=== PATIENT | female | born 1945 | race Caucasian/White ===

== ENCOUNTER 2023-06-19 11:40 | Emergency (ER) | payer MEDICARE, SELFPAY ==
[2023-06-19 11:40] VITALS: BP 182/94; PULSE 92; RESP 18; TEMP 36.9; O2SAT 98; BMI 21.5
[2023-06-19 11:50] VITALS: BP 173/89; PULSE 81; RESP 19
--- NOTE | 2023-06-19 11:51 | ED_ITS ---
HPI - Dizziness General Chief Complaint: Dizziness Stated Complaint: DIZZINESS Time Seen by Provider: 06/19/23 11:44 Source: patient and family Mode of arrival: walk-in Limitations: physical limitation History of Present Illness HPI Narrative: 78-year-old female presents for dizziness. She's had this for more than year. She saw her doctor about it and he put her on some anti-dizzy pills. They seem to help sometimes. No trauma or localized weakness. She doesn't complain to me of a headache. This symptom is intermittent. Related Data Home Medications Medication Instructions Recorded Confirmed albuterol sulfate 90 mcg/actuation 2 puff inhalation Q4H PRN 06/19/23 06/19/23 aerosol inhaler shortness of breath or wheezing alprazolam 0.5 mg tablet 0.5 mg PO .Q6HRS PRN anxiety 06/19/23 06/19/23 levothyroxine 50 mcg tablet 50 mcg PO DAILY 06/19/23 06/19/23 Previous Rx's Medication Instructions Recorded meclizine 25 mg tablet 25 mg PO QID PRN dizziness #30 tabs 06/19/23 Allergies Allergy/AdvReac Type Severity Reaction Status Date / Time No Known Drug Allergies Allergy Verified 06/19/23 11:40 Review of Systems ROS Narrative A ten point review of systems is negative except as noted above. PFSH PFSH Social History Smoking status: Former smoker Exam Narrative Exam Narrative: Nurses note and vital signs reviewed and patient is not hypoxic. General: The patient appears well and in no apparent distress. Patient is resting comfortably on cart. Skin: Warm, dry, no pallor noted. There is no rash noted. Head: Normocephalic, atraumatic Eye: Normal conjunctiva, no drainage Ears, Nose, Mouth, and Throat: oral mucosa is moist. Nares patent. Cardiovascular: Regular Rate and Rhythm Respiratory: Patient is in no distress, no accessory muscle use, lungs are clear to auscultation, no wheezing, rales or rhonchi Back: non-tender GI: no tenderness to palpation, no masses appreciated. No rebound, guarding, or rigidity noted. Musculoskeletal: The patient has no evidence of calf tenderness, no pitting edema, symmetrical pulses noted bilaterally Neurological: A&O x4, normal speech; upper and lower extremity strength five o ut five and symmetric Psychiatric: Cooperative Constitutional Vital Signs, click to edit/add: Last Vital Signs Temp 98.4 F 06/19/23 11:40 Pulse 77 06/19/23 12:04 Resp 22 06/19/23 12:04 BP 173/89 H 06/19/23 11:50 Pulse Ox 97 06/19/23 12:04 O2 Del Method Room Air 06/19/23 11:40 Course Vital Signs Vital signs: Vital Signs Temperature 98.4 F 06/19/23 11:40 Pulse Rate 92 H 06/19/23 11:40 Respiratory Rate 18 06/19/23 11:40 Blood Pressure 182/94 H 06/19/23 11:40 Pulse Oximetry 98 06/19/23 11:40 Oxygen Delivery Method Room Air 06/19/23 11:40 Temperature 98.4 F 06/19/23 11:40 Pulse Rate 77 06/19/23 12:04 Respiratory Rate 22 06/19/23 12:04 Blood Pressure 173/89 H 06/19/23 11:50 Pulse Oximetry 97 06/19/23 12:04 Oxygen Delivery Method Room Air 06/19/23 11:40 MDM - Dizziness MDM Narrative Medical decision making narrative: her workup including CT brain is negative and she'll be discharged home on Antivert. She is to follow-up appointment with her doctor on June 25, in six days. Treatment diagnosis and follow-up were discussed with the patient. Differential Diagnosis Differential diagnosis: Likely benign paroxysmal positional vertigo, orthostatic hypotension and cerebrovascular accident Lab Data Attestation: I reviewed the patient's lab results. Labs: Lab Results 06/19/23 06/19/23 06/19/23 Range/Units 12:09 12:12 12:29 WBC 8.8 (4.0-11.0) 10^3/uL RBC 4.10 L (4.20-5.40) 10^6/uL Hgb 13.2 (12.0-16.0) g/dL Hct 38.8 (36.0-48.0) % MCV 94.6 (81.0-99.0) fL MCH 32.2 (26.7-34.0) pg MCHC 34.0 (29.9-35.2) g/dL RDW 12.4 (11.0-15.0) % Plt Count 207 (150-450) 10^3/uL MPV 9.4 L (9.5-13.5) fL Neut % (Auto) 78.4 H (43.0-75.0) % Lymph % (Auto) 14.6 L (20.5-60.0) % [place] % (Auto) 5.3 (1.7-12.0) % Eos % (Auto) 0.7 L (0.9-7.0) % Baso % (Auto) 0.8 (0.2-2.0) % Neut # (Auto) 6.9 H (1.4-6.5) 10^3/uL Lymph # (Auto) 1.3 (1.2-3.8) 10^3/uL [place] # (Auto) 0.5 (0.3-0.8) 10^3/uL Eos # (Auto) 0.1 (0.0-0.7) 10^3/uL Baso # (Auto) 0.1 (0.0-0.1) 10^3/uL Abs Immat Gran (auto) 0.02 (0.00-0.03) 10^3/uL Imm/Tot Granulo (auto) 0.2 (0.0-0.5) % Sodium 132 L (136-145) mmol/L Potassium 3.6 (3.5-5.1) mmol/L Chloride 98 (98-107) mmol/L Carbon Dioxide 25.9 (21.0-32.0) mmol/L Anion Gap 11.7 BUN 16.0 (7.0-18.0) mg/dL Creatinine 1.02 (0.55-1.02) mg/dL Est GFR ( Amer) >60 (>=60) Est GFR (Non-Af Amer) 52 L (>=60) BUN/Creatinine Ratio 15.7 Glucose 103 (74-106) mg/dL Calcium 9.2 (8.5-10.1) mg/dL Urine Color Lt. yellow (YELLOW) Urine Clarity Clear (CLEAR) Urine pH 6.0 (5.0-9.0) Ur Specific [place] <=1.005 A (1.005-1.025) Urine Protein Negative (NEG/TRACE) mg/dL Urine Glucose (UA) Negative (NEGATIVE) mg/dL Urine Ketones Negative (NEGATIVE) mg/dL Urine Occult Blood Trace-i (NEGATIVE) Urine Nitrite Negative (NEGATIVE) Urine Bilirubin Negative (NEGATIVE) Urine Urobilinogen 0.2 (0.2-1.0) EU/dL Ur Leukocyte Esterase Trace A (NEGATIVE) Urine RBC 0-2 (0-2) #/HPF Urine WBC 0-2 A (NONE SEEN) #/HPF Ur Squamous Epith Cells Few A (NONE/RARE) #/LPF Urine Bacteria None seen (NONE SEEN) #/HPF Urine Mucus None seen (NONE SEEN) SARS-CoV-2 (PCR) Negative (NEGATIVE) Imaging Data CT scan - head: Radiologist's impression: Procedure: CT head/brain wo con EXAMINATION: CT head/brain wo con, 06/19/2023 11:55 AM EST HISTORY: dizziness for more than a year COMPARISON: None. TECHNIQUE: CT scan of the head was performed without IV contrast. CT dose reduction technique was used, including Automated Exposure Control. FINDINGS: BRAIN: Mild to moderate supratentorial atrophy. Moderate white matter hypoattenuation, chronic small vessel ischemic changes are favored. No acute parenchymal hemorrhage or mass CSF SPACES: Mild lateral ventriculomegaly SKULL: No fracture, mass, or other significant visible lesion. SINUSES: No significant mucosal thickening or fluid on the limited views. ORBITS: No appreciable abnormality on the limited views. OTHER: Negative IMPRESSION: Atrophy and white matter disease. Chronic changes are favored Electronically authenticated by: TAMMY DANG Date: 06/19/2023 12:14 Discharge Plan Discharge Chief Complaint: Dizziness Clinical Impression: Vertigo Patient Disposition: Home, Self-Care Time of Disposition Decision: 13:11 Condition: Good Mode of Transportation: Private Vehicle Prescriptions / Home Meds: New meclizine 25 mg tablet 25 mg PO QID PRN (Reason: dizziness) Qty: 30 0RF No Action albuterol sulfate 90 mcg/actuation HFA aerosol inhaler 2 puff INHALATION Q4H PRN (Reason: shortness of breath or wheezing) alprazolam 0.5 mg tablet 0.5 mg PO .Q6HRS PRN (Reason: anxiety) levothyroxine 50 mcg tablet 50 mcg PO DAILY Instructions: Vertigo (ED) Stand Alone Forms: Portal Instructions Referrals: DENTON ASCENCIO [Primary Care Provider] - 1 week
--- NOTE | 2023-06-19 11:51 | ECG_ITS ---
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
--- NOTE | 2023-06-19 11:51 | CT_ITS ---
The [address] [address] Patient Name: TRACY GREEN MRN: [id number] date: 1945 Sex: F Assigned Patient Location: ER Current Patient Location: ER Accession/Order Number: [id number] Exam Date: 06/19/2023 11:55 Report Date: 06/19/2023 12:14 At the request of: NICOLE MCGEE Procedure: CT head/brain wo con EXAMINATION: CT head/brain wo con, 06/19/2023 11:55 AM EST HISTORY: dizziness for more than a year COMPARISON: None. TECHNIQUE: CT scan of the head was performed without IV contrast. CT dose reduction technique was used, including Automated Exposure Control. FINDINGS: BRAIN: Mild to moderate supratentorial atrophy. Moderate white matter hypoattenuation, chronic small vessel ischemic changes are favored. No acute parenchymal hemorrhage or mass CSF SPACES: Mild lateral ventriculomegaly SKULL: No fracture, mass, or other significant visible lesion. SINUSES: No significant mucosal thickening or fluid on the limited views. ORBITS: No appreciable abnormality on the limited views. OTHER: Negative CT/CT head/brain wo con IMPRESSION: Atrophy and white matter disease. Chronic changes are favored Electronically authenticated by: TAMMY DANG Date: 06/19/2023 12:14
[2023-06-19 12:04] VITALS: PULSE 77; RESP 22; O2SAT 97
[2023-06-19 12:24] LABS: Anion Gap 11.7; BUN Creatinine Ratio 15.7; Calcium 9.2 mg/dL (8.5-10.1); Carbon Dioxide 25.9 mmol/L (21.0-32.0); Chloride 98 mmol/L (98-107); Estimated GFR (African America >60 (>=60); Estimated GFR (Non-African Ame 52 (>=60); Glucose 103 mg/dL (74-106); Potassium 3.6 mmol/L (3.5-5.1); Sodium 132 mmol/L (136-145)
[2023-06-19 12:28] LABS: Basophils Absolute Auto 0.1 10^3/uL (0.0-0.1); Basophils Percent Auto 0.8 % (0.2-2.0); Eosinophils Absolute Auto 0.1 10^3/uL (0.0-0.7); Eosinophils Percent Auto 0.7 % (0.9-7.0); Hematocrit 38.8 % (36.0-48.0); Hemoglobin 13.2 g/dL (12.0-16.0); Immature Granulocytes Abs Auto 0.02 10^3/uL (0.00-0.03); Immature Granulocytes Pct Auto 0.2 % (0.0-0.5); Lymphocytes Absolute Auto 1.3 10^3/uL (1.2-3.8); Lymphocytes Percent Auto 14.6 % (20.5-60.0); Mean Corpuscular Hemoglobin 32.2 pg (26.7-34.0); Mean Corpuscular Volume 94.6 fL (81.0-99.0); Mean Platelet Volume 9.4 fL (9.5-13.5); Monocytes Absolute Auto 0.5 10^3/uL (0.3-0.8); Monocytes Percent Auto 5.3 % (1.7-12.0); Neutrophils Absolute Auto 6.9 10^3/uL (1.4-6.5); Neutrophils Percent Auto 78.4 % (43.0-75.0); Platelet Count 207 10^3/uL (150-450); Red Cell Distribution Width 12.4 % (11.0-15.0); White Blood Count 8.8 10^3/uL (4.0-11.0)
[2023-06-19 12:43] LABS: SARS-CoV-2 Ag NEGATIVE (NEGATIVE)
[2023-06-19 12:45] LABS: Bilirubin Urine NEGATIVE (NEGATIVE); Blood Urine TRACE-I (NEGATIVE); Clarity Urine CLEAR (CLEAR); Color Urine LT. YELLOW (YELLOW); Glucose Urine UA NEGATIVE (NEGATIVE); Ketones Urine NEGATIVE (NEGATIVE); Leukocyte Esterase Urine TRACE (NEGATIVE); Nitrite Urine NEGATIVE (NEGATIVE); Protein Urine NEGATIVE (NEG/TRACE); Specific Gravity Urine <=1.005 (1.005-1.025); Urobilinogen Urine 0.2 EU/dL (0.2-1.0)
[2023-06-19 13:03] LABS: Bacteria Urine NONE SEEN #/HPF (NONE SEEN); Mucus Urine NONE SEEN (NONE SEEN); RBC Urine 0-2 #/HPF (0-2); Squamous Epithelial Cell Urine FEW #/LPF (NONE/RARE); WBC Urine 0-2 #/HPF (NONE SEEN)
== END 2023-06-19 13:25 | disposition home or self-care (01) ==
PROVIDERS: Emergency Provider Emergency Medicine; PCP Internal Medicine
DX: R42 Dizziness and giddiness (principal); Z79.899 Other long term (current) drug therapy; Z79.890 Hormone replacement therapy; Z87.891 Personal history of nicotine dependence; Z20.822 Contact with and (suspected) exposure to COVID-19
CPT/HCPCS: 36415; 70450; 80048; 81001; 85025; 87635; 87811; 93005; 99285

== ENCOUNTER 2023-07-18 12:35 | Observation (INO) | payer MEDICARE, SELFPAY ==
[2023-07-18] VITALS (20 sets, daily range): BP systolic 132–181; BP diastolic 51–100; PULSE 73–93; RESP 16–23; TEMP 36.4–37; O2SAT 92–97; BMI 29.5; BMI 22.6
--- NOTE | 2023-07-18 | CT_ITS ---
The [address] [address] Patient Name: TRACY GREEN MRN: [id number] date: 1945 Sex: F Assigned Patient Location: ER Current Patient Location: .[facility] Accession/Order Number: [id number] Exam Date: 07/18/2023 12:35 Report Date: 07/18/2023 13:41 At the request of: CHATA COPE Procedure: CT cervical spine wo con EXAMINATION: CT cervical spine wo con HISTORY: fall 2 days ago, dizziness COMPARISON: No relevant comparison available. TECHNIQUE: Axial, Coronal, and Sagittal images were created without IV contrast. Dose reduction techniques were achieved by using automated exposure control and/or adjustment of mA and/or kV according to patient size and/or use of iterative reconstruction technique. FINDINGS: VERTEBRAL BODIES: Mild reversal normal lordotic curvature involving C2-C5. Minimal grade 1 anterolisthesis of C3 on 4. No fracture. FACET JOINTS: Marked degenerative facet arthropathy on the left at C3-4 and C7-T1. Multilevel moderate degenerative facet arthropathy. No disruption or abnormal widening. DISCS: Marked narrowing C3-4. Moderate narrowing C5-6, C6-7. Posterior disc osteophyte complexes at these 3 levels appear to cause moderate central canal and mild bilateral foramen narrowing. CENTRAL CANAL: No evidence of hemorrhage. PARASPINAL AREA: No visible mass. CT/CT cervical spine wo con IMPRESSION: 1. No appreciable acute abnormality. 2. Moderate-marked degenerative changes of cervical spine. Electronically authenticated by: LEANDRO LINDER Date: 07/18/2023 13:41
--- NOTE | 2023-07-18 | CT_ITS ---
The [address] [address] Patient Name: TRACY GREEN MRN: [id number] date: 1945 Sex: F Assigned Patient Location: ER Current Patient Location: ED.MAIN Accession/Order Number: [id number] Exam Date: 07/18/2023 12:35 Report Date: 07/18/2023 13:01 At the request of: CHATA COPE Procedure: CT stroke head/brain wo con EXAMINATION: CT stroke head/brain wo con HISTORY: dizziness ; fell 2 days ago COMPARISON: No relevant comparison available. TECHNIQUE: Axial CT images were obtained without IV contrast. Dose reduction techniques were achieved by using automated exposure control and/or adjustment of mA and/or kV according to patient size and/or use of iterative reconstruction technique. FINDINGS: BRAIN: No edema, hemorrhage, mass, acute infarction, or inappropriate atrophy. CSF SPACES: No hydrocephalus, subarachnoid hemorrhage, or mass. Appropriate for age. SKULL: No fracture, mass, or other significant visible lesion. SINUSES: No significant mucosal thickening or fluid on the limited views. ORBITS: No appreciable abnormality on the limited views. OTHER: Negative CT/CT stroke head/brain wo con IMPRESSION: 1. No intracranial hemorrhage or appreciable acute abnormality. 2. Age consistent chronic changes. Patient is within the hospital. Ordering provider is being contacted with stat results. Electronically authenticated by: LEANDRO LINDER Date: 07/18/2023 13:01
--- OUTSIDE RECORDS SUMMARY | 2023-07-18 12:55 | XMS_ITS | CCD ---
Author Name Unknown Address [address] [place] [address] Organization [facility] Care Team Providers Care Waste Elimination Name Role Phone REQUEST, NONE LISTED Admitting Unavailable ISAIAH GU Consulting Unavailable REQUEST, NONE LISTED Attending Unavailable DENTON ASCENCIO Attending Unavailable HEATHER CRAVEN Attending Unavailable DENTON ASCENCIO Referring Unavailable HEATHER CRAVEN Attending Unavailable DENTON ASCENCIO Referring Unavailable Allergies Allergy Classification Reported Allergen(s) Allergy Type Date of Onset Reaction(s) Facility (1 source) venlafaxine Drug Allergy 08-26-2013 The [facility] Repository Results Test Name Value Interpretation Reference Range Facil ity Consent for COVID Vaccineon 09-02-2020 SARS-CoV-2 (COVID-19) RNA VIKRAM+probe Ql (Unsp spec) [id number] 0#1.00CD:127 [facility] Consent for Treatmenton 08-15 Consent for Treatment [id number] 7#1.00CD:127 [facility] Coding Summary.on 08-31-2020 Coding Summary. CODING DATE: 08/31/2020 FINAL [facility] STATUS: PAYOR: Medicare APC DESCRIPTION [employer] - Level 1B ($11-$20) ADMIT DX: REASON FOR VISIT DX: Z23 Encounter for immunization FINAL DX: PRINCIPAL: Z23 Encounter for immunization SECONDARY: PYMT PROC APC STAT DESCRIPTION DOCTOR NAME DATE NOTE: The code number assigned matches the documented diagnosis and / or procedure in the patient's chart. However, the narrative phrase printed from the coding software may appear abbreviated, or result in slightly different terminology. Coded By: Breanne Contreras CphT Date Saved: 08/31/2020 08:06 am [facility] Encounters Encounter Date Encounter Type Care Provider Facility Start: 07-16-2023 End: 07-16-2023 ambulatory HEATHER CRAVEN Not Available Start: 07-11-2023 End: 07-11-2023 ambulatory HEATHER CRAVEN Not Available Start: 06-25-2023 End: 06-25-2023 ambulatory DENTON ASCENCIO Not Available Start: 07-24-2020 End: 07-25-2020 Patient encounter procedure NONE LISTED REQUEST Facility: Payers Date Payer Category Payer Medicare [id number] 1960 Self-pay 1945 Unknown [id number] 1945 Unknown [id number] 1945 Unknown [id number] [id number] [id number] Unknown [id number] 2.16.84 [id number] Summary Purpose Family History No Family History Records FoundNo Family History Records FoundNo Family History Records Found Advance Directives No Advanced Directives Records FoundNo Advanced Directives Records FoundNo Advanced Directives Records Found Additional Source Comments INFORMATION SOURCE (unrecogn ized section and content) DATE CREATED AUTHOR 07/22/2020 [facility] DATE CREATED AUTHOR AUTHOR'S ORGANIZ ATION 11/25/2020 [facility] DATE CREATED AUTHOR AUTHOR'S ORGANIZ ATION 07/17/2023 [facility] PSYCHIATRIC FOR RECORDS PERTAINING TO PATIENTS WHO ARE OR HAVE BEEN ENROLLED IN A CHEMICAL DEPENDENCY/SUBSTANCEABUSE PROGRAM, SOME INFORMATION MAY BE OMITTED. This clinical summary was aggregated from multiple sources. Caution should be exercised in using it in the provision of clinical care. This summary normalizes information from multiple sources, and as a consequence, information in this document may materially change the coding, format and clinical context of patient data. In addition, data may be omitted in some cases. CLINICAL DECISIONS SHOULD BE BASED ON THE PRIMARY CLINICAL RECORDS. [facility] [employer] provides no warranty or guarantee of the accuracy or completeness of information in this document.
--- NOTE | 2023-07-18 12:57 | ED_ITS ---
HPI - Dizziness General Chief Complaint: Dizziness Stated Complaint: FALL Time Seen by Provider: 07/18/23 12:57 Source: patient Mode of arrival: ambulance Limitations: no limitations History of Present Illness HPI Narrative: This patient arrived by squad after falling twice today at home. The helped her up the first time but the second time she could not get up. She describes a chronic condition is being treated by her primary care doctor of dizziness. She said it started today when she went to get out of bed lost her balance and fell forward. Then it recurred again. She fell backwards and hit her head and neck area. Therefore she was taken directly to CT imaging on arrival here by EMS. She was not confused according to the paramedics she was awake and alert and a very good historian to myself actually. She says she is already on meclizine and she has been going to physical therapy trying to get her dizziness straightened out. She also has wax in her left ear that they have not been able to remove. She does not have any double vision loss of vision she is not confused she was seen immediately on arrival here. Her vital signs are noted with mild elevation of her systolic blood pressure. Related Data Home Medications Medication Instructions Recorded Confirmed albuterol sulfate 90 mcg/actuation 2 puff inhalation Q4H PRN 06/19/23 06/19/23 aerosol inhaler shortness of breath or wheezing alprazolam 0.5 mg tablet 0.5 mg PO .Q6HRS PRN anxiety 06/19/23 06/19/23 levothyroxine 50 mcg tablet 50 mcg PO DAILY 06/19/23 06/19/23 Previous Rx's Medication Instructions Recorded meclizine 25 mg tablet 25 mg PO QID PRN dizziness #30 tabs 06/19/23 Allergies Allergy/AdvReac Type Severity Reaction Status Date / Time No Known Drug Allergies Allergy Verified 06/19/23 11:40 [facility] Social History Smoking status: Current every day smoker Exam Narrative Exam Narrative: She was seen when she returned from CT. She is awake alert oriented x 3 cognition and mental status are normal she is not repeating herself she is not confused there is no evidence of amnesia or loss of conscious. She has no paresis paresthesias tingling or numbness to the extremities. Her neurological examination showed good strength in the upper and lower limbs. She does not have any bony tenderness over the joints of the lower limb or the upper extremities. Slightly tender over the right lateral chest area. There is no abrasions contusions or hematomas. Examination HEENT shows no craniofacial trauma or injury. Her right TM is normal but the left TM is occluded through a large amount of wax on the left side. Oral cavity is essentially normal. Ribs in the anterior sternum area are normal. There is no bony tenderness over the cervical spine. Constitutional Vital Signs, click to edit/add: Last Vital Signs Temp 98.0 F 07/18/23 12:40 Pulse 88 07/18/23 14:01 Resp 23 07/18/23 14:01 BP 162/96 H 07/18/23 14:01 Pulse Ox 97 07/18/23 14:17 O2 Del Method Room Air 07/18/23 14:17 Course Vital Signs Vital signs: Vital Signs Temperature 98.0 F 07/18/23 12:40 Pulse Rate 93 H 07/18/23 12:40 Respiratory Rate 18 07/18/23 12:40 Blood Pressure 176/85 H 07/18/23 12:40 Pulse Oximetry 96 07/18/23 12:40 Oxygen Delivery Method Room Air 07/18/23 12:40 Temperature 98.0 F 07/18/23 12:40 Pulse Rate 88 07/18/23 14:01 Respiratory Rate 23 07/18/23 14:01 Blood Pressure 162/96 H 07/18/23 14:01 Pulse Oximetry 97 07/18/23 14:17 Oxygen Delivery Method Room Air 07/18/23 14:17 MDM - Dizziness MDM Narrative Medical decision making narrative: We tried to ambulate this patient with nursing assistance however she is extremely vertiginous when we stand her up. She certainly is not capable of ambulating at all. I did discuss this with the hospitalist. I then also irrigated the ear and removed a very large earwax plug. She had episcopal of her hearing on that left side. After that we try to ambulate her again but we still encounter the same problems. Her urine does not show any evidence of infection. Her vital signs are stable but again she has a severe vertigo problem. Her primary care doctor is not in the office to arrange any type of follow-up with specialist such as Mr. Jamie aragon. We will recontact the hospitalist as I believe she has an extreme fall risk for going home Lab Data Labs: Lab Results 07/18/23 Range/Units 12:50 WBC 10.7 (4.0-11.0) 10^3/uL RBC 4.18 L (4.20-5.40) 10^6/uL Hgb 13.2 (12.0-16.0) g/dL Hct 38.9 (36.0-48.0) % MCV 93.1 (81.0-99.0) fL MCH 31.6 (26.7-34.0) pg MCHC 33.9 (29.9-35.2) g/dL RDW 12.5 (11.0-15.0) % Plt Count 221 (150-450) 10^3/uL MPV 9.6 (9.5-13.5) fL Neut % (Auto) 78.8 H (43.0-75.0) % Lymph % (Auto) 14.4 L (20.5-60.0) % [place] % (Auto) 4.8 (1.7-12.0) % Eos % (Auto) 0.8 L (0.9-7.0) % Baso % (Auto) 0.7 (0.2-2.0) % Neut # (Auto) 8.4 H (1.4-6.5) 10^3/uL Lymph # (Auto) 1.6 (1.2-3.8) 10^3/uL [place] # (Auto) 0.5 (0.3-0.8) 10^3/uL Eos # (Auto) 0.1 (0.0-0.7) 10^3/uL Baso # (Auto) 0.1 (0.0-0.1) 10^3/uL Abs Immat Gran (auto) 0.05 H (0.00-0.03) 10^3/uL Imm/Tot Granulo (auto) 0.5 (0.0-0.5) % Sodium 135 L (136-145) mmol/L Potassium 4.7 (3.5-5.1) mmol/L Chloride 103 (98-107) mmol/L Carbon Dioxide 24.5 (21.0-32.0) mmol/L Anion Gap 12.2 BUN 16.0 (7.0-18.0) mg/dL Creatinine 0.78 (0.55-1.02) mg/dL Est GFR ( Amer) >60 (>=60) Est GFR (Non-Af Amer) >60 (>=60) BUN/Creatinine Ratio 20.5 Glucose 95 (74-106) mg/dL Lactate 1.2 (0.4-2.0) mmol/L Calcium 8.8 (8.5-10.1) mg/dL Total Bilirubin 0.5 (0.2-1.0) mg/dL AST 36 (15-37) U/L ALT 32 (14-59) U/L Alkaline Phosphatase 61 (46-116) U/L Troponin I High Sens 9.2 (4.0-51.3) pg/mL Total Protein 7.4 (6.4-8.2) g/dL Albumin 3.4 (3.4-5.0) g/dL Globulin 4.0 g/dL Albumin/Globulin Ratio 0.9 Urine Color Lt. yellow (YELLOW) Urine Clarity Clear (CLEAR) Urine pH 7.0 (5.0-9.0) Ur Specific [place] 1.010 (1.005-1.025) Urine Protein Negative (NEG/TRACE) mg/dL Urine Glucose (UA) Negative (NEGATIVE) mg/dL Urine Ketones Negative (NEGATIVE) mg/dL Urine Occult Blood Small A (NEGATIVE) Urine Nitrite Negative (NEGATIVE) Urine Bilirubin Negative (NEGATIVE) Urine Urobilinogen 0.2 (0.2-1.0) EU/dL Ur Leukocyte Esterase Trace A (NEGATIVE) Urine RBC 0-2 (0-2) #/HPF Urine WBC 0-2 A (NONE SEEN) #/HPF Ur Squamous Epith Cells Few A (NONE/RARE) #/LPF Urine Crystals Not Reportable Urine Bacteria None seen (NONE SEEN) #/HPF Urine Casts Not Reportable Urine Mucus None seen (NONE SEEN) Ur Culture Indicated? No Discharge Plan Discharge Chief Complaint: Dizziness Clinical Impression: Vertigo Patient Disposition: Admitted as Observation Time of Disposition Decision: 15:32 Prescriptions / Home Meds: No Action albuterol sulfate 90 mcg/actuation HFA aerosol inhaler 2 puff INHALATION Q4H PRN (Reason: shortness of breath or wheezing) alprazolam 0.5 mg tablet 0.5 mg PO .Q6HRS PRN (Reason: anxiety) levothyroxine 50 mcg tablet 50 mcg PO DAILY meclizine 25 mg tablet 25 mg PO QID PRN (Reason: dizziness) Qty: 30 0RF Referrals: DENTON ASCENCIO [Primary Care Provider] - 1 week
--- NOTE | 2023-07-18 13:04 | ECG_ITS ---
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
[2023-07-18 13:21] LABS: Basophils Absolute Auto 0.1 10^3/uL (0.0-0.1); Basophils Percent Auto 0.7 % (0.2-2.0); Eosinophils Absolute Auto 0.1 10^3/uL (0.0-0.7); Eosinophils Percent Auto 0.8 % (0.9-7.0); Hematocrit 38.9 % (36.0-48.0); Hemoglobin 13.2 g/dL (12.0-16.0); Immature Granulocytes Abs Auto 0.05 10^3/uL (0.00-0.03); Immature Granulocytes Pct Auto 0.5 % (0.0-0.5); Lymphocytes Absolute Auto 1.6 10^3/uL (1.2-3.8); Lymphocytes Percent Auto 14.4 % (20.5-60.0); Mean Corpuscular HGB Conc 33.9 g/dL (29.9-35.2); Mean Corpuscular Hemoglobin 31.6 pg (26.7-34.0); Mean Corpuscular Volume 93.1 fL (81.0-99.0); Mean Platelet Volume 9.6 fL (9.5-13.5); Monocytes Absolute Auto 0.5 10^3/uL (0.3-0.8); Monocytes Percent Auto 4.8 % (1.7-12.0); Neutrophils Absolute Auto 8.4 10^3/uL (1.4-6.5); Neutrophils Percent Auto 78.8 % (43.0-75.0); Platelet Count 221 10^3/uL (150-450); Red Blood Count 4.18 10^6/uL (4.20-5.40); Red Cell Distribution Width 12.5 % (11.0-15.0); White Blood Count 10.7 10^3/uL (4.0-11.0)
[2023-07-18 13:22] LABS: Bilirubin Urine NEGATIVE (NEGATIVE); Blood Urine SMALL (NEGATIVE); Clarity Urine CLEAR (CLEAR); Color Urine LT. YELLOW (YELLOW); Glucose Urine UA NEGATIVE (NEGATIVE); Ketones Urine NEGATIVE (NEGATIVE); Leukocyte Esterase Urine TRACE (NEGATIVE); Nitrite Urine NEGATIVE (NEGATIVE); Protein Urine NEGATIVE (NEG/TRACE); Urobilinogen Urine 0.2 EU/dL (0.2-1.0)
[2023-07-18] MEDS: 0.9 % SODIUM CHLORIDE 1,000 ML 100 ML IV ×2 (13:27→21:02)
[2023-07-18 13:30] LABS: Urine Microscopic Indicated YES
[2023-07-18 13:31] LABS: Alanine Aminotransferase 32 U/L (14-59); Albumin Globulin Ratio 0.9; Albumin Level 3.4 g/dL (3.4-5.0); Alkaline Phosphatase 61 U/L (46-116); Anion Gap 12.2; Aspartate Amino Transferase 36 U/L (15-37); BUN Creatinine Ratio 20.5; Bilirubin Total 0.5 mg/dL (0.2-1.0); Calcium 8.8 mg/dL (8.5-10.1); Carbon Dioxide 24.5 mmol/L (21.0-32.0); Chloride 103 mmol/L (98-107); Estimated GFR (African America >60 (>=60); Estimated GFR (Non-African Ame >60 (>=60); Glucose 95 mg/dL (74-106); Potassium 4.7 mmol/L (3.5-5.1); Sodium 135 mmol/L (136-145); Total Protein 7.4 g/dL (6.4-8.2)
[2023-07-18 13:32] LABS: Troponin I High Sensitivity 9.2 pg/mL (4.0-51.3)
[2023-07-18 13:33] LABS: Lactate/Lactic Acid 1.2 mmol/L (0.4-2.0)
[2023-07-18 13:57] LABS: Bacteria Urine NONE SEEN #/HPF (NONE SEEN); Mucus Urine NONE SEEN (NONE SEEN); RBC Urine 0-2 #/HPF (0-2); Squamous Epithelial Cell Urine FEW #/LPF (NONE/RARE); WBC Urine 0-2 #/HPF (NONE SEEN)
[2023-07-18 13:58] LABS: Urine Culture Indicated NO
[2023-07-18] MEDS: MECLIZINE HCL 12.5 MG TABLET 25 MG PO ×2 (15:52→21:02)
--- NOTE | 2023-07-18 16:25 | P.HP_ITS ---
<Statement entered by Nhung Hammond, DO - 08/01/23 19:16> This documentation has been reviewed and approved. I have also seen and evaluated patient at the time of H&P. I agree with the above findings. H&P: HPI History of Present Illness Chief complaint: FALL VERTIGO Narrative: This is a 78-year-old female patient with a past medical history as outlined below, significant for longstanding vertigo. The patient has suffered with vertigo since she was a young woman but it has been more intense over the last 15 years. She recently went back on meclizine as prescribed by her PCP and she was referred to physical therapy for vestibular therapy. She has gone to 2 vestibular therapy sessions without much improvement. Her vertigo was quite severe this morning and she fell twice while trying to ambulate, the second time while using a walker as she fell backwards. She struck her chest and her head on those 2 falls. She was brought to the ED for further evaluation. Workup in the ED was mostly unremarkable. She was noted to have hypertension (176/85). No significant abnormalities on labs. CT of the brain and neck were negative for acute abnormality. She was found to have a large left earwax impaction which was removed and she was given IVFs. Unfortunately the pt was still unable to stand and ambulate independently d/t severe dizziness when upright. She is being admitted for uncontrolled BPPV & frequent falls to the hospitalist service in observation. At the time of my exam the pt is resting in bed comfortably. She is a poor historian d/t significant anxiety and subsequent poor concentration. She is A&O x 3. She denies dizziness while laying down. She reports standing and head movement usually trigger her vertigo episodes. She has just started taking meclizine again, but usually only takes it once or twice daily. It does not make her sleepy. She has attended two vestibular therapy appointments but does not feel they are helping me much . On further conversation with the pt and family, the pt suffers from significant anxiety and, in fact, has hardly left her house except for medical appointments in the last four years. She admits that she doesn't really want to go to her VT appointments because she has to leave the house. She was encouraged to discuss her possible agoraphobia with her PCP. We will trial IVP steroids and flonase in an attempt to reduce inflammation that may be contributing to her vertigo symptoms. We will also schedule her meclizine doses for the next 24 hrs in an attempt to control her vertigo. Review of Systems ROS Status of ROS 10 or more systems reviewed and unremark able except as noted in history and below [facility] Medical History (Updated 07/18/23 @ 17:30 by Hodan Hatfield NP) Hypothyroidism ?E03.9 - Hypothyroidism, unspecified (ICD-10) Anxiety ?F41.9 - Anxiety disorder, unspecified (ICD-10) COPD (chronic obstructive pulmonary disease) ?J44.9 - Chronic obstructive pulmonary disease, unspecified (ICD-10) Family History (Updated 07/18/23 @ 17:15 by Edith Matamoros) Brother Family history of myocardial infarction Sister No problems noted. Mother Family history of cancer Aunt Family history of cancer Daughter Family history of hypertension Social History Smoking status: Current every day smoker Meds Home Medications and Allergies Home Medications Medication Instructions Recorded Confirmed Type albuterol sulfate 90 mcg/actuation 2 puff inhalation Q4H PRN 06/19/23 07/18/23 History aerosol inhaler shortness of breath or wheezing alprazolam 0.5 mg tablet 0.5 mg PO .Q6HRS PRN anxiety 06/19/23 07/18/23 History levothyroxine 50 mcg tablet 50 mcg PO DAILY 06/19/23 07/18/23 History meclizine 25 mg tablet 25 mg PO QID PRN dizziness #30 tabs 06/19/23 07/18/23 Rx Allergies Allergy/AdvReac Type Severity Reaction Status Date / Time No Known Drug Allergies Allergy Verified 06/19/23 11:40 Exam Constitutional Vital Signs, click to edit/add: Last Vital Signs Temp 98.0 F 07/18/23 12:40 Pulse 90 07/18/23 15:23 Resp 20 07/18/23 15:23 BP 173/84 H 07/18/23 15:30 Pulse Ox 97 07/18/23 14:17 O2 Del Method Room Air 07/18/23 14:17 Common normals: no apparent distress, oriented x3, alert and well nourished General appearance: cooperative Orientation/consciousness: Yes awake HENMT Common normals: normocephalic, head/scalp atraumatic, hearing grossly normal bilaterally, external nose normal and moist oral mucous membranes Eye Common normals: PERRL, EOMs intact bilaterally, conjunctivae normal and no scleral icterus Alignment: alignment normal Eyelid: eyelids normal Chest Common normals: inspection of chest normal; palpation of chest abnormal (Tender right rib cage ) Chest: symmetrical chest wall rise Respiratory Common normals: normal respiratory effort, no retractions, no use of accessory muscles and clear to auscultation bilaterally Cardio Common normals: no JVD, regular rate, regular rhythm, S1 normal heart sound, S2 normal heart sound, no gallops, no clicks, no murmurs, no rub and peripheral pulses 2+ throughout Peripheral pulses: pulses 2+ throughout GI Common normals: Normal to inspection, nondistended, normoactive bowel sounds present, soft to palpation, non-tender, no hepatosplenomegaly, no masses and no bruits Bladder/kidney exam: bladder normal to palpation Extremity Common normals: normal capillary refill and no pedal edema General: normal exam except as noted; no clubbing and no cyanosis Neuro [place] Coma Scale: GCS not evaluated Common normals: CN's II-XII intact bilaterally, moves all extremities, no focal motor deficits and no sensory deficits noted Cranial nerves: other (No nystagmus) Speech: speech normal Motor exam: strength 5/5 throughout Psych Common normals: mental status grossly normal, thought process normal, affect normal and activity/motor behavior normal Results Labs Labs: Short CBC 07/18/23 Range/Units 12:50 WBC 10.7 (4.0-11.0) 10^3/uL Hgb 13.2 (12.0-16.0) g/dL Hct 38.9 (36.0-48.0) % Plt Count 221 (150-450) 10^3/uL BMP 07/18/23 12:50 Sodium 135 L Potassium 4.7 Chloride 103 Carbon Dioxide 24.5 BUN 16.0 Creatinine 0.78 Glucose 95 Calcium 8.8 Liver Function 07/18/23 Range/Units 12:50 Total Bilirubin 0.5 (0.2-1.0) mg/dL AST 36 (15-37) U/L ALT 32 (14-59) U/L Alkaline Phosphatase 61 (46-116) U/L Albumin 3.4 (3.4-5.0) g/dL Urine 07/18/23 Range/Units 12:50 Urine Color Lt. yellow (YELLOW) Urine Clarity Clear (CLEAR) Urine pH 7.0 (5.0-9.0) Ur Specific [place] 1.010 (1.005-1.025) Urine Protein Negative (NEG/TRACE) mg/dL Urine Glucose (UA) Negative (NEGATIVE) mg/dL Pulse Oximetry Attestation: I have reviewed the pertinent pulse oximetry results. Imaging CT scan - head: Attestation: I have reviewed the pertinent imaging results. Radiologist's impression: IMPRESSION: 1. No intracranial hemorrhage or appreciable acute abnormality. 2. Age consistent chronic changes. Patient is within the hospital. Ordering provider is being contacted with stat results. CT cervical spine: Attestation: I have reviewed the pertinent imaging results. Radiologist's impression: IMPRESSION: 1. No appreciable acute abnormality. 2. Moderate-marked degenerative changes of cervical spine. Assessment and Plan Assessment and Plan (1) Vertigo: Assessment and Plan: ACUTE ON CHRONIC * Adm observation * Meclizine QID scheduled * Trial high dose steroids to see if reducing inflammation improves her symptoms * Flonase BID * Ambulate with a walker and SBA at all times (2) Frequent falls: Assessment and Plan: ACUTE * CT head/neck - neg * Obtain rib/chest XRs to r/o fracture as she has fallen on her side and has pain * IVP Toradol for pain * Ambulate with a walker at all times * PT consult (3) Hypertension: Assessment and Plan: ACUTE * No hx of HTN and elevated BP in the ED may reflect anxiety and pain * Hydralazine IVP PRN * Consider adding PO HTN meds pending clinical course (4) COPD (chronic obstructive pulmonary disease): Assessment and Plan: CHRONIC * Continue home albuterol HFA inhaler PRN (5) Anxiety: Assessment and Plan: CHRONIC * Continue home Xanax PRN * Follow up w/ PCP to discuss agoraphobia specifically. Consider Psychiatry consult (6) Hypothyroidism: Assessment and Plan: CHRONIC * Continue home levothyroxine * Check TSH w/ reflex T4 in AM
--- OUTSIDE RECORDS SUMMARY | 2023-07-18 16:29 | XMS_ITS | CCD ---
Author Name Unknown Address [address] [place] [id number] Organization [facility] Care Team Providers Care Credit Balance Specialist Name Role Phone REQUEST, NONE LISTED Admitting Unavailable ISAIAH GU Consulting Unavailable REQUEST, NONE LISTED Attending Unavailable DENTON ASCENCIO Attending Unavailable HEATHER CRAVEN Attending Unavailable DENTON ASCENCIO Referring Unavailable HEATHER CRAVEN Attending Unavailable DENTON ASCENCIO Referring Unavailable Allergies Allergy Classification Reported Allergen(s) Allergy Type Date of Onset Reaction(s) Facility (1 source) venlafaxine Drug Allergy 08-26-2013 [facility] Repository Results Test Name Value Interpretation Reference Range Facil ity Consent for COVID Vaccineon 09-02-2020 SARS-CoV-2 (COVID-19) RNA VIKRAM+probe Ql (Unsp spec) [id number] 0#1.00CD:127 [facility] Consent for Treatmenton 08-15 Consent for Treatment [id number] 7#1.00CD:127 [facility] Coding Summary.on 08-31-2020 Coding Summary. CODING DATE: 08/31/2020 FINAL [facility] STATUS: PAYOR: Medicare APC DESCRIPTION 1492 New [...] Contreras CphT Date Saved: 08/31/2020 08:06 am [facility] Encounters Encounter Date Encounter Type Care Provider Facility Start: 07-16-2023 End: 07-16-2023 ambulatory HEATHER CRAVEN Not Available Start: 07-11-2023 End: 07-11-2023 ambulatory HEATHER CRAVEN Not Available Start: 06-25-2023 End: 06-25-2023 ambulatory DENTON ASCENCIO Not Available Start: 07-24-2020 End: 07-25-2020 Patient encounter procedure NONE LISTED REQUEST Facility: Payers Date Payer Category Payer Medicare [id number] 1960 Self-pay 1945 Unknown [id number] 1945 Unknown [id number] 1945 Unknown [id number] [id number] [id number] Unknown [id number] 2.16.84 [id number] Summary Purpose Family History No Family History Records FoundNo Family History Records FoundNo Family History Records Found Advance Directives No Advanced Directives Records FoundNo Advanced Directives Records FoundNo Advanced Directives Records Found Additional Source Comments INFORMATION SOURCE (unrecogn ized section and content) DATE CREATED AUTHOR 07/22/2020 [facility] DATE CREATED AUTHOR AUTHOR'S ORGANIZ ATION 11/25/2020 [facility] DATE CREATED AUTHOR AUTHOR'S ORGANIZ ATION 07/17/2023 [facility] dical Specialists [facility] FOR RECORDS PERTAINING TO PATIENTS WHO ARE [...] BE BASED ON THE PRIMARY CLINICAL RECORDS. [facility] [employer] provides no warranty or guarantee of the accuracy or completeness of information in this document.
--- NOTE | 2023-07-18 17:14 | XR_ITS ---
The [address] [address] Patient Name: TRACY GREEN MRN: [id number] date: 1945 Sex: F Assigned Patient Location: [place] Current Patient Location: Accession/Order Number: [id number] Exam Date: 07/18/2023 18:30 Report Date: 07/18/2023 19:32 At the request of: LEN BLAKELY Procedure: XR ribs BI min 4V w CXR1V EXAM: XR ribs BI min 4V w CXR1V HISTORY: Falls, rib pain COMPARISON: None. TECHNIQUE: Frontal view the chest as well as 2 additional views of the bilateral ribs FINDINGS: The heart is normal. No dense focal consolidation, pleural effusion or obvious pneumothorax is seen. No obvious acute displaced rib fracture is seen laterally. XR/XR ribs BI min 4V w CXR1V IMPRESSION: No radiographic evidence for acute cardiopulmonary disease or obvious acute displaced bilateral rib fracture. Electronically authenticated by: YANE PEREZ Date: 07/18/2023 19:32
[2023-07-18] MEDS: METHYLPREDNISOLONE SOD SUCC PF 125 MG/2 ML VIAL IVP (17:46)
[2023-07-18] MEDS: ALPRAZOLAM 0.5 MG TABLET PO (22:11)
[2023-07-19] MEDS: METHYLPREDNISOLONE SOD SUCC PF 40 MG/ML VIAL IVP ×2 (01:34→08:10)
[2023-07-19 04:53] VITALS: BP 142/78; PULSE 75; RESP 20; TEMP 36.6; O2SAT 90
[2023-07-19] MEDS: MECLIZINE HCL 12.5 MG TABLET 25 MG PO (05:00)
[2023-07-19] MEDS: LEVOTHYROXINE SODIUM 25 MCG TABLET 50 MCG PO (05:47)
[2023-07-19 06:12] LABS: Basophils Percent Auto 0.1 % (0.2-2.0); Hematocrit 39.4 % (36.0-48.0); Immature Granulocytes Abs Auto 0.02 10^3/uL (0.00-0.03); Immature Granulocytes Pct Auto 0.3 % (0.0-0.5); Lymphocytes Absolute Auto 0.6 10^3/uL (1.2-3.8); Lymphocytes Percent Auto 8.5 % (20.5-60.0); Mean Corpuscular Hemoglobin 31.3 pg (26.7-34.0); Mean Corpuscular Volume 94.7 fL (81.0-99.0); Mean Platelet Volume 9.8 fL (9.5-13.5); Monocytes Absolute Auto 0.1 10^3/uL (0.3-0.8); Monocytes Percent Auto 1.1 % (1.7-12.0); Neutrophils Absolute Auto 6.5 10^3/uL (1.4-6.5); Platelet Count 207 10^3/uL (150-450); Red Blood Count 4.16 10^6/uL (4.20-5.40); Red Cell Distribution Width 12.3 % (11.0-15.0); White Blood Count 7.2 10^3/uL (4.0-11.0)
[2023-07-19 06:45] LABS: Sodium 141 mmol/L (136-145)
[2023-07-19 06:46] LABS: Alanine Aminotransferase 25 U/L (14-59); Alkaline Phosphatase 59 U/L (46-116); Anion Gap 15.1; Aspartate Amino Transferase 18 U/L (15-37); BUN Creatinine Ratio 20.5; Bilirubin Total 0.3 mg/dL (0.2-1.0); Calcium 8.9 mg/dL (8.5-10.1); Carbon Dioxide 21.9 mmol/L (21.0-32.0); Chloride 108 mmol/L (98-107); Estimated GFR (African America >60 (>=60); Estimated GFR (Non-African Ame >60 (>=60); Glucose 145 mg/dL (74-106)
[2023-07-19 06:47] LABS: Albumin Globulin Ratio 0.9; Albumin Level 3.2 g/dL (3.4-5.0); Globulin 3.7 g/dL; Total Protein 6.9 g/dL (6.4-8.2)
[2023-07-19 06:54] LABS: TSH W/ REFLEX FT4 0.822 uIU/mL (0.358-3.740)
[2023-07-19 07:38] VITALS: RESP 18
[2023-07-19] MEDS: ALPRAZOLAM 0.5 MG TABLET PO (08:10)
[2023-07-19] MEDS: ACETAMINOPHEN 325 MG TABLET 650 MG PO (08:10)
[2023-07-19] MEDS: FLUTICASONE PROPIONATE 50 MCG NASAL SPRAY 1 SPRAY NS (08:18)
[2023-07-19] MEDS: 0.9 % SODIUM CHLORIDE 1,000 ML 100 ML IV (08:45)
--- NOTE | 2023-07-19 09:47 | P.DS_ITS ---
DS: Providers Provider Date of admission: 07/18/23 16:21 Primary care physician: DENTON ASCENCIO Consults: 07/18/23 17:24 Physical Therapy Eval and Treat Routine Reason for consultation: frequent falls/vertigo Has provider been notified: No DS: Diagnosis Discharge Diagnosis (1) Vertigo: (2) Frequent falls: (3) Hypertension: (4) COPD (chronic obstructive pulmonary disease): (5) Anxiety: (6) Hypothyroidism: DS: Summary Hospital Course Hospital Course: Patient admitted with uncontrolled high blood pressure, mild protein calorie malnutrition had, hyponatremia but presented to the emergency room secondary to vertigo. Definite spinning sensation. He was tried on steroids, and meclizine. Added antibiotics. She feels much improved this morning. This point should be discharged home in improving condition. Medications see list. Follow-up with her PCP next week. May need physical therapy for vestibular rehab. Time Spent with Patient Time attestation: Total time spent providing and/or coordinating discharge services: Exam Constitutional Vital Signs, click to edit/add: Last Vital Signs Temp 97.8 F 07/19/23 04:53 Pulse 75 07/19/23 04:53 Resp 18 07/19/23 07:38 BP 142/78 H 07/19/23 04:53 Pulse Ox 90 L 07/19/23 04:53 O2 Del Method Room Air 07/19/23 04:53 Common normals: no apparent distress, oriented x3, alert and well nourished General appearance: cooperative Orientation/consciousness: Yes awake HENNJ Common normals: normocephalic, head/scalp atraumatic, hearing grossly normal bilaterally, external nose normal and moist oral mucous membranes Eye Common normals: PERRL, EOMs intact bilaterally, conjunctivae normal and no scleral icterus Alignment: alignment normal Eyelid: eyelids normal Chest Common normals: inspection of chest normal; palpation of chest abnormal (Tender right rib cage ) Chest: symmetrical chest wall rise Respiratory Common normals: normal respiratory effort, no retractions, no use of accessory muscles and clear to auscultation bilaterally Cardio Common normals: no JVD, regular rate, regular rhythm, S1 normal heart sound, S2 normal heart sound, no gallops, no clicks, no murmurs, no rub and peripheral pulses 2+ throughout Peripheral pulses: pulses 2+ throughout GI Common normals: Normal to inspection, nondistended, normoactive bowel sounds present, soft to palpation, non-tender, no hepatosplenomegaly, no masses and no bruits Bladder/kidney exam: bladder normal to palpation Extremity Common normals: normal capillary refill and no pedal edema General: normal exam except as noted; no clubbing and no cyanosis Neuro [place] Coma Scale: GCS not evaluated Common normals: CN's II-XII intact bilaterally, moves all extremities, no focal motor deficits and no sensory deficits noted Cranial nerves: other (No nystagmus) Speech: speech normal Motor exam: strength 5/5 throughout Psych Common normals: mental status grossly normal, thought process normal, affect normal and activity/motor behavior normal DS: Data Data Completed and Pending Labs on day of discharge: Labs from last 24 hours 07/19/23 07/18/23 04:50 12:50 WBC 7.2 10.7 RBC 4.16 L 4.18 L Hgb 13.0 13.2 Hct 39.4 38.9 MCV 94.7 93.1 MCH 31.3 31.6 MCHC 33.0 33.9 RDW 12.3 12.5 Plt Count 207 221 MPV 9.8 9.6 Neut % (Auto) 90.0 H 78.8 H Lymph % (Auto) 8.5 L 14.4 L [place] % (Auto) 1.1 L 4.8 Eos % (Auto) 0.0 L 0.8 L Baso % (Auto) 0.1 L 0.7 Neut # (Auto) 6.5 8.4 H Lymph # (Auto) 0.6 L 1.6 [place] # (Auto) 0.1 L 0.5 Eos # (Auto) 0.0 0.1 Baso # (Auto) 0.0 0.1 Abs Immat Gran (auto) 0.02 0.05 H Imm/Tot Granulo (auto) 0.3 0.5 Sodium 141 135 L Potassium 4.0 4.7 Chloride 108 H 103 Carbon Dioxide 21.9 24.5 Anion Gap 15.1 12.2 BUN 16.0 16.0 Creatinine 0.78 0.78 Est GFR ( Amer) >60 >60 Est GFR (Non-Af Amer) >60 >60 BUN/Creatinine Ratio 20.5 20.5 Glucose 145 H 95 Lactate 1.2 Calcium 8.9 8.8 Total Bilirubin 0.3 0.5 AST 18 36 ALT 25 32 Alkaline Phosphatase 59 61 Troponin I High Sens 9.2 Total Protein 6.9 7.4 Albumin 3.2 L 3.4 Globulin 3.7 4.0 Albumin/Globulin Ratio 0.9 0.9 TSH & Free T4 Interp 0.822 Urine Color Lt. yellow Urine Clarity Clear Urine pH 7.0 Ur Specific [place] 1.010 Urine Protein Negative Urine Glucose (UA) Negative Urine Ketones Negative Urine Occult Blood Small A Urine Nitrite Negative Urine Bilirubin Negative Urine Urobilinogen 0.2 Ur Leukocyte Esterase Trace A Urine RBC 0-2 Urine WBC 0-2 A Ur Squamous Epith Cells Few A Urine Crystals Not Reportable Urine Bacteria None seen Urine Casts Not Reportable Urine Mucus None seen Ur Culture Indicated? No Discharge Plan Discharge Disposition: Home, Self-Care Discharge Medications: New prednisone 10 mg tablet 50 mg PO DAILY Qty: 47 0RF Rx Instructions: 5/day for 3 days. 4/day for 3 days, 3/day for 3 days, 2/day for 3 days, 1/day for 3 days, 1/2 /day for 4 days ciprofloxacin HCl [Cipro] 500 mg tablet 500 mg PO Q12H Qty: 14 0RF Continued albuterol sulfate 90 mcg/actuation HFA aerosol inhaler 2 puff INHALATION Q4H PRN (Reason: shortness of breath or wheezing) alprazolam 0.5 mg tablet 0.5 mg PO .Q6HRS PRN (Reason: anxiety) levothyroxine 50 mcg tablet 50 mcg PO DAILY meclizine 25 mg tablet 25 mg PO QID PRN (Reason: dizziness) Qty: 30 0RF Activity: increase activity as tolerated Diet: advance to your usual diet Patient Instructions: Ciprofloxacin (By mouth), Prednisone (By mouth) Forms: Portal Instructions Follow Up Appointments: Follow up with your family doctor within 7-10 days Discharge Date/Time: 07/19/23 10:43
== END 2023-07-19 10:43 | disposition home or self-care (01) ==
LOC: ER 15:42 → MS 16:26
PROVIDERS: Nurse Practitioner; Admitting Provider Family Medicine; Emergency Provider Emergency Medicine Emergency Medical Services; PCP Internal Medicine; Visit Provider Family Medicine
DX: R42 Dizziness and giddiness (principal); I10 Essential (primary) hypertension; E44.1 Mild protein-calorie malnutrition; Z68.22 Body mass index [BMI] 22.0-22.9, adult; E87.1 Hypo-osmolality and hyponatremia; E03.9 Hypothyroidism, unspecified; F41.9 Anxiety disorder, unspecified; Z91.81 History of falling; J44.9 Chronic obstructive pulmonary disease, unspecified; F17.210 Nicotine dependence, cigarettes, uncomplicated; Z79.899 Other long term (current) drug therapy; Z79.890 Hormone replacement therapy
CPT/HCPCS: 36415; 70450; 71111; 72125; 80053; 81001; 83605; 84443; 84484; 85025; 93005; 96374; 96376; 97161; 99285; G0378; J2920; J2930

== ENCOUNTER 2024-02-18 11:23 | Outpatient (OUT) | payer MEDICARE, SELFPAY ==
--- OUTSIDE RECORDS SUMMARY | 2024-02-18 11:29 | XMS_ITS | CCD ---
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 Name Role Phone REQUEST, NONE LISTED Admitting Unavailable ISAIAH GU Consulting Unavailable REQUEST, NONE LISTED Attending Unavailable Deniz Ochoa MD Unavailable [phone] Deniz Ochoa MD Primary Care Provider [phone] DENIZ OCHOA Attending Unavailable CELINA CRAVEN Attending Unavailable DENIZ OCHOA Referring Unavailable CELINA CRAVEN Attending Unavailable DENIZ OCHOA Referring Unavailable ALICE STOKES Attending Unavailable DENIZ OCHOA Referring Unavailable DENIZ OCHOA Attending Unavailable ALICE STOKES Attending Unavailable DENIZ OCHOA Referring Unavailable ALICE STOKES Attending Unavailable DENIZ OCHOA Referring Unavailable ARIANNA RAINEY Attending Unavailable DENIZ OCHOA Referring Unavailable ARIANNA RAINEY Attending Unavailable DENIZ OCHOA Referring Unavailable FLACO HERNANDEZ Attending Unavailable DENIZ OCHOA Referring Unavailable GUZIFLACO Brown Attending Unavailable DENIZ OCHOA Referring Unavailable SATINDER SYLVESTER Attending Unavailable ARIANNA RAINEY Attending Unavailable DENIZ OCHOA Referring Unavailable FLACO HERNANDEZ Attending Unavailable DENIZ OCHOA Referring Unavailable FLACO HERNANDEZ Attending Unavailable DENIZ OCHOA Referring Unavailable ARIANNA RAINEY Attending Unavailable DENIZ OCHOA Referring Unavailable GUZIKFLACO Attending Unavailable DENIZ OCHOA Referring Unavailable ROBERT PYLE Attending Unavailable EDILMA GOLDEN Referring Unavailable ROBERT PYLE Attending Unavailable ROBERT PYLE Attending Unavailable Allergies Allergy Classification Reported Allergen(s) Allergy Type Date of Onset Reaction(s) Facility (1 source) venlafaxine Drug Allergy 4 [facility] Repository (2 sources) atorvastatin Drug Allergy 4 Unknown [facility] Healthcare (2 sources) cefdinir Drug Allergy 4 Rash [facility] Healthcare (2 sources) Clarithromycin Allergy to substance 4 Unknown [facility] Healthcare (2 sources) Sulfamethoxazole Allergy to substance 4 Unknown [facility] Healthcare (2 sources) Sulfanilamide Allergy to substance 4 Unknown [facility] Healthcare (2 sources) venlafaxine Drug Allergy 4 [facility] Medications Current Medications Medication Drug Class(es) Dates Sig (Normalized) Sig (Original) [id number] 200 actuat albuterol 0.09 mg/actuat metered dose inhaler (2 sources) beta2-Adrenergic Agonist Start: 06-27-2023 take 2 puff(s) by mouth every four to six hours albuterol HFA 90 mcg/act inhaler Indications: Disorder of lung INHALE 2 PUFFS BY MOUTH EVERY 4 TO 6 HOURS 18 g 5 06/27/2023 Active ALPRAZolam 0.5 mg oral tablet (2 sources) Benzodiazepine Start: 06-02-2023 take 1 tablet by mouth every six hours as needed for anxiety ALPRAZolam (Xanax) 0.5 MG tablet Indications: Depressive disorder (CMS/HCC) TAKE 1 TABLET BY MOUTH EVERY 6 HOURS NEEDED FOR ANXIETY 120 tablet 2 06/02/2023 Active ibuprofen 800 mg oral tablet (2 sources) Nonsteroidal Anti-inflammatory Drug take 1 tablet by mouth in the morning, then take 1 tablet by mouth in the evening, then take 1 tablet by mouth at bedtime ibuprofen 800 MG tablet Take 800 mg by mouth in the morning and 800 mg in the evening and 800 mg before bedtime. 0 Active levothyroxine sodium 0.05 mg oral tablet (2 sources) l-Thyroxine Start: 06-27-2023 take 1 tablet by mouth once daily levothyroxine (Synthroid, Levoxyl) 50 MCG tablet Indications: Hypothyroidism, unspecified type (CMS/HCC) TAKE 1 TABLET BY MOUTH EVERY DAY ON EMPTY STOMACH FOR 90 DAYS 100 tablet 3 06/27/2023 Active meclizine hydrochloride 12.5 mg oral tablet (2 sources) Antiemetic take 1 tablet by mouth four times daily as needed for dizziness meclizine (Antivert) 12.5 MG tablet Take 12.5 mg by mouth 4 (four) times a day as needed for dizziness 0 Active Problems Active Problems Problem Classification Problem Date Documented Date Episodic/Chronic Anxiety disorders (2 sources) Generalized anxiety disorder; Translations: [Generalized anxiety disorder] Onset: 11-19-2022 11-19-2022 Chronic Biliary tract disease (2 sources) Gallstone; Translations: [Calculus of gallbladder without cholecystitis without obstruction] Onset: 06-24-2023 06-24-2023 Episodic Conditions associated with dizziness or vertigo (6 sources) Vertigo; Translations: [Dizziness and giddiness] Onset: 06-24-2023 07-20-2023 Episodic Disorders of lipid metabolism (2 sources) Hyperlipidemia; Translations: [Hyperlipidemia, unspecified] Onset: 06-24-2023 06-24-2023 Chronic Gastritis and duodenitis (2 sources) Gastritis; Translations: [Other gastritis with bleeding] Onset: 06-24-2023 06-24-2023 Episodic Menopausal disorders (2 sources) Primary ovarian failure; Translations: [Other primary ovarian failure] Onset: 06-24-2023 06-24-2023 Chronic Mood disorders (2 sources) Depressive disorder; Translations: [Depressive disorder] Onset: 11-19-2022 11-19-2022 Chronic Nonmalignant breast conditions (2 sources) Solitary cyst of breast; Translations: [Solitary cyst of unspecified breast] Onset: 06-24-2023 06-24-2023 Episodic Nutritional deficiencies (2 sources) Vitamin D deficiency; Translations: [Vitamin D deficiency, unspecified] Onset: 01-07-2023 01-07-2023 Chronic Osteoarthritis (2 sources) Osteoarthritis; Translations: [Unspecified osteoarthritis, unspecified site] Onset: 06-24-2023 06-24-2023 Chronic Osteoporosis (4 sources) Senile osteoporosis; Translations: [Age-related osteoporosis without current pathological fracture] Onset: 01-07-2023 01-07-2023 Chronic Other upper respiratory disease (2 sources) Allergic rhinitis; Translations: [Other allergic rhinitis] Onset: 06-24-2023 06-24-2023 Chronic Other upper respiratory infections (2 sources) Sinusitis; Translations: [Chronic sinusitis, unspecified] Onset: 06-24-2023 06-24-2023 Chronic Substance-related disorders (2 sources) Tobacco dependence syndrome; Translations: [Nicotine dependence, unspecified, uncomplicated] Onset: 06-24-2023 06-24-2023 Chronic Thyroid disorders (4 sources) Hypothyroidism; Translations: [Hypothyroidism, unspecified] Onset: 06-24-2023 06-24-2023 Chronic Past or Other Problems Problem Classification Problem Date Documented Da te Episodic/Chronic Diabetes mellitus without complication (2 sources) Impaired fasting glycemia; Translations: [Impaired fasting glucose] Onset: 01-07-2023 01-07-2023 Episodic Other lower respiratory disease (2 sources) Disorder of lung; Translations: [Other disorders of lung] Onset: 01-07-2023 01-07-2023 Episodic Results Test Name Value Interpretation Reference Range Facil ity Consent for COVID Vaccineon 09-02-2020 SARS-CoV-2 (COVID-19) RNA VIKRAM+probe Ql (Unsp spec) [id number] 0#1.00CD:127 Normal [facility] Consent for Treatmenton 08-15 Consent for Treatment [id number] 7#1.00CD:127 Normal [facility] Coding Summary.on 08-31-2020 Coding Summary. CODING DATE: 08/31/2020 FINAL [facility] DSC STATUS: PAYOR: Medicare APC DESCRIPTION 1492 New [...] Contreras CphT Date Saved: 08/31/2020 08:06 am [facility] Encounters Encounter Date Encounter Type Care Provider Facility Start: 02-03-2024 End: 02-03-2024 ambulatory ROBERT PYLE Not Available Start: 01-30-2024 End: 01-30-2024 ambulatory ROBERT PYLE Not Available Start: 01-14-2024 End: 01-14-2024 ambulatory ROBERT PYLE Not Available Start: 01-08-2024 End: 01-08-2024 ambulatory FLACO HERNANDEZ Not Available Start: 12-25-2023 End: 12-25-2023 ambulatory ARIANNA RAINEY Not Available Start: 10-28-2023 End: 10-28-2023 ambulatory FLACO HERNANDEZ Not Available Start: 10-21-2023 End: 10-21-2023 ambulatory FLACO HERNANDEZ Not Available Start: 10-13-2023 End: 10-13-2023 ambulatory ARIANNA RAINEY Not Available Start: 10-02-2023 End: 10-02-2023 ambulatory SATINDER SYLVESTER Not Available Start: 09-30-2023 End: 09-30-2023 ambulatory FLACO HERNANDEZ Not Available Start: 09-09-2023 End: 09-09-2023 ambulatory FLACO HERNANDEZ Not Available Start: 09-04-2023 End: 09-04-2023 ambulatory ARIANNA RAINEY Not Available Start: 08-29-2023 End: 08-29-2023 ambulatory ARIANNA RAINEY Not Available Start: 08-21-2023 End: 08-21-2023 ambulatory ALICE STOKES Not Available Start: 08-19-2023 End: 08-19-2023 ambulatory ALICE STOKES Not Available Start: 08-14-2023 End: 08-14-2023 ambulatory DENIZ OCHOA Not Available Start: 08-12-2023 End: 08-12-2023 ambulatory ALICE STOKES Not Available Start: 07-28-2023 Telephone encounter Kimo conway PT Work Phone: [facility] Comment on above: Cx PT for 07/30 (She had called and lm re: PT on 07/30 and said she has been through an ordeal and needs to cx. Due to last scheduled she said she will contact when able to rs.) Start: 07-16-2023 End: 07-16-2023 ambulatory Celina Craven PT Work Phone: [facility] Comment on above: Vertigo (Primary Dx) ; Vestibular ataxia Start: 07-11-2023 End: 07-11-2023 ambulatory CELINA CRAVEN Not Available Start: 06-25-2023 End: 06-25-2023 ambulatory DENIZ OCHOA Not Available Start: 07-24-2020 End: 07-25-2020 Patient encounter procedure NONE LISTED REQUEST Facility: Plan of Treatment Date Care Activity Detail Author Start: 07-25-2023 End: 07-25-2023 ambulatory 07/25/2023 1:30 PM EST Treatment [facility] [address] [facility] [address] [place] [address] Celina Craven, PT [address] [place] [address] [facility] Start: 07-23-2023 End: 07-23-2023 Patient encounter procedure 07/23/2023 10:00 AM EST Office Visit [facility] [address] [facility] [address] [place] [address] Deniz Ochoa MD [address] [facility] [address] [place], [place] [id number] [facility] Start: 2020 Pneumococcal Vaccine : 65+ Years (2 - PCV) Pneumococcal Vaccine: 65+ Years (2 - PCV) [facility] Start: 1945 Medicare Annual Well ness (AWV) Medicare Annual Wellness (AWV) [facility] Immunizations Immunization Date Immunization Notes Care Provider Yari alcaraz 04-18-2023 Influenza, Seasonal, Quadrivalent, Adjuvanted Celina Craven PT Work Phone: [facility] 03-26-2022 Influenza, High-dose Seasonal, Quadrivalent, Preservative Free Celinaantonio Craven PT Work Phone: [facility] 04-28-2021 Seasonal, trivalent, recombinant, injectable influenza vaccine, preservative free Celinaantonio Craven PT Work Phone: [facility] 04-18-2020 influenza, injectabl e, quadrivalent, preservative free Celina Craven PT Work Phone: [facility] 04-11-2019 Influenza, High-dose Seasonal, Quadrivalent, Preservative Free Celinaantonio Craven PT Work Phone: [facility] 2019 pneumococcal polysaccharide vaccine, 23 valent Celnia Craven PT Work Phone: [facility] 04-15-2018 Influenza, High-dose Seasonal, Quadrivalent, Preservative Free Celina Craven PT Work Phone: [facility] 04-26-2017 influenza, injectabl e, quadrivalent, preservative free Celina Craven PT Work Phone: [facility] 05-18-2010 seasonal influenza, intradermal, preservative free Celina Craven PT Work Phone: [facility] Payers Date Payer Category Payer Medicare [employer] MEDICARE ADVANTAGE [employer] MEDICARE [id number] 2017-Present [address] [address] [place] [address] [id number] 2017 Medicare [id number] 1959 Self-pay 1944 Unknown [id number] [id number] 1944 Unknown [id number] 2.16.840.1.133446.3.579.2.12 59 1944 Unknown [id number] 2.16.840.1.280208.3.579.2.12 59 1944 Unknown [id number] 2.16.840.1.619497.3.579.2.12 59 1944 Unknown [id number] 2.16.840.1.382643.3.579.2.12 59 1944 Unknown [id number] 2.16.840.1.496111.3.579.2.12 59 1944 Unknown [id number] 2.16.840.1.524339.3.579.2.12 59 1944 Unknown [id number] 2.16.840.1.874057.3.579.2.12 59 1944 Unknown [id number] 2.16.840.1.624464.3.579.2.12 59 1944 Unknown [id number] 2.16.840.1.615152.3.579.2.12 59 1944 Unknown [id number] 2.16.840.1.623984.3.579.2.12 59 1944 Unknown [id number] 2.16.840.1.210044.3.579.2.12 59 1944 Unknown [id number] 2.16.840.1.580970.3.579.2.12 59 1944 Unknown [id number] 2.16.840.1.985192.3.579.2.12 59 1944 Unknown [id number] 2.16.840.1.042819.3.579.2.12 59 1944 Unknown [id number] 2.16.840.1.920545.3.579.2.12 59 1944 Unknown [id number] 2.16.840.1.898982.3.579.2.12 59 1944 Unknown [id number] 2.16.840.1.401471.3.579.2.12 59 1944 Unknown [id number] 2.16.840.1.419703.3.579.2.12 59 1944 Unknown [id number] 2.16.840.1.687812.3.579.2.12 59 Unknown [id number] 2.16.840.1.872688.3.579.2.59 3 Social History Date Type Detail Facility Start: 06-16-1961 [facility] Start: 06-16-1962 History of tobacco use Cigarette Smo ker [facility] Start: 06-24-2023 Tobacco use and exposure Smokeless t obacco non-user [facility] Start: 06-25-2023 End: 07-24-2023 Alcohol intake Lifetime non-drinker (finding) [facility] Start: 06-25-2023 History of Social function [facility] Start: 06-25-2023 Tobacco use panel [facility] Start: 1945 Sex Assigned At Not on file [facility] History of Present illness Narrative 07-16-2023 Celina Craven, PT - 07/16/2023 1:00 PM EST Note Date & Type Note Facility 07-16-2023 History of Presen t illness Narrative Time In: 1:05 pm Time Out: 2:05 pm Supervised Time: 60 min Total Time: 60 min Visit Number: approved through 08/04/23 Chief Complaint: C/o dizziness, lightheadedness, frequent falls Diagnoses: vertigo, vestibular ataxia Precautions: recent fall history Progress: pt states that after PT she felt better for several hours, then symptoms returned. Pt has not taken Meclizine today or yesterday. Pt to see her primary care physician for repeat ear cleaning next week. Subjective (from IE on 07/11/23) Mechanism of injury: Pt assisted with history by spouse. No known cause vertigo. Pt states she fell in 2019 years ago on steps fracturing hip; records show partial hip arthroplasty completed in 2019.. Pt relates dizziness symptoms to impacted ear. States in past if ears cleaned then symptoms resolve/decrease. Ears cleaned this month, but left ear is still slightly impacted. Symptoms of dizziness and balance issues are chronic for over 1 year, worsening over time. Pt is currently taking Meclizine, took this morning. Pain level: no c/o pain. 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 What increases symptoms: dizziness increases looking up, getting in/out of bed, quick head movements, bending over. No symptoms with rolling over in bed. Symptoms limit walking alone, in dark, outside. What decreases symptoms: less activity. Timing of vertigo: intermittent Numbness/tingling: no for UE and LE Headaches: no Imaging: CT head/brain on 06/19/23: mild to moderate supratentorial atrophy, white matter changes. Objective Posture / Appearance: Pt using FWW indep, forward head , rounded shoulder posture. Cervical AROM: flexion: 30* extension: 15* L side bend: 15* R side bend: 15* L rotation: 25* R rotation: 34* Muscle Strength: UE: generalized weakness especially proximally: 3.5/5 shoulder girdle, 4/5 biceps, triceps, wrist and hand bilaterally. LE strength: 4-/5 with sit to stand, full knee extension, hip extension bilaterally. Indep with transfers sit to stand and sit to supine and back. Palpation: Point tender left upper neck Joint Play: decreased C-spine left C2-4 more than right Muscle length: Decreased suboccipitals, pects Special Tests: Negative Spurling compression/distraction. UE coordination: finger - nose test: unable on left with eyes closed. Vertigo: Smooth pursuit: mild end range nystagmus bilaterally. Head shake nystagmus: negative VOR with stationary and moving targets: intact, no increase in symptoms. Horizontal canal testing: mild increase in dizziness/vertigo without changes in eyes. Glenvil Hallpike: worse on left than right with dizziness lasting up to 30 seconds, mild nausea. No noticeable changes in eyes but pt blinking constantly. Did address left posterior canal today . Addressed possible cervicogenic vertigo with MT C-spine. No immediate change from this. Prior Level of Function: ADLs: Assist/supervision. Pt fell brushing teeth today. R ribs sore from recent falls. Extracurricular Activities: Currently limited. Not going to grocery store, social activities due to dizziness and falls. Employment: retired INTERVENTIONS: X 30 minutes of manual therapy C-spine with focus C1-4 on left to decrease vertigo with quick head movements X 20 minutes of neuromuscular re-ed for balance testing, activities to decrease vertigo with position change. X10 min moist heat C-spine PT Assessment: Pt has received 2 treatments of physical therapy from 07/11/23 today. Pt reports decreased symptoms for short period after 1st treatment but no change overall. BPPV testing is negative for nystagmus but positive for dizziness. Pt is hoping next ear lavage will lead to full resolution of symptoms. Functional Limitations: Dizziness Handicap Inventory only partially completed. 42/64 points. Items useful for predicting BPPV were positive. [facility] Goals: Decrease feeling of vertigo/dizziness 50% in 2-3 weeks No dizziness with quick head turns, looking up, and getting in/out of bed x 2-3 weeks. Pt scores in low fall risk category with Tinnetti or Hernandez in 3-[address] in [address]. Rehab Potential: Good, needs further evaluation for central vs peripheral source, functional balance testing. Plan: PT 1-2x/week x 6 weeks Treatment: manual therapy prn, balance and gait training, vestibular rehab, therapeutic exercises, modalities as needed. I hereby deem this POC medically necessary. Please sign below and fax back to the number below. Physician Signature: ____ Date: documented in this encounter [facility] Evaluation note Note Date & Type Note Facility Evaluation note Diagnosis Vertigo- Primary Dizziness and giddiness Vestibular ataxia Other cerebellar ataxia documented in this encounter [facility] Summary Purpose Family History No Family History Records FoundNo Family History Records FoundNo Family History Records Found Advance Directives No Advanced Directives Records FoundNo Advanced Directives Records FoundNo Advanced Directives Records Found Additional Source Comments INFORMATION SOURCE (unrecogn ized section and content) DATE CREATED AUTHOR 07/22/2020 [facility] DATE CREATED AUTHOR AUTHOR'S ORGANIZ ATION 11/25/2020 [facility] DATE CREATED AUTHOR AUTHOR'S ORGANIZ ATION 02/04/2024 [facility] EPIC Reason for Visit (unrecogniz ed section and content) Specialty Diagnoses / Procedures Referred By Maxi fernandez Referred To Contact Physical Therapy Diagnoses Vertigo Vestibular ataxia Procedures NC OFFICE/OUTPATIENT NEW HIGH MDM 60 MINUTES Deniz Ochoa MD [address] [facility] [address] [place] [address] Celina Craven, PT [address] [place] [address] Referral ID Status Reason Start Date Expiration Date Visits Requested Visits Authorized [id number] Authorized Specialty Services Required 07/04/2023 08/04/2023 10 10 Reason Onset Date Comments Cx PT for 07/3007/28/2023 She had called a nd lm re: PT on 07/30 and said she has been through an ordeal and needs to cx. Due to last scheduled she said she will contact when able to rs. Care Teams (unrecognized sec tion and content) [employer] Relationship Specialty Start Date End Date Deniz Ochoa MD [address] [facility] [address] [place] [address] PCP - [facility] 06/16/20 Deniz Ochoa MD [address] [facility] [address] [place] [address] PCP - General Internal Medicine 10/22/22 [employer] Relationship Specialty Start Date End Date Deniz Ochoa MD [address] [facility] [address] [place] [address] PCP - [facility] 06/16/20 Deniz Ochoa MD [address] [facility] [address] [place] [address] PCP - General Internal Medicine 10/22/22 FOR RECORDS PERTAINING TO PATIENTS WHO ARE [...] BE BASED ON THE PRIMARY CLINICAL RECORDS. [facility]. provides no warranty or guarantee of the accuracy or completeness of information in this document.
== END 2024-02-18 11:24 | disposition home or self-care (01) ==
LOC: PST 11:23
PROVIDERS: PCP Internal Medicine; Visit Provider Ophthalmology
DX: Z01.818 Encounter for other preprocedural examination (principal); H25.811 Combined forms of age-related cataract, right eye

== ENCOUNTER 2024-02-19 06:12 | Day surgery (SDC) | payer MEDICARE, SELFPAY ==
--- NOTE | 2024-02-19 | OP_ITS ---
OPERATION DATE: 02/19/2024 SURGEON: Kwaku Simpson M.D. PREOPERATIVE DIAGNOSIS: Nuclear sclerotic cataract right eye. POSTOPERATIVE DIAGNOSIS: Nuclear sclerotic cataract right eye. PROCEDURE NAME: Cataract extraction with intraocular lens placement for the right eye. ANESTHESIA: Topical. ESTIMATED BLOOD LOSS: Zero. COMPLICATIONS: None. PROCEDURE: The patient was brought to the Operating Room in supine position. After proper identification, the right eye was prepped and draped in a sterile ophthalmic fashion. A paracentesis created at the 11 o'clock position. Approximately 1 cc of unpreserved Xylocaine was injected into the anterior chamber followed by Amvisc Plus. Using a 2.6 mm Keratome blade, a clear corneal incision was created at the 9 o'clock limbus. A cystotome was then used to begin a curvilinear capsulorrhexis that was continued for 360 degrees with the Utrata forceps. BSS on a 26 gauge cannula was injected beneath the anterior capsule to hydrodissect as well as hydrodelineate the lens. After ensuring mobility, phacoemulsification was performed in a ualmpsy-dgn-pydfed-type fashion. After all nuclear material had been removed from the eye, IA was introduced and all residual cortical material was cleaned up. Additional Amvisc Plus was injected into the posterior bag and a lens model [id number], 21.5 diopters was injected and dialed into position. After ensuring centration, IA was reintroduced into the anterior chamber and all residual Amvisc Plus removed from the eye. BSS on a 30 gauge cannula was injected into the stroma of both the clear corneal incision as well as paracentesis to hydrate the wounds. Additional BSS was injected into the anterior chamber to pressurize the eye at approximately 20 to 22 mmHg by finger tension. 0.1 cc of antibiotic was injected into the anterior chamber. Weck-Krissy sponges were used to check the wounds to be watertight. One drop of apraclonidine and one drop of prednisolone acetate were placed into the eye and a shield was placed over top. The patient was sent to the postoperative area in satisfactory condition to follow up the following day for postoperative care. JOSE
--- NOTE | 2024-02-19 | HP_ITS ---
? PREOPERATIVE HISTORY AND PHYSICAL ? Date:? 02/18/2024 ? HISTORY:? The patient is a 78-year-old white female with a gradual decline in visual acuity noted out of her right eye.? The onset of this, she states, has been ongoing for the last 1-2 years in a progressive fashion.? She states having difficulty reading and watching television.? Riding in the car during the daytime for distance objects is difficult.? She also states having difficulty at night while driving, because of headlights creating glare and halos. ? PAST OCULAR HISTORY:? Status post cataract extraction with intraocular lens placement for the left eye. ? PAST MEDICAL HISTORY:? Includes hyperlipidemia, thyroid disease, depression, arthritis, anxiety, allergic rhinitis, a history of cholecystectomy, partial hip arthroplasty and tonsillectomy.? ? SOCIAL HISTORY:? Denies tobacco, alcohol or recreational drug abuse. ? SYSTEMIC MEDICATIONS:? Include meclizine, ibuprofen, levothyroxine, Alprazolam, albuterol. ? ALLERGIES TO MEDICATIONS:? Atorvastatin, clarithromycin, sulfamethoxazole, sulfanilamide, venlafaxine and cefdinir. ? REVIEW OF SYSTEMS:? No pertinent positives. ? PHYSICAL EXAM: ? GENERAL:? In general, she is awake, alert and oriented x3, well developed, well nourished, in no acute distress.? ? HEART:? Regular rate and rhythm. ? LUNGS:? Clear bilaterally. ? ABDOMEN:? Soft, non-tender, non-distended. ? EXTREMITIES:? No pitting edema. ? OPHTHALMIC EXAM:? Revealed a visual acuity of 20/100 in the right and 20/400 in the left.? Pupils motility, muscle balance and confrontational visual sharif within normal limits bilaterally.? Pressures are measured at 16 bilaterally.? Slit lamp exam revealed blepharitis with a severe decrease in tear film bilaterally.? Conjunctiva, cornea, anterior chamber and iris were within normal limits bilaterally.? Lens status demonstrated 3-4+ nuclear sclerosis with vacuoles in the right eye, and a well centered posterior chamber intraocular lens in the left eye. ? FUNDUS EXAM:? Revealed good view with good dilation bilaterally.? Optic discs, macula, vessels, periphery and vitreous were within normal limits bilaterally.?? ? ASSESSMENT AND PLAN:? Visually significant cataract, right eye.? After the risks, benefits, alternatives as well as expectations were delivered to the patient, she elected to go forward with cataract removal.? She understands those risks to include but not limited to infection, bleeding, loss of vision or loss of the eye itself.? Secondly, she understands that postoperatively she is likely to require spectacle correction for her best visual acuity.? Finally, a complete ophthalmic exam was performed and there was not determined to be any other source of vision decline other than that of cataract.? ? After understanding all risks as well as expectations, she elected to go forward with the procedures as listed above and will be doing so in the near future. JOSE
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
[2024-02-19] MEDS: CYCLOPENTOLATE HCL 1% OP SOL 40 DROP/2 ML BOTTLE OP ×4 (06:27→07:04)
[2024-02-19] MEDS: BESIFLOXACIN HCL 100 DROP DROPS.SUSP OP ×4 (06:27→07:03)
[2024-02-19] MEDS: PHENYLEPHRINE HCL 2.5% OP SOL 40 DROP/2 ML BOTTLE OP ×4 (06:28→07:04)
[2024-02-19] MEDS: TROPICAMIDE 1% OP SOL 300 DROP/15 ML BOTTLE OP ×4 (06:28→07:04)
[2024-02-19] MEDS: DIAZEPAM 5 MG TABLET PO (06:34)
[2024-02-19 06:55] VITALS: BP 161/83; PULSE 77; O2SAT 98
[2024-02-19] MEDS: BETADINE POVIDONE-IODINE 5% OP SOL 30 ML BOTTLE OP (07:24)
[2024-02-19] MEDS: LIDOCAINE 2% JELLY 10 ML TOPICAL (07:25)
[2024-02-19] MEDS: PROPARACAINE HCL 0.5% 300 DROP/15 ML BOTTLE OP (07:25)
[2024-02-19 07:34] VITALS: BP 173/81; PULSE 73; O2SAT 95
[2024-02-19] MEDS: HYALURONATE SODIUM 16 MG/ML SYRINGE OP (07:38)
[2024-02-19] MEDS: LIDOCAINE HCL 1% PF 20 MG/2 ML VIAL INJ (07:39)
[2024-02-19] MEDS: TETRACAINE HCL 0.5% OP SOL 80 DROP/4 ML BOTTLE OP (07:39)
[2024-02-19] MEDS: PHENYLEPHRINE/KETOROLAC 1-0.3% ML VIAL 4 ML IRR (07:39)
[2024-02-19] MEDS: CEFUROXIME SODIUM 750 MG, 0.9 % SODIUM CHLORIDE 16.3 ML OP (07:40)
[2024-02-19] MEDS: APRACLONIDINE HCL 0.5% SOL 100 DROP/5 ML BOTTLE OP (07:41)
[2024-02-19] MEDS: PREDNISOLONE ACETATE OP 1% SUSP 100 DROPS/5 ML 1 DROP OP (07:41)
[2024-02-19 07:43] VITALS: BP 170/84; PULSE 68; O2SAT 98
== END 2024-02-19 08:15 | disposition home or self-care (01) ==
LOC: SURGOUT 06:12
PROVIDERS: PCP Internal Medicine; Visit Provider Ophthalmology
PROC: (CPT 66984; principal; 2024-02-19 07:30)
DX: H25.11 Age-related nuclear cataract, right eye (principal); E78.5 Hyperlipidemia, unspecified; Z90.49 Acquired absence of other specified parts of digestive tract; E07.9 Disorder of thyroid, unspecified
CPT/HCPCS: 66984; J0697; V2630

== ENCOUNTER 2024-05-19 19:19 | Inpatient (IN) | payer MEDICARE, SELFPAY ==
[2024-05-19] VITALS (28 sets, daily range): BP systolic 140–177; BP diastolic 78–101; PULSE 73–85; TEMP 36.4; O2SAT 87–96
--- OUTSIDE RECORDS SUMMARY | 2024-05-19 19:27 | XMS_ITS | CCD ---
Author Organization [facility] Care Team Providers Care Mold Washer Name Role Phone REQUEST, NONE LISTED Admitting Unavailable ISAIAH GU Consulting Unavailable REQUEST, NONE LISTED Attending Unavailable Deniz Ochoa MD Unavailable Deniz Ochoa MD Primary Care Provider TIMMY Ochoa Primary Care Provider DO Yokasta Flores Emergency Provider DO Bryan Coppola Admit Provider DO Bryan Coppola Attending Provider MD Cliff West Other Provider MD Janett Owen Other Provider [phone] GEETHA Thao-C Kelsey Grayson Other Provider DO Mani Garcia Other Provider MD Darci Marley II Other Provider DO Sohan Kelly Other Provider MD Alonso Agudelo Attending Provider MD Maria Del Rosario Thornton Other Provider MD Germain Witt Other Provider MARIA ESTHER Dee Other Provider DO Naresh Mcguire Jr Other Provider MD Deshawn Choudhary Other Provider MD Taqueria Duran Other Provider Deniz Ochoa MD Unavailable DENIZ OCHOA Attending Unavailable CELINA CRAVEN Attending Unavailable DENIZ OCHOA Referring Unavailable CELINA CRAVEN Attending Unavailable DENIZ OCHOA B Referring Unavailable ALICE STOKES Attending Unavailable DENIZ OCHOA B Referring Unavailable DENIZ OCHOA Attending Unavailable ALICE STOKES Attending Unavailable ISLVA DENIZ B Referring Unavailable ALICE STOKES Attending Unavailable DENIZ OCHOA Referring Unavailable ARIANNA RAINEY Attending Unavailable DENIZ OCHOA Referring Unavailable REDDARIANNA Attending Unavailable DENIZ OCHOA B Referring Unavailable GUZIKFLACO Attending Unavailable OCHOA, DENIZ B Referring Unavailable GUZIK, FLACO Attending Unavailable DENIZ OCHOA B Referring Unavailable SATINDER SYLVESTER Attending Unavailable REDD, ARIANNA Isidro Attending Unavailable SILVA, DENIZ B Referring Unavailable GUZIK, FLACO Attending Unavailable OCHOA, DENIZ B Referring Unavailable GUZIK, FLACO Attending Unavailable DENIZ OCHOA B Referring Unavailable REDD, ARIANNA Isidro Attending Unavailable SILVA, DENIZ Andrade Referring Unavailable GUZIK, FLACO Attending Unavailable DENIZ OCHOA B Referring Unavailable ROBERT SIMPSON Attending Unavailable EDILMA SHEPPARD Referring Unavailable ZAHLROBERT ANDERSON Attending Unavailable ZAHLROBERT ANDERSON Attending Unavailable ZAHLJUSTIN, ROBERT Hernandez Attending Unavailable ZAVIKY, ROBERT Hernandez Attending Unavailable DENIZ OCHOA Attending Unavailable SILVA, DENIZ Andrade Attending Unavailable EDENILSON, ROBERT Hernandez Attending Unavailable Alonso Agudelo Attending Unavailable Deniz Ochoa Primary Care Unavailable Bryan Coppola Admitting UnavailCliff Hernandez Consulting Unavailable Janett Owen Consulting Unavailable Kelsey Thao Consulting Unavailable Mani Garcia Consulting Unavailable Darci Marley II Consulting UnavailSohan Salguero Consulting Unavailable Maria Del Rosario Thornton Consulting Unavailable Germain Witt Consulting Unavailable Flor Dee Consulting Unavailable Naresh Mcguire Jr Consulting UnavailDeshawn Juarez Consulting UnavailTaqueria Menard Consulting Unavailab le Allergies Allergy Classification Reported Allergen(s) Allergy Type Date of Onset Reaction(s) Facility (1 source) venlafaxine Drug Allergy 4 [facility] (10 sources) atorvastatin Drug Allergy 4 Unknown [facility] (10 sources) cefdinir Drug Allergy 4 Rash [facility] (10 sources) Clarithromycin Allergy to substance 4 Unknown [facility] (10 sources) Sulfamethoxazole Allergy to substance 4 Unknown [facility] (10 sources) Sulfanilamide Allergy to substance 4 Unknown [facility] (10 sources) venlafaxine Drug Allergy 4 [facility] Medications Current Medications Medication Drug Class(es) Dates Sig (Normalized) Sig (Original) acetaminophen 500 mg oral capsule (1 source) Start: 03-25-2024 take 1000 mg by mouth every eight hours Acetaminophen Active 1000 MG PO Every 8 hours 84 14 March 25, 2024 12:00am [id number] 200 actuat albuterol 0.09 mg/actuat metered dose inhaler (14 sources) beta2-Adrenergic Agonist Start: 04-29-2024 End: 04-29-2025 take 2 puff(s) by inhalation every four hours for wheezing albuterol HFA 90 mcg/act inhaler Indications: Reactive airways dysfunction syndrome (CMS/HCC) Inhale 2 puffs every 4 (four) hours if needed for wheezing 8.5 g 11 04/29/2024 04/29/2025 Active Start: 03-21-2024 take 1 puff(s) by in halation every four to six hours Albuterol Sulfate Active 2 PUFF INHALATION EVERY 4-6 HOURS March 21, 2024 12:00am Start: 01-14-2024 End: 04-29-2024 take 2 puff(s) by mouth every four to six hours albuterol HFA 90 mcg/act inhaler Indications: Disorder of lung INHALE 2 PUFFS BY MOUTH EVERY 4 TO 6 HOURS 8.5 g 5 01/14/2024 04/29/2024 Discontinued (Reorder) Start: 06-27-2023 take 2 puff(s) by mo uth every four to six hours albuterol HFA 90 mcg/act inhaler Indications: Disorder of lung INHALE 2 PUFFS BY MOUTH EVERY 4 TO 6 HOURS 18 g 5 06/27/2023 Active ALPRAZolam 0.5 mg oral tablet (7 sources) Benzodiazepine Start: 03-25-2024 take 0.5 mg by mouth three times daily Alprazolam Active 0.5 MG PO As Directed 07 11March 25, 2024 11:20am 0.5mg TID at 0730 1200 1630 0.25mg daily at 0930 0.25mg HS prn Patient demonstrates withdrawal signs if not administered on this schedule with resultant tremors and CPK elevations. Please administer as directed. Started on SSRI during hospitalization with plans to see outpatient psychiatry with eventual SLOW wean of Benzo in a couple months after SSRI optimized Start: 11-24-2019 End: 03-25-2024 take 0.5 mg by mouth three times daily Alprazolam Discontinued 0.5 MG PO Three times daily 01 12November 29, 2019 12:00am March 21, 2024 7:13pm Start: 11-24-2019 take 1 tablet by ani th every six hours as needed for anxiety ALPRAZolam (Xanax) 0.5 MG tablet Indications: Depressive disorder (CMS/HCC) TAKE 1 TABLET BY MOUTH EVERY 6 HOURS NEEDED FOR ANXIETY 120 tablet 2 06/02/2023 Active Calcium Carbonate-Vitamin D3 (Oyster Shell Calcium-Vit D3) 500 mg-5 mcg (200 unit) Tablet (1 source) Start: 03-25-2024 take 1 tablet by mouth twice daily at mealtime Calcium Carbonate-Vitamin D3 (Oyster Shell Calcium-Vit D3) 500 mg-5 mcg (200 unit) Tablet Active 1 TAB PO Twice daily with meals March 25, 2024 12:00am cefuroxime 250 mg oral tablet (1 source) Cephalosporin Antibacterial Start: 03-25-2024 take 250 mg by mouth twice daily Cefuroxime Axetil Active 250 MG PO Twice daily 8 March 25, 2024 12:00am ciprofloxacin 500 mg oral tablet (2 sources) Quinolone Antimicrobial Start: 04-07-2024 End: 04-15-2024 take 1 tablet by mouth in the morning ciprofloxacin (Cipro) 500 MG tablet Take 500 mg by mouth in the morning and 500 mg before bedtime. 04/07/2024 04/15/2024 Discontinued clonazePAM 0.5 mg oral tablet (7 sources) Benzodiazepine Start: 04-15-2024 End: 10-12-2024 take 1 tablet by mouth in the morning clonazePAM (KlonoPIN) 0.5 MG tablet Indications: Generalized anxiety disorder (CMS/HCC) Take 1 tablet (0.5 mg) by mouth in the morning and 1 tablet (0.5 mg) before bedtime. 60 tablet 3 04/15/2024 10/12/2024 Active docusate sodium 100 mg oral capsule (11 sources) Start: 03-25-2024 take 100 mg by mouth twice daily Docusate Sodium Active 100 MG PO Twice daily 0 March 25, 2024 12:00am Start: 11-28-2019 End: 03-21-2024 take 1 capsule by mouth twice daily Docusate Sodium (Dok) 100 mg Capsule Discontinued 100 MG PO Twice daily 0 November 28, 2019 12:00am March 21, 2024 7:23pm escitalopram 5 mg oral tablet (7 sources) Serotonin Reuptake Inhibitor Start: 03-25-2024 End: 04-29-2024 take 5 mg by mouth once daily in the morning Escitalopram Oxalate Active 5 MG PO Every morning March 25, 2024 12:00am ibuprofen 800 mg oral tablet (2 sources) [...] Active levothyroxine sodium 0.05 mg oral tablet (12 sources) l-Thyroxine Start: 11-24-2019 take 1 tablet by mouth once daily levothyroxine (Synthroid, Levoxyl) 50 MCG tablet Indications: Hypothyroidism, unspecified type (CMS/HCC) TAKE 1 TABLET BY MOUTH EVERY DAY ON EMPTY STOMACH FOR 90 DAYS 100 tablet 3 06/27/2023 Active lidocaine 0.04 mg/mg medicated patch (9 sources) Antiarrhythmic, Amide Local Anesthetic Start: 03-25-2024 apply 1 dose topically once daily Lidocaine (Lidocaine Pain Relief) 4 % Adhesive Patch,Medicated Active 1 PATCH TOPICAL Daily March 25, 2024 12:00am apply 1 dose transde rmal route once daily, then apply 1 dose transdermal route every twelve hours lidocaine (Lidoderm) 5 % patch Apply 1 patch topically Daily Remove & discard patch within 12 hours or as directed by MD. Active meclizine hydrochloride 25 mg oral tablet (5 sources) Antiemetic Start: 03-25-2024 take 25 mg by mouth three times daily Meclizine Active 25 MG PO Three times daily 1 March 25, 2024 11:20am Start: 03-21-2024 End: 03-25-2024 take 50 mg by mouth once daily Meclizine Discontinued 50 MG PO Daily March 21, 2024 12:00am March 25, 2024 11:21am take 1 tablet by ani th four times daily as needed for dizziness meclizine (Antivert) 12.5 MG tablet Take 12.5 mg by mouth 4 (four) times a day as needed for dizziness 0 Active 24 hr nicotine 0.292 mg/hr transdermal system (11 sources) Cholinergic Nicotinic Agonist Start: 04-19-2024 nicotine (Nicoderm, Step 3) 7 MG/24HR patch Indications: Tobacco dependence syndrome Place 1 patch on the skin 1 (one) time each day at the same time 30 patch 5 04/19/2024 Active Start: 03-25-2024 Nicotine Activ e 7 MG TRANSDERML Daily 0 March 25, 2024 12:00am Start: 11-29-2019 End: 03-21-2024 Nicotine Discontinued 1 EACH TRANSDERML Daily 07 15November 29, 2019 12:00am March 21, 2024 7:23pm Sennosides (Senna Lax) 8.6 mg Tablet (1 source) Start: 03-25-2024 take 2 tablets by mouth once daily at bedtime Sennosides (Senna Lax) 8.6 mg Tablet Active 17.2 MG PO Daily at bedtime 1 March 25, 2024 12:00am Completed/Discontinued Medications Medication Drug Class(es) Dates Sig (Normalized) Sig (Original) acetaminophen 325 mg / HYDROcodone bitartrate 5 mg oral tablet (2 sources) Opioid Agonist Start: 11-28-2019 End: 03-21-2024 take 1 tablet by mouth every four to six hours Hydrocodone-Acetam inophen Discontinued 1 - 2 TAB PO EVERY 4-6 HOURS 50 7 November 28, 2019 March 21, 2024 7:23pm ascorbic acid 500 mg oral tablet (2 sources) Vitamin C Start: 11-28-2019 End: 03-21-2024 take 1 tablet by mouth once daily Ascorbic Acid (Vitamin C) (Vitamin C) 500 mg Tablet Discontinued 500 MG PO Daily November 28, 2019 12:00am March 21, 2024 7:23pm Calcium Carbonate-Vitamin D3 (Oyster Shell Calcium-Vit D3) 500 mg(1,250mg) -200 unit Tablet (2 sources) Start: 11-28-2019 End: 03-21-2024 take 1 tablet by mouth once at mealtime Calcium Carbonate-Vitamin D3 (Oyster Shell Calcium-Vit D3) 500 mg(1,250mg) -200 unit Tablet Discontinued 1 TAB PO 3x/Day with meals 0 November 28, 2019 12:00am March 21, 2024 7:23pm 0.4 ml enoxaparin sodium 100 mg/ml prefilled syringe (2 sources) Low Molecular Weight Heparin Start: 11-28-2019 End: 03-21-2024 Enoxaparin (Lovenox) 40 mg/0.4 mL Syringe Discontinued 40 MG SUBCUT DAILY@1000 15 November 28, 2019 12:00am March 21, 2024 7:23pm Magnesium Hydroxide (2 sources) Start: 11-28-2019 End: 03-21-2024 take 1 mL by mouth twice daily Magnesium Hydroxide (Milk Of Magnesia) 400 mg/5 mL Suspension Discontinued 30 ML PO Twice daily 0 November 28, 2019 12:00am March 21, 2024 7:23pm Sennosides (Senokot) 8.6 mg tablet (2 sources) Start: 11-29-2019 End: 03-21-2024 take 2 tablets by mouth once daily at bedtime Sennosides (Senokot) 8.6 mg tablet Discontinued 17.2 MG PO Daily at bedtime November 29, 2019 12:00am March 21, 2024 7:23pm Problems Active Problems Problem Classification Problem Date Documented Date Episodic/Chronic Anxiety disorders (18 sources) Generalized anxiety disorder; Translations: [Generalized anxiety disorder] Onset: 11-19-2022 11-19-2022 Chronic Cataract (20 sources) Artificial lens present; Translations: [Presence of intraocular lens] Onset: 01-14-2024 Resolved: 02-20-2024 01-30-2024 Chronic Chronic obstructive pulmonary disease and bronchiectasis (4 sources) Chronic obstructive lung disease; Translations: [Chronic obstructive pulmonary disease, unspecified] Onset: 03-21-2024 11-25-2019 Chronic Complications of surgical procedures or medical care (4 sources) Postoperative hypothyroidism; Translations: [Postprocedural hypothyroidism] Onset: 03-21-2024 11-25-2019 Chronic Diseases of white blood cells (5 sources) Leukocytosis; Translations: [Elevated white blood cell count, unspecified] Onset: 03-21-2024 03-21-2024 Chronic Disorders of lipid metabolism (10 sources) Hyperlipidemia; Translations: [Hyperlipidemia, unspecified] Onset: 06-24-2023 06-24-2023 Chronic E Codes: Fall (5 sources) Fall; Translations: [Unspecified fall, initial encounter] Onset: 03-21-2024 03-21-2024 Episodic Fracture of neck of femur (hip) (4 sources) Closed fracture of femur, subcapital; Translations: [Unspecified intracapsular fracture of left femur, initial encounter for closed fracture] Onset: 03-21-2024 11-24-2019 Episodic Lung disease due to external agents (7 sources) Reactive airways dysfunction syndrome; Translations: [Other acute and subacute respiratory conditions due to chemicals, gases, fumes and vapors] Onset: 04-29-2024 04-29-2024 Episodic Menopausal disorders (10 sources) Primary ovarian failure; Translations: [Other primary ovarian failure] Onset: 06-24-2023 06-24-2023 Chronic Mood disorders (10 sources) Depressive disorder; Translations: [Depressive disorder] Onset: 11-19-2022 11-19-2022 Chronic Nutritional deficiencies (10 sources) Vitamin D deficiency; Translations: [Vitamin D deficiency, unspecified] Onset: 01-07-2023 01-07-2023 Chronic Osteoarthritis (12 sources) Osteoarthritis; Translations: [Unspecified osteoarthritis, unspecified site] Onset: 06-24-2023 06-24-2023 Chronic Osteoporosis (20 sources) Senile osteoporosis; Translations: [Age-related osteoporosis without current pathological fracture] Onset: 01-07-2023 01-07-2023 Chronic Other connective tissue disease (2 sources) Rhabdomyolysis; Translations: [Rhabdomyolysis] 03-21-2024 Episodic Other connective tissue disease (3 sources) Rhabdomyolysis; Translations: [Rhabdomyolysis] Onset: 03-21-2024 03-21-2024 Episodic Other hereditary and degenerative nervous system conditions (2 sources) Hereditary ataxia; 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, 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-29-2024 Chronic Other injuries and conditions due to external causes (4 sources) Traumatic rhabdomyolysis; Translations: [Traumatic ischemia of muscle, subsequent encounter] 04-15-2024 Episodic Other nervous system disorders (1 source) Metabolic encephalopathy; Translations: [Metabolic encephalopathy] 03-22-2024 Chronic Other nervous system disorders (2 sources) Metabolic encephalopathy; Translations: [Metabolic encephalopathy] Onset: 03-21-2024 03-25-2024 Chronic Other non-traumatic joint disorders (2 sources) Hip pain; Translations: [Pain in left hip] 11-25-2019 Episodic Other non-traumatic joint disorders (2 sources) Pain in left hip; Translations: [Pain in joint, pelvic region and thigh] Onset: 03-21-2024 03-25-2024 Episodic Other screening for suspected conditions (not mental disorders or infectious disease) (5 sources) Raised cardiac enzyme or marker; Translations: [Other specified abnormal findings of blood chemistry] Onset: 03-21-2024 03-21-2024 Episodic Other upper respiratory disease (10 sources) Allergic rhinitis; Translations: [Other allergic rhinitis] Onset: 06-24-2023 06-24-2023 Chronic Other upper respiratory infections (10 sources) Sinusitis; Translations: [Chronic sinusitis, unspecified] Onset: 06-24-2023 06-24-2023 Chronic Pathological fracture (2 sources) Pathological fracture of femur due to osteoporosis; Translations: [Age-related osteoporosis with current pathological fracture, left femur, initial encounter for fracture] 11-25-2019 Episodic Substance-related disorders (17 sources) Tobacco dependence syndrome; Translations: [Nicotine dependence, unspecified, uncomplicated] Onset: 06-24-2023 06-24-2023 Chronic Superficial injury; contusion (9 sources) Contusion of left front wall of thorax, initial encounter; Translations: [Contusion of rib on left side] Onset: 03-21-2024 03-21-2024 Episodic Thyroid disorders (20 sources) Hypothyroidism; Translations: [Hypothyroidism, unspecified] Onset: 06-24-2023 06-24-2023 Chronic Urinary tract infections (7 sources) Acute urinary tract infection; Translations: [Urinary tract infection, site not specified] Onset: 03-21-2024 03-21-2024 Episodic Past or Other Problems Problem Classification Problem Date Documented Date Episodic/Chronic Biliary tract disease (10 sources) Gallstone; Translations: [Calculus of gallbladder without cholecystitis without obstruction] Onset: 06-24-2023 06-24-2023 Episodic Conditions associated with dizziness or vertigo (20 sources) Vertigo; Translations: [Dizziness and giddiness] Onset: 06-24-2023 07-20-2023 Episodic Diabetes mellitus without complication (10 sources) Impaired fasting glycemia; Translations: [Impaired fasting glucose] Onset: 01-07-2023 01-07-2023 Episodic Gastritis and duodenitis (10 sources) Gastritis; Translations: [Other gastritis with bleeding] Onset: 06-24-2023 06-24-2023 Episodic Mood disorders (8 sources) Mood disorders Onset: 10-02-2023 10-02-2023 Nonmalignant breast conditions (10 sources) Solitary cyst of breast; Translations: [Solitary cyst of unspecified breast] Onset: 06-24-2023 06-24-2023 Episodic Other connective tissue disease (8 sources) Falls; Translations: [Repeated falls] Onset: 08-22-2023 08-22-2023 Episodic Other lower respiratory disease (10 sources) Disorder of lung; Translations: [Other disorders of lung] Onset: 01-07-2023 01-07-2023 Episodic Spondylosis; intervertebral disc disorders; other back problems (8 sources) Neck pain; Translations: [Cervicalgia] Onset: 08-22-2023 08-22-2023 Episodic Results Test Name Value Interpretation Reference Range Facility Basic Metabolic Panel 03-16 Creatinine Clr Calc Pharmacy 44.36 Normal [facility] Comment on above: Result Comment: PERF ORMED BY: [place] [address] PATHOLOGIST AUDIT MGR SARAH IRAHETA M.D. Performed By: #### C K, BMP #### [place] [address] [place] GFR/1.73 sq M.predicted MDRD (S/P/Bld) [Vol rate/Area] mL/min/{1.73_m2} Normal [facility] Comment on above: Performed By: #### C K, BMP #### [place] [address] [place] Calcium [Mass/volume] in Ser um or PlasmaOrdered By: Teresa Antony on 03-25-2024 Calcium [Mass/Vol] 8.8 mg/dL Normal 8.6-10.3 [facility] Comment on above: Performed By: #### C K, BMP #### [facility] [address] [place] [address] [place] Carbon dioxide, total [Moles /volume] in Serum or PlasmaOrdered By: Teresa Antony on 03-25-2024 CO2 [Moles/Vol] 26.2 mmol/L Normal 21.0-31.0 [facility] Comment on above: Performed By: #### C K, BMP #### [place] [address] [place] Chloride [Moles/volume] in S selene or PlasmaOrdered By: Teresa Antony on 03-25-2024 Chloride [Moles/Vol] 104 mmol/L Normal 98-107 [facility] Comment on above: Performed By: #### C K, BMP #### [place] [address] [place] Creatine kinase [Enzymatic a ctivity/volume] in Serum or PlasmaOrdered By: Teresa Antony on 03-25-2024 CK [Catalytic activity/Vol] 1400 U/L High 30-223 [facility] Comment on above: Result Comment: PERF ORMED BY: [place] [address] PATHOLOGIST AUDIT MGR SARAH IRAHETA M.D. Performed By: #### C K, BMP #### [facility] [address] [place] [address] [place] Creatinine [Mass/volume] in Serum or PlasmaOrdered By: Teresa Antony on 03-25-2024 Creatinine [Mass/Vol] 0.71 mg/dL Normal 0.60-1.20 [facility] Comment on above: Performed By: #### C K, BMP #### [facility] [address] [place] [id number] [place] Glucose [Mass/volume] in Ser um or PlasmaOrdered By: Teresa Antony on 03-25-2024 Glucose [Mass/Vol] 104 mg/dL High 70-100 [facility] Comment on above: ADA recommended refe rence rangeRandom Glucose Reference Range is dependent on time and content of last meal. Glucose of more than 200 mg/dL in a nonstressed, ambulatory subject supports the diagnosis of Diabetes Mellitus. Result Comment: [place] om Glucose Reference Range is dependent on time and content of last meal. Glucose of more than 200 mg/dL in a nonstressed, ambulatory subject supports the diagnosis of Diabetes Mellitus. ADA recommended reference range Performed By: #### C K, BMP #### [address] No Panel InformationOrdered By: Teresa Antony on 03-25-2024 Estimated GFR (CKD-EPI) > 60.0 mL/Min [facility] Creatinine Clearance (Chem 44.36 [facility] Potassium [Moles/volume] in Serum or PlasmaOrdered By: Teresa Antony on 03-25-2024 Potassium [Moles/Vol] 3.4 mmol/L Low 3.5-5.1 [facility] Comment on above: Performed By: #### C K, BMP #### [address] Serum or plasma anion gap de terminationOrdered By: Teresa Antony on 03-25-2024 Anion gap [Moles/Vol] 11.2 mmol/L Normal 6.0-15.0 [facility] Comment on above: Performed By: #### C K, BMP #### [address] Sodium [Moles/volume] in Ser um or PlasmaOrdered By: Teresa Antony on 03-25-2024 Sodium [Moles/Vol] 138 mmol/L Normal 136-145 [facility] Comment on above: Performed By: #### C K, BMP #### [facility] [address] [place] [address] Urea nitrogen [Mass/volume] in Serum or PlasmaOrdered By: Teresa VelasquezBrenham on 03-25-2024 Urea nitrogen [Mass/Vol] 13 mg/dL Normal 7-25 [facility] Comment on above: Performed By: #### C K, BMP #### [address] Automated basophil %Ordered By: Bryan Coppola on 03-24-2024 Basophils/100 WBC (Bld) 0.8 % Normal . [facility] Comment on above: Performed By: #### H S TROP #### [address] Automated basophil countOrde red By: Bryan Coppola on 03-24-2024 Basophils (Bld) [#/Vol] 0.1 10*3/uL Normal 0.0-0.2 [facility] Comment on above: Result Comment: PERF ORMED BY: [place] [address] PATHOLOGIST AUDIT MGR SARAH IRAHETA M.D. Performed By: #### H S TROP #### [address] Automated blood monocyte cou ntOrdered By: Bryan Coppola on 03-24-2024 Monocytes (Bld) [#/Vol] 0.5 10*3/uL Normal 0.0-0.8 [facility] Comment on above: Performed By: #### H S TROP #### [address] Automated eosinophil %Ordere d By: Bryan Coppola on 03-24-2024 Eosinophils/100 WBC (Bld) 2.4 % Normal . [facility] Comment on above: Performed By: #### H S TROP #### [address] Automated eosinophil countOr dered By: Bryan Coppola on 03-24-2024 Eosinophils (Bld) [#/Vol] 0.2 10*3/uL Normal 0.0-0.45 [facility] Comment on above: Performed By: #### H S TROP #### [address] Automated monocyte %Ordered By: Bryan Coppola on 03-24-2024 Monocytes/100 WBC (Bld) 7.5 % Normal . [facility] Comment on above: Performed By: #### H S TROP #### [address] Automated neutrophil %Ordere d By: Bryan Coppola on 03-24-2024 Neutrophils/100 WBC (Bld) 64.6 % Normal . [facility] Comment on above: Performed By: #### H S TROP #### [address] Basic Metabolic Panelon 10-0 Anion gap [Moles/Vol] 9.1 mmol/L Normal 6.0-15.0 [facility] Comment on above: Performed By: #### H S TROP #### [address] Calcium [Mass/Vol] 8.4 mg/dL Low 8.6-10.3 [facility] Comment on above: Performed By: #### H S TROP #### [address] Chloride [Moles/Vol] 109 mmol/L High 98-107 [facility] Comment on above: Performed By: #### H S TROP #### [address] CO2 [Moles/Vol] 26.9 mmol/L Normal 21.0-31.0 [facility] Comment on above: Performed By: #### H S TROP #### [address] Creatinine [Mass/Vol] 0.68 mg/dL Normal 0.60-1.20 [facility] Comment on above: Performed By: #### H S TROP #### [address] Creatinine Clr Calc Pharmacy 44.36 Normal [facility] [facility] Comment on above: Result Comment: PERF ORMED BY: [place] [address] PATHOLOGIST AUDIT MGR SARAH IRAHETA M.D. Performed By: #### H S TROP #### [place] [address] [place] GFR/1.73 sq M.predicted MDRD (S/P/Bld) [Vol rate/Area] mL/min/{1.73_m2} Normal [facility] Comment on above: Performed By: #### H S TROP #### [address] Glucose [Mass/Vol] 88 mg/dL Normal 70-100 [facility] Comment on above: Result Comment: [facility] Glucose Reference Range is dependent on time and content of last meal. Glucose of more than 200 mg/dL in a nonstressed, ambulatory subject supports the diagnosis of Diabetes Mellitus. ADA recommended reference range Performed By: #### H S TROP #### [address] Potassium [Moles/Vol] 3.0 mmol/L Low 3.5-5.1 [facility] Comment on above: Performed By: #### H S TROP #### [place] [address] [place] Sodium [Moles/Vol] 142 mmol/L Normal 136-145 [facility] Comment on above: Performed By: #### H S TROP #### [place] [address] [place] Urea nitrogen [Mass/Vol] 13 mg/dL Normal 7-25 [facility] Comment on above: Performed By: #### H S TROP #### [place] [address] [place] Complete Blood Count Auto Di ffon 03-24-2024 Mean Corpuscular HGB Conc 35.0 g/dL Normal 32.0-35.0 [facility] Comment on above: Performed By: #### H S TROP #### [address] NRBC% 0.1 /100{WBC} Normal 0-0.5 [facility] Comment on above: Performed By: #### H S TROP #### [address] Creatine Kinaseon 03-24-2024 CK [Catalytic activity/Vol] 2390 U/L High 30-223 [facility] Comment on above: Result Comment: PERF ORMED BY: [place] [address] PATHOLOGIST AUDIT MGR SARAH IRAHETA M.D. Performed By: #### H S TROP #### [address] Erythrocyte distribution wid th [Ratio] by Automated countOrdered By: Bryan Coppola on 03-24-2024 Erythrocyte distribution width (RBC) [Ratio] 13.5 % Normal 11.9-15.3 [facility] Comment on above: Performed By: #### H S TROP #### [address] Erythrocytes [#/volume] in B lood by Automated countOrdered By: Bryan Coppola on 03-24-2024 RBC (Bld) [#/Vol] 3.89 10*6/uL Normal 3.60-5.00 [facility] Comment on above: Performed By: #### H S TROP #### [address] Hematocrit [Volume Fraction] of Blood by Automated countOrdered By: Bryan Coppola on 03-24-2024 Hematocrit (Bld) [Volume fraction] 35.7 % Normal 34.0-46.4 [facility] Comment on above: Performed By: #### H S TROP #### [address] Hemoglobin [Mass/volume] in BloodOrdered By: Bryan Coppola on 03-24-2024 Hemoglobin (Bld) [Mass/Vol] 12.5 g/dL Normal 11.8-15.4 [facility] Comment on above: Performed By: #### H S TROP #### [address] Leukocytes [#/volume] correc stephanie for nucleated erythrocytes in Blood by Automated counOrdered By: Bryan Coppola on 03-24-2024 WBC corrected for nucl RBC Auto (Bld) [#/Vol] 6.7 10*3/uL 3.8-11.6 [facility] Leukocytes [#/volume] in Blo od by Automated countOrdered By: Bryan Coppola on 03-24-2024 WBC (Bld) [#/Vol] 6.7 10*3/uL Normal 3.8-11.6 [facility] Comment on above: Performed By: #### H S TROP #### [address] Lymphocytes [#/volume] in Bl ood by Automated countOrdered By: Bryan Coppola on 03-24-2024 Lymphocytes (Bld) [#/Vol] 1.7 10*3/uL Normal 1.00-4.8 [facility] Comment on above: Performed By: #### H S TROP #### [address] Lymphocytes/100 leukocytes i n Blood by Automated countOrdered By: Bryan Coppola on 03-24-2024 Lymphocytes/100 WBC (Bld) 24.7 % Normal . [facility] Comment on above: Performed By: #### H S TROP #### [place] [address] [place] MCH [Entitic mass] by Automa stephanie countOrdered By: Bryan Coppola on 03-24-2024 MCH (RBC) [Entitic mass] 32.1 pg Normal 24.7-34.3 [facility] Comment on above: Performed By: #### H S TROP #### [place] [address] [place] MCHC Auto (RBC) [Mass/Vol]Or dered By: Bryan Coppola on 03-24-2024 MCHC (RBC) [Mass/Vol] 35.0 g/dL 32.0-35.0 [facility] MCV [Entitic volume] by Auto mated countOrdered By: Bryan Coppola on 03-24-2024 MCV (RBC) [Entitic vol] 91.7 fL Normal 80-100 [facility] Comment on above: Performed By: #### H S TROP #### [address] Neutrophils [#/volume] in Bl ood by Automated countOrdered By: Bryan Coppola on 03-24-2024 Neutrophils (Bld) [#/Vol] 4.3 10*3/uL Normal 1.8-7.7 [facility] Comment on above: Performed By: #### H S TROP #### [facility] [address] [place] [address] Nucleated erythrocytes [Pres ence] in Blood by Automated countOrdered By: Bryan Coppola on 03-24-2024 Nucleated RBC Auto Ql (Bld) 0.1 /100{WBC} 0-0.5 [facility] Platelet mean volume [Entiti c volume] in Blood by Automated countOrdered By: Bryan Coppola on 03-24-2024 Platelet mean volume (Bld) [Entitic vol] 7.8 fL Normal 6.3-10.7 [facility] Comment on above: Performed By: #### H S TROP #### [address] Platelets [#/volume] in Bloo d by Automated countOrdered By: Bryan Coppola on 03-24-2024 Platelets (Bld) [#/Vol] 183 10*3/uL Normal 150-450 [facility] Comment on above: Performed By: #### H S TROP #### [address] Basic Metabolic Panelon 10 Anion gap [Moles/Vol] Not performed Normal 6.0-15.0 [facility] Comment on above: Performed By: #### H S TROP #### [address] Calcium [Mass/Vol] 8.6 mg/dL Normal 8.6-10.3 [facility] Comment on above: Performed By: #### H S TROP #### [place] [address] [place] Chloride [Moles/Vol] 107 mmol/L Normal 98-107 [facility] Comment on above: Performed By: #### H S TROP #### [place] [address] [place] CO2 [Moles/Vol] 25.0 mmol/L Normal 21.0-31.0 [facility] Comment on above: Performed By: #### H S TROP #### [place] [address] [place] Creatinine [Mass/Vol] 0.81 mg/dL Normal 0.60-1.20 [facility] Comment on above: Performed By: #### H S TROP #### [place] [address] [place] Creatinine Clr Calc Pharmacy 43.81 Normal [facility] Comment on above: Result Comment: PERF ORMED BY: [place] [address] PATHOLOGIST AUDIT MGR SARAH IRAHETA M.D. Performed By: #### H S TROP #### [place] [address] [place] GFR/1.73 sq M.predicted MDRD (S/P/Bld) [Vol rate/Area] mL/min/{1.73_m2} Normal [facility] Comment on above: Performed By: #### H S TROP #### [address] Glucose [Mass/Vol] 78 mg/dL Normal 70-100 [facility] Comment on above: Result Comment: [place] Glucose Reference Range is dependent on time and content of last meal. Glucose of more than 200 mg/dL in a nonstressed, ambulatory subject supports the diagnosis of Diabetes Mellitus. ADA recommended reference range Performed By: #### H S TROP #### [address] Potassium Normal 3.5-5.1 [facility] Comment on above: Result Comment: Spec imen hemolyzed, redraw requested Performed By: #### H S TROP #### [address] Sodium [Moles/Vol] 138 mmol/L Normal 136-145 [facility] Comment on above: Performed By: #### H S TROP #### [address] Urea nitrogen [Mass/Vol] 12 mg/dL Normal 7-25 [facility] Comment on above: Performed By: #### H S TROP #### [address] Complete Blood Count Auto Di ffon 03-23-2024 Basophils (Bld) [#/Vol] 0.1 10*3/uL Normal 0.0-0.2 [facility] Comment on above: Result Comment: PERF ORMED BY: [place] [address] PATHOLOGIST AUDIT MGR SARAH IRAHETA M.D. Performed By: #### H S TROP #### [place] [address] [place] Basophils/100 WBC (Bld) 1.4 % Normal . [facility] Comment on above: Performed By: #### H S TROP #### [place] [address] [place] Eosinophils (Bld) [#/Vol] 0.1 10*3/uL Normal 0.0-0.45 [facility] Comment on above: Performed By: #### H S TROP #### [address] Eosinophils/100 WBC (Bld) 1.6 % Normal . [facility] Comment on above: Performed By: #### H S TROP #### [address] Erythrocyte distribution width (RBC) [Ratio] 13.5 % Normal 11.9-15.3 [facility] Comment on above: Performed By: #### H S TROP #### [address] Hematocrit (Bld) [Volume fraction] 38.9 % Normal 34.0-46.4 [facility] Comment on above: Performed By: #### H S TROP #### [address] Hemoglobin (Bld) [Mass/Vol] 13.5 g/dL Normal 11.8-15.4 [facility] Comment on above: Performed By: #### H S TROP #### [address] Lymphocytes (Bld) [#/Vol] 2.4 10*3/uL Normal 1.00-4.8 [facility] Comment on above: Performed By: #### H S TROP #### [address] Lymphocytes/100 WBC (Bld) 24.6 % Normal . [facility] Comment on above: Performed By: #### H S TROP #### [address] MCH (RBC) [Entitic mass] 32.0 pg Normal 24.7-34.3 [facility] Comment on above: Performed By: #### H S TROP #### [address] MCV (RBC) [Entitic vol] 92.4 fL Normal 80-100 [facility] Comment on above: Performed By: #### H S TROP #### [address] Mean Corpuscular HGB Conc 34.7 g/dL Normal 32.0-35.0 [facility] Comment on above: Performed By: #### H S TROP #### [place] [address] [place] Monocytes (Bld) [#/Vol] 0.6 10*3/uL Normal 0.0-0.8 [facility] Comment on above: Performed By: #### H S TROP #### [address] Monocytes/100 WBC (Bld) 5.9 % Normal . [facility] Comment on above: Performed By: #### H S TROP #### [address] Neutrophils (Bld) [#/Vol] 6.4 10*3/uL Normal 1.8-7.7 [facility] Comment on above: Performed By: #### H S TROP #### [address] Neutrophils/100 WBC (Bld) 66.5 % Normal . [facility] Comment on above: Performed By: #### H S TROP #### [address] NRBC% 0.1 /100{WBC} Normal 0-0.5 [facility] Comment on above: Performed By: #### H S TROP #### [address] Platelet mean volume (Bld) [Entitic vol] 8.3 fL Normal 6.3-10.7 [facility] Comment on above: Performed By: #### H S TROP #### [place] [address] [place] Platelets (Bld) [#/Vol] 193 10*3/uL Normal 150-450 [facility] Comment on above: Performed By: #### H S TROP #### [place] [address] [place] RBC (Bld) [#/Vol] 4.21 10*6/uL Normal 3.60-5.00 [facility] Comment on above: Performed By: #### H S TROP #### [place] [address] [place] WBC (Bld) [#/Vol] 9.6 10*3/uL Normal 3.8-11.6 [facility] Comment on above: Performed By: #### H S TROP #### [address] Creatine Kinaseon 03-23-2024 CK [Catalytic activity/Vol] 930 U/L High 30-223 [facility] Comment on above: Result Comment: PERF ORMED BY: [place] [address] PATHOLOGIST AUDIT MGR SARAH IRAHETA M.D. Performed By: #### H S TROP #### [address] Redraw Potassiumon Potassium [Moles/Vol] 3.8 mmol/L Normal 3.5-5.1 [facility] Comment on above: Order Comment: HEMOL YZED SPECIMEN NOTIFIED GAURAV Result Comment: Hemo lysis is present at a level that could interfere with the result. Contact lab if redraw is required PERFORMED BY: [place] [address] PATHOLOGIST AUDIT MGR SARAH IRAHETA M.D. Performed By: #### H S TROP #### [address] Basic Metabolic Panelon 100 Anion gap [Moles/Vol] 9.5 mmol/L Normal 6.0-15.0 [facility] Comment on above: Performed By: #### M G, [id number], BMP, CK, CBC, HS TROP #### [address] Calcium [Mass/Vol] 8.4 mg/dL Low 8.6-10.3 [facility] Comment on above: Performed By: #### M G, [id number], BMP, CK, CBC, HS TROP #### [address] Chloride [Moles/Vol] 109 mmol/L High 98-107 [facility] Comment on above: Performed By: #### M G, [id number], BMP, CK, CBC, HS TROP #### [address] CO2 [Moles/Vol] 25.2 mmol/L Normal 21.0-31.0 [facility] Comment on above: Performed By: #### M G, [id number], BMP, CK, CBC, HS TROP #### [address] Creatinine [Mass/Vol] 0.78 mg/dL Normal 0.60-1.20 [facility] Comment on above: Performed By: #### M G, [id number], BMP, CK, CBC, HS TROP #### [address] Creatinine Clr Calc Pharmacy 44.36 Normal [facility] Comment on above: Performed By: #### M G, [id number], BMP, CK, CBC, HS TROP #### [place] [address] [place] GFR/1.73 sq M.predicted MDRD (S/P/Bld) [Vol rate/Area] mL/min/{1.73_m2} Normal [facility] Comment on above: Performed By: #### M G, [id number], BMP, CK, CBC, HS TROP #### [address] Glucose [Mass/Vol] 95 mg/dL Normal 70-100 [facility] Comment on above: Result Comment: [place] Glucose Reference Range is dependent on time and content of last meal. Glucose of more than 200 mg/dL in a nonstressed, ambulatory subject supports the diagnosis of Diabetes Mellitus. ADA recommended reference range Performed By: #### M G, [id number], BMP, CK, CBC, HS TROP #### [address] Potassium [Moles/Vol] 3.7 mmol/L Normal 3.5-5.1 [facility] Comment on above: Performed By: #### M G, [id number], BMP, CK, CBC, HS TROP #### [address] Sodium [Moles/Vol] 140 mmol/L Significant change down 136-145 [facility] Comment on above: Performed By: #### M G, [id number], BMP, CK, CBC, HS TROP #### [address] Urea nitrogen [Mass/Vol] 13 mg/dL Normal 7-25 [facility] Comment on above: Performed By: #### M G, [id number], BMP, CK, CBC, HS TROP #### [address] Complete Blood Count Auto Di ffon 03-22-2024 Basophils (Bld) [#/Vol] 0.1 10*3/uL Normal 0.0-0.2 [facility] Comment on above: Result Comment: PERF ORMED BY: [place] [address] PATHOLOGIST AUDIT MGR SARAH IRAHETA M.D. Performed By: #### M G, [id number], BMP, CK, CBC, HS TROP #### [address] Basophils/100 WBC (Bld) 0.9 % Normal . [facility] Comment on above: Performed By: #### M G, [id number], BMP, CK, CBC, HS TROP #### [address] Eosinophils (Bld) [#/Vol] 0.1 10*3/uL Normal 0.0-0.45 [facility] Comment on above: Performed By: #### M G, [id number], BMP, CK, CBC, HS TROP #### [address] Eosinophils/100 WBC (Bld) 0.5 % Normal . [facility] Comment on above: Performed By: #### M G, [id number], BMP, CK, CBC, HS TROP #### [address] Erythrocyte distribution width (RBC) [Ratio] 13.3 % Normal 11.9-15.3 [facility] Comment on above: Performed By: #### M G, [id number], BMP, CK, CBC, HS TROP #### [address] Hematocrit (Bld) [Volume fraction] 38.1 % Normal 34.0-46.4 [facility] Comment on above: Performed By: #### M G, [id number], BMP, CK, CBC, HS TROP #### [address] Hemoglobin (Bld) [Mass/Vol] 13.2 g/dL Normal 11.8-15.4 [facility] Comment on above: Performed By: #### M G, [id number], BMP, CK, CBC, HS TROP #### [address] Lymphocytes (Bld) [#/Vol] 1.7 10*3/uL Normal 1.00-4.8 [facility] Comment on above: Performed By: #### M G, [id number], BMP, CK, CBC, HS TROP #### [address] Lymphocytes/100 WBC (Bld) 16.8 % Normal . [facility] Comment on above: Performed By: #### M G, [id number], BMP, CK, CBC, HS TROP #### [address] MCH (RBC) [Entitic mass] 31.8 pg Normal 24.7-34.3 [facility] Comment on above: Performed By: #### M G, [id number], BMP, CK, CBC, HS TROP #### [address] MCV (RBC) [Entitic vol] 91.8 fL Normal 80-100 [facility] Comment on above: Performed By: #### M G, [id number], BMP, CK, CBC, HS TROP #### [address] Mean Corpuscular HGB Conc 34.7 g/dL Normal 32.0-35.0 [facility] Comment on above: Performed By: #### M G, [id number], BMP, CK, CBC, HS TROP #### [address] Monocytes (Bld) [#/Vol] 0.8 10*3/uL Normal 0.0-0.8 [facility] Comment on above: Performed By: #### M G, [id number], BMP, CK, CBC, HS TROP #### [address] Monocytes/100 WBC (Bld) 7.8 % Normal . [facility] Comment on above: Performed By: #### M G, [id number], BMP, CK, CBC, HS TROP #### [address] Neutrophils (Bld) [#/Vol] 7.5 10*3/uL Normal 1.8-7.7 [facility] Comment on above: Performed By: #### M G, [id number], BMP, CK, CBC, HS TROP #### [address] Neutrophils/100 WBC (Bld) 74.0 % Normal . [facility] Comment on above: Performed By: #### M G, [id number], BMP, CK, CBC, HS TROP #### [place] [address] [place] NRBC% 0.0 /100{WBC} Normal 0-0.5 [facility] Comment on above: Performed By: #### M G, [id number], BMP, CK, CBC, HS TROP #### [address] Platelet mean volume (Bld) [Entitic vol] 7.9 fL Normal 6.3-10.7 [facility] Comment on above: Performed By: #### M G, [id number], BMP, CK, CBC, HS TROP #### [address] Platelets (Bld) [#/Vol] 201 10*3/uL Normal 150-450 [facility] Comment on above: Performed By: #### M G, [id number], BMP, CK, CBC, HS TROP #### [address] RBC (Bld) [#/Vol] 4.15 10*6/uL Normal 3.60-5.00 [facility] Comment on above: Performed By: #### M G, [id number], BMP, CK, CBC, HS TROP #### [address] WBC (Bld) [#/Vol] 10.2 10*3/uL Normal 3.8-11.6 [facility] Comment on above: Performed By: #### M G, [id number], BMP, CK, CBC, HS TROP #### [address] Creatine Kinaseon 03-22-2024 CK [Catalytic activity/Vol] 7110 U/L High 30-223 [facility] Comment on above: Performed By: #### C K, BMP #### [address] ECH echo transthoracicon ECH echo transthoracic [facility] [place] [address] Echocardiogram Signed Patient: Stella Kong MR#: [id number] 82 : 1945 Acct:[id number] Age/Sex: 79 / F ADM Date: 03/21/24 Loc: Room: [address] [place] [address] Type: ADM IN Attending Dr: Alonso Agudelo MD Ordering Provider: Bryan Coppola DO Date of Service: 03/22/2401/06/500 ECH/ECH echo transthoracic: dyspnea Copies to: DO Mala Verdin MD Weight: 126 lb Performed By: CAROLIN De La Cruz BSA: 1.6 m2 BP: 110/65 mmHg HR: 60 Reason For Study: dyspnea History: COPD, Smoker Interpretation Summary Ejection Fraction = 50-55%. The left ventricular wall motion is normal. A variety of Doppler measurements indicate normal left ventricular diastolic function. There is mild tricuspid regurgitation. The right ventricle is mildly dilated. Right ventricular systolic pressure is normal. Compared to prior study, there is no significant change. Procedure/Quality: A two-dimensional transthoracic echocardiogram with color flow and Doppler was performed. The study was technically good in quality. Left Ventricle: The left ventricular size is normal. The left ventricular thickness is normal. Ejection Fraction = 50-55%. A variety of Doppler measurements indicate normal left ventricular diastolic function. The left ventricular wall motion is normal. Left Atrium: The left atrium appears normal in size. Right Atrium: The right atrium appears normal in size. Right Ventricle: The right ventricle is mildly dilated. The right ventricular systolic function is normal. Aortic Valve: The aortic valve is trileaflet. The aortic valve is mildly sclerotic. No hemodynamically significant valvular aortic stenosis. No aortic regurgitation is present. Mitral Valve: The mitral valve is normal in structure. No significant mitral valve stenosis. There is no mitral regurgitation noted. Tricuspid Valve: The tricuspid valve is normal in structure. There is mild tricuspid regurgitation. Right ventricular systolic pressure is normal. The right ventricular systolic pressure is 28 mmHg. Pulmonic Valve: The pulmonic valve is not well visualized. No significant pulmonic regurgitation. Arteries: The aortic root is normal size. Pericardium/Pleura: No pericardial effusion seen. There is no pleural effusion. IVC/Hepatic Veins: The inferior vena cava is normal in size, with a normal collapsibility index. Measurements with Normals IVSd: 1.3 cm (0.7-1.1 cm)LVIDd: 4.2 cm (3.7-5.4 cm) LVPWd: 1.0 cm (0.7-1.1 cm)LVIDs: 2.8 cm (2.3-3.6 cm) LA dimension: 2.7 cm (2.3-4.0 cm)Ao root diam: 3.3 cm(2.0-3.6 cm) asc Aorta Diam: 3.7 cm(2.1-3.4cm) Doppler with Normals RVSP(TR): 28.2 mmHg (18-35mmHg) LV V1 max: 72.4 cm/sec (0.7-1.7m/s)MV E max glenna: 54.8 cm/sec(0.8-1.3m/s) MV A max glenna: 65.6 cm/sec(0.0-0.0m/s) MV E/A: 0.84 (<1.5) MMode/2D Measurements Calculations RVDd: 2.7 cm RV Base: 3.3 cm FS: 33.5 % Ao root area: TAPSE: 1.8 cm RV Mid: 2.8 cm EDV(Teich): 8.3 cm2 RV S Glenna: 13.5 cm/sec RV Length: 5.6 cm 78.8 ml ESV(Teich): 29.4 ml EF(Teich): 62.6 % __ LVOT diam: 2.0 cm LVLd ap4: 7.1 cm SV(MOD-sp4): LAV(MOD-sp4): LVOT area: 3.0 cm2 EDV(MOD-sp4): 29.7 ml 27.6 ml 65.2 ml LAV(MOD-sp2): LVLs ap4: 6.4 cm 34.4 ml ESV(MOD-sp4): 35.5 ml EF(MOD-sp4): 45.6 % __ LA A2 area: 16.6 cm2 LA A4 area: 15.1 cm2 LA length (vol): 6.3 cm LA vol: 33.9 ml LA vol index: 21.6 ml/m2 Doppler Measurements Calculations MV dec time: MV V2 max: E/E' lat: 6.4 MV dec slope: 0.41 sec 61.7 cm/sec E/E' med: 8.5 134.9 cm/sec2 MV max P.0 mmHg MV V2 mean: 38.8 cm/sec MV mean P.69 mmHg MV V2 VTI: 25.2 cm MVA(VTI): 1.9 cm2 __ Ao V2 max: LV V1 max PG: MR max glenna: TV max P.0 mmHg 140.7 cm/sec 2.1 mmHg 372.5 cm/sec Ao max P.9 mmHgLV V1 mean PG: MR max PG: Ao mean P.95 mmHg 55.5 mmHg 4.7 mmHg LV V1 mean: Ao V2 mean: 44.9 cm/sec 103.8 cm/sec LV V1 VTI: 16.0 cm Ao V2 VTI: 31.2 cm ARMANDO(I,D): 1.6 cm2 ARMANDO(V,D): 1.6 cm2 __ TR max glenna: 251.1 cm/sec TR max P.2 mmHg RAP systole: 3.0 mmHg Transcribed By: GAGAN Performed At: 03/22/24 0907 Signed By: Mala Nettles MD 03/22/24 1001 Normal [facility] Magnesium [Mass/volume] in S selene or PlasmaOrdered By: Bryan Coppola on 03-22-2024 Magnesium [Mass/Vol] 2.0 mg/dL Normal 1.9-2.7 [facility] Comment on above: Performed By: #### M G, [id number], BMP, CK, CBC, HS TROP #### [place] [address] [place] Troponin I High Sensitivityo n 03-22-2024 Troponin I High Sensitivity 255.3 pg/mL Off scale high 0.0-15.0 [facility] Comment on above: Result Comment: Crit ical Result : Called to and read back by: KASH GRAHAM at: 03/22/2024 07:53:28 by:PB PERFORMED BY: [place] [address] PATHOLOGIST AUDIT MGR SARAH IRAHETA M.D. Performed By: #### C K, BMP #### [facility] [address] [place] [address] Troponin I.cardiac [Mass/vol ume] in Serum or Plasma by Detection limit <= 0.01 ng/Ordered By: Bryan Coppola on 03-22-2024 Troponin I.cardiac DL <= 0.01 ng/mL [Mass/Vol] 255.3 pg/mL High 0.0-15.0 [facility] Comment on above: Critical Result : Ca lled to and read back by: KASH GRAHAM at: 03/22/2024 07:53:28 by:PB Vitamin D 25 Hydroxy Totalon 03-22-2024 Vitamin D 25 Hydroxy Total 33.0 ng/mL Normal 30-100 [facility] Comment on above: Result Comment: SEBAS MIN D STATUS 25(OH)VITAMIN D RANGE (ng/mL) Deficient <20 Insufficient 20 to <30 Sufficient 30 to 100 Reference: Elana Cesar, Hilario BUSCH, et al. Evaluation,treatment, and prevention of vitamin D deficiency; an Endocrine Society clinical practice guideline. JCEM. 2010; 96(7):1911-30. PERFORMED BY: [place] [address] PATHOLOGIST AUDIT MGR SARAH IRAHETA M.D. Performed By: #### Ramon Brown, BMP #### [address] Vitamin D+Metabolites [Mass/ volume] in Serum or PlasmaOrdered By: Bryan Coppola on 03-22-2024 Vitamin D+Metabolites [Mass/Vol] 33.0 ng/mL 30-100 [facility] Comment on above: VITAMIN D STATUS 25( OH)VITAMIN D RANGE (ng/mL) Deficient <20 Insufficient 20 to <30Sufficient 30 to 100Reference: Elana Cesar, Hilario BUSCH, et al. Evaluation,treatment, and prevention of vitamin D deficiency; an Endocrine Society clinical practice guideline. JCEM. 2010; 96(7):1911-30. Alanine aminotransferase [En zymatic activity/volume] in Serum or PlasmaOrdered By: Yokasta Flores on 03-21-2024 ALT [Catalytic activity/Vol] 15 U/L Normal 7-52 [facility] Comment on above: Performed By: #### C K, BMP #### [address] Albumin [Mass/volume] in Ser um or Plasma by Bromocresol green (BCG) dye binding methoOrdered By: Yokasta Flores on 03-21-2024 Albumin BCG dye [Mass/Vol] 3.8 g/dL 3.5-5.7 [facility] Alkaline phosphatase [Enzyma tic activity/volume] in Serum or PlasmaOrdered By: Yokasta Flores on 03-21-2024 ALP [Catalytic activity/Vol] 55 U/L Normal 34-104 [facility] Comment on above: Performed By: #### C K, BMP #### [address] Aspartate aminotransferase [ Enzymatic activity/volume] in Serum or PlasmaOrdered By: Yokasta Flores on 03-21-2024 AST [Catalytic activity/Vol] 30 U/L Normal 13-39 [facility] Comment on above: Performed By: #### C K, BMP #### [address] Automated basophil %Ordered By: Yokasta Flores on 03-21-2024 Basophils/100 WBC (Bld) 1.2 % Normal . [facility] Comment on above: Performed By: #### C K, BMP #### [address] Automated basophil countOrde red By: Yokasta Flores on 03-21-2024 Basophils (Bld) [#/Vol] 0.2 10*3/uL Normal 0.0-0.2 [facility] Comment on above: Result Comment: PERF ORMED BY: [place] [address] PATHOLOGIST AUDIT MGR SARAH IRAHETA M.D. Performed By: #### C K, BMP #### [address] Automated blood monocyte cou ntOrdered By: Yokasta Flores on 03-21-2024 Monocytes (Bld) [#/Vol] 0.4 10*3/uL Normal 0.0-0.8 [facility] Comment on above: Performed By: #### C K, BMP #### [address] Automated eosinophil %Ordere d By: Yokasta Flores on 03-21-2024 Eosinophils/100 WBC (Bld) 0.1 % Normal . [facility] Comment on above: Performed By: #### C K, BMP #### [address] Automated eosinophil countOr dered By: Yokasta Flores on 03-21-2024 Eosinophils (Bld) [#/Vol] 0.0 10*3/uL Normal 0.0-0.45 [facility] Comment on above: Performed By: #### C K, BMP #### [address] Automated monocyte %Ordered By: Yokasta Flores on 03-21-2024 Monocytes/100 WBC (Bld) 2.9 % Normal . [facility] Comment on above: Performed By: #### C K, BMP #### [address] Automated neutrophil %Ordere d By: Yokasta Flores on 03-21-2024 Neutrophils/100 WBC (Bld) 91.7 % Normal . [facility] Comment on above: Performed By: #### C K, BMP #### [address] Bacteria [Presence] in Urine by AutomatedOrdered By: Bryan Coppola on 03-21-2024 Bacteria Auto Ql (U) 1+ [HPF] High None [facility] Bacteria [Presence] in Urine by AutomatedOrdered By: Yokasta Flores on 03-21-2024 Bacteria Auto Ql (U) 2+ [HPF] High None [facility]en [facility] Bilirubin Test strip Ql (U)O rdered By: Yokasta Flores on 03-21-2024 Bilirubin Ql (U) Negative Negative [facility] Bilirubin.total [Mass/volume ] in Serum or PlasmaOrdered By: Yokasta Flores on 03-21-2024 Bilirubin [Mass/Vol] 0.4 mg/dL Normal 0.3-1.0 [facility] Comment on above: Performed By: #### C K, BMP #### [address] head/brain wo conon 03-21 CT head/brain wo con [facility] [address] [place] [address] [place] [address] CT Scan Report Signed Patient: Stella Kong MR#: [id number] 81 : 1945 Acct:[id number] Age/Sex: 79 / F ADM Date: 03/21/24 Loc: ER Room: Type: [facility] ER Attending Dr: Copies to: Yokasta Flores DO Ordering Provider: Yokasta Flores DO Date of Service: 03/21/24 CT/CT head/brain wo con: f CT BRAIN WITHOUT CONTRAST: CLINICAL HISTORY: Fall. Left hip pain. COMPARISON: None TECHNIQUE: Contiguous axial unenhanced images were obtained through the brain. This CT exam was performed using one or more following dose reduction techniques: Automated exposure control, adjustment of the mA and/or kV according to patient size, or use of iterative reconstruction technique. FINDINGS: There is no evidence of midline shift, intra or extra-axial fluid collection, hemorrhage or CT evidence of stroke. Cortical atrophy with chronic microvascular ischemic changes. Posterior fossa appears unremarkable. Visualized intraorbital contents demonstrate no acute findings. Visualized paranasal sinuses are clear. The surrounding soft tissues are normal. CT/CT head/brain wo con IMPRESSION: NO ACUTE INTRACRANIAL ABNORMALITY. Impression dictated by: Germain Lipscomb Jr., D.O.03/21/2024 6:18 PM Dictation Location: [place] [address] Transcribed By: SYED 03/21/241817 Dictated By: Germain Lipscomb Jr, DO 03/21/241814 Signed By: 03/21/241817 Normal [facility] Calcium [Mass/volume] in Ser um or PlasmaOrdered By: Yokasta Flores on 10-06-2024 Calcium [Mass/Vol] 8.5 mg/dL Low 8.6-10.3 [facility] Comment on above: Performed By: #### C K, BMP #### [address] Carbon dioxide, total [Moles /volume] in Serum or PlasmaOrdered By: Yokasta Flores on 03-21-2024 CO2 [Moles/Vol] 22.6 mmol/L Normal 21.0-31.0 [facility] Comment on above: Performed By: #### C K, BMP #### [place] [address] [place] Chloride [Moles/volume] in S selene or PlasmaOrdered By: Yokasta Flores on 03-21-2024 Chloride [Moles/Vol] 102 mmol/L Normal 98-107 [facility] Comment on above: Performed By: #### C K, BMP #### [place] [address] [place] Color of Urine by AutoOrdere d By: Bryan Coppola on 03-21-2024 Color (U) Colorless Normal Yellow [facility] Comment on above: Order Comment: Name Collection Type:: Straight Catheter Performed By: #### A RADHA, CUU #### [address] Color of Urine by AutoOrdere d By: Yokasta Flores on 03-21-2024 Color (U) Light-yellow Normal Yellow [facility] Comment on above: Order Comment: Name Collection Type:: Clean-Voided Midstream Performed By: #### A RADHA, CUU #### [place] [address] [place] Complete Blood Count Auto Di ffon 03-21-2024 Mean Corpuscular HGB Conc 34.7 g/dL Normal 32.0-35.0 [facility] Comment on above: Performed By: #### C K, BMP #### [place] [address] [place] Monocytes/100 WBC (Bld) 14.37 % Normal 0.00-20.00 [facility] Comment on above: Performed By: #### C K, BMP #### [facility] [address] NRBC% 0.1 /100{WBC} Normal 0-0.5 [facility] Comment on above: Performed By: #### C K, BMP #### [address] Comprehensive Metabolic Pane tila 03-21-2024 Albumin [Mass/Vol] 3.8 g/dL Normal 3.5-5.7 [facility] Comment on above: Performed By: #### C K, BMP #### [place] [address] [place] Creatinine Clr Calc Pharmacy 42.12 Normal [facility] Comment on above: Result Comment: PERF ORMED BY: [place] [address] PATHOLOGIST AUDIT MGR SARAH IRAHETA M.D. Performed By: #### C K, BMP #### [place] [address] [place] GFR/1.73 sq M.predicted MDRD (S/P/Bld) [Vol rate/Area] mL/min/{1.73_m2} Normal [facility] Comment on above: Performed By: #### C K, BMP #### [place] [address] [place] Creatine Kinaseon 03-21-2024 CK [Catalytic activity/Vol] 6966 U/L High 30-223 [facility] Comment on above: Performed By: #### C K, BMP #### [place] [address] [place] Creatine kinase [Enzymatic a ctivity/volume] in Serum or PlasmaOrdered By: Yokasta Flores on 03-21-2024 CK [Catalytic activity/Vol] 1460 U/L High 30-223 [facility] Comment on above: Result Comment: PERF ORMED BY: [place] [address] PATHOLOGIST AUDIT MGR SARAH IRAHETA M.D. Performed By: #### C K, BMP #### [place] [address] [place] Creatine kinase.MB [Mass/vol ume] in Serum or PlasmaOrdered By: Bryan Coppola on 03-21-2024 CK.MB [Mass/Vol] 80.7 ng/mL High 0.6-6.3 [facility] Comment on above: Performed By: #### H S TROP #### [place] [address] [place] Creatinine Kinase MBon 03-21 CKMB Relative Index 1.1 % Normal 0.00-2.50 [facility] Comment on above: Performed By: #### H S TROP #### [place] [address] [place] Creatinine [Mass/volume] in Serum or PlasmaOrdered By: Yokasta Flores on 03-21-2024 Creatinine [Mass/Vol] 0.94 mg/dL Normal 0.60-1.20 [facility] Comment on above: Performed By: #### C K, BMP #### [place] [address] [place] Dipstick and Microscopicon 1 Bacteria,Urine 1+ High None Seen [facility] Comment on above: Order Comment: Name Collection Type:: Straight Catheter Performed By: #### A DDONUAPLUS, CUU #### [place] [address] [place] Glucose Ql (U) 70 mg/dL High Normal [facility] Comment on above: Order Comment: Name Collection Type:: Straight Catheter Performed By: #### A DDONUAPLUS, CUU #### [place] [address] [place] Specificy [place],Urine 1.006 Normal 1.00 1-1.03 0 [facility] Comment on above: Order Comment: Name Collection Type:: Straight Catheter Performed By: #### A DDONUAPLUS, CUU #### [place] [address] [place] WBC CLUMP, Urine Moderate High None Seen [facility] Comment on above: Order Comment: Name Collection Type:: Straight Catheter Performed By: #### A DDONUAPLUS, CUU #### [address] WBC,Urine 20-49 High 0-4 [facility] Comment on above: Order Comment: Name Collection Type:: Straight Catheter Performed By: #### A DDONUAPLUS, CUU #### [address] Bacteria,Urine 2+ High None Seen [facility] Comment on above: Order Comment: Name Collection Type:: Clean-Voided Midstream Performed By: #### A DDONUAPLUS, CUU #### [address] Bilirubin,Urine Negative Normal Negative [facility] Comment on above: Order Comment: Name Collection Type:: Straight Catheter Performed By: #### A DDONUAPLUS, CUU #### [address] Order Comment: Name Collection Type:: Clean-Voided Midstream Glucose Ql (U) 300 mg/dL High Normal [facility] Comment on above: Order Comment: Name Collection Type:: Clean-Voided Midstream Performed By: #### A DDONUAPLUS, CUU #### [address] Hyaline Casts,Urine None Normal 0-8 [facility] Comment on above: Order Comment: Name Collection Type:: Straight Catheter Result Comment: PERF ORMED BY: [place] [address] PATHOLOGIST AUDIT MGR SARAH IRAHETA M.D. Performed By: #### A DDONUAPLUS, CUU #### [address] Order Comment: Name Collection Type:: Clean-Voided Midstream Mucus,Urine Rare Normal [facility] Comment on above: Order Comment: Name Collection Type:: Clean-Voided Midstream Result Comment: PERF ORMED BY: [place] [address] PATHOLOGIST AUDIT MGR SARAH IRAHETA M.D. Performed By: #### A DDONUAPLUS, CUU #### [address] Nitrite,Urine Positive High Negative [facility] Comment on above: Order Comment: Name Collection Type:: Straight Catheter Performed By: #### A DDONUAPLUS, CUU #### [address] Order Comment: Name Collection Type:: Clean-Voided Midstream Occult Blood,Urine 3+ High Negative [facility] Comment on above: Order Comment: Name Collection Type:: Straight Catheter Result Comment: PERF ORMED BY: [place] [address] PATHOLOGIST AUDIT MGR SARAH IRAHETA M.D. Performed By: #### A DDONUAPLUS, CUU #### [address] Order Comment: Name Collection Type:: Clean-Voided Midstream Protein,Urine Negative Normal Negative [facility] Comment on above: Order Comment: Name Collection Type:: Straight Catheter Performed By: #### A DDONUAPLUS, CUU #### [address] Order Comment: Name Collection Type:: Clean-Voided Midstream RBC,Urine 3-4 Normal 0-4 [facility] Comment on above: Order Comment: Name Collection Type:: Straight Catheter Performed By: #### A DDONUAPLUS, CUU #### [address] Order Comment: Name Collection Type:: Clean-Voided Midstream Specificy [place],Urine 1.012 Normal 1.00 1-1.03 0 [facility] Comment on above: Order Comment: Name Collection Type:: Clean-Voided Midstream Performed By: #### A DDONUAPLUS, CUU #### [address] Squamous Epithelial Cell,Urine 1-2 Normal 0-2 [facility] Comment on above: Order Comment: Name Collection Type:: Straight Catheter Performed By: #### A DDONUAPLUS, CUU #### [address] Order Comment: Name Collection Type:: Clean-Voided Midstream Urobilinogen,Urine Normal Normal Normal [facility] Comment on above: Order Comment: Name Collection Type:: Straight Catheter Performed By: #### A DDONUAPLUS, CUU #### [address] Order Comment: Name Collection Type:: Clean-Voided Midstream WBC,Urine 10-19 High 0-4 [facility] Comment on above: Order Comment: Name Collection Type:: Clean-Voided Midstream Performed By: #### A DDONUAPLUS, CUU #### [address] ECG 12 lead ECGon 03-21-2024 ECG 12 lead ECG [facility] [address] Electrocardiograph Report Signed Patient: Stella Kong MR#: [id number] 81 : 1945 Acct:[id number] Age/Sex: 79 / F ADM Date: 03/21/24 Loc: ER Room: Type: [facility] ER Attending Dr: Ordering Provider: Yokasta Flores DO Date of Service: 03/21/2412/07/1725 ECG/ECG 12 lead ECG: Fall Copies to: Test Reason : Blood Pressure : 134/88 mmHG Vent. Rate : 79 BPM Atrial Rate : 79 BPM P-R Int : 146 ms QRS Dur : 76 ms QT Int : 436 ms P-R-T Axes : 84 77 70 degrees QTcB Int : 499 ms Normal sinus rhythm Prolonged QT Abnormal ECG When compared with ECG of 24-Nov-2019 22:43, premature ventricular complexes are no longer present Confirmed by YOKASTA FLORES DO ([id number]) on 03/21/2024 8:02:58 PM Referred By: Electronically Signed By: YOKASTA FLORES DO Transcribed By: MUS Signed By Yokasta Flores DO 03/21 Normal [facility] Epithelial cells.squamous [# /area] in Urine sediment by Automated countOrdered By: Yokasta Flores on 03-21-2024 Epithelial cells.squamous Auto (Urine sed) [#/Area] 1-2 [HPF] 0-2 [facility] Erythrocyte distribution wid th [Ratio] by Automated countOrdered By: Yokasta Flores on 03-21-2024 Erythrocyte distribution width (RBC) [Ratio] 13.6 % Normal 11.9-15.3 [facility] Comment on above: Performed By: #### C K, BMP #### [facility] [address] [place] [address] [place] Erythrocytes [#/area] in Uri ne sediment by Automated countOrdered By: Yokasta Flores on 03-21-2024 RBC Auto (Urine sed) [#/Area] 3-4 [HPF] 0-4 [facility] Erythrocytes [#/volume] in B lood by Automated countOrdered By: Yokasta Flores on 03-21-2024 RBC (Bld) [#/Vol] 4.10 10*6/uL Normal 3.60-5.00 [facility] Comment on above: Performed By: #### C Stephanie, BMP #### [facility] [address] [place] [address] [place] Glucose [Mass/volume] in Ser um or PlasmaOrdered By: Yokasta Flores on 03-21-2024 Glucose [Mass/Vol] 105 mg/dL High 70-100 [facility] Comment on above: ADA recommended refe rence rangeRandom Glucose Reference Range is dependent on time and content of last meal. Glucose of more than 200 mg/dL in a nonstressed, ambulatory subject supports the diagnosis of Diabetes Mellitus. Result Comment: [place] om Glucose Reference Range is dependent on time and content of last meal. Glucose of more than 200 mg/dL in a nonstressed, ambulatory subject supports the diagnosis of Diabetes Mellitus. ADA recommended reference range Performed By: #### C K, BMP #### [facility] [address] [place] [id number] [place] Glucose [Mass/volume] in Uri ne by Test stripOrdered By: Bryan Coppola on 03-21-2024 Glucose Test strip (U) [Mass/Vol] 70 mg/dL High Normal [facility] Glucose [Mass/volume] in Uri ne by Test stripOrdered By: Yokasta Flores on 03-21-2024 Glucose Test strip (U) [Mass/Vol] 300 mg/dL High Normal [facility] Hematocrit [Volume Fraction] of Blood by Automated countOrdered By: Yokasta Flores on 03-21-2024 Hematocrit (Bld) [Volume fraction] 37.4 % Normal 34.0-46.4 [facility] Comment on above: Performed By: #### C K, BMP #### [facility] [address] Hemoglobin Test strip Ql (U) Ordered By: oYkasta Flores on 03-21-2024 Hemoglobin Ql (U) 3+ High Negative [facility] Hemoglobin [Mass/volume] in BloodOrdered By: Yokasta Flores on 03-21-2024 Hemoglobin (Bld) [Mass/Vol] 13.0 g/dL Normal 11.8-15.4 [facility] Comment on above: Performed By: #### C K, BMP #### [facility] [address] Hyaline casts [#/area] in Ur ine sediment by Automated countOrdered By: Yokasta Flores on 03-21-2024 Hyaline casts Auto (Urine sed) [#/Area] None [LPF] 0-8 [facility] INR in Platelet poor plasma by Coagulation assayOrdered By: Yokasta Flores on 03-21-2024 INR Coag (PPP) [Relative time] 1.0 {INR} Normal [facility] Comment on above: INR Therapeutic Rang e A) Pre- and Peroperative OAT started two weeks before surgery. NOT HIP SURGERY: 1.5 - 2.5 HIP SURGERY: 2 - 3B) Primary and secondary prevention of venous THROMBOSIS: 2 - 3C) Active venous thrombosis, pulmonary embolismand prevention of recurrent venous thrombosis: 2 - 3D) Prevention of arterial thromboembolismincluding patients with mechanical heart valves: 3 - 4.5 Result Comment: INR Therapeutic Range A) Pre- and Peroperative OAT started two weeks before surgery. NOT HIP SURGERY: 1.5 - 2.5 HIP SURGERY: 2 - 3 B) Primary and secondary prevention of venous THROMBOSIS: 2 - 3 C) Active venous thrombosis, pulmonary embolism and prevention of recurrent venous thrombosis: 2 - 3 D) Prevention of arterial thromboembolism including patients with mechanical heart valves: 3 - 4.5 PERFORMED BY: [place] [address] PATHOLOGIST AUDIT MGR SARAH IRAHETA M.D. Performed By: #### C K, BMP #### [facility] [address] [place] [address] [place] Ketones [Presence] in Urine by Test stripOrdered By: Bryan Coppola on 03-21-2024 Ketones Ql (U) Trace High Negative [facility] Comment on above: Order Comment: Name Collection Type:: Straight Catheter Performed By: #### A DDONUAPLUS, CUU #### [facility] [address] [place] [address] [place] Ketones [Presence] in Urine by Test stripOrdered By: Yokasta Flores on 03-21-2024 Ketones Ql (U) Negative Normal Negative [facility] Comment on above: Order Comment: Name Collection Type:: Clean-Voided Midstream Performed By: #### A DDONUAPLUS, CUU #### [facility] [address] [place] [address] Laboratory - Microbiology an d Antimicrobial susceptibilityOrdered By: Bryan Coppola on 03-21-2024 Bacteria identified Cx Nom (U) No Growth 2 Days [facility] Laboratory - Microbiology an d Antimicrobial susceptibilityOrdered By: Yokasta Flores on 03-21-2024 Bacteria identified Cx Nom (U) Escherichia coli Abnormal [facility] Leukocyte clumps [Presence] in Urine by AutomatedOrdered By: Bryan Coppola on 03-21-2024 Leukocyte clumps Auto Ql (U) Moderate [LPF] High None Seen [facility] Leukocyte esterase [Presence ] in Urine by Test stripOrdered By: Bryan Coppola on 03-21-2024 Leukocyte esterase Test strip Ql (U) 4+ High Negative [facility] Comment on above: Order Comment: Name Collection Type:: Straight Catheter Performed By: #### A DDONUAPLUS, CUU #### [facility] [address] [place] [address] [place] Leukocyte esterase [Presence ] in Urine by Test stripOrdered By: Yokasta Flores on 03-21-2024 Leukocyte esterase Test strip Ql (U) 2+ High Negative [facility] Comment on above: Order Comment: Name Collection Type:: Clean-Voided Midstream Performed By: #### A DDONUAPLUS, CUU #### [facility] [address] [place] [address] [place] Leukocytes [#/area] in Urine sediment by Automated countOrdered By: Bryan Coppola on 03-21-2024 WBC Auto (Urine sed) [#/Area] 20-49 [HPF] High 0-4 [facility] Leukocytes [#/area] in Urine sediment by Automated countOrdered By: Yokasta Flores on 03-21-2024 WBC Auto (Urine sed) [#/Area] 10-19 [HPF] High 0-4 [facility] Leukocytes [#/volume] correc stephanie for nucleated erythrocytes in Blood by Automated counOrdered By: Yokasta Flores on 03-21-2024 WBC corrected for nucl RBC Auto (Bld) [#/Vol] 14.6 10*3/uL High 3.8-11.6 [facility] Leukocytes [#/volume] in Blo od by Automated countOrdered By: Yokasta Flores on 03-21-2024 WBC (Bld) [#/Vol] 14.6 10*3/uL High 3.8-11.6 [facility] Comment on above: Performed By: #### C K, BMP #### [facility] [address] [place] [address] [place] Lymphocytes [#/volume] in Bl ood by Automated countOrdered By: Yokasta Flores on 03-21-2024 Lymphocytes (Bld) [#/Vol] 0.6 10*3/uL Low 1.00-4.8 [facility] Comment on above: Performed By: #### C K, BMP #### [facility] [address] Lymphocytes/100 leukocytes i n Blood by Automated countOrdered By: Yokasta Flores on 03-21-2024 Lymphocytes/100 WBC (Bld) 4.1 % Normal . [facility] Comment on above: Performed By: #### C K, BMP #### [facility] [address] MCH [Entitic mass] by Automa stephanie countOrdered By: Yokasta Flores on 03-21-2024 MCH (RBC) [Entitic mass] 31.7 pg Normal 24.7-34.3 [facility] Comment on above: Performed By: #### C K, BMP #### [address] MCHC Auto (RBC) [Mass/Vol]Or dered By: Yokasta Flores on 03-21-2024 MCHC (RBC) [Mass/Vol] 34.7 g/dL 32.0-35.0 [facility] MCV [Entitic volume] by Auto mated countOrdered By: Yokasta Flores on 03-21-2024 MCV (RBC) [Entitic vol] 91.3 fL Normal 80-100 [facility] Comment on above: Performed By: #### C K, BMP #### [address] Magnesium [Mass/volume] in S selene or PlasmaOrdered By: Yokasta Flores on 03-21-2024 Magnesium [Mass/Vol] 1.9 mg/dL Normal 1.9-2.7 [facility] Comment on above: Result Comment: PERF ORMED BY: [place] [address] PATHOLOGIST AUDIT MGR SARAH IRAHETA M.D. Performed By: #### C K, BMP #### [address] Monocyte distribution width [Entitic volume] in Blood by AutomatedOrdered By: Yokasta Flores on 03-21-2024 Monocyte distribution width Auto (Bld) [Entitic vol] 14.37 % 0.00-20.00 [facility] Mucus [Presence] in Urine by AutomatedOrdered By: Yokasta Flores on 03-21-2024 Mucus Auto Ql (U) Rare [LPF] [facility] Neutrophils [#/volume] in Bl ood by Automated countOrdered By: Yokasta Flores on 03-21-2024 Neutrophils (Bld) [#/Vol] 13.4 10*3/uL High 1.8-7.7 [facility] Comment on above: Performed By: #### C K, BMP #### [address] Nitrite Test strip Ql (U)Ord ered By: Yokasta Flores on 03-21-2024 Nitrite Ql (U) Positive High Negative [facility] No Panel InformationOrdered By: Yokasta Flores on 03-21-2024 Estimated GFR (CKD-EPI) > 60.0 mL/Min [facility] Creatinine Clearance (Chem 42.12 [facility] Nucleated erythrocytes [Pres ence] in Blood by Automated countOrdered By: Yokasta Flores on 03-21-2024 Nucleated RBC Auto Ql (Bld) 0.1 /100{WBC} 0-0.5 [facility] Platelet mean volume [Entiti c volume] in Blood by Automated countOrdered By: Yokasta Flores on 03-21-2024 Platelet mean volume (Bld) [Entitic vol] 7.4 fL Normal 6.3-10.7 [facility] Comment on above: Performed By: #### Ramon K, BMP #### [facility] [address] [place] [address] [place] Platelets [#/volume] in Bloo d by Automated countOrdered By: Yokasta Flores on 03-21-2024 Platelets (Bld) [#/Vol] 211 10*3/uL Normal 150-450 [facility] Comment on above: Performed By: #### Ramon K, BMP #### [address] Potassium [Moles/volume] in Serum or PlasmaOrdered By: Yokasta Flores on 03-21-2024 Potassium [Moles/Vol] 3.6 mmol/L Normal 3.5-5.1 [facility] Comment on above: Performed By: #### C K, BMP #### [address] Protein Test strip (U) [Mass /Vol]Ordered By: Yokasta Flores on 03-21-2024 Protein (U) [Mass/Vol] Negative Negative [facility] Protein [Mass/volume] in Ser um or PlasmaOrdered By: Yokasta Flores on 03-21-2024 Protein [Mass/Vol] 6.9 g/dL Normal 6.4-8.9 [facility] Comment on above: Performed By: #### C K, BMP #### [address] Prothrombin time (PT)Ordered By: Yokasta Flores on 03-21-2024 PT Coag (PPP) [Time] 11.7 s Normal 9.0-12.9 [facility] Comment on above: A hematocrit value g reater than 55% may lead to inaccurate results in coagulation testing. Patients having hematocrit values >55% require a special collection tube for coagulation studies. Please contact the laboratory at [phone] for redraw instructions. Result Comment: A he matocrit value greater than 55% may lead to inaccurate results in coagulation testing. Patients having hematocrit values >55% require a special collection tube for coagulation studies. Please contact the laboratory at [phone] for redraw instructions. Performed By: #### C K, BMP #### [address] Serum globulin measurement b y calculation (mass/volume)Ordered By: Yokasta Flores on 03-21-2024 Globulin (S) [Mass/Vol] 3.1 g/dL Normal [facility] Comment on above: Performed By: #### C K, BMP #### [address] Serum or plasma albumin/glob ulin mass ratioOrdered By: Yokasta Flores on 03-21-2024 Albumin/Globulin [Mass ratio] 1.2 {ratio} Normal [facility] Comment on above: Performed By: #### C K, BMP #### [address] [place] [address] [place] Serum or plasma anion gap de terminationOrdered By: Yokasta Flores on 03-21-2024 Anion gap [Moles/Vol] 13.0 mmol/L Normal 6.0-15.0 [facility] Comment on above: Performed By: #### C K, BMP #### [address] Serum or plasma creatine kin ase MB (CKMB)/total creatine kinase (CK) ratio by calculaOrdered By: Bryan Coppola on 03-21-2024 CK.MB Calc [Catalytic fraction] 1.1 % 0.00-2.50 [facility] Sodium [Moles/volume] in Ser um or PlasmaOrdered By: Yokasta Flores on 03-21-2024 Sodium [Moles/Vol] 134 mmol/L Low 136-145 [facility] Comment on above: Performed By: #### C K, BMP #### [address] Specific gravity Test strip (U) [Rel density]Ordered By: Bryan Coppola on 03-21-2024 Specific gravity (U) [Rel density] 1.006 1.001-1.03 0 [facility] Specific gravity Test strip (U) [Rel density]Ordered By: Yokasta Flores on 03-21-2024 Specific gravity (U) [Rel density] 1.012 1.001-1.03 0 [facility] Troponin I High Sensitivityo n 03-21-2024 Troponin I High Sensitivity 353.9 pg/mL Off scale high 0.0-15.0 [facility] Comment on above: Result Comment: Crit ical Result : Called to and read back by: THAO COX at: 03/22/2024 00:25:25 by:[id number] PERFORMED BY: [place] [address] PATHOLOGIST AUDIT MGR SARAH IRAHETA M.D. Performed By: #### H S TROP #### [address] Troponin I High Sensitivity 311.1 pg/mL Off scale high 0.0-15.0 [facility] Comment on above: Result Comment: Crit ical Result : Called to and read back by: SHARRON MONTES at: 03/21/2024 20:38:49 by:[id number] PERFORMED BY: [place] [address] PATHOLOGIST AUDIT MGR SARAH IRAHETA M.D. Performed By: #### H S TROP #### [address] Troponin I High Sensitivity 212.7 pg/mL Off scale high 0.0-15.0 [facility] Comment on above: Result Comment: Crit ical Result : Called to and read back by: SORIN MCNEILL at: 03/21/2024 19:11:54 by:[id number] PERFORMED BY: [place] [address] PATHOLOGIST AUDIT MGR SARAH IRAHETA M.D. Performed By: #### C K, BMP #### [address] Troponin I.cardiac [Mass/vol ume] in Serum or Plasma by Detection limit <= 0.01 ng/Ordered By: Bryan Coppola on 03-21-2024 Troponin I.cardiac DL <= 0.01 ng/mL [Mass/Vol] 311.1 pg/mL High 0.0-15.0 [facility] Comment on above: Critical Result : Ca lled to and read back by: SHARRON MONTES at: 03/21/2024 20:38:49 by:[id number] Urea nitrogen [Mass/volume] in Serum or PlasmaOrdered By: Yokasta Flores on 03-21-2024 Urea nitrogen [Mass/Vol] 21 mg/dL Normal 7-25 [facility] Comment on above: Performed By: #### C K, BMP #### [place] [id number] [place] Urine Cultureon 03-21-2024 Bacteria identified Cx Nom (U) No Growth 2 Days PERFORMED BY: [address] [address] PATHOLOGIST AUDIT MGR SARAH IRAHETA M.D. Normal [facility] Comment on above: Performed By: #### A KARTIK GARCIA #### [address] [address] [facility] Bacteria identified Cx Nom (U) ORGANISM: Escherichia coli (O:ESCCOL) Tererro Count >100,000 Aerobic KEVIN Charge (NMIC56) SUSCEPTIBILITY ORGANISM: O:ESCCOL ANTIBIOTIC INTERPRETATION KEVIN Amikacin S <16 Amoxacillin/K Clavulanate S <8 Ampicillin S <8 Ampicillin/Sulbactam S <4 Aztreonam S <4 Cefazolin S <2 Cefepime S <2 Ceftazidime S <1 Ceftazidime/Avibactam S <4 Ceftolozane/Tazobactam S <2 Ceftriaxone S <1 Cefuroxime S <4 Ciprofloxacin S <0.25 Ertapenem S <0.5 Gentamicin S <2 Levofloxacin S <0.5 Meropenem S <1 Meropenem/Vaborbactam S <2 Nitrofurantoin S <32 Piperacillin/Tazobactam S <8 Tetracycline S <4 Tigecycline S <2 Tobramycin S <2 Trimethoprim/Sulfamethoxaz ole S <0.5 S = SUSCEPTIBLE I = INTERMEDIATE R = RESISTANT BLANK = DATA NOT AVAILABLE, OR DRUG NOT ADVISABLE OR TESTED R* = RESISTANCE DUE TO EXTENDED SPECTRUM BETA-LACTAMASES ESBL = EXTENDED SPECTRUM BETA-LACTAMASE TFG = THYMIDINE-DEPENDENT STRAIN MARTIN = BETA-LACTAMASE POSITIVE IB = INDUCIBLE BETA-LACTAMASE. APPEARS IN PLACE OF 'S' WITH SPECIES KNOWN TO POSSESS INDUCIBLE BETA-LACTAMASES. POTENTIALLY THEY MAY BECOME RESISTANT TO ALL B-LACTAM DRUGS. PERFORMED BY: [address] [address] PATHOLOGIST AUDIT MGR SARAH IRAHETA M.D. Normal [facility] Comment on above: Performed By: #### A RADHA CUU #### [facility] [address] Urine appearanceOrdered By: Yokasta Flores on 03-21-2024 Appearance (U) Clear Normal Clear [facility] Comment on above: Order Comment: Name Collection Type:: Straight Catheter Performed By: #### A DDONUAJOSE, CUU #### [facility] [address] [place] [address] Order Comment: Name Collection Type:: Clean-Voided Midstream Urobilinogen Test strip (U) [Mass/Vol]Ordered By: Yokasta Flores on 03-21-2024 Urobilinogen (U) [Mass/Vol] Normal mg/dL Normal [facility] XR pelvis 1-2Von 03-21-2024 XR pelvis 1-2V [facility] [place] [address] [place] [address] XRay Report Signed Patient: Stella Kong MR#: [id number] 81 : 1945 Acct:[id number] Age/Sex: 79 / F ADM Date: 03/21/24 Loc: ER Room: Type: [facility] ER Attending Dr: Copies to: Yokasta Flores DO Ordering Provider: Yokasta Flores DO Date of Service: 03/21/24 XR/XR pelvis 1-2V: Fall ([id number]) XR/XR femur LT 2V*: Fall ([id number]) XR/XR ribs LT min 3V w CXR1V*: Fall PA CHEST WITH 4 VIEWS LEFT RIBS: Pelvis 1 view, left femur 2 views CLINICAL HISTORY: Lower anterior/lateral left-sided rib pain left hip pain and fall today. COMPARISON: None FINDINGS: Chest/rib series: Heart normal size. Lungs are clear. No free air. Additional views of the left ribs demonstrate no displaced rib fracture. Pelvis/left femur: Left hemiarthroplasty without radiographic complication. Degenerative changes seen involving the visualized lower lumbar spine, SI joints and pubic symphysis. Minimal degenerative changes of the right hip. Mid and distal left femur demonstrate no acute findings. Knee joint demonstrate no joint effusion or acute process. XR/XR ribs LT min 3V w CXR1V* IMPRESSION: No acute findings. Impression dictated by: Germain Lipscomb Jr., D.ONoé03/21/2024 7:12 PM Dictation Location: [facility] Transcribed By: SYED 03/21/241911 Dictated By: Germain Lipscomb Jr, DO 03/21/241908 Signed By: 03/21/241911 Normal [facility] pH of Urine by Test stripOrd ered By: Yokasta Flores on 03-21-2024 pH (U) 5.5 [pH] Normal 5.0-9.0 [facility] Comment on above: Order Comment: Name Collection Type:: Straight Catheter Performed By: #### A KARTIK GARCIA #### [address] Order Comment: Name Collection Type:: Clean-Voided Midstream Consent for COVID Vaccineon 09-02-2020 SARS-CoV-2 (COVID-19) RNA VIKRAM+probe Ql (Unsp spec) [id number]#1.00CD:127 [facility] Consent for Treatmenton 08-15 Consent for Treatment [id number]#1.00CD:127 [facility] Coding Summary.on 08-31-2020 Coding Summary. CODING DATE: [facility] STATUS: PAYOR: Medicare APC DESCRIPTION 1492 New [...] Contreras CphT Date Saved: 08/31/2020 08:06 am [facility] Vital Signs Date Time Vital Sign Value Performing Clinician Facility 04-29-2024 10:59-0500 Body height 154.9 cm Deniz Ochoa MD Work Phone: [facility] 04-29-2024 10:59-0500 Body mass index (BMI) [Ratio] 24.37 kg/m2 Deniz Ochoa MD Work Phone: [facility] 04-29-2024 10:59-0500 Body weight 58.51 kg Deniz Ochoa MD Work Phone: [facility] 04-29-2024 10:59-0500 Diastolic blood pressure 74 mm[Hg] Deniz Ochoa MD Work Phone: [facility] 04-29-2024 10:59-0500 Heart rate 88 /min Deniz Ochoa MD Work Phone: [facility] 04-29-2024 10:59-0500 SaO2% (BldA) [Mass fraction] 97 % Deniz Ochoa MD Work Phone: [facility] 04-29-2024 10:59-0500 Systolic blood pressure 128 mm[Hg] Deniz Ochoa MD Work Phone: [facility] 04-15-2024 10:44-0400 Body height 154.9 cm Deniz Ochoa MD Work Phone: [facility] 04-15-2024 10:44-0400 Body mass index (BMI) [Ratio] 24.56 kg/m2 Deniz Ochoa MD Work Phone: [facility] 04-15-2024 10:44-0400 Body temperature 98.8 [degF] Deniz Ochoa MD Work Phone: [facility] 04-15-2024 10:44-0400 Body weight 58.97 kg Deniz Ochoa MD Work Phone: [facility] 04-15-2024 10:44-0400 Diastolic blood pressure 66 mm[Hg] Deniz Ochoa MD Work Phone: [facility] 04-15-2024 10:44-0400 Heart rate 88 /min Deniz Ochoa MD Work Phone: [facility] 04-15-2024 10:44-0400 SaO2% (BldA) [Mass fraction] 97 % Deniz Ochoa MD Work Phone: [facility] 04-15-2024 10:44-0400 Systolic blood pressure 124 mm[Hg] Deniz Ochoa MD Work Phone: [facility] 03-25-2024 12:00-0400 Diastolic blood pressure 62 mm[Hg] II Deniz Ochoa Work Phone: [facility] 03-25-2024 12:00-0400 Heart rate 82 /min II Deniz Ochoa Work Phone: [facility] 03-25-2024 12:00-0400 Respiratory rate 20 /min II Deniz Ochoa Work Phone: [facility] 03-25-2024 12:00-0400 SaO2% (BldA) [Mass fraction] 94 % II Deniz Ochoa Work Phone: [facility] 03-25-2024 12:00-0400 Systolic blood pressure 150 mm[Hg] II Deniz Ochoa Work Phone: [facility] 03-25-2024 08:00-0400 Body temperature 97.8 [degF] II Deniz Ochoa Work Phone: [facility] 03-25-2024 06:00-0400 Body weight 58.6 kg II Deniz Ochoa Work Phone: [facility] 03-22-2024 16:12-0400 Body height 157.48 cm II Deniz Ochoa Work Phone: [facility] 03-21-2024 20:07-0400 Heart rate 86 /min II Deniz Ochoa Work Phone: [facility] 03-21-2024 20:06-0400 Diastolic blood pressure 75 mm[Hg] II Deniz Ochoa Work Phone: [facility] 03-21-2024 20:06-0400 Respiratory rate 18 /min II Deniz Ochoa Work Phone: [facility] 03-21-2024 20:06-0400 SaO2% (BldA) [Mass fraction] 98 % II Deniz Ochoa Work Phone: [facility] 03-21-2024 20:06-0400 Systolic blood pressure 154 mm[Hg] II Deniz Ochoa Work Phone: [facility] 03-21-2024 17:20-0400 Body height 157.48 cm II Deniz Ochoa Work Phone: [facility] 03-21-2024 17:20-0400 Body temperature 98.4 [degF] II Deniz Ochoa Work Phone: [facility] 03-21-2024 17:20-040 Body weight 64.6 kg II Deniz Ochoa Work Phone: [facility] Encounters Encounter Date Encounter Type Care Provider Facility Start: 05-03-2024 End: 05-03-2024 Bamboo flowsheet Robert Simpson DO Work Phone: [facility] Start: 05-03-2024 End: 05-03-2024 Bamboo flowsheet Robert Simpson DO Work Phone: [facility] Start: 05-03-2024 End: 05-03-2024 Postop follow up visit related to original px Robert Simpson DO Work Phone: [facility] Comment on above: Pseudophakia (Primar y Dx) Start: 05-03-2024 End: 05-03-2024 ambulatory ROBERT SIMPSON Not Available Start: 04-29-2024 End: 04-29-2024 Bamboo flowsheet Deniz Ochoa MD Work Phone: [facility] Start: 04-29-2024 End: 04-29-2024 Bamboo flowsheet Deniz Ochoa MD Work Phone: [facility] Start: 04-29-2024 End: 04-29-2024 Office outpatient visit 25 minutes Deniz Ochoa MD Work Phone: [facility] Comment on above: Generalized anxiety disorder (CMS/HCC) (Primary Dx); Reactive airways dysfunction syndrome (CMS/HCC); Traumatic rhabdomyolysis, subsequent encounter; Hereditary ataxia, unspecified (CMS/HCC) Start: 04-29-2024 End: 04-29-2024 ambulatory DENIZ OCHOA Not Available Start: 04-15-2024 End: 04-15-2024 Bamboo flowsheet Deniz Ochoa MD Work Phone: [facility] Start: 04-15-2024 End: 04-15-2024 Bamboo flowsheet Deniz Ochoa MD Work Phone: [facility] Start: 04-15-2024 End: 04-15-2024 Transitional care manage srvc 14 day discharge Deniz Ochoa MD Work Phone: [facility] Comment on above: Urinary tract infect ion without hematuria, site unspecified (Primary Dx); Traumatic rhabdomyolysis, subsequent encounter; Generalized anxiety disorder (CMS/HCC) Start: 04-15-2024 End: 04-15-2024 ambulatory DENIZ OCHOA Not Available Start: 03-24-2024 Non-patient / Non-visit II Fransisco Ochoa Work Phone: [facility] Work Phone: Start: 03-23-2024 Non-patient / Non-visit II Fransisco Ochoa Work Phone: [facility] Rehab and Spine Work Phone: Start: 03-22-2024 Non-patient / Non-visit II Fransisco Ochoa Work Phone: [facility] Cardiology Work Phone: Start: 03-22-2024 Non-patient / Non-visit II Fransisco Ochoa Work Phone: [facility] Work Phone: Start: 03-21-2024 End: 03-25-2024 Evaluation and management of inpatient II Deniz Ochoa Work Phone: [facility] Work Phone: Start: 02-27-2024 End: 02-27-2024 ambulatory ROBERT D ZAHLER Not Available Start: 02-20-2024 End: 02-20-2024 ambulatory ROBERT D ZAHLER Not Available Start: 02-03-2024 End: 02-03-2024 ambulatory ROBERT D ZAHLER Not Available Start: 01-30-2024 End: 01-30-2024 ambulatory ROBERT D ZAHLER Not Available Start: 01-14-2024 End: 01-14-2024 ambulatory ROBERT D ZAHLER Not Available Start: 01-08-2024 End: 01-08-2024 ambulatory FLACO STANISLAVK Not Available Start: 12-25-2023 End: 12-25-2023 ambulatory ARIANNA RAINEY Not Available Start: 10-28-2023 End: 10-28-2023 ambulatory FLACOANGELIQUE COLORADOK Not Available Start: 10-21-2023 End: 10-21-2023 ambulatory FLACOANGELIQUE COLORADOK Not Available Start: 10-13-2023 End: 10-13-2023 ambulatory ARIANNA RAINEY Not Available Start: 10-02-2023 Patient encounter procedure Deniz Ochoa MD Work Phone: [facility] Start: 10-02-2023 End: 10-02-2023 ambulatory SATINDER SYLVESTER Not Available Start: 09-30-2023 End: 09-30-2023 ambulatory FLACOANGELIQUE COLORADOK Not Available Start: 09-09-2023 End: 09-09-2023 ambulatory FLACO GUCHEYANNEK Not Available Start: 09-04-2023 End: 09-04-2023 ambulatory ARIANNA RAINEY Not Available Start: 08-29-2023 End: 08-29-2023 ambulatory ARIANNA RAINEY Not Available Start: 08-21-2023 End: 08-21-2023 ambulatory ALICE STOKES Not Available Start: 08-19-2023 End: 08-19-2023 ambulatory ALICE KIKE Not Available Start: 08-14-2023 End: 08-14-2023 ambulatory [...] ataxia Start: 07-11-2023 End: 07-11-2023 ambulatory CELINA Isidro CRAVEN Not Available Start: 06-25-2023 End: 06-25-2023 ambulatory DENIZ Raymond OCHOA Not Available Start: 07-24-2020 End: 07-25-2020 Patient encounter procedure NONE LISTED REQUEST Facility: Procedures Date Procedure Procedure Detail Performing Clinician Start: 03-21-2024 Plain chest X-ray II Cristian Ochoa Work Phone: Start: 03-21-2024 CT of head without contrast II Deniz Ochoa Work Phone: Start: 03-21-2024 Plain radiography of pelvis II Deniz Ochoa Work Phone: Start: 03-21-2024 Plain X-ray of left femur II Deniz Ochoa Work Phone: Start: 03-21-2024 Bacteria identified in Urine by Culture II Deniz Ochoa Work Phone: Plan of Treatment Date Care Activity Detail Author Start: 10-01-2024 Medicare Annual Well ness (AWV) Medicare Annual Wellness (AWV) [facility] Start: 08-03-2024 End: 08-03-2024 Patient encounter procedure 08/03/2024 1:45 PM EST Office Visit [facility] [address] [place] [address] Robert Simpson, [address] [place] [address] [facility] Start: 06-30-2024 End: 06-30-2024 Patient encounter procedure 06/30/2024 11:30 AM EST Office Visit [facility] [address] [place] [address] Deniz Ochoa MD [address] [place] [address] [facility] Start: 04-29-2024 End: 04-29-2024 Patient encounter procedure 04/29/2024 11:00 AM EST Office Visit [facility] [address] [place] [address] Deniz Ochoa MD [address] [place] [address] [facility] Start: 04-15-2024 End: 04-15-2024 Patient encounter procedure 04/15/2024 11:00 AM EDT Office Visit [facility] [address] [place] [address] Deniz Ochoa MD [address] [place] [address] Arrived [facility] Comment on above: Arrived Start: 03-25-2024 [facility] Start: 03-24-2024 Referral to psychiatrist [facility] Start: 03-24-2024 [facility] Start: 03-23-2024 [facility] Start: 03-22-2024 Administration of prophylactic treatment [facility] Start: 03-22-2024 Referral to rehabilitation physician [facility] Start: 03-22-2024 [facility] Start: 03-21-2024 Consultation [facility] Start: 03-21-2024 Physical therapy procedure [facility] Start: 03-21-2024 Referral to occupati onal therapist [facility] Start: 03-21-2024 Hospital admission [facility] Start: 03-21-2024 [facility] Start: 03-21-2024 Urine culture [facility] Start: 03-21-2024 Bacteria identified in Urine by Culture Urine Culture [facility] Start: 02-15-2024 Influenza vaccination Influenza Vacc ine (#1) [facility] Start: 07-25-2023 End: 07-25-2023 ambulatory 07/25/2023 1:30 PM EST Treatment [facility] [address] [facility] [address] [place] [phone] Celina Craven, PT [address] [place] [address] [facility] Start: 07-23-2023 End: 07-23-2023 Patient encounter procedure 07/23/2023 10:00 AM EST Office Visit [facility] [address] [facility] [address] [place] [id number] Deniz Ochoa MD [address] [facility] [address] [place], [place] [id number] [facility] Start: 2020 Pneumococcal Vaccine : 65+ Years (2 - PCV) Pneumococcal Vaccine: 65+ Years (2 - PCV) [facility] Start: 2020 Pneumococcal Vaccine : 65+ Years (2 of 2 - PCV) Pneumococcal Vaccine: 65+ Years (2 of 2 - PCV) [facility] Start: 1945 Medicare Annual Well ness (AWV) Medicare Annual Wellness (AWV) [facility] Immunizations Immunization Date Immunization Notes Care Provider Fa cili 04-18-2023 Influenza, Seasonal, Quadrivalent, Adjuvanted Celina Craven PT Work Phone: [facility] 04-18-2023 influenza virus vacc ine, unspecified formulation Deniz Ochoa MD Work Phone: [facility] 03-26-2022 Influenza, High-dose Seasonal, Quadrivalent, Preservative Free Celina Craven PT Work Phone: [facility] 04-28-2021 Seasonal, trivalent, recombinant, injectable influenza vaccine, preservative free Celina Craven PT Work Phone: [facility] 04-18-2020 influenza, injectabl e, quadrivalent, preservative free Celina Craven PT Work Phone: [facility] 04-11-2019 Influenza, High-dose Seasonal, Quadrivalent, Preservative Free Celina Craven PT Work Phone: [facility] 2019 pneumococcal polysaccharide vaccine, 23 valent Celina Craven PT Work Phone: [facility] 04-15-2018 Influenza, High-dose Seasonal, Quadrivalent, Preservative Free Celina Craven PT Work Phone: [facility] 04-26-2017 influenza, injectabl e, quadrivalent, preservative free Celina Craven PT Work Phone: [facility] 05-18-2010 seasonal influenza, intradermal, preservative free Celina Craven PT Work Phone: [facility] Payers Date Payer Category Payer Medicare [id number] 2017 Medicare [employer] MEDICARE ADVANTAGE [employer] MEDICARE [id number] 2017-Present [address] [place] [id number] 2017 Medicare (Managed Care) [employer] EDICARE ADVANTAGE [id number] 2017 Private Health Insurance [id number] 1960 Self-pay 1945 Unknown [id number] .2.1258 1944 Unknown [id number] [id number] .2.1258 1944 Unknown [id number] [id number] .2.1258 1944 Unknown [id number] [id number] .2.1258 1944 Unknown [id number] [id number] .2.1258 1944 Unknown [id number] [id number] .2.1258 1944 Unknown [id number] [id number] .2.1258 1944 Unknown [id number] [id number] .2.1258 1945 Unknown [id number] 2.16.840.1.758695.3.579 .2.1258 1945 Unknown [id number] 2.16.840.1.147730.3.579 .2.1258 1945 Unknown [id number] 2.16.840.1.050626.3.579 .2.1258 1945 Unknown [id number] 2.16.840.1.853675.3.579 .2.1258 1945 Unknown [id number] 2.16.840.1.323414.3.579 .2.1258 1945 Unknown [id number] 2.16.840.1.560081.3.579 .2.1258 1945 Unknown [id number] 2.16.840.1.736957.3.579 .2.1258 1945 Unknown [id number] 2.16.840.1.894562.3.579 .2.1258 1945 Unknown [id number] 2.16.840.1.389403.3.579 .2.1258 1945 Unknown [id number] 2.16.840.1.039708.3.579 .2.9 1945 Unknown [id number] 2.16.840.1.669283.3.579 .2.1258 1945 Unknown [id number] 2.16.840.1.380970.3.579 .2.1258 1945 Unknown [id number] 2.16.840.1.159157.3.579 .2.1258 1945 Unknown [id number] 2.16.840.1.822137.3.579 .2.1258 1945 Unknown [id number] 2.16.840.1.637987.3.579 .2.1258 1945 Unknown [id number] 2.16.840.1.732295.3.579 .2.1258 1945 Unknown [id number] 2.16.840.1.836284.3.579 .2.1259 Unknown [id number] 2.16.840.1.939731.3.579 .2.593 Unknown [id number] 2.16.840.1.081606.3.579 .2.531 Social History Date Type Detail Facility Start: 06-16-1962 End: 01-14-2024 Tobacco smoking status PAIS Smokes tobacco daily [facility] Start: [birth year]-16-1962 History of tobacco use Cigarette Smo ker [facility] Start: 06-24-2023 End: 01-14-2024 Tobacco use and exposure Smokeless tobacco non-user [facility] Start: 06-25-2023 End: 05-03-2024 Alcohol intake Lifetime non-drinker (finding) [facility] Start: 06-25-2023 End: 10-02-2023 History of Social function [facility] Start: 06-25-2023 End: 10-02-2023 Tobacco use panel [facility] Start: 1945 Sex Assigned At Not on file [facility] Start: 03-21-2024 End: 03-24-2024 Tobacco smoking status NHIS Smoker (finding) [facility] Start: 1945 Sex Assigned At Female F [facility] Medical Equipment Procedure Code Equipment Code Equipment Origin al Text Equipment Identifier Dates Arthroplasty, hip, bipolar Orthopaedic cement, non-medicated [id number] FDA Start: 11-25-2019 Arthroplasty, hip, bipolar Femoral head bipolar component ()[id number] FDA Start: 11-25-2019 Arthroplasty, hip, bipolar Femoral head bipolar component ()[id number] FDA Start: 11-25-2019 Arthroplasty, hip, bipolar Uncoated hip femur prosthesis, one-piece ()[id number] FDA Start: 11-25-2019 Arthroplasty, hip, bipolar Femoral stem centralizer ()[id number] FDA Start: 11-25-2019 Arthroplasty, hip, bipolar Metallic femoral head prosthesis ()[id number] FDA Start: 11-25-2019 Arthroplasty, hip, bipolar Orthopaedic cement, non-medicated ()[id number] FDA Start: 11-25-2019 Arthroplasty, hip, bipolar Polymer orthopaedic cement restrictor, non-bioabsorbable, sterile ()[id number] FDA Start: 11-25-2019 Goals Date Patient Goal Desired Activity /State Functional Status Date Assessment Result Facility 03-25-2024 Functional status Patient is Pro gressing Toward Baseline [facility] Work Phone: Mental Status Date Assessment Result Facility 03-25-2024 Cognitive function Cognitive Sta tus Patient is Progressing Toward Baseline [facility] Work Phone: Clinical Notes 07-16-2023 to 05-03-2024 Robert Simpson DO - 05/03/2024 1:00 PM Ramya Ochoa MD - 04/29/2024 11:00 AM Ramya Ochoa MD - 04/15/2024 11:00 AM EDT Note Date & Type Note Facility 05-03-2024 History of Presen t illness Narrative Images from the original note were not included. Assessment/Plan Diagnoses and all orders for this visit: Pseudophakia - s/p CE OD (1mth): Patient should be close to off all post-op meds. Pt. received final refraction for this eye today. documented in this encounter [facility] 04-29-2024 History of Presen t illness Narrative Images from the original note were not included. HPI Follow-up Additional comments: Anxiety/depression-med adjustments Med Refill Additional comments: Albuterol inhaler--[facility] Last edited by Clair Berger LPN on 04/29/2024 11:06 AM. Subjective Patient ID: Stella Kong is a 79 y.o. female who presents for Follow-up (Anxiety/depression-med adjustments) and Med Refill (Albuterol inhaler--[facility]). Pt made med changes as directed since last visit States she feels her anxiety has improved some Pt states no change in the ongoing dizziness Med Refill Current Outpatient Medications on File Prior to Visit Medication Sig Dispense Refill clonazePAM (KlonoPIN) 0.5 MG tablet Take 1 tablet (0.5 mg) by mouth in the morning and 1 tablet (0.5 mg) before bedtime. 60 tablet 3 docusate sodium (Colace) 100 MG capsule Take 100 mg by mouth in the morning and 100 mg before bedtime. levothyroxine (Synthroid, Levoxyl) 50 MCG tablet TAKE 1 TABLET BY MOUTH EVERY DAY ON EMPTY STOMACH FOR 90 DAYS 100 tablet 3 lidocaine (Lidoderm) 5 % patch Apply 1 patch topically Daily Remove & discard patch within 12 hours or as directed by . nicotine (Nicoderm, Step 3) 7 MG/24HR patch Place 1 patch on the skin 1 (one) time each day at the same time 30 patch 5 [DISCONTINUED] albuterol HFA 90 mcg/act inhaler INHALE 2 PUFFS BY MOUTH EVERY 4 TO 6 HOURS 8.5 g 5 [DISCONTINUED] escitalopram (Lexapro) 5 MG tablet Take 5 mg by mouth Daily No current facility-administered medications on file prior to visit. I have reviewed and reconciled the history and medication list with the patient today. Allergies Allergen Reactions Atorvastatin Unknown Clarithromycin Unknown Sulfamethoxazole Unknown Sulfanilamide Unknown Venlafaxine Hcl Other Reaction(s): chest burning Cefdinir Rash Social History Tobacco Use Smoking status: Every Day Types: Cigarettes Start date: 1962 Smokeless tobacco: Never Substance Use Topics Alcohol use: Never Family History Problem Relation Name Age of Onset Hypertension Mother Cancer Mother Past Medical History: Diagnosis Date Allergic rhinitis Anxiety Arthritis Cataract Depression (CMS/HCC) Disease of thyroid gland (CMS/HCC) Dry eyes History of being hospitalized 07/18/2023 Vertigo, Frequent Falls, Malnutrition History of being hospitalized 03/21/2024 Rhabdomyolysis, Leukocytosis, Fall, UTI Hyperlipemia (CMS/HCC) Past Surgical History: Procedure Laterality Date CHOLECYSTECTOMY PARTIAL HIP ARTHROPLASTY Left 2019 TONSILLECTOMY Visit Vitals BP 128/74 Pulse 88 Ht 5' 1 Wt 129 lb SpO2 97% BMI 24.37 kg/m Smoking Status Every Day BSA 1.59 m Review of Systems Respiratory: Positive for shortness of breath. Psychiatric/Behavioral: The patient is nervous/anxious. Objective Physical Exam Constitutional: General: She is not in acute distress. Appearance: Normal appearance. She is well-developed. HENT: Head: Normocephalic and atraumatic. Eyes: General: No scleral icterus. Conjunctiva/sclera: Conjunctivae normal. Cardiovascular: Rate and Rhythm: Normal rate and regular rhythm. Heart sounds: Normal heart sounds. No murmur heard. Pulmonary: Effort: Pulmonary effort is normal. No respiratory distress. Breath sounds: Normal breath sounds. No wheezing, rhonchi or rales. Skin: General: Skin is warm and dry. Neurological: General: No focal deficit present. Mental Status: She is alert and oriented to person, place, and time. Psychiatric: Mood and Affect: Mood normal. Behavior: Behavior normal. Assessment/Plan Diagnoses and all orders for this visit: Generalized anxiety disorder (CMS/HCC) - Responding well to change to Klonopin, see last OV. Reactive airways dysfunction syndrome (CMS/HCC) - albuterol HFA 90 mcg/act inhaler; Inhale 2 puffs every 4 (four) hours if needed for wheezing Traumatic rhabdomyolysis, subsequent encounter - Recent hospital state, see last note. Continues with PT Hereditary ataxia, unspecified (CMS/HCC) - She is seeing an ENT in [place] for this. Follow up in about 2 months (around 06/29/2024) for Routine F/U. documented in this encounter [facility] 04-15-2024 History of Presen t illness Narrative Images from the original note were not included. HPI Follow-up Additional comments: [facility] stay admitted 03/21/24 dx: UTI,fall,rhabdomyolysis discharged to [facility] 03/25/24 discharged home 04/08/24 Medication Question Additional comments: Pt would like to stop the lexapro she was started on at [facility] Last edited by Clair Berger LPN on 04/15/2024 10:51 AM. Subjective Patient ID: Stella Kong is a 79 y.o. female who presents for Follow-up ([facility] stay admitted 03/21/24 dx: UTI,fall,rhabdomyolysis discharged to [facility] 03/25/24 discharged home 04/08/24) and Medication Question (Pt would like to stop the lexapro she was started on at [facility]). Flowsheet Row Patient Outreach from 04/09/[address] [facility] with Lilibeth Lux LPN Hospital Information ED, Hospital or Detention Facility Discharge? Detention Facility Patient has been contacted within two business days of discharge Yes Have two attempts been made to contact the patient within two business days of being discharged? Yes Discharge Date 04/08/24 Discharged To: Home Setting Detention Facilities [place] [facility] Admission Date 03/25/24 Medications Is the patient having any side effects they believe may be caused by any medication additions or changes? No Does the patient have all medications ordered at discharge? Yes Appointments Does the patient have a primary care provider? Yes Nursing Interventions Verified appointment date/time/provider [04/15/2024 DR OCHOA] Has the patient kept scheduled appointments due by today? Yes Self Management What is the home health agency? [facility] HOME HEALTH NURSE/PT/OT Patient Teaching Does the patient have access to their discharge instructions? Yes Nursing Interventions Reviewed instructions with patient What is the patient's perception of their health status since discharge? Improving Wrap Up Pt has home health Current Outpatient Medications on File Prior to Visit Medication Sig Dispense Refill albuterol HFA 90 mcg/act inhaler INHALE 2 PUFFS BY MOUTH EVERY 4 TO 6 HOURS 8.5 g 5 docusate sodium (Colace) 100 MG capsule Take 100 mg by mouth in the morning and 100 mg before bedtime. escitalopram (Lexapro) 5 MG tablet Take 5 mg by mouth Daily levothyroxine (Synthroid, Levoxyl) 50 MCG tablet TAKE 1 TABLET BY MOUTH EVERY DAY ON EMPTY STOMACH FOR 90 DAYS 100 tablet 3 lidocaine (Lidoderm) 5 % patch Apply 1 patch topically Daily Remove & discard patch within 12 hours or as directed by MD. nicotine (Nicoderm, Step 3) 7 MG/24HR patch Place 1 patch on the skin 1 (one) time each day at the same time [DISCONTINUED] ALPRAZolam (Xanax) 0.5 MG tablet Take 1 tablet (0.5 mg) by mouth every 6 (six) hours if needed for anxiety for up to 15 days 60 tablet 0 [DISCONTINUED] ciprofloxacin (Cipro) 500 MG tablet Take 500 mg by mouth in the morning and 500 mg before bedtime. [DISCONTINUED] ibuprofen 800 MG tablet Take 800 mg by mouth in the morning and 800 mg in the evening and 800 mg before bedtime. [DISCONTINUED] meclizine (Antivert) 12.5 MG tablet Take 12.5 mg by mouth 4 (four) times a day as needed for dizziness No current facility-administered medications on file prior to visit. I have reviewed and reconciled the history and medication list with the patient today. Allergies Allergen Reactions Atorvastatin Unknown Clarithromycin Unknown Sulfamethoxazole Unknown Sulfanilamide Unknown Venlafaxine Hcl Other Reaction(s): chest burning Cefdinir Rash Social History Tobacco Use Smoking status: Every Day Types: Cigarettes Start date: 1962 Smokeless tobacco: Never Substance Use Topics Alcohol use: Never Family History Problem Relation Name Age of Onset Hypertension Mother Cancer Mother Past Medical History: Diagnosis Date Allergic rhinitis Anxiety Arthritis Cataract Depression (CMS/HCC) Disease of thyroid gland (CMS/HCC) Dry eyes History of being hospitalized 07/18/2023 Vertigo, Frequent Falls, Malnutrition History of being hospitalized 03/21/2024 Rhabdomyolysis, Leukocytosis, Fall, UTI Hyperlipemia (CMS/HCC) Past Surgical History: Procedure Laterality Date CHOLECYSTECTOMY PARTIAL HIP ARTHROPLASTY Left 2020 TONSILLECTOMY Visit Vitals BP 124/66 Pulse 88 Temp 98.8 F Ht 5' 1 Wt 130 lb SpO2 97% BMI 24.56 kg/m Smoking Status Every Day BSA 1.59 m Review of Systems Objective Physical Exam Constitutional: General: She is not in acute distress. Appearance: Normal appearance. She is well-developed. HENT: Head: Normocephalic and atraumatic. Eyes: General: No scleral icterus. Conjunctiva/sclera: Conjunctivae normal. Cardiovascular: Rate and Rhythm: Normal rate and regular rhythm. Heart sounds: Normal heart sounds. No murmur heard. Pulmonary: Effort: Pulmonary effort is normal. No respiratory distress. Breath sounds: Normal breath sounds. No wheezing, rhonchi or rales. Skin: General: Skin is warm and dry. Neurological: General: No focal deficit present. Mental Status: She is alert and oriented to person, place, and time. Psychiatric: Mood and Affect: Mood normal. Behavior: Behavior normal. Assessment/Plan Diagnoses and all orders for this visit: Urinary tract infection without hematuria, site unspecified - Resolved Traumatic rhabdomyolysis, subsequent encounter - The patient was seen today in follow up of recent hospital stay. All available hospital records were reviewed and discussed with the patient. Hospital discharge meds were reviewed. Any changes are noted above. Generalized anxiety disorder ([facility]/HCC) - clonazePAM (KlonoPIN) 0.5 MG tablet; Take 1 tablet (0.5 mg) by mouth in the morning and 1 tablet (0.5 mg) before bedtime. - Stop Lexapro due to side effects, try different SSRI next appt. - Stop Alprazolam. Follow up in about 2 weeks (around 04/29/2024) for F/U med changes. documented in this encounter [facility] 03-25-2024 Consult note Note Date/Time March 24, 2024 4:21pm [facility] [address] [place] [address] Psychiatry Consult Note Signed Patient: Stella Kong MR#: [id number] : 1945 Acct:[id number] Age/Sex: 79 / F Adm Date: 4 Loc: 3T Room: [address] [place] [address] Type : ADM IN Attending Dr: Alonso Agudelo MD Copies to: MD Alonso Lafleur MD Daniel Berry II, MD~ HPI Consult Date: 03/24/24 Requesting Physician: Alonso Agudelo MD Primary Care Provider: Deniz Ochoa II, MD Consult Narrative HPI: Mrs. Kong is an 79-year-old female. She present to the hospital due to fall. She was turning right at check near her bed and was unable to count and stay upright due to increased vertigo and dizziness. She says her balance has been going for a while since she fell a few years ago and broke her hip. We were consulted by hospitalist to determine possibility of weaning patient off Xanax and onto something alternative like BuSpar. Patient was personally seen by me on the day of the encounter. I reviewed the history and performed the dietrich elements of the assessment. I formulated the planof care and confirmed this with the resident as noted below Spoke with the patient, she was put on this for nerve issues when her first dropdead in her backyard in 1989. She has been on a constant dose for around 35 years at this point. Patient did not signify notable interest in removing this medication even after explaining the benefits. She is alert and oriented x 3 and seems to understand the consequences of this medication and itseffect on her balance and possibility of following. Nonetheless, patient's family was in the room and asked us to speak with her again after they have a chance to chat with her some more about this issue. She has been utilizing Xanax for a long time and we discussed the benefits of a gradual taper off whichcan be done as an outpatient. Discussed penitentiary risks of benzodiazepine whichinclude potential for misuse, pharmacologic tolerance, accidental OD, , cognitive dulling, and possible hastening of subsequent affective episodes. Sheunderstand the long-term side effects of benzodiazepines. Her QTc is within normal limits and we discussed starting Lexapro 5 mg p.o. daily. The patient denies current suicidal or homicidal ideation, and verbalized the intent to notify staff if there are such thoughts. The patient denies recent suicidal or self injurious behaviors. Patient denies any other mood issues other than anxiety. She was never hospitalized and denies other mood based medications. She says she is otherwisepretty healthy and went on to talk about her 7 children and numerous grandchildren. Past psych history: Anxiety Past hospitalizations: Denied Past suicide attempts: Denied Previous medications: Xanax Alcohol and drug use: Smokes some cigarettes. Amount is unclear. Living: Lives in a house with her new . 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 Review of Systems Constitutional: Pt denies fatigue, malaise. Neuro: Denies dizziness/lightheadedness. Denies TBI, seizure, memory loss. Denies numbness/tingling in extremities HEENT: Denies vision/hearing changes. Pulmonary: Denies SOB, dyspnea, cough, wheezing. Cardiac: Denies chest pain/pressure. Denies edema, palpitations. GI: Denies abdominal pain, heartburn, N/V. Denies constipation and diarrhea : Denies dysuria, hematuria, polyuria. ? Physical exam General: not in any acute distress Skin: intact HEENT: head atraumatic, face symmetrical. Noticed a little bit of nystagmus, horizontal, when testing intrinsic eye muscles. Pulm: ?Breathing normally without excessive effort Cardio: Regular rate and rhythm Abdomen: Normal inspection Musculoskeletal: Moves all extremities, normal strength all extremities. Neuro: Pt alert, oriented x3. Gait normal. ? CNI: Intact, normal olfaction ? CNII: Visual sharif intact ? ? ?CNIII,IV,: EOM intact, no nystagmus. ? ? ?CNV: Sensation intact to light touch. ? ? ?CNVII: Raises eyebrows, smile/frown, puff out cheeks symmetrically. ? ? ?CNVIII: Hearing intact bilaterally. ? ? ?CNIX,X: Voice normal, soft palate elevation normal, symmetrical. ? ? ?CNXI: Shoulder shrug strong, equal bilaterally. ? ? ?CNXII: Tongue protrusion midline MSE Appearance: grossly normal. Fair grooming and hygiene, calm, cooperative, engaged in the interview. Good eye contact. Normal psychomotor activity. Mental Status: mental status grossly normal Mood: euthymic Affect: mood-congruent affect Speech and Movement: speech and movement normal. Regular rate, rhythm, volume, and tone. Non pressured. Attitude: cooperative Thought Process: normal, though she does kind of go off on tangents for a few minutes she redirects easily. This appears somewhat normal based on her age. Thought Content: Denies paranoid or delusional thoughts. Denied hallucinations, no homicidality and no suicidality. Does not appear to be responding to internalstimuli. Insight: Fair Judgment: Fair [facility] Medical History (Updated 03/24/24 @ 15:37 by Teresa Antony APRN) Osteoporosis COPD (chronic obstructive pulmonary disease) Osteoarthritis (arthritis due to wear and tear of joints) Cholecystectomy planned Anxiety Surgical History (Updated 03/21/24 @ 21:05 by Bryan Coppola DO) History of left hip hemiarthroplasty History of cholecystectomy S/P thyroid surgery Family History (Updated 03/21/24 @ 21:06 by Bryan Coppola DO) Other Heart disease Social History Smoking Status: Current every day smoker Tobacco Type: cigarettes Substance Use Type: None Meds Medications and Allergies Allergies No Known Allergies Allergy (Verified 11/24/19 23:00) Home Medications alprazolam 0.5 mg tablet 0.5 mg PO DIRECTED ANXIETY 11/24/19 [History Confirmed 03/21/24] levothyroxine 50 mcg tablet 50 mcg PO DAILY 11/24/19 [History Confirmed 03/21/24] albuterol sulfate 90 mcg/actuation aerosol inhaler 2 puff inhalation Q4-6H PRN copd 03/21/24 [History Confirmed 03/21/24] meclizine 25 mg tablet 50 mg PO DAILY 03/21/24 [History Confirmed 03/21/24] Exam Physical Exam Vital Signs: Temp Pulse Resp BP Pulse Ox O2 Del Method 97.5 F L 79 18 143/79 H 94 L Room Air 03/24/24 07:52 03/24/24 12:30 03/24/24 12:30 03/24/24 12:30 03/24/24 12:30 03/24/24 12:30 Results - Psychiatry Labs 03/24/24 06:04 10/10/24 06:08 Psychiatry Labs: 03/21/24 03/21/24 03/21/24 17:48 17:58 23:00 RBC 4.10 Hgb 13.0 Hct 37.4 MCV 91.3 MCH 31.7 MCHC 34.7 RDW 13.6 Plt Count 211 MPV 7.4 Sodium 134 L Potassium 3.6 Chloride 102 Carbon Dioxide 22.6 Anion Gap 13.0 BUN 21 Creatinine 0.94 Calcium 8.5 L Total Bilirubin 0.4 AST 30 ALT 15 Alkaline Phosphatase 55 Total Protein 6.9 Albumin 3.8 Urine Color Light-yellow Colorless Urine Appearance Clear Clear Urine pH 5.5 5.5 Ur Specific [place] 1.012 1.006 Urine Protein Negative Negative Urine Glucose (UA) 300 H 70 H Urine Ketones Negative Trace H Urine Occult Blood 3+ H 3+ H Urine Nitrite Positive H Positive H Ur Leukocyte Esterase 2+ H 4+ H Urine RBC 3-4 3-4 Urine WBC 10-19 H 20-49 H 03/22/24 03/23/24 03/23/24 05:39 05:00 06:40 RBC 4.15 4.21 Hgb 13.2 13.5 Hct 38.1 38.9 MCV 91.8 92.4 MCH 31.8 32.0 MCHC 34.7 34.7 RDW 13.3 13.5 Plt Count 201 193 MPV 7.9 8.3 Sodium 140 D 138 Potassium 3.7 3.8 Chloride 109 H 107 Carbon Dioxide 25.2 25.0 Anion Gap 9.5 TNP BUN 13 12 Creatinine 0.78 0.81 Calcium 8.4 L 8.6 Total Bilirubin AST ALT Alkaline Phosphatase Total Protein Albumin Urine Color Urine Appearance Urine pH Ur Specific [place] Urine Protein Urine Glucose (UA) Urine Ketones Urine Occult Blood Urine Nitrite Ur Leukocyte Esterase Urine RBC Urine WBC 03/24/24 06:04 RBC 3.89 Hgb 12.5 Hct 35.7 MCV 91.7 MCH 32.1 MCHC 35.0 RDW 13.5 Plt Count 183 MPV 7.8 Sodium 142 Potassium 3.0 L Chloride 109 H Carbon Dioxide 26.9 Anion Gap 9.1 BUN 13 Creatinine 0.68 Calcium 8.4 L Total Bilirubin AST ALT Alkaline Phosphatase Total Protein Albumin Urine Color Urine Appearance Urine pH Ur Specific [place] Urine Protein Urine Glucose (UA) Urine Ketones Urine Occult Blood Urine Nitrite Ur Leukocyte Esterase Urine RBC Urine WBC Microbiology Microbiology: Microbiology - Results from entire visit 03/21/24 23:00 Straight Catheter Urine Culture - Final No Growth 2 Days 03/21/24 17:48 Urine - Clean-Voided Midstream Urine Culture - Final Escherichia coli Assessment/Plan (1) Acute UTI: (2) Rhabdomyolysis: (3) Elevated troponin: (4) Hypothyroidism associated with surgical procedure: (5) Cigarette smoker: (6) COPD (chronic obstructive pulmonary disease): (7) Left hip pain: (8) Contusion of rib on left side: (9) Contusion of left forearm: (10) Metabolic encephalopathy: (11) Anxiety: (12) Benzodiazepine dependence: Plan Discussed the benefits of a gradual tapering of benzodiazepines which can be done as an outpatient 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 Start Lexapro 5 mg p.o. daily. She denied any contraindications to this treatment Risks, benefits and indications of medications were discussed with the patient. The patient verbalized understanding. Monitor mental status No abnormal movements noted on exam. AIMS is Zero. Should be scheduled with outpatient psychiatrist and psychotherapist within 5 days of discharge. flare worker should schedule this prior to discharge. Typical short- and long-term side effects of the proposed medication regimen, including contraindications and clinically significant interactions, were discussed with the patient. I gave examples of side effects such as but not limited to sedation, movement disorders (TD, EPS), weight gain, and appetite changes and advised the patient not to drive or drink while taking these meds. We also discussed risk of overdose and suicide blackbox warning with this current med regimen. Targeted symptoms and signs, possible therapeutic benefit, side effect and risks No abnormal movements noted on exam. AIMS is Zero. flare worker to ensure safe discharge plan. I have reviewed evaluations by other providers (ER notes, nurses and staff) Prognosis: Factors to be considered are the chronicity and severity of the symptoms and signs, associated comorbidity, and differential diagnosis. Motivation to get in treatment, response to treatment, adherence to treatment recommendations, and verbal consent was provided. Documented By: Taqueria Duran MD [id number] Signed By: <Electronically signed by Taqueria Duran MD> 03/25/24 0981 [facility] Work Phone: [phone]) 486-905910-09-2024 Progress note Author Alonso Agudelo [facility] March 24, 2024 6:14pm Note Date/Time March 24, 2024 3: 26pm [facility] [address] [place], [place] [id number] Hospitalist Progress Note Signed Patient: Stella Kong MR#: [id number] : 1945 Acct:[id number] Age/Sex: 79 / F Adm Date: 4 Loc: Room: [address] [place] [address] Type: ADM IN Attending Dr: Alonso Agudelo MD Copies to: ~ Date of Service: 03/24/2024 Subjective Subjective Narrative: Patient seen and examined. She is resting in bed today. Her is presentin room at the time of my visit. She offers no significant pain complaints today. Still endorses tremulousness with delays in obtaining her Xanax. Discussed at length with her and her further management of anxiety consideration for SSRI or BuSpar possibly?they are agreeable to psychiatric evaluation and understand that at this time Xanax will not be changed just addition of antidepressant medication potentially at psychiatry discretion that will take several weeks to become effective at which point outpatient psychiatrycan attempt benzo gradual withdrawal. Patient yesterday with significant tremulousness and today now has elevation in CK that had improved yesterday?CK previously was contributed to fall and again had improved but despite fluids hadupward trend with only potential trigger being tremulousness. You can tell me what you need to tell me I was to schedule little bit more time has already had a group okay yeah but she is so sedated every time she comes here for some secondary I do not know she supposed to be doing really when you told me that the answer is no she is just her size I do not know how she could do she is justwound care they just redressed it follow-up with Dr. Baumann today or yesterday missed her appointment she is here to call back and said that we need to consultpodiatry Dr. Mann and Dr. Mann. Pain meds. Will just put it in place and I maximize cefepime issues. They only get 4 Motrin or 500 of 500 Tylenol I actually do begets because I have a fatty liver failure so I will take over 500 but patient is down here so I bumped those up that set you know I was looking see just again to make sure is there complication you know so that is why is like okay if so valid consult because what if she is experience complication butcannot info analyst so should the consult had gone to podiatry but if it is just simply that she wants to do that she is at lethargic and you know what my and she does not think she leaves here and when she cannot continue her home meds based on what she supposed to be on she is known for days she is on Exam Physical Exam Vital Signs: Temp Pulse Resp BP Pulse Ox O2 Del Method 97.5 F L 79 18 143/79 H 94 L Room Air 03/24/24 07:52 03/24/24 12:30 03/24/24 12:30 03/24/24 12:30 03/24/24 12:30 03/24/24 12:30 Narrative: CONST- alert, in bed, frail elderly female, mild anxiety minimal tremor CARD- RRR no abnormal heart tones PULM- dimin without wheeze or rhonchi, RA, no cough noted ABD- S/NT, NABS, round EXTREM- no edema BLE, calves nontender Objective Lab Results 03/24/24 06:04 03/24/24 06:04 Microbiology Results Microbiology 03/21/24 23:00 Straight Catheter Urine Culture - Final No Growth 2 Days 03/21/24 17:48 Urine - Clean-Voided Midstream Urine Culture - Final Escherichia coli Meds Allergies and Active Meds Allergies No Known Allergies Allergy (Verified 11/24/19 23:00) Active Meds: Active Medications Generic Name Dose Route Start Last Admin Trade Name Freq PRN Reason Stop Dose Admin Acetaminophen 650 mg 03/21/24 19:12 03/22/24 05:55 Acetaminophen 325 Mg Tablet PO 03/21/25 19:11 650 mg Q4H PRN Administration Pain Albuterol 2.5 mg 03/21/24 19:16 Albuterol Neb 2.5 Mg/3 Ml Vial.Neb INHALATION 03/21/25 19:15 Q4H PRN Shortness Of Breath Alprazolam 0.5 mg 03/24/24 12:00 03/24/24 12:32 Alprazolam 0.5 Mg Tablet PO 09/18/24 14:14 0.5 mg TID@0730,1200,1630 LULÚ Administration Alprazolam 0.5 mg 03/24/24 08:13 Alprazolam 0.5 Mg Tablet PO 09/20/24 08:12 QHS PRN Anxiety Alprazolam 0.25 mg 03/24/24 09:30 03/24/24 10:31 Alprazolam 0.25 Mg Tablet PO 09/20/24 09:29 0.25 mg DAILY@0930 LULÚ Administration Ascorbic Acid 500 mg 03/22/24 08:00 03/24/24 12:32 Ascorbic Acid 500 Mg Tablet PO 03/22/25 07:59 500 mg BID.WITH.BFAST.LUNCH LULÚ Administration Bisacodyl 10 mg 03/21/24 19:12 Bisacodyl 10 Mg Supp.Rect AL 03/21/25 19:11 DAILY PRN Constipation Bisacodyl 10 mg 03/21/24 19:12 Bisacodyl 5 Mg Tablet.Dr PO 03/21/25 19:11 DAILY PRN Constipation Calcium Carbonate 1 tab 03/22/24 08:00 03/24/24 08:16 Calcium Carbonate/Vitamin D3 500 Mg/200 Unit Tablet PO 03/22/25 07:59 1 tab BID.WITH.MEALS LULÚ Administration Cefuroxime Axetil 250 mg 03/23/24 19:00 03/24/24 08:16 Cefuroxime Axetil 250 Mg Tablet PO 250 mg BID LULÚ Administration Docusate Sodium 100 mg 03/21/24 21:00 03/24/24 08:17 Docusate 100 Mg Capsule PO 03/21/25 20:59 100 mg BID LULÚ Administration Enoxaparin Sodium 40 mg 03/22/24 10:00 03/24/24 10:31 Enoxaparin 40 Mg/0.4 Ml Syringe SUBCUT 03/22/25 09:59 40 mg DAILY@10 LULÚ Administration Levothyroxine Sodium 50 mcg 03/22/24 06:30 03/24/24 06:04 Levothyroxine 50 Mcg Tablet PO 03/22/25 06:29 50 mcg DAILY.0630 LULÚ Administration Lidocaine 1 patch 03/22/24 17:35 03/24/24 08:24 Lidocaine 4% Adh..Patch TOPICAL 03/22/25 17:34 1 patch DAILY LULÚ Administration Nicotine 1 each 03/22/24 17:30 03/24/24 08:17 Nicotine Patch 7 Mg/24hr 1 Each Patch.Td24 TRANSDERML 04/04/24 09:01 1 each DAILY LULÚ Administration Ondansetron HCl 4 mg 03/22/24 09:56 Ondansetron 4 Mg/2 Ml Vial IV-PUSH 03/22/25 09:55 Q4H PRN Nausea And Vomiting Oxycodone HCl 5 mg 03/21/24 19:12 03/22/24 08:25 Oxycodone Ir 5 Mg Tablet PO 5 mg Q4HR PRN Administration moderate pain Saccharomyces Boulardii 250 mg 03/22/24 08:00 03/24/24 08:16 Saccharomyces Boulardii 250 Mg Capsule PO 03/22/25 07:59 250 mg BID.WITH.MEALS LULÚ Administration Sennosides 17.2 mg 03/21/24 22:00 03/23/24 21:01 Sennosides 8.6 Mg Tablet PO 03/21/25 21:59 17.2 mg QHS LULÚ Administration Sodium Chloride 0 ml 03/21/24 17:23 03/22/24 22:18 Sodium Chloride 0.9 % 10 Ml Syringe IV-PUSH 03/21/25 17:22 10 ml PRN PRN Administration Flush Vitamin D 10 mcg 03/22/24 08:00 03/24/24 08:16 Cholecalciferol 10 Mcg (400 Units) Tablet PO 03/22/25 07:59 10 mcg BID.WITH.MEALS LULÚ Administration A&P - Hospitalist Assessment/Plan (1) Acute UTI: (2) Rhabdomyolysis: (3) Elevated troponin: (4) Hypothyroidism associated with surgical procedure: (5) Cigarette smoker: (6) COPD (chronic obstructive pulmonary disease): (7) Left hip pain: (8) Contusion of rib on left side: (9) Contusion of left forearm: (10) Metabolic encephalopathy: (11) Anxiety: (12) Benzodiazepine dependence: Plan EColi UTI/ acute cystitis Metabolic Encephalopathy 2/2 UTI -Ceftin. Leukocytosis resolved, afebrile. Asymptomatic Rhabdomyolysis 2/2 prolonged down time -trend CK- peak 7110. Trending down. Note that patient CK had decreased to 930yesterday and received fluids, yet today 2390 and concern for tremors from benzowithdrawal/ anxiety (that were noted significant) would be contributory. Stabilization of anxiety needed Fall Left hip pain/ contusion left rib pain Ambulatory dysfunction -therapy evals - accepted [place] [facility]ian[place]ri[place] and [place] received, plan DC 03/25 after seen by psychiatry -ortho consult appreciated, documents left hip contusion -CT head nonacute; left rib xray nonacute; pelvis xray nonacute; left femur xraynonacute -symptom management, Lidoderm patch Elevated troponin -peak 353. EKG nonacute, asymptomatic -cardiology consult appreciated -echo- EF 50-55%, normal LV, mild TR Anxiety - Benzo dependent with frequent tremors if not on her scheduled. Will consult inpatient psychiatry for consideration SSRI or Buspar and eventual GRADUAL wean of benzo (weeks out after stabilized on current med). Psychiatry consulted willsee tomorrow before discharge- personally updated Dr Reeves Chronic Conditions 1. Hypothyroid- levothyroxine 2. COPD- Albuterol prn, stable respiratory status. Smoking cessation education I have seen the patient independently and evaluated the patient and agree with the history, physical exam, assessment and plan by nurse practitioner. - Alonso Agudelo MD - Internal Medicine Documented By: Teresa Antony APRN 03/09 1256 Signed By: <Electronically signed by MARIA ESTHER Antony> 03/24/24 1538 <Electronically signed by Alonso Agudelo MD> 03/24/24 1814 [facility] Work Phone: [phone]) 440-378010-08-2024 Consult note Author Deshawn Choudhary [facility] March 23, 2024 2:07pm Note Date/Time March 23, 2024 10 :38am [facility] [address] [place] [address] Physiatry (Rehab) Consult Note Signed Patient: Stella Kong MR#: [id number] : 1945 Acct:[id number] Age/Sex: 79 / F Adm Date: 4 Loc: 3T Room: [address] [place] [address] Type: ADM IN Attending Dr: Alonso Agudelo MD Copies to: MD Deshawn Navas MD Daniel Berry II, MD Kaitlyn Rizzo, , RES~ HPI Consult Date: 03/23/24 Requesting Physician: Alonso Agudelo MD Primary Care Provider: Deniz Ochoa II, MD Consult Narrative Reason for consult: rehab consideration HPI: Ms. Kong is a 79 year old female with PMHx of osteoporosis, COPD, osteoarthritis, benzo dependent anxiety, smoker who presented after a fall at home. She was leaning over her bed to try and do something next to the bed and fell down. She landed on her left side. She came to emergency room with pain in her left elbow, left hip region, and left ribs, and down her left leg. In the emergency room she could not walk and could not bear any weight. Of note, her past surgical history includes a cholecystectomy, some uncertain thyroid surgery when she was in her 20s, and a left hip total arthroplasty. The emergency room got x-rays of the hip and pelvis that showed no acute fracture. She did get a CT scan of her head that showed no acute fracture. Herwhite blood count is elevated at 14.6 and neutrophil count is shifted to the left at 13.4. Urinalysis is positive for nitrite and 2+ leukocyte esterase. The twelve-lead EKG shows a normal sinus rhythm, but there is QT prolongation with a QT of 436 and a QTc of 499. Urgency room treated her with 1 g of Rocephin intravenously. Her creatinine kinase is high at 1460. Her troponin isslightly elevated at 212.7 and then up a little bit to 311.1. Cardiology was consulted and has signed off as they do not feel this was due to ACS. She states she is interested in inpatient rehab. She is the main caregiver for her . She does have shower bars, shower seat. She has three steps to go into garage but most of the time she stays on the main level of [place] home. She does note she had dysuria prior to coming in but this has since has resolved. She is shaking considerably in the room and states she will be due forher alprazolam shortly and that she gets very shaky when she is due because of withdrawals. She states she has been on alprazolam up to four times a day as needed since 1989 when her first . Denies any additional needs or concerns at this time. Review of Systems Review of Systems All other systems reviewed & are negative unless noted below or in HPI [facility] Medical History (Updated 03/22/24 @ 15:02 by Teresa Antony APRN) Osteoporosis COPD (chronic obstructive pulmonary disease) Osteoarthritis (arthritis due to wear and tear of joints) Cholecystectomy planned Anxiety Surgical History (Updated 03/21/24 @ 21:05 by Bryan Coppola DO) History of left hip hemiarthroplasty History of cholecystectomy S/P thyroid surgery Family History (Updated 03/21/24 @ 21:06 by Bryan Coppola DO) Other Heart disease Social History Smoking Status: Current every day smoker Tobacco Type: cigarettes Substance Use Type: None Meds Medications and Allergies Allergies No Known Allergies Allergy (Verified 11/24/19 23:00) Home Medications alprazolam 0.5 mg tablet 0.5 mg PO DIRECTED ANXIETY 11/24/19 [History Confirmed 03/21/24] levothyroxine 50 mcg tablet 50 mcg PO DAILY 11/24/19 [History Confirmed 03/21/24] albuterol sulfate 90 mcg/actuation aerosol inhaler 2 puff inhalation Q4-6H PRN copd 03/21/24 [History Confirmed 03/21/24] meclizine 25 mg tablet 50 mg PO DAILY 03/21/24 [History Confirmed 03/21/24] Exam Physical Exam Vital Signs: Temp Pulse Resp BP Pulse Ox O2 Del Method 97.9 F 64 18 156/75 H 96 Room Air 03/23/24 08:00 03/23/24 08:00 03/23/24 08:00 03/23/24 08:00 03/23/24 08:00 03/23/24 08:00 Narrative: CONSTITUTIONAL: Alert, oriented x3 HEAD: Normocephalic, atraumatic EYES: EOMI, pupils equal and reactive, conjunctiva normal ENT: External auditory canals wnl, no rhinorrhea, no pharyngeal exudates or erythema RESPIRATORY: No distress, lungs clear bilaterally, symmetric chest rise, no wheezes/rales/rhonchi CHEST: tenderness to L lateral ribs CARDIOVASCULAR: Regular rate and regular rhythm, no murmurs, symmetric palpable radial and dorsalis pedis pulses ABDOMEN: Soft, non-tender, non-distended, normal bowel sounds SKIN: Intact, bruising to LUE NEURO: Cranial nerves grossly intact, whole body shaking which improves when distracted MSK: strength 5/5 upper extremities, tenderness to L hip with some difficulty moving it due to pain PSYCHIATRIC: Normal affect Results - Phys. Rehab Labs Labs: Laboratory Results - last 24 hr 03/23/24 03/23/24 05:00 06:40 Corrected WBC 9.6 Uncorrected WBC Count 9.6 RBC 4.21 Hgb 13.5 Hct 38.9 MCV 92.4 MCH 32.0 MCHC 34.7 RDW 13.5 Plt Count 193 MPV 8.3 Neut % (Auto) 66.5 Lymph % (Auto) 24.6 [place] % (Auto) 5.9 Eos % (Auto) 1.6 Baso % (Auto) 1.4 Nucleat RBC Rel Count 0.1 Neut # (Auto) 6.4 Lymph # (Auto) 2.4 [place] # (Auto) 0.6 Eos # (Auto) 0.1 Baso # (Auto) 0.1 PHA Creatinine Clear 43.81 Sodium 138 Potassium 3.8 Chloride 107 Carbon Dioxide 25.0 Anion Gap TNP BUN 12 Creatinine 0.81 Est GFR (CKD-EPI) > 60.0 Glucose 78 Calcium 8.6 Total Creatine Kinase 930 H Assessment/Plan (1) Acute UTI: (2) Elevated troponin: (3) Rhabdomyolysis: (4) Fall: (5) Contusion of rib on left side: (6) Contusion of left forearm: (7) Contusion of left hip: Plan This is an 79 y/o female who presented to the hospital after fall. Now with multifactorial functional decline in the setting up rhabdomyolysis, UTI, left hip contusion. -The patient is a good candidate for IP rehab. Previously independent with ADLs,has assistive devices at home. -Will begin precert for IRF -Has complex medical and rehab needs. Noted PMH significant anxiety with benzodiazepine dependence, tobacco abuse, COPD, OA, osteoporosis. High risk for complications and hospital readmittance -Thank you for the consult Patient was personally seen by me, Dr. Choudhary, on the day of encounter, reviewed the history and the relevant portions of the chart, including current orders, allied health and corporate consultant notes, labs/imaging and performed dietrich elements of exam and I formulated the plan of care and facilitated the medical decision making. I completed a substantive portion of this encounter, the medical decision makingportion of this note in its entirety, including Allied health note review, nursing note review, corporate consultant note review, discussion with nursing and case management, and more than 50% of my time was spent on counseling and coordination of care, time spent 60 minutes Documented By: Deshawn Choudhary MD [id number] Signed By: <Electronically signed by eDshawn Choudhary MD> 03/23/24 1407 <Electronically signed by DO LEILA Mayfield> 03/23/24 1038 [facility] Work Phone: 1(494) 491-987110-08-2024 Progress note Author Alonso Agudelo [facility] March 23, 2024 1:50pm Note Date/Time March 23, 2024 9: 53am [facility] [address] [place] [address] Hospitalist Progress Note Signed Patient: Stella Kong MR#: [id number] : 1945 Acct:[id number] Age/Sex: 79 / F Adm Date: 4 Loc: Room: [address] [place] [address] Type: ADM IN Attending Dr: Alonso Agudelo MD Copies to: ~ Date of Service: 03/23/2024 Subjective Subjective Narrative: Patient seen and examined. Up in chair, tremulous- states she is awaiting her next Xanax dosing- this is her baseline at home by her report. States ribs still painful. Denies urinary symptoms. Interactive and seems to be mentating appropriately Exam Physical Exam Vital Signs: Temp Pulse Resp BP Pulse Ox O2 Del Method 97.3 F L 56 L 18 123/73 94 L Room Air 03/23/24 03:51 03/23/24 03:51 03/23/24 03:51 03/23/24 03:51 03/23/24 03:51 03/23/24 04:00 Narrative: CONST- alert, in chair, frail elderly female, tremulous CARD- RRR no abnormal heart tones PULM- dimin without wheeze or rhonchi, RA, no cough noted ABD- S/NT, NABS, round EXTREM- no edema BLE, calves nontender Objective Lab Results 03/23/24 06:40 03/23/24 06:40 Microbiology Results Microbiology 03/21/24 17:48 Urine - Clean-Voided Midstream Urine Culture - Final Escherichia coli Meds Allergies and Active Meds Allergies No Known Allergies Allergy (Verified 11/24/19 23:00) Active Meds: Active Medications Generic Name Dose Route Start Last Admin Trade Name Evelyn PRN Reason Stop Dose Admin Acetaminophen 650 mg 03/21/24 19:12 03/22/24 05:55 Acetaminophen 325 Mg Tablet PO 03/21/25 19:11 650 mg Q4H PRN Administration Pain Albuterol 2.5 mg 03/21/24 19:16 Albuterol Neb 2.5 Mg/3 Ml Vial.Neb INHALATION 03/21/25 19:15 Q4H PRN Shortness Of Breath Alprazolam 0.5 mg 03/22/24 14:15 03/23/24 09:51 Alprazolam 0.5 Mg Tablet PO 09/18/24 14:14 0.25 mg DIRECTED LULÚ Administration Ascorbic Acid 500 mg 03/22/24 08:00 03/23/24 09:13 Ascorbic Acid 500 Mg Tablet PO 03/22/25 07:59 500 mg BID.WITH.BFAST.LUNCH LULÚ Administration Bisacodyl 10 mg 03/21/24 19:12 Bisacodyl 10 Mg Supp.Rect AL 03/21/25 19:11 DAILY PRN Constipation Bisacodyl 10 mg 03/21/24 19:12 Bisacodyl 5 Mg Tablet.Dr PO 03/21/25 19:11 DAILY PRN Constipation Calcium Carbonate 1 tab 03/22/24 08:00 03/23/24 09:13 Calcium Carbonate/Vitamin D3 500 Mg/200 Unit Tablet PO 03/22/25 07:59 1 tab BID.WITH.MEALS LULÚ Administration Docusate Sodium 100 mg 03/21/24 21:00 03/23/24 09:13 Docusate 100 Mg Capsule PO 03/21/25 20:59 100 mg BID LULÚ Administration Enoxaparin Sodium 40 mg 03/22/24 10:00 03/23/24 09:13 Enoxaparin 40 Mg/0.4 Ml Syringe SUBCUT 03/22/25 09:59 40 mg DAILY@10 LULÚ Administration Ceftriaxone Sodium 1 gm in 50 mls @ 100 mls/hr 03/22/24 19:00 03/22/24 19:05 Rocephin IV Infused Q24H LULÚ Infusion Levothyroxine Sodium 50 mcg 03/22/24 06:30 03/23/24 05:51 Levothyroxine 50 Mcg Tablet PO 03/22/25 06:29 50 mcg DAILY.0630 LULÚ Administration Lidocaine 1 patch 03/22/24 17:35 03/23/24 09:18 Lidocaine 4% Adh..Patch TOPICAL 03/22/25 17:34 1 patch DAILY LULÚ Administration Nicotine 1 each 03/22/24 17:30 03/23/24 09:18 Nicotine Patch 7 Mg/24hr 1 Each Patch.Td24 TRANSDERML 04/04/24 09:01 1 each DAILY LULÚ Administration Ondansetron HCl 4 mg 03/22/24 09:56 Ondansetron 4 Mg/2 Ml Vial IV-PUSH 03/22/25 09:55 Q4H PRN Nausea And Vomiting Oxycodone HCl 5 mg 03/21/24 19:12 03/22/24 08:25 Oxycodone Ir 5 Mg Tablet PO 5 mg Q4HR PRN Administration moderate pain Saccharomyces Boulardii 250 mg 03/22/24 08:00 03/23/24 09:13 Saccharomyces Boulardii 250 Mg Capsule PO 03/22/25 07:59 250 mg BID.WITH.MEALS LULÚ Administration Sennosides 17.2 mg 03/21/24 22:00 03/22/24 22:04 Sennosides 8.6 Mg Tablet PO 03/21/25 21:59 17.2 mg QHS LULÚ Administration Sodium Chloride 0 ml 03/21/24 17:23 03/22/24 22:18 Sodium Chloride 0.9 % 10 Ml Syringe IV-PUSH 03/21/25 17:22 10 ml PRN PRN Administration Flush Vitamin D 10 mcg 03/22/24 08:00 03/23/24 09:13 Cholecalciferol 10 Mcg (400 Units) Tablet PO 03/22/25 07:59 10 mcg BID.WITH.MEALS LULÚ Administration A&P - Hospitalist Assessment/Plan (1) Acute UTI: (2) Rhabdomyolysis: (3) Elevated troponin: (4) Hypothyroidism associated with surgical procedure: (5) Cigarette smoker: (6) COPD (chronic obstructive pulmonary disease): (7) Left hip pain: (8) Contusion of rib on left side: (9) Contusion of left forearm: (10) Metabolic encephalopathy: Plan EColi UTI/ acute cystitis Metabolic Encephalopathy 2/2 UTI -Ceftin. Leukocytosis resolved, afebrile. Asymptomatic Rhabdomyolysis 2/2 prolonged down time -IVF, trend CK- peak 7110. Trending down Fall Left hip pain/ contusion left rib pain Ambulatory dysfunction -therapy evals - accepted to inpatient rehab pending insurance precert -ortho consult appreciated, documents left hip contusion -CT head nonacute; left rib xray nonacute; pelvis xray nonacute; left femur xraynonacute -symptom management, Lidoderm patch Elevated troponin -peak 353. EKG nonacute, asymptomatic -cardiology consult appreciated -echo- EF 50-55%, normal LV, mild TR Chronic Conditions 1. Anxiety, benzo dependent- Alprazolam as takes at home - recommend follow up outpatient with psychiatry as d/w pt/family 2. COPD- Albuterol prn, stable respiratory status. Smoking cessation education 3. Hypothyroid- levothyroxine I have seen the patient independently and evaluated the patient and agree with the history, physical exam, assessment and plan by nurse practitioner. - Alonso Agudelo MD - Internal Medicine Documented By: Teresa Antony APRN 02/06 0952 Signed By: <Electronically signed by MARIA ESTHER Antony> 03/23/24 1324 <Electronically signed by Alonso Agudelo MD> 03/23/24 1350 [facility] Work Phone: 1(954) 215-215510-07-2024 Consult note Author Mala Nettles [facility] March 22, 2024 4:26pm Note Date/Time March 22, 2024 4: 21pm [facility] [address] [place] [address] Cardiology Consult Note Signed Patient: Stella Kong MR#: [id number] : 1945 Acct:[id number] Age/Sex: 79 / F Adm Date: 4 Loc: Room: [address] [place] [address] Type: ADM IN Attending Dr: Alonso Agudelo MD Copies to: MD Deniz Navas II, MD Linda Njoroge, MD~ Cardiology HPI History of Present Illness Consult Date: 03/22/24 Reason for Consult: Elevated troponin HPI: Ms. Kong is a 79 year old female with PMH significant for COPD, osteoarthritiswho presented after sustaining a mechanical fall and was wedged in between her bed and her nightstand for 2 hours. She denied any syncope and reported that prior to the fall she experienced vertigo which she has been dealing with for the past several months. In the ER, labs were significant for leukocytosis of 14,000, elevated troponin 212--311--352--255 and elevated CK levels that are trending up. She denied any chest pain, shortness of breath, orthopnea, PND or BLE edema. Denied any cardiac history or previous cardiac workup. Echo completed today showed LVEF of 50-55% with normal wall motion which is similar to previous echo in 2012. Review of Systems Review of Systems All other systems reviewed & are negative unless noted below or in HPI [facility] Medical History (Updated 03/22/24 @ 15:02 by Teresa Antony APRN) Osteoporosis COPD (chronic obstructive pulmonary disease) Osteoarthritis (arthritis due to wear and tear of joints) Cholecystectomy planned Anxiety Surgical History (Updated 03/21/24 @ 21:05 by Bryan Coppola DO) History of left hip hemiarthroplasty History of cholecystectomy S/P thyroid surgery Family History (Updated 03/21/24 @ 21:06 by Bryan Coppola DO) Other Heart disease Social History Smoking Status: Current every day smoker Tobacco Type: cigarettes Substance Use Type: None Meds Medications and Allergies Allergies No Known Allergies Allergy (Verified 11/24/19 23:00) Home Medications alprazolam 0.5 mg tablet 0.5 mg PO DIRECTED ANXIETY 11/24/19 [History Confirmed 03/21/24] levothyroxine 50 mcg tablet 50 mcg PO DAILY 11/24/19 [History Confirmed 03/21/24] albuterol sulfate 90 mcg/actuation aerosol inhaler 2 puff inhalation Q4-6H PRN copd 03/21/24 [History Confirmed 03/21/24] meclizine 25 mg tablet 50 mg PO DAILY 03/21/24 [History Confirmed 03/21/24] Exam Physical Exam Vital Signs: Temp Pulse Resp BP Pulse Ox O2 Del Method 97.8 F 63 16 121/71 96 Room Air 03/22/24 15:33 03/22/24 15:33 03/22/24 15:33 03/22/24 15:33 03/22/24 15:33 03/22/24 15:33 Narrative: GEN: AAOx3. No acute distress. Neck: No JVD. Lungs: Clear to auscultation bilaterally Heart: Regular rate and rhythm. Normal S1 and S2. No murmurs or rubs appreciated. Abdomen: Soft, nontender, nondistended, bowel sounds present. Extremities: No BLE edema. Neuro: AAOx3. No focal deficits. Results - Cardiology Labs 03/22/24 05:39 03/22/24 05:39 Lab results: Cardiac Enzymes 03/21/24 03/21/24 03/22/24 Range/Units 17:58 23:04 05:39 AST 30 (13-39) U/L Total Creatine Kinase 1460 H 6966 H 7110 H (30-223) U/L CK-MB (CK-2) 80.7 H (0.6-6.3) ng/mL CK-MB (CK-2) Rel Index 1.1 (0.00-2.50) % CBC 03/21/24 03/22/24 Range/Units 17:58 05:39 RBC 4.10 4.15 (3.60-5.00) X10E6/uL Hgb 13.0 13.2 (11.8-15.4) g/dL Hct 37.4 38.1 (34.0-46.4) % Plt Count 211 201 (150-450) x10E3/uL Neut # (Auto) 13.4 H 7.5 (1.8-7.7) x10E3/uL Lymph # (Auto) 0.6 L 1.7 (1.00-4.8) x10E3/uL [place] # (Auto) 0.4 0.8 (0.0-0.8) x10E3/uL Eos # (Auto) 0.0 0.1 (0.0-0.45) x10E3/uL Baso # (Auto) 0.2 0.1 (0.0-0.2) x10E3/uL Comprehensive Metabolic Panel 03/21/24 03/22/24 Range/Units 17:58 05:39 Sodium 134 L 140 D (136-145) mmol/L Potassium 3.6 3.7 (3.5-5.1) mmol/L Chloride 102 109 H (98-107) mmol/L Carbon Dioxide 22.6 25.2 (21.0-31.0) mmol/L BUN 21 13 (7-25) mg/dL Creatinine 0.94 0.78 (0.60-1.20) mg/dL Glucose 105 H 95 (70-100) mg/dL Calcium 8.5 L 8.4 L (8.6-10.3) mg/dL AST 30 (13-39) U/L ALT 15 (7-52) U/L Alkaline Phosphatase 55 (34-104) U/L Total Protein 6.9 (6.4-8.9) gm/dL Albumin 3.8 (3.5-5.7) gm/dL Intake and Output 03/22/24 03/22/24 03/22/24 07:59 15:59 23:59 Intake Total 450 / 450 Output Total 1200 / 1200 Balance -750 / -750 Intake: Oral 450 / 450 Output: Urine 1200 / 1200 Other: Weight 57.3 kg Date of Last Bowel Movement 03/21/24 03/21/24 Patient Weight 03/22/24 23:59 Weight 57.3 kg Lab 03/21/24 17:58 PT 11.7 INR 1.0 A&P - Cardiology (1) Rhabdomyolysis: Code(s): M62.82 - Rhabdomyolysis (2) Elevated troponin: Code(s): R79.89 - Other specified abnormal findings of blood chemistry (3) Leukocytosis: Code(s): D72.829 - Elevated white blood cell count, unspecified (4) Contusion of rib on left side: Code(s): S20.212A - Contusion of left front wall of thorax, initial encounter (5) Contusion of left forearm: Code(s): S50.12XA - Contusion of left forearm, initial encounter (6) Cigarette smoker: Code(s): F17.210 - Nicotine dependence, cigarettes, uncomplicated (7) COPD (chronic obstructive pulmonary disease): Code(s): J44.9 - Chronic obstructive pulmonary disease, unspecified (8) Anxiety: Code(s): F41.9 - Anxiety disorder, unspecified (9) Closed subcapital fracture of left femur: Code(s): S72.012A - Unspecified intracapsular fracture of left femur, initial encounter for closed fracture Plan Assessment: Rhabdomyolysis Elevated troponin secondary to rhabdomyolysis Ecoli UTI COPD Active tobacco use Recommendations: -No concern for ACS. Troponin is elevated and a flat trend in the setting of elevated CK levels. EKG shows normal sinus rhythm and prolonged QTc with no ischemic changes. No arrhythmias noted on telemetry -Echo shows normal LV function with normal wall motion. -Cardiology will see again as needed. Documented By: Mala Nettles MD 03/22/24 161 Signed By: <Electronically signed by Mala Nettles MD> 03/22/24 1626 [facility] Work Phone: 1(767) 904-899810-07-2024 Progress note Author Alonso Agudelo [facility] March 22, 2024 3:44pm Note Date/Time March 22, 2024 1: 47pm [facility] [address] [place] [address] Hospitalist Progress Note Signed Patient: Stella Kong MR#: [id number] : 1945 Acct:[id number] Age/Sex: 79 / F Adm Date: 4 Loc: Room: [address] [place] [address] Type: ADM IN Attending Dr: Alonso Agudelo MD Copies to: ~ Date of Service: 03/22/2024 Subjective Subjective Narrative: Patient seen and examined. Daughter/ son-in-law present during my visit. Patient still with report of left hip pain, left forearm, left ribs. No respiratory complaint, no cough. nausea reported today she feels is secondary to withdrawal and anxiety - takes benzos chronically. Therapy evals pending. Family feels patient still not mentating completely at her baseline still a little fuzzy . Exam Physical Exam Vital Signs: Temp Pulse Resp BP Pulse Ox O2 Del Method 98.0 F 67 20 139/74 95 Room Air 03/22/24 12:35 03/22/24 12:35 03/22/24 12:35 03/22/24 12:35 03/22/24 12:35 03/22/24 12:35 Narrative: CONST- alert, in bed, frail elderly female CARD- RRR no abnormal heart tones PULM- dimin without wheeze or rhonchi, RA, no cough noted ABD- S/NT, NABS, round EXTREM- no edema BLE, calves nontender Objective Lab Results 03/22/24 05:39 03/22/24 05:39 Microbiology Results Microbiology 03/21/24 17:48 Urine - Clean-Voided Midstream Urine Culture - Preliminary Escherichia coli Meds Allergies and Active Meds Allergies No Known Allergies Allergy (Verified 11/24/19 23:00) Active Meds: Active Medications Generic Name Dose Route Start Last Admin Trade Name Freq PRN Reason Stop Dose Admin Acetaminophen 650 mg 03/21/24 19:12 03/22/24 05:55 Acetaminophen 325 Mg Tablet PO 03/21/25 19:11 650 mg Q4H PRN Administration Pain Albuterol 2.5 mg 03/21/24 19:16 Albuterol Neb 2.5 Mg/3 Ml Vial.Neb INHALATION 03/21/25 19:15 Q4H PRN Shortness Of Breath Alprazolam 0.5 mg 03/21/24 19:16 03/22/24 09:39 Alprazolam 0.5 Mg Tablet PO 09/17/24 19:15 0.5 mg Q6H PRN Administration anxiety Ascorbic Acid 500 mg 03/22/24 08:00 03/22/24 12:34 Ascorbic Acid 500 Mg Tablet PO 03/22/25 07:59 500 mg BID.WITH.BFAST.LUNCH LULÚ Administration Bisacodyl 10 mg 03/21/24 19:12 Bisacodyl 10 Mg Supp.Rect AL 03/21/25 19:11 DAILY PRN Constipation Bisacodyl 10 mg 03/21/24 19:12 Bisacodyl 5 Mg Tablet.Dr PO 03/21/25 19:11 DAILY PRN Constipation Calcium Carbonate 1 tab 03/22/24 08:00 03/22/24 08:24 Calcium Carbonate/Vitamin D3 500 Mg/200 Unit Tablet PO 03/22/25 07:59 1 tab BID.WITH.MEALS LULÚ Administration Docusate Sodium 100 mg 03/21/24 21:00 03/22/24 08:25 Docusate 100 Mg Capsule PO 03/21/25 20:59 100 mg BID ULLÚ Administration Enoxaparin Sodium 40 mg 03/22/24 10:00 03/22/24 09:38 Enoxaparin 40 Mg/0.4 Ml Syringe SUBCUT 03/22/25 09:59 40 mg DAILY@10 LULÚ Administration Ceftriaxone Sodium 1 gm in 50 mls @ 100 mls/hr 03/22/24 19:00 Rocephin IV Q24H LULÚ Sodium Chloride 1,000 mls @ 100 mls/hr 03/22/24 09:30 03/22/24 09:41 0.9% Sodium Chloride 1,000 Ml IV 03/23/24 05:29 100 mls/hr .Q10H LULÚ Administration Levothyroxine Sodium 50 mcg 03/22/24 06:30 03/22/24 05:34 Levothyroxine 50 Mcg Tablet PO 03/22/25 06:29 50 mcg DAILY.0630 LULÚ Administration Ondansetron HCl 4 mg 03/22/24 09:56 Ondansetron 4 Mg/2 Ml Vial IV-PUSH 03/22/25 09:55 Q4H PRN Nausea And Vomiting Oxycodone HCl 5 mg 03/21/24 19:12 03/22/24 08:25 Oxycodone Ir 5 Mg Tablet PO 5 mg Q4HR PRN Administration moderate pain Saccharomyces Boulardii 250 mg 03/22/24 08:00 03/22/24 08:24 Saccharomyces Boulardii 250 Mg Capsule PO 03/22/25 07:59 250 mg BID.WITH.MEALS LULÚ Administration Sennosides 17.2 mg 03/21/24 22:00 03/21/24 21:25 Sennosides 8.6 Mg Tablet PO 03/21/25 21:59 17.2 mg QHS LULÚ Administration Sodium Chloride 0 ml 03/21/24 17:23 03/22/24 10:02 Sodium Chloride 0.9 % 10 Ml Syringe IV-PUSH 03/21/25 17:22 10 ml PRN PRN Administration Flush Vitamin D 10 mcg 03/22/24 08:00 03/22/24 08:24 Cholecalciferol 10 Mcg (400 Units) Tablet PO 03/22/25 07:59 10 mcg BID.WITH.MEALS LULÚ Administration A&P - Hospitalist Assessment/Plan (1) Acute UTI: (2) Rhabdomyolysis: (3) Elevated troponin: (4) Hypothyroidism associated with surgical procedure: (5) Cigarette smoker: (6) COPD (chronic obstructive pulmonary disease): (7) Left hip pain: (8) Contusion of rib on left side: (9) Contusion of left forearm: (10) Metabolic encephalopathy: Plan EColi UTI/ acute cystitis Metabolic Encephalopathy 2/2 UTI -Ceftriaxone- follow C&S. Leukocytosis resolved, afebrile Rhabdomyolysis 2/2 prolonged down time -IVF, trend CK- peak 7110 Fall Left hip pain/ contusion left rib pain Ambulatory dysfunction -therapy evals pending for further disposition -ortho consult appreciated, documents left hip contusion -CT head nonacute; left rib xray nonacute; pelvis xray nonacute; left femur xraynonacute -symptom management Elevated troponin -peak 353. EKG nonacute, asymptomatic -cardiology consult pending -echo- EF 50-55%, normal LV, mild TR Chronic Conditions 1. Anxiety, benzo dependent- Alprazolam as takes at home - recommend follow up outpatient with psychiatry as d/w pt/family 2. COPD- Albuterol prn, stable respiratory status. Smoking cessation education 3. Hypothyroid- levothyroxine I have seen the patient independently and evaluated the patient and agree with the history, physical exam, assessment and plan by nurse practitioner. - Alonso Agudelo MD - Internal Medicine Documented By: Teresa Antony APRN 01/06 1347 Signed By: <Electronically signed by MARIA ESTHER Antony> 03/22/24 1504 <Electronically signed by Alonso Agudelo MD> 03/22/24 1544 [facility] Work Phone: 1(996) 597-374310-07-2024 Consult note Author Mani Garcia [facility] March 22, 2024 9:47am Note Date/Time March 22, 2024 9: 47am [facility] [address] [place] [address] Orthopedic Consult Note Signed Patient: Stella Kong MR#: [id number] : 1945 Acct:[id number] Age/Sex: 79 / F Adm Date: 4 Loc: 3T Room: [address] [place] [address] Type: ADM IN Attending Dr: Alonso Agudelo MD Copies to: MD Deniz Navas II, MD Justin A Kelley, DO~ History of Present Illness HPI Consult date: 03/22/2024 Requesting provider: Bryan Coppola DO Consult reason: joint pain History of present illness: Close 79-year-old female s/p left hip hemiarthroplasty for femoral neck fracturewho presents to [facility] after a ground-level fall. Patient tells me that she was standing by her bed whenever her vertigo picked and caused her to fall beside her bed. She landed on her left side. She was unable to get up and was brought to [facility] by EMS where she was having significant discomfort of left side and unable to bear weight. X-rays performed in the emergency department were found to be negative. [facility] Medical History (Updated 03/22/24 @ 09:46 by Mani Garcia DO) Osteoporosis COPD (chronic obstructive pulmonary disease) Osteoarthritis (arthritis due to wear and tear of joints) Cholecystectomy planned Anxiety Surgical History (Updated 03/21/24 @ 21:05 by Bryan Coppola DO) History of left hip hemiarthroplasty History of cholecystectomy S/P thyroid surgery Family History (Updated 03/21/24 @ 21:06 by Bryan Coppola DO) Other Heart disease Social History Smoking Status: Current every day smoker Tobacco Type: cigarettes Substance Use Type: None Allergies & Medications Medications and Allergies Allergies No Known Allergies Allergy (Verified 11/24/19 23:00) Home Medications alprazolam 0.5 mg tablet 0.5 mg PO DIRECTED ANXIETY 11/24/19 [History Confirmed 03/21/24] levothyroxine 50 mcg tablet 50 mcg PO DAILY 11/24/19 [History Confirmed 03/21/24] albuterol sulfate 90 mcg/actuation aerosol inhaler 2 puff inhalation Q4-6H PRN copd 03/21/24 [History Confirmed 03/21/24] meclizine 25 mg tablet 50 mg PO DAILY 03/21/24 [History Confirmed 03/21/24] Exam Physical Exam Vital Signs: Temp Pulse Resp BP Pulse Ox O2 Del Method 97.7 F 62 20 110/65 95 Room Air 03/22/24 08:23 03/22/24 08:23 03/22/24 08:23 03/22/24 08:23 03/22/24 08:23 03/22/24 08:30 Narrative: Patient seen evaluated on regular nursing floor. She is resting in supine position. She has the head of the bed sitting up in both hips flexed and drawn in. She is having some GI distress right now and quite nauseous so that limits our exam today. Left hip evaluated. Plan inspection there are no obvious abnormalities. She actively moves her left hip while laying down. She shows me the lateral aspect of the hip when I ask about pain. Passive hip testing is limited secondary to her GI distress currently. She is able to move the foot and ankle up now without difficulty. The foot is warm well-perfused with normal sensation. Results - Orthopedics Lab Results 03/22/24 05:39 03/22/24 05:39 Labs: Laboratory Results - Last 48 hrs. 03/22/24 05:39: Corrected WBC 10.2, Uncorrected WBC Count 10.2, RBC 4.15, Hgb 13.2, Hct 38.1, MCV 91.8, MCH 31.8, MCHC 34.7, RDW 13.3, Plt Count 201, MPV 7.9,Neut % (Auto) 74.0, Lymph % (Auto) 16.8, [place] % (Auto) 7.8, Eos % (Auto) 0.5, Baso % (Auto) 0.9, Nucleat RBC Rel Count 0.0, Neut # (Auto) 7.5, Lymph # (Auto) 1.7, [place] # (Auto) 0.8, Eos # (Auto) 0.1, Baso # (Auto) 0.1, PHA Creatinine Clear 44.36, Sodium 140 D, Potassium 3.7, Chloride 109 H, Carbon Dioxide 25.2, Anion Gap 9.5, BUN 13, Creatinine 0.78, Est GFR (CKD-EPI) > 60.0, Glucose 95, Calcium 8.4 L, Magnesium 2.0, Total Creatine Kinase 7110 H, Troponin I High Qacc558.3 H*, 25-OH Vitamin D Total 33.0 03/21/24 23:04: Total Creatine Kinase 6966 H, CK-MB (CK-2) 80.7 H, CK-MB (CK-2) Rel Index 1.1, Troponin I High Sens 353.9 H* 03/21/24 23:00: Urine Color Colorless, Urine Appearance Clear, Urine pH 5.5, Ur Specific [place] 1.006, Urine Protein Negative, Urine Glucose (UA) 70 H, Urine Ketones Trace H, Urine Occult Blood 3+ H, Urine Nitrite Positive H, Urine Bilirubin Negative, Urine Urobilinogen Normal, Ur Leukocyte Esterase 4+ H, UrineRBC 3-4, Urine WBC 20-49 H, Urine WBC Clumps Moderate H, Ur Squamous Epith Cells1-2, Urine Bacteria 1+ H, Hyaline Casts None 03/21/24 19:58: Troponin I High Sens 311.1 H* 03/21/24 17:58: Magnesium Cancelled, Total Bilirubin 0.4, AST 30, ALT 15, Alkaline Phosphatase 55, Total Creatine Kinase 1460 H, Troponin I High Sens 212.7 H*, Total Protein 6.9, Albumin 3.8, Globulin 3.1, Albumin/Globulin Ratio 1.2 03/21/24 17:58: Corrected WBC 14.6 H, Uncorrected WBC Count 14.6 H, RBC 4.10, Hgb 13.0, Hct 37.4, MCV 91.3, MCH 31.7, MCHC 34.7, RDW 13.6, Plt Count 211, MPV 7.4, Neut % (Auto) 91.7, Lymph % (Auto) 4.1, [place] % (Auto) 2.9, Eos % (Auto) 0.1, Baso % (Auto) 1.2, Nucleat RBC Rel Count 0.1, Neut # (Auto) 13.4 H, Lymph #(Auto) 0.6 L, [place] # (Auto) 0.4, Eos # (Auto) 0.0, Baso # (Auto) 0.2, Monocyte Dist Width 14.37, PT 11.7, INR 1.0, PHA Creatinine Clear 42.12, Sodium 134 L, Potassium 3.6, Chloride 102, Carbon Dioxide 22.6, Anion Gap 13.0, BUN 21, Creatinine 0.94, Est GFR (CKD-EPI) > 60.0, Glucose 105 H, Calcium 8.5 L, Magnesium 1.9 03/21/24 17:48: Urine Color Light-yellow, Urine Appearance Clear, Urine pH 5.5, Ur Specific [place] 1.012, Urine Protein Negative, Urine Glucose (UA) 300 H, Urine Ketones Negative, Urine Occult Blood 3+ H, Urine Nitrite Positive H, UrineBilirubin Negative, Urine Urobilinogen Normal, Ur Leukocyte Esterase 2+ H, UrineRBC 3-4, Urine WBC 10-19 H, Ur Squamous Epith Cells 1-2, Urine Bacteria 2+ H, Hyaline Casts None, Urine Mucus Rare H & H 03/21/24 03/22/24 Range/Units 17:58 05:39 Hgb 13.0 13.2 (11.8-15.4) g/dL Hct 37.4 38.1 (34.0-46.4) % Coagulation 03/21/24 Range/Units 17:58 INR 1.0 All other labs are normal. Imaging & Diagnostic Results Imaging/Diagnostics: X-rays of the pelvis and left hip are reviewed by me today. They show cemented left hip hemiarthroplasty without acute osseous abnormalities. Visualized lumbar spine shows significant degenerative changes. Assessment/Plan (1) Contusion of left hip: Code(s): S70.02XA - Contusion of left hip, initial encounter Plan Stella presents with left hip contusion. At this juncture we have discussed the findings and diagnosis as well as personally reviewed appropriate imaging and performed interpretation of related testing and examination with the patient in office today. Prior medical notes from Dr. Coppola and history have been reviewed. At this time I would recommend weightbearing as tolerated with PT/OT evaluations and recommendations. If she has issues with ambulation I can reevaluate as her exam was quite limited secondary to her GI distress today. The patient has been involved in our cooperative treatment plan and agrees to move forward with treatment at this time. Documented By: Mani Garcia DO 03/22/24 0944 Signed By: <Electronically signed by Mani Garcia DO> 03/22/24 0947 [facility] Work Phone: 1(665) 502-709110-06-2024 History and physical note Author Bryan Coppola [facility] March 21, 2024 9:10pm Note Date/Time March 21, 2024 9: 10pm [facility] [address] [place] [address] Hospitalist H&P Signed Patient: Stella Kong MR#: [id number] : 1945 Acct:[id number] Age/Sex: 79 / F Adm Date: 4 Loc: 3T Room: 8R9539-3 Type: ADM IN Attending Dr: Bryan Coppola DO Copies to: MD Bryan Brooke II, DO~ HPI DATE OF EXAMINATION: 03/21/24 CHIEF COMPLAINT: left hip, rib, forearm pain after a fall, UTI. HISTORY OF PRESENT ILLNESS: This is an 79-year-old woman who came to the emergency room today after a fall at home. She was leaning over her bed to try and do something next to the bed and fell down. She landed on her left side. She came to emergency room with pain in her left elbow, left hip region, and left ribs, and down her left leg. In the emergency room she could not walk and could not bear any weight. The emergency room got x-rays of the hip and pelvis that showed no acute fracture. She did get a CT scan of her head that showed no acute fracture. Herwhite blood count is elevated at 14.6 and neutrophil count is shifted to the left at 13.4. Urinalysis is positive for nitrite and 2+ leukocyte esterase. The twelve-lead EKG shows a normal sinus rhythm, but there is QT prolongation with a QT of 436 and a QTc of 499. Urgency room treated her with 1 g of Rocephin intravenously. Her creatinine kinase is high at 1460. Her troponin isslightly elevated at 212.7 and then up a little bit to 311.1. The report is that she was at home and fell very hard striking her left side. She could not get herself off of the ground. She could not stand up. She says that she was hollering for her for 2 hours. When her did find her he was too weak to get her to stand up as well. He had to go outside and flag down a passing hard to get help. In the emergency room the patient is shaking all over. She is accompanied at the bedside by daughter who says that she thinks that the patient is anxious about the situation. I reviewed the patient's OARRS report she picks up Xanax 0.5 mg enough for 4 times a day and she has been doing this regularly for years. The emergency room did treat her with IV Ativan while he was in the room. In regards to her past medical history she has really been quite the. She did have a bad bout of vertigo about 6 months ago. She has osteoporosis. She has COPD. She has generalized osteoarthritis, and of course anxiety. Her past surgical history includes a cholecystectomy, some uncertain thyroid surgery when she was in her 20s, and a left hip total arthroplasty. Social history: She smokes between 7 and 8 cigarettes/day. Her daughter thinks that she smokes more. The patient says that in her lifetime when she wassmoking more heavily it was two thirds of a pack per day. So I would put her nae 90-mxoh-kiyd history. She does not drink any alcohol. Family history includes coronary artery disease and 3 brothers. Review of Systems Review of Systems Review of systems: 10 systems are reviewed and are negative except as mentioned elsewhere in the documentation. [facility] Medical History (Updated 03/21/24 @ 21:08 by Bryan Coppola DO) Osteoporosis COPD (chronic obstructive pulmonary disease) Osteoarthritis (arthritis due to wear and tear of joints) Cholecystectomy planned Anxiety Surgical History (Updated 03/21/24 @ 21:05 by Bryan Coppola DO) History of left hip hemiarthroplasty History of cholecystectomy S/P thyroid surgery Family History (Updated 03/21/24 @ 21:06 by Bryan Coppola DO) Other Heart disease Social History Smoking Status: Current every day smoker Tobacco Type: cigarettes Substance Use Type: None Meds Medications and Allergies Allergies No Known Allergies Allergy (Verified 11/24/19 23:00) Home Medications alprazolam 0.5 mg tablet 0.5 mg PO DIRECTED ANXIETY 11/24/19 [History Confirmed 03/21/24] levothyroxine 50 mcg tablet 50 mcg PO DAILY 11/24/19 [History Confirmed 03/21/24] albuterol sulfate 90 mcg/actuation aerosol inhaler 2 puff inhalation Q4-6H PRN copd 03/21/24 [History Confirmed 03/21/24] meclizine 25 mg tablet 50 mg PO DAILY 03/21/24 [History Confirmed 03/21/24] Exam Physical Exam Vital Signs: Temp Pulse Resp BP Pulse Ox O2 Del Method 98.4 F 86 18 154/75 H 98 Room Air 03/21/24 17:20 03/21/24 20:07 03/21/24 20:06 03/21/24 20:06 03/21/24 20:06 03/21/24 20:06 Narrative: GEN: Lying on the ER cot she is moderately confused. She has difficulty answering my questions. When asked her about acute urinary tract infection questions she goes back to when her doctor gave her some antibiotics 5 months ago. She is shaking all over so she may be having a lot of anxiety or she may be having symptoms from the acute infection. Head: Normal Cephalic, Atraumatic. Eyes: Conjunctiva and sclera clear bilaterally. EOMI. Nose: External nose and nares normal bilaterally. Mouth: Lips and tongue normal. Mucosal membranes are dry. Tongue is in the midline. Neck: No JVD. No thyromegaly. No lymphadenopathy. Lungs: Clear to auscultation bilaterally, no wheezing, no crackles. Heart: Regular rate and rhythm, no murmurs, rubs, or gallops. Abdomen: Soft, normal bowel sounds, no rigidity, guarding, or acute peritoneal signs. Extremities: No swelling or cords in the calves bilaterally, no edema in the ankles bilaterally. She has a very difficult time lifting up her left leg and moving it. She is very tender over on the lateral aspect of the hip. Skin: She has bruising over the left forearm consistent with a fall. Psychiatric: Shaking. Anxious. Results - Hospitalist H&P Lab Results Labs: Laboratory Last Values Corrected WBC 14.6 X10E3/uL (3.8-11.6) H 03/21/24 17:58 Uncorrected WBC Count 14.6 x10E3/uL (3.8-11.6) H 03/21/24 17:58 RBC 4.10 X10E6/uL (3.60-5.00) 03/21/24 17:58 Hgb 13.0 g/dL (11.8-15.4) 03/21/24 17:58 Hct 37.4 % (34.0-46.4) 03/21/24 17:58 MCV 91.3 fl (80-100) 03/21/24 17:58 MCH 31.7 pg (24.7-34.3) 03/21/24 17:58 MCHC 34.7 g/dL (32.0-35.0) 03/21/24 17:58 RDW 13.6 % (11.9-15.3) 03/21/24 17:58 Plt Count 211 x10E3/uL (150-450) 03/21/24 17:58 MPV 7.4 fl (6.3-10.7) 03/21/24 17:58 Neut % (Auto) 91.7 % (.) 03/21/24 17:58 Lymph % (Auto) 4.1 % (.) 03/21/24 17:58 [place] % (Auto) 2.9 % (.) 03/21/24 17:58 Eos % (Auto) 0.1 % (.) 03/21/24 17:58 Baso % (Auto) 1.2 % (.) 03/21/24 17:58 Nucleat RBC Rel Count 0.1 /100 WBC (0-0.5) 03/21/24 17:58 Neut # (Auto) 13.4 x10E3/uL (1.8-7.7) H 03/21/24 17:58 Lymph # (Auto) 0.6 x10E3/uL (1.00-4.8) L 03/21/24 17:58 [place] # (Auto) 0.4 x10E3/uL (0.0-0.8) 03/21/24 17:58 Eos # (Auto) 0.0 x10E3/uL (0.0-0.45) 03/21/24 17:58 Baso # (Auto) 0.2 x10E3/uL (0.0-0.2) 03/21/24 17:58 Monocyte Dist Width 14.37 % (0.00-20.00) 03/21/24 17:58 PT 11.7 Seconds (9.0-12.9) 03/21/24 17:58 INR 1.0 03/21/24 17:58 PHA Creatinine Clear 42.12 03/21/24 17:58 Sodium 134 mmol/L (136-145) L 03/21/24 17:58 Potassium 3.6 mmol/L (3.5-5.1) 03/21/24 17:58 Chloride 102 mmol/L (98-107) 03/21/24 17:58 Carbon Dioxide 22.6 mmol/L (21.0-31.0) 03/21/24 17:58 Anion Gap 13.0 mEq/L (6.0-15.0) 03/21/24 17:58 BUN 21 mg/dL (7-25) 03/21/24 17:58 Creatinine 0.94 mg/dL (0.60-1.20) 03/21/24 17:58 Est GFR (CKD-EPI) > 60.0 mL/Min 03/21/24 17:58 Glucose 105 mg/dL (70-100) H 03/21/24 17:58 Calcium 8.5 mg/dL (8.6-10.3) L 03/21/24 17:58 Magnesium 1.9 mg/dL (1.9-2.7) 03/21/24 17:58 Magnesium Cancelled 03/21/24 17:58 Total Bilirubin 0.4 mg/dl (0.3-1.0) 03/21/24 17:58 AST 30 U/L (13-39) 03/21/24 17:58 ALT 15 U/L (7-52) 03/21/24 17:58 Alkaline Phosphatase 55 U/L (34-104) 03/21/24 17:58 Total Creatine Kinase 1460 U/L (30-223) H 03/21/24 17:58 Troponin I High Sens 311.1 pg/mL (0.0-15.0) H* 03/21/24 19:58 Total Protein 6.9 gm/dL (6.4-8.9) 03/21/24 17:58 Albumin 3.8 gm/dL (3.5-5.7) 03/21/24 17:58 Globulin 3.1 gm/dL 03/21/24 17:58 Albumin/Globulin Ratio 1.2 03/21/24 17:58 Urine Color Light-yellow (Yellow) 03/21/24 17:48 Urine Appearance Clear (Clear) 03/21/24 17:48 Urine pH 5.5 (5.0-9.0) 03/21/24 17:48 Ur Specific [place] 1.012 (1.001-1.030) 03/21/24 17:48 Urine Protein Negative mg/dL (Negative) 03/21/24 17:48 Urine Glucose (UA) 300 mg/dL (Normal) H 03/21/24 17:48 Urine Ketones Negative (Negative) 03/21/24 17:48 Urine Occult Blood 3+ (Negative) H 03/21/24 17:48 Urine Nitrite Positive (Negative) H 03/21/24 17:48 Urine Bilirubin Negative (Negative) 03/21/24 17:48 Urine Urobilinogen Normal mg/dL (Normal) 03/21/24 17:48 Ur Leukocyte Esterase 2+ (Negative) H 03/21/24 17:48 Urine RBC 3-4 /HPF (0-4) 03/21/24 17:48 Urine WBC 10-19 /HPF (0-4) H 03/21/24 17:48 Ur Squamous Epith Cells 1-2 /HPF (0-2) 03/21/24 17:48 Urine Bacteria 2+ /HPF (None Seen) H 03/21/24 17:48 Hyaline Casts None /LPF (0-8) 03/21/24 17:48 Urine Mucus Rare /LPF 03/21/24 17:48 Assessment & Plan Assessment/Plan (1) Acute UTI: (2) Rhabdomyolysis: (3) Elevated troponin: (4) Hypothyroidism associated with surgical procedure: (5) Cigarette smoker: (6) COPD (chronic obstructive pulmonary disease): (7) Left hip pain: (8) Contusion of rib on left side: (9) Contusion of left forearm: Plan Assessment: Status post fall onto the left ribs, left forearm, and left hip at home. Severe ongoing left hip pain unable to walk. Probable urinary tract infection/acute bacterial cystitis. Acute metabolic encephalopathy, due to the infection above. Elevated troponin. Right now this is mildly elevated which may indicate cardiaccontusion. Total creatinine kinase elevation of 1460, possibly indicating rhabdomyolysis from laying on the ground. COPD. Hypothyroidism. Osteoarthritis. Plan: Hospital admission, inpatient status. Continue IV fluid rehydration overnight and recheck CPK tomorrow. Continuous telemetry monitoring. Recheck troponin at night and tomorrow morning. Check echocardiogram in the morning. Consult to cardiology. Continue Rocephin 1 g every 24 hours for the urinary tract infection/bacterial cystitis. This patient's urine sample came from the bedpan, which is a nonsterile way to collect a urine sample. I request that the floor nurses get a straight catheterization for an accurate urinalysis and culture. Consult orthopedic surgery to evaluate the pain in her left hip and consider additional imaging if indicated. Further care for this patient will be taken over in the morning by my hospitalist colleagues. IP vs OBS Justification Based on differential dx, clinical care plan, and risk of adverse events, if untreated, in my clinical judgement this patient requires an acute care setting as: INPATIENT because of an expectation of an over 2 midnight stay. Estimated length of stay (# of days): 4 Documented By: Bryan Coppola DO 2100 Signed By: <Electronically signed by Bryan Coppola DO> 03/21/242109 [facility] Work Phone: 1(491) 868-698501-31-2024 History of Present illness Narrative* Celina Craven, PT - 07/16/2023 1:00 PM EST Time In: 1:05 pm Time Out: 2:05 pm Supervised Time: 60 min Total Time: 60 min Visit Number: approved through 08/04/23 Chief Complaint: C/o dizziness, lightheadedness, frequent falls Diagnoses: vertigo, vestibular ataxia Precautions: recent fall history Progress: pt states that after PT she felt better for several hours, then symptoms returned. Pt hasnot taken Meclizine today or yesterday. Pt to see her primary care physician for repeat ear cleaning next week. Subjective (from IE on 07/11/23) Mechanism of injury: Pt assisted with history by spouse. No known cause vertigo. Pt states she fellin 2020 years ago on steps fracturing hip; records [...] She does have history of degenerative arthritis C- spine, with over-door traction helping. What increases symptoms: [...] increase in dizziness/vertigo without changes in eyes. [place]: worse on left than right with [...] going to grocery store, social activities due todizziness and falls. Employment: retired INTERVENTIONS: X 30 [...] Items useful for predicting BPPV were positive. Fdc Goals: Decrease feeling of vertigo/dizziness 50% in [...] back to the number below. Physician Signature: Date: [facility]* Diagnosis Vertigo- Primary Dizziness and giddiness Vestibular ataxia Other cerebellar ataxia documented [facility] this encounter [facility]* Diagnosis Onset Date Resolution Status Acute UTI acute Elevated troponin acute Fall acute Leukocytosis acute Rhabdomyolysis acute [facility] Work Phone: Evaluation note* Diagnosis Onset Date Resolution Status Acute UTI acute Anxiety acute Benzodiazepine dependence ac valerie Cigarette smoker acute Closed subcapital fracture of left femur acute Contusion of left forearm ac valerie Contusion of left hip acute Contusion of rib on left side acute COPD (chronic obstructive pulmonary disease) acute Elevated troponin acute Fall acute Hypothyroidism associated with surgical procedure acute Left hip pain acute Leukocytosis acute Metabolic encephalopathy acu te Rhabdomyolysis acute [facility] Work Phone: Evaluation note* Diagnosis Urinary tract infection without hematuria, site unspecified- Primary Traumatic rhabdomyolysis, subsequent encounter Generalized anxiety disorder (CMS/HCC) Generalized anxiety disorder documented [facility] this encounter [facility]* Diagnosis Generalized anxiety disorder (CMS/HCC)- Primary Generalized anxiety disorder Reactive airways dysfunction syndrome (CMS/HCC) Unspecified asthma Traumatic rhabdomyolysis, subsequent encounter Hereditary ataxia, unspecified (CMS/HCC) documented [facility] this encounter [facility]* Diagnosis Pseudophakia- Primary Lens replaced by other means documented in this encounter [facility] Summary Purpose Family History No Family History Records Found Relationship Condition Age at Onset Recorded Date/T jaylin Not Specified Heart disease Unknown Advance Directives No Advanced Directives Records Found Advance Directive Response Recorded Date/ Time Advance Directives No February 1:19pm Chief Complaint and Reason for Visit Chief Complaint Fall, hip pain Reason for Visit Acute UTI Elevated troponin Fall Leukocytosis Rhabdomyolysis Chief Complaint Fall, hip pain Fall, hip pain Fall, hip pain Fall, hip pain Fall, hip pain Reason for Visit Acute UTI Anxiety Benzodiazepine dependence Cigarette smoker Closed subcapital fracture of left femur Contusion of left forearm Contusion of left hip Contusion of rib on left side COPD (chronic obstructive pulmonary disease) Elevated troponin Fall Hypothyroidism associated with surgical procedure Left hip pain Leukocytosis Metabolic encephalopathy Rhabdomyolysis Additional Source Comments INFORMATION SOURCE (unrecogn ized section and content) DATE CREATED AUTHOR 07/22/2020 [facility] DATE CREATED AUTHOR AUTHOR'S ORGANIZ ATION 11/25/2020 [facility] DATE CREATED AUTHOR AUTHOR'S ORGANIZ ATION 05/05/2024 [facility] EPIC DATE CREATED AUTHOR AUTHOR'S ORGANIZ ATION 05/10/2024 [facility] Reason for Visit (unrecogniz ed section and content) Specialty Diagnoses / Procedures Referred By Maxi fernandez Referred To Contact Physical Therapy Diagnoses Vertigo Vestibular ataxia Procedures AL OFFICE/OUTPATIENT [facility] MDM 60 MINUTES Deniz Ochoa MD [address] [facility] [address] [place] [address] Celina Craven, PT [address] [place] [address] Referral ID Status Reason Start Date Expiration Date Visits Requested Visits Authorized [id number] Authorized Specialty Services Required 07/04/2023 08/04/2023 10 10 Reason Onset Date Comments Cx PT for 07/3007/28/2023 She had called a nd lm re: PT on 07/30 and said she has been through an ordeal and needs to cx. Due to last scheduled she said she will contact when able to rs. Reason Comments Follow-up [facility] stay admitted 1 dx: UTI,fall,rhabdomyolysis discharged to [place] 03/25/24 discharged home 04/08/24 Medication Question Pt would like to sto p the lexapro she was started on at [facility] Reason Comments Follow-up Anxiety/depression-m ed adjustments Med Refill Albuterol inhaler--c vs khalil Reason Comments Post-op Follow-up Care Teams (unrecognized sec tion and content) Team Status: Active Member Role Status Dates Deniz Ochoa II MD Primary Care Provider Active Team Status: Inactive Member Role Status Dates Deniz Ochoa II MD Primary Care Provider Active Start: March 21, 2024 End: March 25, 2024 Yokasta Flores , Emergency Provider Active Sta rt: March 21, 2024 End: March 25, 2024 Bryan Coppola DO Admit Provider Active Start: March 21, 2024 End: March 25, 2024 Cliff West MD Other Provider Active Start: O ctober 2023 End: March 25, 2024 Janett Owen MD Other Provider Active Star t: March 21, 2024 End: March 25, 2024 Kelsey Thao , GEOTECHNICAL ENGINEER-C Other Provider Active Start: March 21, 2024 End: March 25, 2024 Mani Garcia DO Other Provider Active Start : March 21, 2024 End: March 25, 2024 Darci Marley II, MD Other Provider Active S tart: March 21, 2024 End: March 25, 2024 Sohan Kelly DO Other Provider Active Start: March 21, 2024 End: March 25, 2024 Alonso Agudelo MD Attending Provider Active Start : March 21, 2024 End: March 25, 2024 Maria Del Rosario Thornton MD Other Provider Active Start: Oc tober 2023 End: March 25, 2024 Germain Witt MD Other Provider Active Start: O ctober 2023 End: March 25, 2024 Flor Dee APRN Other Provider Active St art: March 21, 2024 End: March 25, 2024 Naresh Mcguire Jr, DO Other Provider Active S tart: March 21, 2024 End: March 25, 2024 Deshawn Choudhary MD Other Provider Active Start: March 21, 2024 End: March 25, 2024 Taqueria Duran MD Other Provider Active Start: March 21, 2024 End: March 25, 2024 Team Status: Active Member Role Status Dates Deniz Ochoa II MD Primary Care Provider Active Start: March 22, 2024 Yokasta Flores DO Emergency Provider Active Sta rt: March 22, 2024 Bryan Coppola DO Admit Provider Active Start: March 22, 2024 Abdias Ocasio MD Other Provider Active Start: O ctober 2023 Cliff West MD Other Provider Active Start: O ctober 2023 Janett Owen MD Other Provider Active Star t: March 22, 2024 Kelsey Thao NP-C Other Provider Active Start: March 22, 2024 Mani Garcia DO Attending Provider, Other Provider Active Start: March 22, 2024 Darci Marley II, MD Other Provider Active S tart: March 22, 2024 Sohan Kelly DO Other Provider Active Start: March 22, 2024 Alonso Agudelo MD Other Provider Active Start: Oc tober 2023 Team Status: Active Member Role Status Dates Deniz Ochoa II MD Primary Care Provider Active Start: March 22, 2024 Yokasta Flores DO Emergency Provider Active Sta rt: March 22, 2024 Bryan Coppola , DO Admit Provider Active Start: March 22, 2024 Cliff West MD Other Provider Active Start: O ctober 2023 Janett Owen MD Other Provider Active Star t: March 22, 2024 Kelsey Thao NP-C Other Provider Active Start: March 22, 2024 Mani Garcia DO Other Provider Active Start : March 22, 2024 Darci Marley II, MD Other Provider Active S tart: March 22, 2024 Sohan Kelly DO Other Provider Active Start: March 22, 2024 Alonso Agudelo MD Other Provider Active Start: Oc tober 2023 Maria Del Rosario Thornton MD Other Provider Active Start: Oc tober 2023 Germain Witt MD Other Provider Active Start: O ctober 2023 Flor Dee APRN Other Provider Active St art: March 22, 2024 Naresh Mcguire Jr, DO Other Provider Active S tart: March 22, 2024 Deshawn Choudhary MD Other Provider Active Start: March 22, 2024 Mala Nettles MD Attending Provider Active Sta rt: March 22, 2024 Team Status: Active Member Role Status Dates Deniz Ochoa II MD Primary Care Provider Active Start: March 23, 2024 Yokasta Flores DO Emergency Provider Active Sta rt: March 23, 2024 Bryan Coppola , DO Admit Provider Active Start: March 23, 2024 Cliff West MD Other Provider Active Start: O ctober 2023 Janett Owen MD Other Provider Active Star t: March 23, 2024 MAYUR RodneyC Other Provider Active Start: March 23, 2024 Mani Garcia DO Other Provider Active Start : March 23, 2024 Darci Marley II, MD Other Provider Active S tart: March 23, 2024 Sohan Kelly DO Other Provider Active Start: March 23, 2024 Alonso Agudelo MD Other Provider Active Start: Oc tober 2023 Maria Del Rosario Thornton MD Other Provider Active Start: Oc tober 2023 Germain Witt MD Other Provider Active Start: O ctober 2023 Flor Dee APRN Other Provider Active St art: March 23, 2024 Naresh Mcguire Jr DO Other Provider Active S tart: March 23, 2024 Deshawn Choudhary MD Attending Pr ovid, Other Provider Active Start: March 23, 2024 Team Status: Active Member Role Status Dates Deniz Ochoa II MD Primary Care Provider Active Start: March 24, 2024 Yokasta Flores DO Emergency Provider Active Sta rt: March 24, 2024 Bryan Coppola , DO Admit Provider Active Start: March 24, 2024 Cliff West MD Other Provider Active Start: O ctober 2023 Janett Owen MD Other Provider Active Star t: March 24, 2024 PARMINDER Rodney Other Provider Active Start: March 24, 2024 Mani Garcia DO Other Provider Active Start : March 24, 2024 Darci Marley II, MD Other Provider Active S tart: March 24, 2024 Sohan Kelly DO Other Provider Active Start: March 24, 2024 Alonso Agudelo MD Other Provider Active Start: Oc tober 2023 Maria Del Rosario Thornton MD Other Provider Active Start: Oc tober 2023 Germain Witt MD Other Provider Active Start: O ctober 2023 Flor Dee APRN Other Provider Active St art: March 24, 2024 Starkweatherjuan Mcguire Jr, DO Other Provider Active S tart: March 24, 2024 Deshawn Choudhary MD Other Provider Active Start: March 24, 2024 Taqueria Duran MD Attending Pro vider, Other Provider Active Start: March 24, 2024 Mold Washer Relationship Specialty Start Date End Date Deniz Ochoa MD [address] [place] [address] PCP - [facility] 06/16/20 Deniz Ochoa MD [address] [place] [address] PCP - General Internal Medicine 10/22/22 Mold Washer Relationship Specialty Start Date End Date Deniz Ochoa MD [address] [place] [address] PCP - [facility] 06/16/20 Deniz Ochoa MD [address] [place] [address] PCP - General Internal Medicine 10/22/22 Team Status: Active Member Role Status Dates Deniz Ochoa II MD Primary Care Provider Active Start: March 21, 2024 Yokasta Flores DO Emergency Provider Active Sta rt: March 21, 2024 Bryan Coppola DO Admit Provider , Attending Provider Active Start: March 21, 2024 Mold Washer Relationship Specialty Start Date End Date Deniz Ochoa MD [address] [place] [address] PCP - [facility] 06/16/17 Deniz Ochoa MD [address] [place] [address] PCP - General Internal Medicine 10/22/22 Mold Washer Relationship Specialty Start Date End Date Deniz Ochoa MD [address] [place] [address] PCP - [facility] 06/16/17 Deniz Ochoa MD [address] [place] [address] PCP - General Internal Medicine 10/22/22 Mold Washer Relationship Specialty Start Date End Date Deniz Ochoa MD [address] [place] [address] PCP - [facility] 06/16/17 Deniz Ochoa MD [address] [place] [address] PCP - General Internal Medicine 10/22/22 Mold Washer Relationship Specialty Start Date End Date Deniz Ochoa MD [address] [place] [address] PCP - [facility] 06/16/17 Deniz Ochoa MD [address] [place] [address] PCP - General Internal Medicine 10/22/22 Mold Washer Relationship Specialty Start Date End Date Deniz Ochoa MD [address] [place] [address] PCP - [facility] 06/16/17 Deniz Ochoa MD [address] [facility] [address] [place] [address] PCP - General Internal Medicine 10/22/22 Goals (unrecognized section and content) Goals may be documented in a n alternate section FOR RECORDS PERTAINING TO PATIENTS WHO ARE [...] BE BASED ON THE PRIMARY CLINICAL RECORDS. [employer] provides no warranty or guarantee of the accuracy or completeness of information in this document.
--- NOTE | 2024-05-19 19:30 | XR_ITS ---
The [address] [address] Patient Name: TRACY GREEN MRN: [id number] date: 1945 Sex: F Assigned Patient Location: ER Current Patient Location: ER Accession/Order Number: [id number] Exam Date: 05/19/2024 20:20 Report Date: 05/19/2024 21:40 At the request of: OSORIO MARKER Procedure: XR chest 1V SINGLE VIEW CHEST: 05/19/2024 8:20 PM EST CLINICAL HISTORY:weakness COMPARISONS: Right shoulder x-ray 05/19/2024 TECHNIQUE: Single frontal view of the chest, utilizing portable technique. Portable radiography should be considered a technically compromised study. Strongly consider dedicated PA and lateral chest radiographs, as clinically indicated. FINDINGS: LINES AND TUBES: None appreciated. CARDIAC SILHOUETTE: Mildly enlarged. Mild pulmonary venous congestion. MEDIASTINAL AND HILAR CONTOUR: Within normal limits. PULMONARY PARENCHYMA AND PLEURA: No consolidation, edema, effusion, or pneumothorax. OSSEOUS STRUCTURES:There is an acute impacted right humeral head fracture at the surgical neck. No dislocation. No other acute or displaced fractures are seen. OTHER COMMENTS:Atherosclerotic calcifications of the aorta. XR/XR chest 1V IMPRESSION: 1. Mild cardiac enlargement and mild pulmonary venous congestion. Correlate for earlier mild CHF. 2. Clear lungs without pneumothorax. 3. Acute impacted right proximal humeral neck fracture. See dedicated right shoulder radiographs. This report was generated with voice recognition software. Effort has been made to ensure accuracy of this report, however, occasional wording errors may persist. Please contact our office with any questions. Electronically authenticated by: NOEMÍ SANTORO Date: 05/19/2024 21:40
--- NOTE | 2024-05-19 19:30 | XR_ITS ---
The [address] [address] Patient Name: TRACY GREEN MRN: [id number] date: 1945 Sex: F Assigned Patient Location: ER Current Patient Location: ER Accession/Order Number: [id number] Exam Date: 05/19/2024 20:20 Report Date: 05/19/2024 21:44 At the request of: OSORIO MARKER Procedure: XR shoulder RT min 2V EXAM: XR shoulder RT min 2V HISTORY: fall, rt shoulder pain COMPARISON: None. TECHNIQUE: 3 view right shoulder. FINDINGS: Acute impacted proximal right femoral neck fracture and surgical neck region with estimated 5 mm impaction. Glenohumeral joint is intact without subluxation or dislocation. Normal acromioclavicular joint. Background osseous demineralization suspected osteoporosis. No other abnormality is seen. XR/XR shoulder RT min 2V IMPRESSION: Acute impacted proximal right humeral neck fracture. Electronically authenticated by: NOEMÍ SANTORO Date: 05/19/2024 21:44
--- NOTE | 2024-05-19 19:30 | XR_ITS ---
The [address] [address] Patient Name: TRACY GREEN MRN: [id number] date: 1945 Sex: F Assigned Patient Location: ER Current Patient Location: ER Accession/Order Number: [id number] Exam Date: 05/19/2024 20:20 Report Date: 05/19/2024 21:43 At the request of: OSORIO MARKER Procedure: XR hip RT 2V w/ pelvis XR hip RT 2V w/ pelvis, 05/19/2024 8:20 PM EST, OH001 INDICATION: fall, right hip pain ADDITIONAL CLINICAL INFORMATION: Ordering Provider Reason For Exam: fall, right hip pain Technologist Note: Additional: None COMPARISON: None available at the time of dictation. TECHNIQUE: Frontal view of the pelvis. FINDINGS: There is an acute subcapital right femoral neck fracture with significant impaction with medial displacement of right femoral head component relative to proximal femur with proximal displacement of distal shaft relative to the head fragment estimated at at least 1.5 cm. Significant varus angulation of fragments. No subluxation or dislocation of right hip. No other acute process is seen by radiograph. Left hip arthroplasty. Imaged portions are unremarkable without complication. Mild degenerative narrowing and pubic symphysis. Remaining osseous structures and joints the pelvis are unremarkable other than osseous demineralization. XR/XR hip RT 2V w/ pelvis IMPRESSION: Acute impacted and angulated subcapital right femoral neck fracture. There is proximal migration and displacement of distal shaft relative to the right femoral head component which is maintained at the acetabulum. Electronically authenticated by: NOEMÍ SANTORO Date: 05/19/2024 21:43
--- NOTE | 2024-05-19 19:30 | ECG_ITS ---
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
--- NOTE | 2024-05-19 19:30 | CT_ITS ---
The [address] [address] Patient Name: TRACY GREEN MRN: [id number] date: 1945 Sex: F Assigned Patient Location: ER Current Patient Location: ER Accession/Order Number: [id number] Exam Date: 05/19/2024 20:20 Report Date: 05/19/2024 21:05 At the request of: OSORIO AMEZQUITA Procedure: CT head/brain wo con EXAM: CT head/brain wo con HISTORY: fall, dizzy COMPARISON: CT brain 07/18/2023. TECHNIQUE: Axial CT scans through the head were obtained without IV contrast administration. Dose reduction techniques were achieved by using: automated exposure control and/or adjustment of mA and /or kV according to patient size and/or use of iterative reconstruction technique. FINDINGS: There is no evidence of acute intracranial hemorrhage or abnormal extra-axial fluid collection. No mass effect or midline shift is seen. There is no evidence of large acute territorial infarction. There is no hydrocephalus. There is age appropriate mild cerebral and cerebellar atrophy. Mild decreased attenuation of the supratentorial white matter, likely represents chronic microvascular ischemia. To the limit of CT, the posterior fossa appears unremarkable. There are mild atherosclerotic calcifications of cavernous segments of bilateral intracranial carotid arteries. No definite acute fracture is identified. Soft tissues are unremarkable. The visualized orbits show no abnormality. The visualized paranasal sinuses show no air-fluid level. Mastoid air cells are clear. CT/CT head/brain wo con IMPRESSION: No CT evidence of acute intracranial abnormality. Senescent changes, as detailed above. Electronically authenticated by: BERKLEY CLINE Date: 05/19/2024 21:05
--- NOTE | 2024-05-19 19:33 | ED_ITS ---
HPI HPI - Fall General Chief Complaint: Fall Stated Complaint: fall Time Seen by Provider: 05/19/24 19:24 Source: patient and other Source comment: EMS Mode of arrival: ambulance History of Present Illness HPI Narrative: This 79-year-old female with history of vertigo is brought to the emergency department from home for evaluation after she had several falls today. The patient states she is very dizzy. She states she has had vertigo for approximately 4 years. She denies any nausea or vomiting. She complains of right shoulder pain and right hip pain. She denies any neck or back pain. She denies any chest pain or shortness of breath. She has a history of COPD and states she quit smoking several years ago but occasionally lights one up. She does not think that she passed out causing her fall she thinks it is related to her vertigo. According to EMS she was sitting up when they arrived and her daughter was with her. Related Data Home Medications ?Medication ?Instructions ?Recorded ?Confirmed albuterol sulfate 90 mcg/actuation 2 puff inhalation Q4H PRN 06/19/23 02/18/24 aerosol inhaler shortness of breath or wheezing alprazolam 0.5 mg tablet 0.5 mg PO .Q6HRS PRN anxiety 06/19/23 02/18/24 levothyroxine 50 mcg tablet 50 mcg PO DAILY 06/19/23 02/18/24 Previous Rx's ?Medication ?Instructions ?Recorded meclizine 25 mg tablet 25 mg PO QID PRN dizziness #30 tabs 06/19/23 Allergies Allergy/AdvReac Type Severity Reaction Status Date / Time No Known Drug Allergies Allergy Verified 05/19/24 19:29 Opioid HPI Opioid Management Most Recent Pain and Opioid Data: Last Pain Scale 5 05/19/24 19:45 05/19/24 Review of Systems ROS Status of ROS 10 or more systems reviewed and unremark able except as noted in history and below [facility] Medical History (Updated 05/19/24 @ 22:59 by Alina Sanz MD) Hypertension ?I10 - Essential (primary) hypertension (ICD-10) Frequent falls ?R29.6 - Repeated falls (ICD-10) Vertigo ?R42 - Dizziness and giddiness (ICD-10) Hypothyroidism ?E03.9 - Hypothyroidism, unspecified (ICD-10) Anxiety ?F41.9 - Anxiety disorder, unspecified (ICD-10) COPD (chronic obstructive pulmonary disease) ?J44.9 - Chronic obstructive pulmonary disease, unspecified (ICD-10) Surgical History History of cataract surgery ?Z98.49 - Cataract extraction status, unspecified eye (ICD-10) H/O removal of cyst ?Z98.890 - Other specified postprocedural states (ICD-10) Hx of tubal ligation ?Z98.51 - Tubal ligation status (ICD-10) H/O partial thyroidectomy ?E89.0 - Postprocedural hypothyroidism (ICD-10) History of hip replacement, total ?Z96.649 - Presence of unspecified artificial hip joint (ICD-10) History of cholecystectomy ?Z90.49 - Acquired absence of other specified parts of digestive tract (ICD- 10) Family History Brother Family history of myocardial infarction Sister No problems noted. Mother Family history of cancer Aunt Family history of cancer Daughter Family history of hypertension Social History (Updated 02/18/24 @ 10:20 by Halle Owen, RN) Within the past year, how often did you have a drink containing alcohol: never Score interpretation: A score less than 3 is consistent with normal alcohol consumption. Smoking status: Current every day smoker Second hand tobacco smoke exposure: No Non-prescribed substance use: denies use Previous occupational history: retired Highest level of school completed/degree received: 12th grade, no diploma Are you now , , , , never or living with a partner: Little interest or pleasure in doing things: not at all Feeling down, depressed, or hopeless: not at all Life stressor details: Scared to leave the house Do you think of yourself as: straight/heterosexual Gender Identity: female Exam Narrative Exam Narrative: Vital signs and Nursing Notes reviewed: Patient is afebrile with a normal pulse, blood pressure is elevated, she was hypoxic upon arrival with room air oxygenation of 87%, she was placed on 2 L nasal cannula with improvement to 95% General: Awake, alert, oriented, thin elderly female, GCS 15, no respiratory distress HEENT: Normocephalic atraumatic, mucous membranes are dry, no facial droop, no notable injury to the patient's face or scalp. Tympanic membranes were occluded by cerumen Neck: Supple, non tender Chest: Lungs are clear to auscultation with good air entry, there is no wheezing rhonchi or rales appreciated no accessory muscle use, patient is speaking in complete sentences-no chest wall tenderness to palpation CVS: Regular rate and rhythm S1-S2, no murmurs rubs or gallops, pulses are brisk and equal bilaterally ABD: Soft, nondistended, nontender, no rebound guarding or rigidity, bowel sounds are normal, no pulsatile masses appreciated Extremities: There is tenderness without notable bony deformity to the right proximal humerus. Range of motion testing was not performed due to the possibility of injury. Client Architect strength is intact there is mild tenderness to the lateral trochanter with mild shortening of the right lower extremity, no bony deformity noted, distal sensation and pulses are normal Skin: Normal in appearance without rash,pallor, petechiae or purpura Neuro: No focal deficits, speech is clear, there is no facial droop, uniform room attendant strength is intact, push pulls of the lower extremity was normal Constitutional Vital Signs, click to edit/add: Last Vital Signs Temp 97.6 F 05/19/24 19:21 Pulse 74 05/19/24 20:10 Resp 17 05/19/24 20:10 BP 146/81 H 05/19/24 22:00 Pulse Ox 95 05/19/24 22:10 O2 Del Method Room Air 05/19/24 19:21 Course Vital Signs Vital signs: Vital Signs Temperature 97.6 F 05/19/24 19:21 Pulse Rate 79 05/19/24 19:21 Respiratory Rate 16 05/19/24 19:21 Blood Pressure 166/83 H 05/19/24 19:21 Pulse Oximetry 87 L 05/19/24 19:21 Oxygen Delivery Method Room Air 05/19/24 19:21 Temperature 97.6 F 05/19/24 19:21 Pulse Rate 74 05/19/24 20:10 Respiratory Rate 17 05/19/24 20:10 Blood Pressure 146/81 H 05/19/24 22:00 Pulse Oximetry 95 05/19/24 22:10 Oxygen Delivery Method Room Air 05/19/24 19:21 MDM - Fall MDM Narrative Medical decision making narrative: This 79-year-old female is brought to emergency department by EMS after she fell at home. The patient states she suffers from vertigo. She denies that she pa ssed out. She presents complaining of pain in her right shoulder and right hip. She denied any chest pain or shortness of breath. She did feel dizzy upon arrival but had been given Dilaudid and Zofran. She had ongoing nausea and was repeatedly treated with Zofran and then Reglan with Benadryl. Her neuroexam is normal. EKG done upon arrival was a sinus rhythm with no acute findings with some mild ST depressions in leads V4, V5, V6. Due to her age and fall that she was taken for CT scan of the head and cervical spine. These were reviewed by radiology and are negative for acute findings. Chest x-ray was also ordered and is negative for acute findings. X-ray of the right shoulder shows an impacted proximal humeral fracture and x-ray of the right hip shows an impacted subcapital hip fracture. Routine labs are ordered. She has normal white count and hemoglobin. Electrolytes are normal. Troponin is normal. Urinalysis is negative for infection. Lactic acid is normal. The hip x-rays were discussed with orthopedics who reviewed the films and the patient will be seen in consult by orthopedics. The case was also discussed with the hospitalist and she is excepted for admission. The orthopedic surgeon requested that I request no blood thinners to be administered to the patient from the hospitalist and I did discuss this with her. She was remedicated with a dose of morphine in the emergency department and is resting comfortably. The results of the x-rays, CAT scans and labs were discussed with the patient's and daughter who verbalized understanding. Medical Records Medical records narrative: [place] [address] CT Scan Report Signed Patient: TRACY GREEN MR#: [id number] : 1945 Acct:[id number] Age/Sex: 79 / F ADM Date: 05/19/24 Loc: ER Attending Dr: Ordering Physician: Alina Sanz Date of Service: 05/19/24 Procedure(s): CT head/brain wo con Accession Number(s): [id number] cc: DENTON ASCENCIO ~ [facility] [place] [address] Patient Name: TRACY GREEN MRN: [id number] date: 1945 Sex: F Assigned Patient Location: ER Current Patient Location: ER Accession/Order Number: [id number] Exam Date: 05/19/2024 20:20 Report Date: 05/19/2024 21:05 At the request of: ALINA SANZ Procedure: CT head/brain wo con EXAM: CT head/brain wo con HISTORY: fall, dizzy COMPARISON: CT brain 07/18/2023. TECHNIQUE: Axial CT scans through the head were obtained without IV contrast administration. Dose reduction techniques were achieved by using: automated exposure control and/or adjustment of mA and /or kV according to patient size and/or use of iterative reconstruction technique. FINDINGS: There is no evidence of acute intracranial hemorrhage or abnormal extra-axial fluid collection. No mass effect or midline shift is seen. There is no evidence of large acute territorial infarction. There is no hydrocephalus. There is age appropriate mild cerebral and cerebellar atrophy. Mild decreased attenuation of the supratentorial white matter, likely represents chronic microvascular ischemia. To the limit of CT, the posterior fossa appears unremarkable. There are mild atherosclerotic calcifications of cavernous segments of bilateral intracranial carotid arteries. No definite acute fracture is identified. Soft tissues are unremarkable. The visualized orbits show no abnormality. The visualized paranasal sinuses show no air-fluid level. Mastoid air cells are clear. CT/CT head/brain wo con IMPRESSION: No CT evidence of acute intracranial abnormality. Senescent changes, [place] [address] CT Scan Report Signed Patient: TRACY GREEN MR#: [id number] : 1945 Acct:[id number] Age/Sex: 79 / F ADM Date: 05/19/24 Loc: ER Attending Dr: Ordering Physician: Alina Sanz Date of Service: 05/19/24 Procedure(s): CT cervical spine wo con Accession Number(s): [id number] cc: DENTON ASCENCIO ~ The [address] [address] Patient Name: TRACY GREEN MRN: [id number] date: 1945 Sex: F Assigned Patient Location: Current Patient Location: Accession/Order Number: [id number] Exam Date: 05/19/2024 20:20 Report Date: 05/19/2024 21:38 At the request of: ALINA SANZ Procedure: CT cervical spine wo con CT CERVICAL SPINE WITHOUT : 05/19/2024 8:20 PM EST HISTORY: Neck pain. TECHNIQUE: Thin section axial CT images were obtained from the foramen magnum to the T1 vertebral body. Thin section sagittal and coronal reconstructed images were performed from the axial data set. Dose reduction techniques were achieved by using automated exposure control and/or adjustment of mA and/or kV according to patient size and/or use of iterative reconstruction technique. CONTRAST: None. COMPARISON: CT cervical spine 07/18/2023. FINDINGS: No significant change from 07/18/2023 study. Normal skull base and odontoid. Temporomandibular joints are intact bilaterally. Posterior fossa is unremarkable. Mastoid air cells are clear. Normal occiput and C1 articulations. Normal C1-2 articulations. There is a convex right curvature of mid to lower cervical spine. Stable slight degenerative anterolisthesis of C3 on C4, grade 1. No acute spondylolisthesis or dislocation. There is some straightening of lordosis. 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 In addition there is solid bony fusion across the left C3-4 facet joint. There is multilevel left-sided facet arthropathy at C2-3, C4-5, C5-6, C6-7 and more severe at C7-T1 on the left. Right-sided facet joints are well-maintained. There is some degenerative disc height loss at C3-4, C5-6 and C6-7. Uncinate process hypertrophy at C5-6 and C6-7 contributing to at least mild right neural foraminal narrowing at both levels and mild to moderate on the left at C5-6. Remaining neural foramina are patent. No central canal stenosis. Osseous demineralization. No lytic or blastic bone lesion or destructive changes. There is no fracture or acute vertebral body height loss. There is no destructive osseous lesion. The paraspinal soft tissues are unremarkable. There is no prevertebral soft tissue swelling. Heterogeneous left thyroid gland. The right thyroid gland and isthmus appear to been surgically removed. Correlate with history. Lung apices are clear. CT/CT cervical spine wo con IMPRESSION: 1. No acute fracture or acute traumatic malalignment abnormality. 2. 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 3. Multilevel mostly left-[place] [address] XRay Report Signed Patient: TRACY GREEN MR#: [id number] : 1945 Acct:[id number] Age/Sex: 79 / F ADM Date: 05/19/24 Loc: ER Attending Dr: Ordering Physician: Alina Sanz Date of Service: 05/19/24 Procedure(s): XR shoulder RT min 2V Accession Number(s): [id number] cc: DENTON ASCENCIO ; Alina Marker~ [facility] [place] [address] Patient Name: TRACY GREEN MRN: [id number] date: 1945 Sex: F Assigned Patient Location: ER Current Patient Location: ER Accession/Order Number: [id number] Exam Date: 05/19/2024 20:20 Report Date: 05/19/2024 21:44 At the request of: ALINA MARKER Procedure: XR shoulder RT min 2V EXAM: XR shoulder RT min 2V HISTORY: fall, rt shoulder pain COMPARISON: None. TECHNIQUE: 3 view right shoulder. FINDINGS: Acute impacted proximal right femoral neck fracture and surgical neck region with estimated 5 mm impaction. Glenohumeral joint is intact without subluxation or dislocation. Normal acromioclavicular joint. Background osseous demineralization suspected osteoporosis. No other abnormality is seen. XR/XR shoulder RT min 2V IMPRESSION: Acute impacted proximal right humeral neck fracture. Electronically authenticated by: NOEMÍ SANTORO Date: 05/19/2024 21:44 [place] [address] XRay Report Signed Patient: TRACY GREEN MR#: [id number] : 1945 Acct:[id number] Age/Sex: 79 / F ADM Date: 05/19/24 Loc: ER Attending Dr: Ordering Physician: Alina Sanz Date of Service: 05/19/24 Procedure(s): XR hip RT 2V w/ pelvis Accession Number(s): [id number] cc: DENTON ASCENCIO ; Alina Marker~ [facility] [place] [id number] Patient Name: TRACY GREEN MRN: [id number] date: 1945 Sex: F Assigned Patient Location: ER Current Patient Location: ER Accession/Order Number: [id number] Exam Date: 05/19/2024 20:20 Report Date: 05/19/2024 21:43 At the request of: ALINA SANZ Procedure: XR hip RT 2V w/ pelvis XR hip RT 2V w/ pelvis, 05/19/2024 8:20 PM EST, OH001 INDICATION: fall, right hip pain ADDITIONAL CLINICAL INFORMATION: Ordering Provider Reason For Exam: fall, right hip pain Technologist Note: Additional: None COMPARISON: None available at the time of dictation. TECHNIQUE: Frontal view of the pelvis. FINDINGS: There is an acute subcapital right femoral neck fracture with significant impaction with medial displacement of right femoral head component relative to proximal femur with proximal displacement of distal shaft relative to the head fragment estimated at at least 1.5 cm. Significant varus angulation of fragments. No subluxation or dislocation of right hip. No other acute process is seen by radiograph. Left hip arthroplasty. Imaged portions are unremarkable without complication. Mild degenerative narrowing and pubic symphysis. Remaining osseous structures and joints the pelvis are unremarkable other than osseous demineralization. XR/XR hip RT 2V w/ pelvis IMPRESSION: Acute impacted and angulated subcapital right femoral neck fracture. There is proximal migration and displacement of distal shaft relative to the right femoral head component which is maintained at the acetabulum. Electronically authenticated by: NOEMÍ SANTORO Date: 05/19/2024 21:43 Lab Data Attestation: I reviewed the patient's lab results. Labs: Lab Results 05/19/24 05/19/24 Range/Units 19:25 21:30 WBC 10.3 (4.0-11.0) 10^3/uL RBC 3.96 L (4.20-5.40) 10^6/uL Hgb 12.7 (12.0-16.0) g/dL Hct 37.4 (36.0-48.0) % MCV 94.4 (81.0-99.0) fL MCH 32.1 (26.7-34.0) pg MCHC 34.0 (29.9-35.2) g/dL RDW 12.2 (11.0-15.0) % Plt Count 217 (150-450) 10^3/uL MPV 9.4 L (9.5-13.5) fL Neut % (Auto) 59.7 (43.0-75.0) % Lymph % (Auto) 30.3 (20.5-60.0) % [place] % (Auto) 4.9 (1.7-12.0) % Eos % (Auto) 3.6 (0.9-7.0) % Baso % (Auto) 0.8 (0.2-2.0) % Neut # (Auto) 6.1 (1.4-6.5) 10^3/uL Lymph # (Auto) 3.1 (1.2-3.8) 10^3/uL [place] # (Auto) 0.5 (0.3-0.8) 10^3/uL Eos # (Auto) 0.4 (0.0-0.7) 10^3/uL Baso # (Auto) 0.1 (0.0-0.1) 10^3/uL Abs Immat Gran (auto) 0.07 H (0.00-0.03) 10^3/uL Imm/Tot Granulo (auto) 0.7 H (0.0-0.5) % Sodium 139 (136-145) mmol/L Potassium 3.9 (3.5-5.1) mmol/L Chloride 105 (98-107) mmol/L Carbon Dioxide 26.0 (21.0-32.0) mmol/L Anion Gap 11.9 BUN 25.0 H (7.0-18.0) mg/dL Creatinine 1.00 (0.55-1.02) mg/dL Est GFR ( Amer) >60 (>=60 mL/min/1.73m^2) Est GFR (Non-Af Amer) 53 L (>=60 mL/min/1.73m^2) BUN/Creatinine Ratio 25.0 Glucose 135 H (74-106) mg/dL Lactate 1.6 (0.4-2.0) mmol/L Calcium 8.4 L (8.5-10.1) mg/dL Total Bilirubin 0.3 (0.2-1.0) mg/dL AST 16 (15-37) U/L ALT 17 (14-59) U/L Alkaline Phosphatase 66 (46-116) U/L Troponin I High Sens 5.8 (4.0-51.3) pg/mL Total Protein 6.9 (6.4-8.2) g/dL Albumin 3.3 L (3.4-5.0) g/dL Globulin 3.6 g/dL Albumin/Globulin Ratio 0.9 Urine Color Lt. yellow (YELLOW) Urine Clarity Clear (CLEAR) Urine pH 7.0 (5.0-9.0) Ur Specific [place] 1.015 (1.005-1.025) Urine Protein Negative (NEG/TRACE) mg/dL Urine Glucose (UA) 100 A (NEGATIVE) mg/dL Urine Ketones Negative (NEGATIVE) mg/dL Urine Occult Blood Trace-i (NEGATIVE) Urine Nitrite Negative (NEGATIVE) Urine Bilirubin Negative (NEGATIVE) Urine Urobilinogen 0.2 (0.2-1.0) EU/dL Ur Leukocyte Esterase Trace A (NEGATIVE) Urine RBC 0-2 (0-2) #/HPF Urine WBC 2-5 A (NONE SEEN) #/HPF Ur Squamous Epith Cells Rare (NONE/RARE) #/LPF Ur Transition Epith Cell Few A (NONE SEEN) #/LPF Urine Crystals None seen (None Seen) #/HPF Urine Bacteria None seen (NONE SEEN) #/HPF Urine Casts None seen (NONE SEEN) #/LPF Urine Mucus None seen (NONE SEEN) Ur Culture Indicated? No ECG Data Attestation: I personally reviewed and interpreted this ECG as follows: (Sinus rhythm at 77 bpm, normal axis, moderate ST depression in leads V4, V5, V6, no acute ST segment elevation or T wave inversion) Discharge Plan Discharge Chief Complaint: Fall Clinical Impression: Fall from standing, Fracture of proximal humerus, Fracture of hip, right, closed Patient Disposition: Admitted As Inpatient Time of Disposition Decision: 22:59 Condition: Fair Prescriptions / Home Meds: No Action albuterol sulfate 90 mcg/actuation HFA aerosol inhaler 2 puff INHALATION Q4H PRN (Reason: shortness of breath or wheezing) alprazolam 0.5 mg tablet 0.5 mg PO .Q6HRS PRN (Reason: anxiety) levothyroxine 50 mcg tablet 50 mcg PO DAILY meclizine 25 mg tablet 25 mg PO QID PRN (Reason: dizziness) Qty: 30 0RF Print Language: Croatian Referrals: DENTON ASCENCIO [Primary Care Provider] - 1 week
[2024-05-19 19:38] LABS: Basophils Absolute Auto 0.1 10^3/uL (0.0-0.1); Basophils Percent Auto 0.8 % (0.2-2.0); Eosinophils Absolute Auto 0.4 10^3/uL (0.0-0.7); Eosinophils Percent Auto 3.6 % (0.9-7.0); Hematocrit 37.4 % (36.0-48.0); Hemoglobin 12.7 g/dL (12.0-16.0); Immature Granulocytes Abs Auto 0.07 10^3/uL (0.00-0.03); Immature Granulocytes Pct Auto 0.7 % (0.0-0.5); Lymphocytes Absolute Auto 3.1 10^3/uL (1.2-3.8); Lymphocytes Percent Auto 30.3 % (20.5-60.0); Mean Corpuscular Hemoglobin 32.1 pg (26.7-34.0); Mean Corpuscular Volume 94.4 fL (81.0-99.0); Mean Platelet Volume 9.4 fL (9.5-13.5); Monocytes Absolute Auto 0.5 10^3/uL (0.3-0.8); Monocytes Percent Auto 4.9 % (1.7-12.0); Neutrophils Absolute Auto 6.1 10^3/uL (1.4-6.5); Neutrophils Percent Auto 59.7 % (43.0-75.0); Platelet Count 217 10^3/uL (150-450); Red Blood Count 3.96 10^6/uL (4.20-5.40); Red Cell Distribution Width 12.2 % (11.0-15.0); White Blood Count 10.3 10^3/uL (4.0-11.0)
[2024-05-19 19:57] LABS: Lactate/Lactic Acid 1.6 mmol/L (0.4-2.0)
[2024-05-19] MEDS: ONDANSETRON PF 4 MG/2 ML VIAL IV ×2 (19:58→22:59)
[2024-05-19] MEDS: 0.9 % SODIUM CHLORIDE 1,000 ML 1000 ML IV (20:00)
[2024-05-19 20:03] LABS: Troponin I High Sensitivity 5.8 pg/mL (4.0-51.3)
[2024-05-19 20:04] LABS: Alanine Aminotransferase 17 U/L (14-59); Albumin Globulin Ratio 0.9; Albumin Level 3.3 g/dL (3.4-5.0); Alkaline Phosphatase 66 U/L (46-116); Anion Gap 11.9; Aspartate Amino Transferase 16 U/L (15-37); Bilirubin Total 0.3 mg/dL (0.2-1.0); Calcium 8.4 mg/dL (8.5-10.1); Chloride 105 mmol/L (98-107); Estimated GFR (African America >60 (>=60 mL/min/1.73m^2); Estimated GFR (Non-African Ame 53 (>=60 mL/min/1.73m^2); Globulin 3.6 g/dL; Glucose 135 mg/dL (74-106); Potassium 3.9 mmol/L (3.5-5.1); Sodium 139 mmol/L (136-145); Total Protein 6.9 g/dL (6.4-8.2)
[2024-05-19] MEDS: MORPHINE SULFATE 4 MG/ML VIAL IV (21:17)
[2024-05-19] MEDS: METOCLOPRAMIDE HCL 10 MG/2 ML VIAL IVP (21:17)
[2024-05-19] MEDS: DIPHENHYDRAMINE HCL 50 MG/ML VIAL 12.5 MG IV (21:17)
[2024-05-19 21:35] LABS: Bilirubin Urine NEGATIVE (NEGATIVE); Blood Urine TRACE-I (NEGATIVE); Clarity Urine CLEAR (CLEAR); Color Urine LT. YELLOW (YELLOW); Glucose Urine UA 100 mg/dL (NEGATIVE); Ketones Urine NEGATIVE (NEGATIVE); Leukocyte Esterase Urine TRACE (NEGATIVE); Nitrite Urine NEGATIVE (NEGATIVE); Protein Urine NEGATIVE (NEG/TRACE); Specific Gravity Urine 1.015 (1.005-1.025); Urobilinogen Urine 0.2 EU/dL (0.2-1.0)
[2024-05-19 21:44] LABS: Bacteria Urine NONE SEEN #/HPF (NONE SEEN); Cast Seen? NONE SEEN #/LPF (NONE SEEN); Crystals Seen? None Seen #/HPF (None Seen); Mucus Urine NONE SEEN (NONE SEEN); RBC Urine 0-2 #/HPF (0-2); Squamous Epithelial Cell Urine RARE #/LPF (NONE/RARE); Transitional Epi Cells Urine FEW #/LPF (NONE SEEN); Urine Culture Indicated NO
[2024-05-19] MEDS: DEXTROSE 5%-0.9% NACL 1,000 ML 1,000 ML 100 ML IV (22:59)
[2024-05-20] VITALS (37 sets, daily range): BP systolic 125–195; BP diastolic 77–116; PULSE 53–111; TEMP 36.3–36.7; O2SAT 88–97; BMI 23.6
[2024-05-20] MEDS: MORPHINE SULFATE 2 MG/ML SYRINGE IV ×4 (00:38→20:20)
--- OUTSIDE RECORDS SUMMARY | 2024-05-20 01:40 | XMS_ITS | CCD ---
Author Organization [facility] Care Team Providers Care Director It Name Role Phone REQUEST, NONE LISTED Admitting Unavailable ISAIAH GU Consulting Unavailable REQUEST, NONE LISTED Attending Unavailable Deniz Ochoa MD Unavailable [phone] Deniz Ochoa MD Primary Care Provider TIMMY Ochoa Primary Care Provider [phone] DO Yokasta Flores Emergency Provider DO Bryan Coppola Admit Provider DO Bryan Coppola Attending Provider MD Cliff West Other Provider MD Janett Owen Other Provider GEETHA Thao-C Kelsey Grayson Other Provider DO Mani Garcia Other Provider [phone] MD Darci Marley II Other Provider DO Sohan Kelly Other Provider MD Alonso Agudelo Attending Provider [phone] MD Maria Del Rosario Thornton Other Provider [...] OCHOA Attending Unavailable [employer] Attending Unavailable SILVA DENIZ B Referring Unavailable [employer] Attending [...] (1 source) venlafaxine Drug Allergy 4 [facility] (10 sources) atorvastatin Drug Allergy 4 Unknown [facility] (10 sources) cefdinir Drug Allergy 4 Rash [facility] (10 sources) Clarithromycin Allergy to substance 4 Unknown [facility] (10 sources) Sulfamethoxazole Allergy to substance 4 Unknown [facility] (10 sources) Sulfanilamide Allergy to substance 4 Unknown [facility] (10 sources) venlafaxine Drug Allergy 4 [facility] Medications Current Medications Medication Drug Class(es) Dates Sig (Normalized) Sig (Original) acetaminophen 500 mg oral capsule (1 source) Start: 03-25-2024 take 1000 mg by mouth every eight hours Acetaminophen Active 1000 MG PO Every 8 hours 84 14 March 25, 2024 12:00am [id number] 200 actuat albuterol 0.09 mg/actuat metered dose [...] Creatinine Clr Calc Pharmacy 44.36 Normal [facility] Comment on above: Result Comment: PERF ORMED BY: [place] [address] PATHOLOGIST B[employer] WORKER SARAH IRAHETA M.D. Performed By: #### C K, BMP #### [place] [address] [place] GFR/1.73 sq M.predicted MDRD (S/P/Bld) [Vol rate/Area] mL/min/{1.73_m2} Normal [facility] Comment on above: Performed By: #### C K, BMP #### [place] [address] [place] Calcium [Mass/volume] in Ser um or PlasmaOrdered By: Teresa Antony on 03-25-2024 Calcium [Mass/Vol] 8.8 mg/dL Normal 8.6-10.3 [facility] Comment on above: Performed By: #### C K, BMP #### [facility] [address] [place] [address] [place] Carbon dioxide, total [Moles /volume] in Serum or PlasmaOrdered By: Teresa Antony on 03-25-2024 CO2 [Moles/Vol] 26.2 mmol/L Normal 21.0-31.0 [facility] Comment on above: Performed By: #### C K, BMP #### [place] [address] [place] Chloride [Moles/volume] in S selene or PlasmaOrdered By: Teresa Antony on 03-25-2024 Chloride [Moles/Vol] 104 mmol/L Normal 98-107 [facility] Comment on above: Performed By: #### C K, BMP #### [place] [address] [place] Creatine kinase [Enzymatic a ctivity/volume] in Serum or PlasmaOrdered By: Teresa Antony on 03-25-2024 CK [Catalytic activity/Vol] 1400 U/L High 30-223 [facility] Comment on above: Result Comment: PERF ORMED BY: [place] [address] PATHOLOGIST B[employer] WORKER SARAH IRAHETA M.D. Performed By: #### C K, BMP #### [facility] [address] [place] [address] [place] Creatinine [Mass/volume] in Serum or PlasmaOrdered By: Teresa Antony on 03-25-2024 Creatinine [Mass/Vol] 0.71 mg/dL Normal 0.60-1.20 [facility] Comment on above: Performed By: #### C K, BMP #### [facility] [address] [place] [id number] [place] Glucose [Mass/volume] in Ser um or PlasmaOrdered By: Teresa Antony on 03-25-2024 Glucose [Mass/Vol] 104 mg/dL High 70-100 [facility] Comment on above: ADA recommended refe rence rangeRandom Glucose Reference Range is dependent on time and content of last meal. Glucose of more than 200 mg/dL in a nonstressed, ambulatory subject supports the diagnosis of Diabetes Mellitus. Result Comment: [place] [facility] Glucose Reference Range is dependent on time and content of last meal. Glucose of more than 200 mg/dL in a nonstressed, ambulatory subject supports the diagnosis of Diabetes Mellitus. ADA recommended reference range Performed By: #### C K, BMP #### [address] No Panel InformationOrdered By: Teresa Antony on 03-25-2024 Estimated GFR (CKD-EPI) > 60.0 mL/Min [facility] Creatinine Clearance (Chem 44.36 [facility] Potassium [Moles/volume] in Serum or PlasmaOrdered By: Teresa Antony on 03-25-2024 Potassium [Moles/Vol] 3.4 mmol/L Low 3.5-5.1 [facility] Comment on above: Performed By: #### C K, BMP #### [address] Serum or plasma anion gap de terminationOrdered By: Teresa Antony on 03-25-2024 Anion gap [Moles/Vol] 11.2 mmol/L Normal 6.0-15.0 [facility] Comment on above: Performed By: #### C K, BMP #### [address] Sodium [Moles/volume] in Ser um or PlasmaOrdered By: Teresa Antony on 03-25-2024 Sodium [Moles/Vol] 138 mmol/L Normal 136-145 [facility] Comment on above: Performed By: #### C K, BMP #### [facility] [address] [place] [address] Urea nitrogen [Mass/volume] in Serum or PlasmaOrdered By: Teresa VelasquezBerkshire on 03-25-2024 Urea nitrogen [Mass/Vol] 13 mg/dL Normal 7-25 [facility] Comment on above: Performed By: #### C K, BMP #### [address] Automated basophil %Ordered By: Bryan Coppola on 03-24-2024 Basophils/100 WBC (Bld) 0.8 % Normal . [facility] Comment on above: Performed By: #### H S TROP #### [address] Automated basophil countOrde red By: Bryan Coppola on 03-24-2024 Basophils (Bld) [#/Vol] 0.1 10*3/uL Normal 0.0-0.2 [facility] Comment on above: Result Comment: PERF ORMED BY: [place] [address] PATHOLOGIST B[employer] WORKER SARAH IRAHETA M.D. Performed By: #### H S TROP #### [address] Automated blood monocyte cou ntOrdered By: Bryan Coppola on 03-24-2024 Monocytes (Bld) [#/Vol] 0.5 10*3/uL Normal 0.0-0.8 [facility] Comment on above: Performed By: #### H S TROP #### [address] Automated eosinophil %Ordere d By: Bryan Coppola on 03-24-2024 Eosinophils/100 WBC (Bld) 2.4 % Normal . [facility] Comment on above: Performed By: #### H S TROP #### [address] Automated eosinophil countOr dered By: Bryan Coppola on 03-24-2024 Eosinophils (Bld) [#/Vol] 0.2 10*3/uL Normal 0.0-0.45 [facility] Comment on above: Performed By: #### H S TROP #### [address] Automated monocyte %Ordered By: Bryan Coppola on 03-24-2024 Monocytes/100 WBC (Bld) 7.5 % Normal . [facility] Comment on above: Performed By: #### H S TROP #### [address] Automated neutrophil %Ordere d By: Bryan Coppola on 03-24-2024 Neutrophils/100 WBC (Bld) 64.6 % Normal . [facility] Comment on above: Performed By: #### H S TROP #### [address] Basic Metabolic Panelon 10-0 Anion gap [Moles/Vol] 9.1 mmol/L Normal 6.0-15.0 [facility] Comment on above: Performed By: #### H S TROP #### [address] Calcium [Mass/Vol] 8.4 mg/dL Low 8.6-10.3 [facility] Comment on above: Performed By: #### H S TROP #### [address] Chloride [Moles/Vol] 109 mmol/L High 98-107 [facility] Comment on above: Performed By: #### H S TROP #### [address] CO2 [Moles/Vol] 26.9 mmol/L Normal 21.0-31.0 [facility] Comment on above: Performed By: #### H S TROP #### [address] Creatinine [Mass/Vol] 0.68 mg/dL Normal 0.60-1.20 [facility] Comment on above: Performed By: #### H S TROP #### [address] Creatinine Clr Calc Pharmacy 44.36 Normal [facility] Comment on above: Result Comment: PERF ORMED BY: [place] [address] PATHOLOGIST B[employer] SOC[employer] WORKER SARAH IRAHETA M.D. Performed By: #### H S TROP #### [place] [address] [place] GFR/1.73 sq M.predicted MDRD (S/P/Bld) [Vol rate/Area] mL/min/{1.73_m2} Normal [facility] Comment on above: Performed By: #### H S TROP #### [address] Glucose [Mass/Vol] 88 mg/dL Normal 70-100 [facility] Comment on above: Result Comment: [facility] Glucose Reference Range is dependent on time and content of last meal. Glucose of more than 200 mg/dL in a nonstressed, ambulatory subject supports the diagnosis of Diabetes Mellitus. ADA recommended reference range Performed By: #### H S TROP #### [address] Potassium [Moles/Vol] 3.0 mmol/L Low 3.5-5.1 [facility] Comment on above: Performed By: #### H S TROP #### [place] [address] [place] Sodium [Moles/Vol] 142 mmol/L Normal 136-145 [facility] Comment on above: Performed By: #### H S TROP #### [place] [address] [place] Urea nitrogen [Mass/Vol] 13 mg/dL Normal 7-25 [facility] Comment on above: Performed By: #### H S TROP #### [place] [address] [place] Complete Blood Count Auto Di ffon 03-24-2024 Mean Corpuscular HGB Conc 35.0 g/dL Normal 32.0-35.0 [facility] Comment on above: Performed By: #### H S TROP #### [address] NRBC% 0.1 /100{WBC} Normal 0-0.5 [facility] Comment on above: Performed By: #### H S TROP #### [address] Creatine Kinaseon 03-24-2024 CK [Catalytic activity/Vol] 2390 U/L High 30-223 [facility] Comment on above: Result Comment: PERF ORMED BY: [place] [address] PATHOLOGIST B[employer] SOC[employer] WORKER SARAH IRAHETA M.D. Performed By: #### H S TROP #### [address] Erythrocyte distribution wid th [Ratio] by Automated countOrdered By: Bryan Coppola on 03-24-2024 Erythrocyte distribution width (RBC) [Ratio] 13.5 % Normal 11.9-15.3 [facility] Comment on above: Performed By: #### H S TROP #### [address] Erythrocytes [#/volume] in B lood by Automated countOrdered By: Bryan Coppola on 03-24-2024 RBC (Bld) [#/Vol] 3.89 10*6/uL Normal 3.60-5.00 [facility] Comment on above: Performed By: #### H S TROP #### [address] Hematocrit [Volume Fraction] of Blood by Automated countOrdered By: Bryan Coppola on 03-24-2024 Hematocrit (Bld) [Volume fraction] 35.7 % Normal 34.0-46.4 [facility] Comment on above: Performed By: #### H S TROP #### [address] Hemoglobin [Mass/volume] in BloodOrdered By: Bryan Coppola on 03-24-2024 Hemoglobin (Bld) [Mass/Vol] 12.5 g/dL Normal 11.8-15.4 [facility] Comment on above: Performed By: #### H S TROP #### [address] Leukocytes [#/volume] correc stephanie for nucleated erythrocytes in Blood by Automated counOrdered By: Bryan Coppola on 03-24-2024 WBC corrected for nucl RBC Auto (Bld) [#/Vol] 6.7 10*3/uL 3.8-11.6 [facility] Leukocytes [#/volume] in Blo od by Automated countOrdered By: Bryan Coppola on 03-24-2024 WBC (Bld) [#/Vol] 6.7 10*3/uL Normal 3.8-11.6 [facility] Comment on above: Performed By: #### H S TROP #### [address] Lymphocytes [#/volume] in Bl ood by Automated countOrdered By: Bryan Coppola on 03-24-2024 Lymphocytes (Bld) [#/Vol] 1.7 10*3/uL Normal 1.00-4.8 [facility] Comment on above: Performed By: #### H S TROP #### [address] Lymphocytes/100 leukocytes i n Blood by Automated countOrdered By: Bryan Coppola on 03-24-2024 Lymphocytes/100 WBC (Bld) 24.7 % Normal . [facility] Comment on above: Performed By: #### H S TROP #### [place] [address] [place] MCH [Entitic mass] by Automa stephanie countOrdered By: Bryan Coppola on 03-24-2024 MCH (RBC) [Entitic mass] 32.1 pg Normal 24.7-34.3 [facility] Comment on above: Performed By: #### H S TROP #### [place] [address] [place] MCHC Auto (RBC) [Mass/Vol]Or dered By: Bryan Coppola on 03-24-2024 MCHC (RBC) [Mass/Vol] 35.0 g/dL 32.0-35.0 [facility] MCV [Entitic volume] by Auto mated countOrdered By: Bryan Coppola on 03-24-2024 MCV (RBC) [Entitic vol] 91.7 fL Normal 80-100 [facility] Comment on above: Performed By: #### H S TROP #### [address] Neutrophils [#/volume] in Bl ood by Automated countOrdered By: Bryan Coppola on 03-24-2024 Neutrophils (Bld) [#/Vol] 4.3 10*3/uL Normal 1.8-7.7 [facility] Comment on above: Performed By: #### H S TROP #### [facility] [address] [place] [address] Nucleated erythrocytes [Pres ence] in Blood by Automated countOrdered By: Bryan Coppola on 03-24-2024 Nucleated RBC Auto Ql (Bld) 0.1 /100{WBC} 0-0.5 [facility] Platelet mean volume [Entiti c volume] in Blood by Automated countOrdered By: Bryan Coppola on 03-24-2024 Platelet mean volume (Bld) [Entitic vol] 7.8 fL Normal 6.3-10.7 [facility] Comment on above: Performed By: #### H S TROP #### [address] Platelets [#/volume] in Bloo d by Automated countOrdered By: Bryan Coppola on 03-24-2024 Platelets (Bld) [#/Vol] 183 10*3/uL Normal 150-450 [facility] Comment on above: Performed By: #### H S TROP #### [address] Basic Metabolic Panelon 10 Anion gap [Moles/Vol] Not performed Normal 6.0-15.0 [facility] Comment on above: Performed By: #### H S TROP #### [address] Calcium [Mass/Vol] 8.6 mg/dL Normal 8.6-10.3 [facility] Comment on above: Performed By: #### H S TROP #### [place] [address] [place] Chloride [Moles/Vol] 107 mmol/L Normal 98-107 [facility] Comment on above: Performed By: #### H S TROP #### [place] [address] [place] CO2 [Moles/Vol] 25.0 mmol/L Normal 21.0-31.0 [facility] Comment on above: Performed By: #### H S TROP #### [place] [address] [place] Creatinine [Mass/Vol] 0.81 mg/dL Normal 0.60-1.20 [facility] Comment on above: Performed By: #### H S TROP #### [place] [address] [place] Creatinine Clr Calc Pharmacy 43.81 Normal [facility] Comment on above: Result Comment: PERF ORMED BY: [place] [address] PATHOLOGIST B[employer] SOC[employer] WORKER SARAH IRAHETA M.D. Performed By: #### H S TROP #### [place] [address] [place] GFR/1.73 sq M.predicted MDRD (S/P/Bld) [Vol rate/Area] mL/min/{1.73_m2} Normal [facility] Comment on above: Performed By: #### H S TROP #### [address] Glucose [Mass/Vol] 78 mg/dL Normal 70-100 [facility] Comment on above: Result Comment: [place] Glucose Reference Range is dependent on time and content of last meal. Glucose of more than 200 mg/dL in a nonstressed, ambulatory subject supports the diagnosis of Diabetes Mellitus. ADA recommended reference range Performed By: #### H S TROP #### [address] Potassium Normal 3.5-5.1 [facility] Comment on above: Result Comment: Spec imen hemolyzed, redraw requested Performed By: #### H S TROP #### [address] Sodium [Moles/Vol] 138 mmol/L Normal 136-145 [facility] Comment on above: Performed By: #### H S TROP #### [address] Urea nitrogen [Mass/Vol] 12 mg/dL Normal 7-25 [facility] Comment on above: Performed By: #### H S TROP #### [address] Complete Blood Count Auto Di ffon 03-23-2024 Basophils (Bld) [#/Vol] 0.1 10*3/uL Normal 0.0-0.2 [facility] Comment on above: Result Comment: PERF ORMED BY: [place] [address] PATHOLOGIST BIL[employer] SOC[employer] WORKER SARAH IRAHETA M.D. Performed By: #### H S TROP #### [place] [address] [place] Basophils/100 WBC (Bld) 1.4 % Normal . [facility] Comment on above: Performed By: #### H S TROP #### [place] [address] [place] Eosinophils (Bld) [#/Vol] 0.1 10*3/uL Normal 0.0-0.45 [facility] Comment on above: Performed By: #### H S TROP #### [address] Eosinophils/100 WBC (Bld) 1.6 % Normal . [facility] Comment on above: Performed By: #### H S TROP #### [address] Erythrocyte distribution width (RBC) [Ratio] 13.5 % Normal 11.9-15.3 [facility] Comment on above: Performed By: #### H S TROP #### [address] Hematocrit (Bld) [Volume fraction] 38.9 % Normal 34.0-46.4 [facility] Comment on above: Performed By: #### H S TROP #### [address] Hemoglobin (Bld) [Mass/Vol] 13.5 g/dL Normal 11.8-15.4 [facility] Comment on above: Performed By: #### H S TROP #### [address] Lymphocytes (Bld) [#/Vol] 2.4 10*3/uL Normal 1.00-4.8 [facility] Comment on above: Performed By: #### H S TROP #### [address] Lymphocytes/100 WBC (Bld) 24.6 % Normal . [facility] Comment on above: Performed By: #### H S TROP #### [address] MCH (RBC) [Entitic mass] 32.0 pg Normal 24.7-34.3 [facility] Comment on above: Performed By: #### H S TROP #### [address] MCV (RBC) [Entitic vol] 92.4 fL Normal 80-100 [facility] Comment on above: Performed By: #### H S TROP #### [address] Mean Corpuscular HGB Conc 34.7 g/dL Normal 32.0-35.0 [facility] Comment on above: Performed By: #### H S TROP #### [place] [address] [place] Monocytes (Bld) [#/Vol] 0.6 10*3/uL Normal 0.0-0.8 [facility] Comment on above: Performed By: #### H S TROP #### [address] Monocytes/100 WBC (Bld) 5.9 % Normal . [facility] Comment on above: Performed By: #### H S TROP #### [address] Neutrophils (Bld) [#/Vol] 6.4 10*3/uL Normal 1.8-7.7 [facility] Comment on above: Performed By: #### H S TROP #### [address] Neutrophils/100 WBC (Bld) 66.5 % Normal . [facility] Comment on above: Performed By: #### H S TROP #### [address] NRBC% 0.1 /100{WBC} Normal 0-0.5 [facility] Comment on above: Performed By: #### H S TROP #### [address] Platelet mean volume (Bld) [Entitic vol] 8.3 fL Normal 6.3-10.7 [facility] Comment on above: Performed By: #### H S TROP #### [place] [address] [place] Platelets (Bld) [#/Vol] 193 10*3/uL Normal 150-450 [facility] Comment on above: Performed By: #### H S TROP #### [place] [address] [place] RBC (Bld) [#/Vol] 4.21 10*6/uL Normal 3.60-5.00 [facility] Comment on above: Performed By: #### H S TROP #### [place] [address] [place] WBC (Bld) [#/Vol] 9.6 10*3/uL Normal 3.8-11.6 [facility] Comment on above: Performed By: #### H S TROP #### [address] Creatine Kinaseon 03-23-2024 CK [Catalytic activity/Vol] 930 U/L High 30-223 [facility] Comment on above: Result Comment: PERF ORMED BY: [place] [address] PATHOLOGIST B[employer] SOC[employer] WORKER SARAH IRAHETA M.D. Performed By: #### H S TROP #### [address] Redraw Potassiumon Potassium [Moles/Vol] 3.8 mmol/L Normal 3.5-5.1 [facility] Comment on above: Order Comment: HEMOL YZED SPECIMEN NOTIFIED GAURAV Result Comment: Hemo lysis is present at a level that could interfere with the result. Contact lab if redraw is required PERFORMED BY: [place] [address] PATHOLOGIST BILING[employer] SOCIAL WORKER SARAH IRAHETA M.D. Performed By: #### H S TROP #### [address] Basic Metabolic Panelon 100 Anion gap [Moles/Vol] 9.5 mmol/L Normal 6.0-15.0 [facility] Comment on above: Performed By: #### M G, [id number], BMP, CK, CBC, HS TROP #### [address] Calcium [Mass/Vol] 8.4 mg/dL Low 8.6-10.3 [facility] Comment on above: Performed By: #### M G, [id number], BMP, CK, CBC, HS TROP #### [address] Chloride [Moles/Vol] 109 mmol/L High 98-107 [facility] Comment on above: Performed By: #### M G, [id number], BMP, CK, CBC, HS TROP #### [address] CO2 [Moles/Vol] 25.2 mmol/L Normal 21.0-31.0 [facility] Comment on above: Performed By: #### M G, [id number], BMP, CK, CBC, HS TROP #### [address] Creatinine [Mass/Vol] 0.78 mg/dL Normal 0.60-1.20 [facility] Comment on above: Performed By: #### M G, [id number], BMP, CK, CBC, HS TROP #### [address] Creatinine Clr Calc Pharmacy 44.36 Normal [facility] Comment on above: Performed By: #### M G, [id number], BMP, CK, CBC, HS TROP #### [place] [address] [place] GFR/1.73 sq M.predicted MDRD (S/P/Bld) [Vol rate/Area] mL/min/{1.73_m2} Normal [facility] Comment on above: Performed By: #### M G, [id number], BMP, CK, CBC, HS TROP #### [address] Glucose [Mass/Vol] 95 mg/dL Normal 70-100 [facility] Comment on above: Result Comment: [place] Glucose Reference Range is dependent on time and content of last meal. Glucose of more than 200 mg/dL in a nonstressed, ambulatory subject supports the diagnosis of Diabetes Mellitus. ADA recommended reference range Performed By: #### M G, [id number], BMP, CK, CBC, HS TROP #### [address] Potassium [Moles/Vol] 3.7 mmol/L Normal 3.5-5.1 [facility] Comment on above: Performed By: #### M G, [id number], BMP, CK, CBC, HS TROP #### [address] Sodium [Moles/Vol] 140 mmol/L Significant change down 136-145 [facility] Comment on above: Performed By: #### M G, [id number], BMP, CK, CBC, HS TROP #### [address] Urea nitrogen [Mass/Vol] 13 mg/dL Normal 7-25 [facility] Comment on above: Performed By: #### M G, [id number], BMP, CK, CBC, HS TROP #### [address] Complete Blood Count Auto Di ffon 03-22-2024 Basophils (Bld) [#/Vol] 0.1 10*3/uL Normal 0.0-0.2 [facility] Comment on above: Result Comment: PERF ORMED BY: [place] [address] PATHOLOGIST B[employer] WORKER SARAH IRAHETA M.D. Performed By: #### M G, [id number], BMP, CK, CBC, HS TROP #### [address] Basophils/100 WBC (Bld) 0.9 % Normal . [facility] Comment on above: Performed By: #### M G, [id number], BMP, CK, CBC, HS TROP #### [address] Eosinophils (Bld) [#/Vol] 0.1 10*3/uL Normal 0.0-0.45 [facility] Comment on above: Performed By: #### M G, [id number], BMP, CK, CBC, HS TROP #### [address] Eosinophils/100 WBC (Bld) 0.5 % Normal . [facility] Comment on above: Performed By: #### M G, [id number], BMP, CK, CBC, HS TROP #### [address] Erythrocyte distribution width (RBC) [Ratio] 13.3 % Normal 11.9-15.3 [facility] Comment on above: Performed By: #### M G, [id number], BMP, CK, CBC, HS TROP #### [address] Hematocrit (Bld) [Volume fraction] 38.1 % Normal 34.0-46.4 [facility] Comment on above: Performed By: #### M G, [id number], BMP, CK, CBC, HS TROP #### [address] Hemoglobin (Bld) [Mass/Vol] 13.2 g/dL Normal 11.8-15.4 [facility] Comment on above: Performed By: #### M G, [id number], BMP, CK, CBC, HS TROP #### [address] Lymphocytes (Bld) [#/Vol] 1.7 10*3/uL Normal 1.00-4.8 [facility] Comment on above: Performed By: #### M G, [id number], BMP, CK, CBC, HS TROP #### [address] Lymphocytes/100 WBC (Bld) 16.8 % Normal . [facility] Comment on above: Performed By: #### M G, [id number], BMP, CK, CBC, HS TROP #### [address] MCH (RBC) [Entitic mass] 31.8 pg Normal 24.7-34.3 [facility] Comment on above: Performed By: #### M G, [id number], BMP, CK, CBC, HS TROP #### [address] MCV (RBC) [Entitic vol] 91.8 fL Normal 80-100 [facility] Comment on above: Performed By: #### M G, [id number], BMP, CK, CBC, HS TROP #### [address] Mean Corpuscular HGB Conc 34.7 g/dL Normal 32.0-35.0 [facility] Comment on above: Performed By: #### M G, [id number], BMP, CK, CBC, HS TROP #### [address] Monocytes (Bld) [#/Vol] 0.8 10*3/uL Normal 0.0-0.8 [facility] Comment on above: Performed By: #### M G, [id number], BMP, CK, CBC, HS TROP #### [address] Monocytes/100 WBC (Bld) 7.8 % Normal . [facility] Comment on above: Performed By: #### M G, [id number], BMP, CK, CBC, HS TROP #### [address] Neutrophils (Bld) [#/Vol] 7.5 10*3/uL Normal 1.8-7.7 [facility] Comment on above: Performed By: #### M G, [id number], BMP, CK, CBC, HS TROP #### [address] Neutrophils/100 WBC (Bld) 74.0 % Normal . [facility] Comment on above: Performed By: #### M G, [id number], BMP, CK, CBC, HS TROP #### [place] [address] [place] NRBC% 0.0 /100{WBC} Normal 0-0.5 [facility] Comment on above: Performed By: #### M G, [id number], BMP, CK, CBC, HS TROP #### [address] Platelet mean volume (Bld) [Entitic vol] 7.9 fL Normal 6.3-10.7 [facility] Comment on above: Performed By: #### M G, [id number], BMP, CK, CBC, HS TROP #### [address] Platelets (Bld) [#/Vol] 201 10*3/uL Normal 150-450 [facility] Comment on above: Performed By: #### M G, [id number], BMP, CK, CBC, HS TROP #### [address] RBC (Bld) [#/Vol] 4.15 10*6/uL Normal 3.60-5.00 [facility] Comment on above: Performed By: #### M G, [id number], BMP, CK, CBC, HS TROP #### [address] WBC (Bld) [#/Vol] 10.2 10*3/uL Normal 3.8-11.6 [facility] Comment on above: Performed By: #### M G, [id number], BMP, CK, CBC, HS TROP #### [address] Creatine Kinaseon 03-22-2024 CK [Catalytic activity/Vol] 7110 U/L High 30-223 [facility] Comment on above: Performed By: #### C K, BMP #### [address] ECH echo transthoracicon ECH echo transthoracic [facility] [address] Echocardiogram Signed Patient: Stella Kong MR#: [id number] 81 : 1945 Acct:[id number] Age/Sex: 79 / F ADM Date: 03/21/24 Loc: Room: [address] [place] [address] Type: ADM IN Attending Dr: Alonso Agudelo [...] Mala Nettles MD 03/22/24 1001 Normal [facility] Magnesium [Mass/volume] in S selene or PlasmaOrdered By: Bryan Coppola on 03-22-2024 Magnesium [Mass/Vol] 2.0 mg/dL Normal 1.9-2.7 [facility] Comment on above: Performed By: #### M G, [id number], BMP, CK, CBC, HS TROP #### [place] [address] [place] Troponin I High Sensitivityo n 03-22-2024 Troponin I High Sensitivity 255.3 pg/mL Off scale high 0.0-15.0 [facility] Comment on above: Result Comment: Crit ical Result : Called to and read back by: KASH GRAHAM at: 03/22/2024 07:53:28 by:PB PERFORMED BY: [place] [address] PATHOLOGIST [employer] WORKER SARAH IRAHETA M.D. Performed By: #### C K, BMP #### [facility] [address] [place] [address] Troponin I.cardiac [Mass/vol ume] in Serum or Plasma by Detection limit <= 0.01 ng/Ordered By: Bryan Coppola on 03-22-2024 Troponin I.cardiac DL <= 0.01 ng/mL [Mass/Vol] 255.3 pg/mL High 0.0-15.0 [facility] Comment on above: Critical Result : Ca lled to and read back by: KASH GRAHAM at: 03/22/2024 07:53:28 by:PB Vitamin D 25 Hydroxy Totalon 03-22-2024 Vitamin D 25 Hydroxy Total 33.0 ng/mL Normal 30-100 [facility] Comment on above: Result Comment: SEBAS MIN D STATUS 25(OH)VITAMIN D RANGE (ng/mL) Deficient <20 Insufficient 20 to <30 Sufficient 30 to 100 Reference: Elana Cesar, Hilario BUSCH, et al. Evaluation,treatment, and prevention of vitamin D deficiency; an Endocrine Society clinical practice guideline. JCEM. 2010; 96(7):1911-30. PERFORMED BY: [place] [address] PATHOLOGIST B[employer] WORKER SARAH IRAHETA M.D. Performed By: #### Ramon Brown, BMP #### [address] Vitamin D+Metabolites [Mass/ volume] in Serum or PlasmaOrdered By: Bryan Coppola on 03-22-2024 Vitamin D+Metabolites [Mass/Vol] 33.0 ng/mL 30-100 [facility] Comment on above: VITAMIN D STATUS [...] ALT [Catalytic activity/Vol] 15 U/L Normal 7-52 [facility] Comment on above: Performed By: #### C K, BMP #### [address] Albumin [Mass/volume] in Ser um or Plasma by Bromocresol green (BCG) dye binding methoOrdered By: Yokasta Flores on 03-21-2024 Albumin BCG dye [Mass/Vol] 3.8 g/dL 3.5-5.7 [facility] Alkaline phosphatase [Enzyma tic activity/volume] in Serum or PlasmaOrdered By: Yokasta Flores on 03-21-2024 ALP [Catalytic activity/Vol] 55 U/L Normal 34-104 [facility] Comment on above: Performed By: #### C K, BMP #### [address] Aspartate aminotransferase [ Enzymatic activity/volume] in Serum or PlasmaOrdered By: Yokasta Flores on 03-21-2024 AST [Catalytic activity/Vol] 30 U/L Normal 13-39 [facility] Comment on above: Performed By: #### C K, BMP #### [address] Automated basophil %Ordered By: Yokasta Flores on 03-21-2024 Basophils/100 WBC (Bld) 1.2 % Normal . [facility] Comment on above: Performed By: #### C K, BMP #### [address] Automated basophil countOrde red By: Yokasta Flores on 03-21-2024 Basophils (Bld) [#/Vol] 0.2 10*3/uL Normal 0.0-0.2 [facility] Comment on above: Result Comment: PERF ORMED BY: [place] [address] PATHOLOGIST [employer] WORKER SARAH IRAHETA M.D. Performed By: #### C K, BMP #### [address] Automated blood monocyte cou ntOrdered By: Yokasta Flores on 03-21-2024 Monocytes (Bld) [#/Vol] 0.4 10*3/uL Normal 0.0-0.8 [facility] Comment on above: Performed By: #### C K, BMP #### [address] Automated eosinophil %Ordere d By: Yokasta Flores on 03-21-2024 Eosinophils/100 WBC (Bld) 0.1 % Normal . [facility] Comment on above: Performed By: #### C K, BMP #### [address] Automated eosinophil countOr dered By: Yokasta Flores on 03-21-2024 Eosinophils (Bld) [#/Vol] 0.0 10*3/uL Normal 0.0-0.45 [facility] Comment on above: Performed By: #### C K, BMP #### [address] Automated monocyte %Ordered By: Yokasta Flores on 03-21-2024 Monocytes/100 WBC (Bld) 2.9 % Normal . [facility] Comment on above: Performed By: #### C K, BMP #### [address] Automated neutrophil %Ordere d By: Yokasta Flores on 03-21-2024 Neutrophils/100 WBC (Bld) 91.7 % Normal . [facility] Comment on above: Performed By: #### C K, BMP #### [address] Bacteria [Presence] in Urine by AutomatedOrdered By: Bryan Coppola on 03-21-2024 Bacteria Auto Ql (U) 1+ [HPF] High None Seen [facility] Bacteria [Presence] in Urine by AutomatedOrdered By: Yokasta Flores on 03-21-2024 Bacteria Auto Ql (U) 2+ [HPF] High None Seen [facility] Bilirubin Test strip Ql (U)O rdered By: Yokasta Flores on 03-21-2024 Bilirubin Ql (U) Negative Negative [facility] Bilirubin.total [Mass/volume ] in Serum or PlasmaOrdered By: Yokasta Flores on 03-21-2024 Bilirubin [Mass/Vol] 0.4 mg/dL Normal 0.3-1.0 [facility] Comment on above: Performed By: #### C K, BMP #### [address] head/brain wo conon 03-21 CT head/brain wo con [facility] Main [place] [address] [place] [address] CT Scan Report Signed Patient: Stella Kong MR#: [id number] 81 : 1945 Acct:[id number] Age/Sex: 79 / F ADM Date: 03/21/24 Loc: ER Room: Type: [facility] ER Attending Dr: Copies to: [...] Lipscomb Jr., D.O.03/21/2024 6:18 PM Dictation Location: [place] [address] Transcribed By: SYED 03/21/241817 Dictated By: Germain Lipscomb Jr, DO 03/21/241814 Signed By: 03/21/241817 Normal [facility] Calcium [Mass/volume] in Ser um or PlasmaOrdered By: Yokasta Flores on 10-06-2024 Calcium [Mass/Vol] 8.5 mg/dL Low 8.6-10.3 [facility] Comment on above: Performed By: #### C K, BMP #### [address] Carbon dioxide, total [Moles /volume] in Serum or PlasmaOrdered By: Yokasta Flores on 03-21-2024 CO2 [Moles/Vol] 22.6 mmol/L Normal 21.0-31.0 [facility] Comment on above: Performed By: #### C K, BMP #### [place] [address] [place] Chloride [Moles/volume] in S selene or PlasmaOrdered By: Yokasta Flores on 03-21-2024 Chloride [Moles/Vol] 102 mmol/L Normal 98-107 [facility] Comment on above: Performed By: #### C K, BMP #### [place] [address] [place] Color of Urine by AutoOrdere d By: Bryan Coppola on 03-21-2024 Color (U) Colorless Normal Yellow [facility] Comment on above: Order Comment: Name Collection Type:: Straight Catheter Performed By: #### A RADHA, CUU #### [address] Color of Urine by AutoOrdere d By: Yokasta Flores on 03-21-2024 Color (U) Light-yellow Normal Yellow [facility] Comment on above: Order Comment: Name Collection Type:: Clean-Voided Midstream Performed By: #### A RADHA, CUU #### [place] [address] [place] Complete Blood Count Auto Di ffon 03-21-2024 Mean Corpuscular HGB Conc 34.7 g/dL Normal 32.0-35.0 [facility] Comment on above: Performed By: #### C K, BMP #### [place] [address] [place] Monocytes/100 WBC (Bld) 14.37 % Normal 0.00-20.00 [facility] Comment on above: Performed By: #### C K, BMP #### [facility] [address] NRBC% 0.1 /100{WBC} Normal 0-0.5 [facility] Comment on above: Performed By: #### C K, BMP #### [address] Comprehensive Metabolic Pane tila 03-21-2024 Albumin [Mass/Vol] 3.8 g/dL Normal 3.5-5.7 [facility] Comment on above: Performed By: #### C K, BMP #### [place] [address] [place] Creatinine Clr Calc Pharmacy 42.12 Normal [facility] Comment on above: Result Comment: PERF ORMED BY: [place] [address] PATHOLOGIST B[employer] WORKER SARAH IRAHETA M.D. Performed By: #### C K, BMP #### [place] [address] [place] GFR/1.73 sq M.predicted MDRD (S/P/Bld) [Vol rate/Area] mL/min/{1.73_m2} Normal [facility] Comment on above: Performed By: #### C K, BMP #### [place] [address] [place] Creatine Kinaseon 03-21-2024 CK [Catalytic activity/Vol] 6966 U/L High 30-223 [facility] Comment on above: Performed By: #### C K, BMP #### [place] [address] [place] Creatine kinase [Enzymatic a ctivity/volume] in Serum or PlasmaOrdered By: Yokasta Flores on 03-21-2024 CK [Catalytic activity/Vol] 1460 U/L High 30-223 [facility] Comment on above: Result Comment: PERF ORMED BY: [place] [address] PATHOLOGIST B[employer] WORKER SARAH IRAHETA M.D. Performed By: #### C K, BMP #### [place] [address] [place] Creatine kinase.MB [Mass/vol ume] in Serum or PlasmaOrdered By: Bryan Coppola on 03-21-2024 CK.MB [Mass/Vol] 80.7 ng/mL High 0.6-6.3 [facility] Comment on above: Performed By: #### H S TROP #### [place] [address] [place] Creatinine Kinase MBon 03-21 CKMB Relative Index 1.1 % Normal 0.00-2.50 [facility] Comment on above: Performed By: #### H S TROP #### [place] [address] [place] Creatinine [Mass/volume] in Serum or PlasmaOrdered By: Yokasta Flores on 03-21-2024 Creatinine [Mass/Vol] 0.94 mg/dL Normal 0.60-1.20 [facility] Comment on above: Performed By: #### C K, BMP #### [place] [address] [place] Dipstick and Microscopicon 1 Bacteria,Urine 1+ High None Seen [facility] Comment on above: Order Comment: Name Collection Type:: Straight Catheter Performed By: #### A DDONUAPLUS, CUU #### [place] [address] [place] Glucose Ql (U) 70 mg/dL High Normal [facility] Comment on above: Order Comment: Name Collection Type:: Straight Catheter Performed By: #### A DDONUAPLUS, CUU #### [place] [address] [place] Specificy [place],Urine 1.006 Normal 1.00 1-1.03 0 [facility] Comment on above: Order Comment: Name Collection Type:: Straight Catheter Performed By: #### A DDONUAPLUS, CUU #### [place] [address] [place] WBC CLUMP, Urine Moderate High None Seen [facility] Comment on above: Order Comment: Name Collection Type:: Straight Catheter Performed By: #### A DDONUAPLUS, CUU #### [address] WBC,Urine 20-49 High 0-4 [facility] Comment on above: Order Comment: Name Collection Type:: Straight Catheter Performed By: #### A DDONUAPLUS, CUU #### [address] Bacteria,Urine 2+ High None Seen [facility] Comment on above: Order Comment: Name Collection Type:: Clean-Voided Midstream Performed By: #### A DDONUAPLUS, CUU #### [address] Bilirubin,Urine Negative Normal Negative [facility] Comment on above: Order Comment: Name Collection Type:: Straight Catheter Performed By: #### A DDONUAPLUS, CUU #### [address] Order Comment: Name Collection Type:: Clean-Voided Midstream Glucose Ql (U) 300 mg/dL High Normal [facility] Comment on above: Order Comment: Name Collection Type:: Clean-Voided Midstream Performed By: #### A DDONUAPLUS, CUU #### [address] Hyaline Casts,Urine None Normal 0-8 [facility] Comment on above: Order Comment: Name Collection Type:: Straight Catheter Result Comment: PERF ORMED BY: [place] [address] PATHOLOGIST B[employer] WORKER SARAH IRAHETA M.D. Performed By: #### A DDONUAPLUS, CUU #### [address] Order Comment: Name Collection Type:: Clean-Voided Midstream Mucus,Urine Rare Normal [facility] Comment on above: Order Comment: Name Collection Type:: Clean-Voided Midstream Result Comment: PERF ORMED BY: [place] [address] PATHOLOGIST B[employer] WORKER SARAH IRAHETA M.D. Performed By: #### A DDONUAPLUS, CUU #### [address] Nitrite,Urine Positive High Negative [facility] Comment on above: Order Comment: Name Collection Type:: Straight Catheter Performed By: #### A DDONUAPLUS, CUU #### [address] Order Comment: Name Collection Type:: Clean-Voided Midstream Occult Blood,Urine 3+ High Negative [facility] Comment on above: Order Comment: Name Collection Type:: Straight Catheter Result Comment: PERF ORMED BY: [place] [address] PATHOLOGIST B[employer] WORKER SARAH IRAHETA M.D. Performed By: #### A DDONUAPLUS, CUU #### [address] Order Comment: Name Collection Type:: Clean-Voided Midstream Protein,Urine Negative Normal Negative [facility] Comment on above: Order Comment: Name Collection Type:: Straight Catheter Performed By: #### A DDONUAPLUS, CUU #### [address] Order Comment: Name Collection Type:: Clean-Voided Midstream RBC,Urine 3-4 Normal 0-4 [facility] Comment on above: Order Comment: Name Collection Type:: Straight Catheter Performed By: #### A DDONUAPLUS, CUU #### [address] Order Comment: Name Collection Type:: Clean-Voided Midstream Specificy [place],Urine 1.012 Normal 1.00 1-1.03 0 [facility] Comment on above: Order Comment: Name Collection Type:: Clean-Voided Midstream Performed By: #### A DDONUAPLUS, CUU #### [address] Squamous Epithelial Cell,Urine 1-2 Normal 0-2 [facility] Comment on above: Order Comment: Name Collection Type:: Straight Catheter Performed By: #### A DDONUAPLUS, CUU #### [address] Order Comment: Name Collection Type:: Clean-Voided Midstream Urobilinogen,Urine Normal Normal Normal [facility] Comment on above: Order Comment: Name Collection Type:: Straight Catheter Performed By: #### A DDONUAPLUS, CUU #### [address] Order Comment: Name Collection Type:: Clean-Voided Midstream WBC,Urine 10-19 High 0-4 [facility] Comment on above: Order Comment: Name Collection Type:: Clean-Voided Midstream Performed By: #### A DDONUAPLUS, CUU #### [address] ECG 12 lead ECGon 03-21-2024 ECG 12 lead ECG [facility] [place] [address] Electrocardiograph Report Signed Patient: Stella Kong MR#: [id number] 81 : 1945 Acct:[id number] Age/Sex: 79 / F ADM Date: 03/21/24 Loc: ER Room: Type: [facility] ER Attending Dr: Ordering Provider: [...] longer present Confirmed by YOKASTA FLORES DO ([id number]) on 03/21/2024 8:02:58 PM Referred By: Electronically Signed By: YOKASTA FLORES DO Transcribed By: MUS Signed By Yokasta Flores DO 03/21 Normal [facility] Epithelial cells.squamous [# /area] in Urine sediment by Automated countOrdered By: Yokasta Flores on 03-21-2024 Epithelial cells.squamous Auto (Urine sed) [#/Area] 1-2 [HPF] 0-2 [facility] Erythrocyte distribution wid th [Ratio] by Automated countOrdered By: Yokasta Flores on 03-21-2024 Erythrocyte distribution width (RBC) [Ratio] 13.6 % Normal 11.9-15.3 [facility] Comment on above: Performed By: #### C K, BMP #### [facility] [address] [place] [address] [place] Erythrocytes [#/area] in Uri ne sediment by Automated countOrdered By: Yokasta Flores on 03-21-2024 RBC Auto (Urine sed) [#/Area] 3-4 [HPF] 0-4 [facility] Erythrocytes [#/volume] in B lood by Automated countOrdered By: Yokasta Flores on 03-21-2024 RBC (Bld) [#/Vol] 4.10 10*6/uL Normal 3.60-5.00 [facility] Comment on above: Performed By: #### C Stephanie, BMP #### [facility] [address] [place] [address] [place] Glucose [Mass/volume] in Ser um or PlasmaOrdered By: Yokasta Flores on 03-21-2024 Glucose [Mass/Vol] 105 mg/dL High 70-100 [facility] Comment on above: ADA recommended refe rence rangeRandom Glucose Reference Range is dependent on time and content of last meal. Glucose of more than 200 mg/dL in a nonstressed, ambulatory subject supports the diagnosis of Diabetes Mellitus. Result Comment: [place] om Glucose Reference Range is dependent on time and content of last meal. Glucose of more than 200 mg/dL in a nonstressed, ambulatory subject supports the diagnosis of Diabetes Mellitus. ADA recommended reference range Performed By: #### C K, BMP #### [facility] [address] [place] [id number] [place] Glucose [Mass/volume] in Uri ne by Test stripOrdered By: Bryan Coppola on 03-21-2024 Glucose Test strip (U) [Mass/Vol] 70 mg/dL High Normal [facility] Glucose [Mass/volume] in Uri ne by Test stripOrdered By: Yokasta Flores on 03-21-2024 Glucose Test strip (U) [Mass/Vol] 300 mg/dL High Normal [facility] Hematocrit [Volume Fraction] of Blood by Automated countOrdered By: Yokasta Flores on 03-21-2024 Hematocrit (Bld) [Volume fraction] 37.4 % Normal 34.0-46.4 [facility] Comment on above: Performed By: #### C K, BMP #### [facility] [address] Hemoglobin Test strip Ql (U) Ordered By: Yokasta Flores on 03-21-2024 Hemoglobin Ql (U) 3+ High Negative [facility] Hemoglobin [Mass/volume] in BloodOrdered By: Yokasta Flores on 03-21-2024 Hemoglobin (Bld) [Mass/Vol] 13.0 g/dL Normal 11.8-15.4 [facility] Comment on above: Performed By: #### C K, BMP #### [facility] [address] Hyaline casts [#/area] in Ur ine sediment by Automated countOrdered By: Yokasta Flores on 03-21-2024 Hyaline casts Auto (Urine sed) [#/Area] None [LPF] 0-8 [facility] INR in Platelet poor plasma by Coagulation assayOrdered By: Yokasta Flores on 03-21-2024 INR Coag (PPP) [Relative time] 1.0 {INR} Normal [facility] Comment on above: INR Therapeutic Rang [...] heart valves: 3 - 4.5 PERFORMED BY: [place] [address] PATHOLOGIST B[employer] SARAH IRAHETA M.D. Performed By: #### C K, BMP #### [facility] [address] [place] [address] [place] Ketones [Presence] in Urine by Test stripOrdered By: Bryan Coppola on 03-21-2024 Ketones Ql (U) Trace High Negative [facility] Comment on above: Order Comment: Name Collection Type:: Straight Catheter Performed By: #### A DDONUAPLUS, CUU #### [facility] [address] [place] [address] [place] Ketones [Presence] in Urine by Test stripOrdered By: Yokasta Flores on 03-21-2024 Ketones Ql (U) Negative Normal Negative [facility] Comment on above: Order Comment: Name Collection Type:: Clean-Voided Midstream Performed By: #### A DDONUAPLUS, CUU #### [facility] [address] [place] [address] Laboratory - Microbiology an d Antimicrobial susceptibilityOrdered By: Bryan Coppola on 03-21-2024 Bacteria identified Cx Nom (U) No Growth 2 Days [facility] Laboratory - Microbiology an d Antimicrobial susceptibilityOrdered By: Yokasta Flores on 03-21-2024 Bacteria identified Cx Nom (U) Escherichia coli Abnormal [facility] Leukocyte clumps [Presence] in Urine by AutomatedOrdered By: Bryan Coppola on 03-21-2024 Leukocyte clumps Auto Ql (U) Moderate [LPF] High None Seen [facility] Leukocyte esterase [Presence ] in Urine by Test stripOrdered By: Bryan Coppola on 03-21-2024 Leukocyte esterase Test strip Ql (U) 4+ High Negative [facility] Comment on above: Order Comment: Name Collection Type:: Straight Catheter Performed By: #### A DDONUAPLUS, CUU #### [facility] [address] [place] [address] [place] Leukocyte esterase [Presence ] in Urine by Test stripOrdered By: Yokasta Flores on 03-21-2024 Leukocyte esterase Test strip Ql (U) 2+ High Negative [facility] Comment on above: Order Comment: Name Collection Type:: Clean-Voided Midstream Performed By: #### A DDONUAPLUS, CUU #### [facility] [address] [place] [address] [place] Leukocytes [#/area] in Urine sediment by Automated countOrdered By: Bryan Coppola on 03-21-2024 WBC Auto (Urine sed) [#/Area] 20-49 [HPF] High 0-4 [facility] Leukocytes [#/area] in Urine sediment by Automated countOrdered By: Yokasta Flores on 03-21-2024 WBC Auto (Urine sed) [#/Area] 10-19 [HPF] High 0-4 [facility] Leukocytes [#/volume] correc stephanie for nucleated erythrocytes in Blood by Automated counOrdered By: Yokasta Flores on 03-21-2024 WBC corrected for nucl RBC Auto (Bld) [#/Vol] 14.6 10*3/uL High 3.8-11.6 [facility] Leukocytes [#/volume] in Blo od by Automated countOrdered By: Yokasta Flores on 03-21-2024 WBC (Bld) [#/Vol] 14.6 10*3/uL High 3.8-11.6 [facility] Comment on above: Performed By: #### C K, BMP #### [facility] [address] [place] [address] [place] Lymphocytes [#/volume] in Bl ood by Automated countOrdered By: Yokasta Flores on 03-21-2024 Lymphocytes (Bld) [#/Vol] 0.6 10*3/uL Low 1.00-4.8 [facility] Comment on above: Performed By: #### C K, BMP #### [facility] [address] Lymphocytes/100 leukocytes i n Blood by Automated countOrdered By: Yokasta Flores on 03-21-2024 Lymphocytes/100 WBC (Bld) 4.1 % Normal . [facility] Comment on above: Performed By: #### C K, BMP #### [facility] [address] MCH [Entitic mass] by Automa stephanie countOrdered By: Yokasta Flores on 03-21-2024 MCH (RBC) [Entitic mass] 31.7 pg Normal 24.7-34.3 [facility] Comment on above: Performed By: #### C K, BMP #### [address] MCHC Auto (RBC) [Mass/Vol]Or dered By: Yokasta Flores on 03-21-2024 MCHC (RBC) [Mass/Vol] 34.7 g/dL 32.0-35.0 [facility] MCV [Entitic volume] by Auto mated countOrdered By: Yokasta Flores on 03-21-2024 MCV (RBC) [Entitic vol] 91.3 fL Normal 80-100 [facility] Comment on above: Performed By: #### C K, BMP #### [address] Magnesium [Mass/volume] in S selene or PlasmaOrdered By: Yokasta Flores on 03-21-2024 Magnesium [Mass/Vol] 1.9 mg/dL Normal 1.9-2.7 [facility] Comment on above: Result Comment: PERF ORMED BY: [place] [address] PATHOLOGIST B[employer]ER SARAH IRAHETA M.D. Performed By: #### C K, BMP #### [address] Monocyte distribution width [Entitic volume] in Blood by AutomatedOrdered By: Yokasta Flores on 03-21-2024 Monocyte distribution width Auto (Bld) [Entitic vol] 14.37 % 0.00-20.00 [facility] Mucus [Presence] in Urine by AutomatedOrdered By: Yokasta Flores on 03-21-2024 Mucus Auto Ql (U) Rare [LPF] [facility] Neutrophils [#/volume] in Bl ood by Automated countOrdered By: Yokasta Flores on 03-21-2024 Neutrophils (Bld) [#/Vol] 13.4 10*3/uL High 1.8-7.7 [facility] Comment on above: Performed By: #### C K, BMP #### [address] Nitrite Test strip Ql (U)Ord ered By: Yokasta Flores on 03-21-2024 Nitrite Ql (U) Positive High Negative [facility] No Panel InformationOrdered By: Yokasta Flores on 03-21-2024 Estimated GFR (CKD-EPI) > 60.0 mL/Min [facility] Creatinine Clearance (Chem 42.12 [facility] Nucleated erythrocytes [Pres ence] in Blood by Automated countOrdered By: Yokasta Flores on 03-21-2024 Nucleated RBC Auto Ql (Bld) 0.1 /100{WBC} 0-0.5 [facility] Platelet mean volume [Entiti c volume] in Blood by Automated countOrdered By: Yokasta Flores on 03-21-2024 Platelet mean volume (Bld) [Entitic vol] 7.4 fL Normal 6.3-10.7 [facility] Comment on above: Performed By: #### Ramon K, BMP #### [facility] [address] [place] [address] [place] Platelets [#/volume] in Bloo d by Automated countOrdered By: Yokasta Flores on 03-21-2024 Platelets (Bld) [#/Vol] 211 10*3/uL Normal 150-450 [facility] Comment on above: Performed By: #### Ramon K, BMP #### [address] Potassium [Moles/volume] in Serum or PlasmaOrdered By: Yokasta Flores on 03-21-2024 Potassium [Moles/Vol] 3.6 mmol/L Normal 3.5-5.1 [facility] Comment on above: Performed By: #### C K, BMP #### [address] Protein Test strip (U) [Mass /Vol]Ordered By: Yokasta Flores on 03-21-2024 Protein (U) [Mass/Vol] Negative Negative [facility] Protein [Mass/volume] in Ser um or PlasmaOrdered By: Yokasta Flores on 03-21-2024 Protein [Mass/Vol] 6.9 g/dL Normal 6.4-8.9 [facility] Comment on above: Performed By: #### C K, BMP #### [address] Prothrombin time (PT)Ordered By: Yokasta Flores on 03-21-2024 PT Coag (PPP) [Time] 11.7 s Normal 9.0-12.9 [facility] Comment on above: A hematocrit value g reater than 55% may lead to inaccurate results in coagulation testing. Patients having hematocrit values >55% require a special collection tube for coagulation studies. Please contact the laboratory at [phone] for redraw instructions. Result Comment: A he matocrit value greater than 55% may lead to inaccurate results in coagulation testing. Patients having hematocrit values >55% require a special collection tube for coagulation studies. Please contact the laboratory at [phone] for redraw instructions. Performed By: #### C K, BMP #### [address] Serum globulin measurement b y calculation (mass/volume)Ordered By: Yokasta Flores on 03-21-2024 Globulin (S) [Mass/Vol] 3.1 g/dL Normal [facility] Comment on above: Performed By: #### C K, BMP #### [address] Serum or plasma albumin/glob ulin mass ratioOrdered By: Yokasta Flores on 03-21-2024 Albumin/Globulin [Mass ratio] 1.2 {ratio} Normal [facility] Comment on above: Performed By: #### C K, BMP #### [address] [place] [address] [place] Serum or plasma anion gap de terminationOrdered By: Yokasta Flores on 03-21-2024 Anion gap [Moles/Vol] 13.0 mmol/L Normal 6.0-15.0 [facility] Comment on above: Performed By: #### C K, BMP #### [address] Serum or plasma creatine kin ase MB (CKMB)/total creatine kinase (CK) ratio by calculaOrdered By: Bryan Coppola on 03-21-2024 CK.MB Calc [Catalytic fraction] 1.1 % 0.00-2.50 [facility] Sodium [Moles/volume] in Ser um or PlasmaOrdered By: Yokasta Flores on 03-21-2024 Sodium [Moles/Vol] 134 mmol/L Low 136-145 [facility] Comment on above: Performed By: #### C K, BMP #### [address] Specific gravity Test strip (U) [Rel density]Ordered By: Bryan Coppola on 03-21-2024 Specific gravity (U) [Rel density] 1.006 1.001-1.03 0 [facility] Specific gravity Test strip (U) [Rel density]Ordered By: Yokasta Flores on 03-21-2024 Specific gravity (U) [Rel density] 1.012 1.001-1.03 0 [facility] Troponin I High Sensitivityo n 03-21-2024 Troponin I High Sensitivity 353.9 pg/mL Off scale high 0.0-15.0 [facility] Comment on above: Result Comment: Crit ical Result : Called to and read back by: THAO COX at: 03/22/2024 00:25:25 by:[id number] PERFORMED BY: [place] [address] PATHOLOGIST BILINGUAL SOCIAL WORKER SARAH IRAHETA M.D. Performed By: #### H S TROP #### [address] Troponin I High Sensitivity 311.1 pg/mL Off scale high 0.0-15.0 [facility] Comment on above: Result Comment: Crit ical Result : Called to and read back by: SHARRON MONTES at: 03/21/2024 20:38:49 by:[id number] PERFORMED BY: [place] [address] PATHOLOGIST BILINGUAL SOCIAL WORKER SARAH IRAHETA M.D. Performed By: #### H S TROP #### [address] Troponin I High Sensitivity 212.7 pg/mL Off scale high 0.0-15.0 [facility] Comment on above: Result Comment: Crit ical Result : Called to and read back by: SORIN MCNEILL at: 03/21/2024 19:11:54 by:[id number] PERFORMED BY: [place] [address] PATHOLOGIST BILINGUAL SOCIAL WORKER SARAH IRAHETA M.D. Performed By: #### C K, BMP #### [address] Troponin I.cardiac [Mass/vol ume] in Serum or Plasma by Detection limit <= 0.01 ng/Ordered By: Bryan Coppola on 03-21-2024 Troponin I.cardiac DL <= 0.01 ng/mL [Mass/Vol] 311.1 pg/mL High 0.0-15.0 [facility] Comment on above: Critical Result : Ca lled to and read back by: SHARRON MONTES at: 03/21/2024 20:38:49 by:[id number] Urea nitrogen [Mass/volume] in Serum or PlasmaOrdered By: Yokasta Flores on 03-21-2024 Urea nitrogen [Mass/Vol] 21 mg/dL Normal 7-25 [facility] Comment on above: Performed By: #### C K, BMP #### [place] [id number] [place] Urine Cultureon 03-21-2024 Bacteria identified Cx Nom (U) No Growth 2 Days PERFORMED BY: [address] [address] PATHOLOGIST BILINGUAL SOCIAL WORKER SARAH IRAHETA M.D. Normal [facility] Comment on above: Performed By: #### A KARTIK GARCIA #### [address] [address] [facility] Bacteria identified Cx Nom (U) ORGANISM: Escherichia coli (O:ESCCOL) [place] Count >100,000 Aerobic KEVIN Charge (NMIC56) SUSCEPTIBILITY [...] RESISTANT TO ALL B-LACTAM DRUGS. PERFORMED BY: [address] [address] PATHOLOGIST BILINGUAL SOCIAL WORKER SARAH IRAHETA M.D. Normal [facility] Comment on above: Performed By: #### A RADHA CUU #### [facility] [address] Urine appearanceOrdered By: Yokasta Flores on 03-21-2024 Appearance (U) Clear Normal Clear [facility] Comment on above: Order Comment: Name Collection Type:: Straight Catheter Performed By: #### A DDONUAJOSE, CUU #### [facility] [address] [place] [address] Order Comment: Name Collection Type:: Clean-Voided Midstream Urobilinogen Test strip (U) [Mass/Vol]Ordered By: Yokasta Flores on 03-21-2024 Urobilinogen (U) [Mass/Vol] Normal mg/dL Normal [facility] XR pelvis 1-2Von 03-21-2024 XR pelvis 1-2V [facility] [place] [address] [place] [address] XRay Report Signed Patient: Stella Kong MR#: [id number] : 1945 Acct:[id number] Age/Sex: 79 / F ADM Date: 03/21/24 Loc: ER Room: Type: [facility] ER Attending Dr: Copies to: Yokasta Flores DO Ordering Provider: Yokasta Flores DO Date of Service: 03/21/24 XR/XR pelvis 1-2V: Fall ([id number]) XR/XR femur LT 2V*: Fall ([id number]) XR/XR ribs LT min 3V w CXR1V*: [...] PM Dictation Location: [facility] Transcribed By: SYED 03/21/241911 Dictated By: Germain Lipscomb Jr, DO 03/21/241908 Signed By: 03/21/241911 Normal [facility] pH of Urine by Test stripOrd ered By: Yokasta Flores on 03-21-2024 pH (U) 5.5 [pH] Normal 5.0-9.0 [facility] Comment on above: Order Comment: Name Collection Type:: Straight Catheter Performed By: #### A KARTIK GARCIA #### [address] Order Comment: Name Collection Type:: Clean-Voided Midstream Consent for COVID Vaccineon 09-02-2020 SARS-CoV-2 (COVID-19) RNA VIKRAM+probe Ql (Unsp spec) [id number]#1.00CD:127 [facility] Consent for Treatmenton 08-15 Consent for Treatment [id number]#[id number]:127 [facility] Coding Summary.on 08-31-2020 Coding Summary. CODING DATE: [facility] STATUS: PAYOR: Medicare APC DESCRIPTION 1492 New [...] Contreras CphT Date Saved: 08/31/2020 08:06 am [facility] Vital Signs Date Time Vital Sign Value Performing Clinician Facility 04-29-2024 10:59-0500 Body height 154.9 cm Deniz Ochoa MD Work Phone: [facility] 04-29-2024 10:59-0500 Body mass index (BMI) [Ratio] 24.37 kg/m2 Deniz Ochoa MD Work Phone: [facility] 04-29-2024 10:59-0500 Body weight 58.51 kg Deniz Ochoa MD Work Phone: [facility] 04-29-2024 10:59-0500 Diastolic blood pressure 74 mm[Hg] Deniz Ochoa MD Work Phone: [facility] 04-29-2024 10:59-0500 Heart rate 88 /min Deniz Ochoa MD Work Phone: [facility] 04-29-2024 10:59-0500 SaO2% (BldA) [Mass fraction] 97 % Deniz Ochoa MD Work Phone: [facility] 04-29-2024 10:59-0500 Systolic blood pressure 128 mm[Hg] Deniz Ochoa MD Work Phone: [facility] 04-15-2024 10:44-0400 Body height 154.9 cm Deniz Ochoa MD Work Phone: [facility] 04-15-2024 10:44-0400 Body mass index (BMI) [Ratio] 24.56 kg/m2 Deniz Ochoa MD Work Phone: [facility] 04-15-2024 10:44-0400 Body temperature 98.8 [degF] Deniz Ochoa MD Work Phone: [facility] 04-15-2024 10:44-0400 Body weight 58.97 kg Deniz Ochoa MD Work Phone: [facility] 04-15-2024 10:44-0400 Diastolic blood pressure 66 mm[Hg] Deniz Ochoa MD Work Phone: [facility] 04-15-2024 10:44-0400 Heart rate 88 /min Deniz Ochoa MD Work Phone: [facility] 04-15-2024 10:44-0400 SaO2% (BldA) [Mass fraction] 97 % Deniz Ochoa MD Work Phone: [facility] 04-15-2024 10:44-0400 Systolic blood pressure 124 mm[Hg] Deniz Ochoa MD Work Phone: [facility] 03-25-2024 12:00-0400 Diastolic blood pressure 62 mm[Hg] II Deniz Ochoa Work Phone: [facility] 03-25-2024 12:00-0400 Heart rate 82 /min II Deniz Ochoa Work Phone: [facility] 03-25-2024 12:00-0400 Respiratory rate 20 /min II Deniz Ochoa Work Phone: [facility] 03-25-2024 12:00-0400 SaO2% (BldA) [Mass fraction] 94 % II Deniz Ochoa Work Phone: [facility] 03-25-2024 12:00-0400 Systolic blood pressure 150 mm[Hg] II Deniz Ochoa Work Phone: [facility] 03-25-2024 08:00-0400 Body temperature 97.8 [degF] II Deniz Ochoa Work Phone: [facility] 03-25-2024 06:00-0400 Body weight 58.6 kg II Deniz Ochoa Work Phone: [facility] 03-22-2024 16:12-0400 Body height 157.48 cm II Deniz Ochoa Work Phone: [facility] 03-21-2024 20:07-0400 Heart rate 86 /min II Deniz Ochoa Work Phone: [facility] 03-21-2024 20:06-0400 Diastolic blood pressure 75 mm[Hg] II Deniz Ochoa Work Phone: [facility] 03-21-2024 20:06-0400 Respiratory rate 18 /min II Deniz Ochoa Work Phone: [facility] 03-21-2024 20:06-0400 SaO2% (BldA) [Mass fraction] 98 % II Deniz Ochoa Work Phone: [facility] 03-21-2024 20:06-0400 Systolic blood pressure 154 mm[Hg] II Deniz Ochoa Work Phone: [facility] 03-21-2024 17:20-0400 Body height 157.48 cm II Deniz Ochoa Work Phone: [facility] 03-21-2024 17:20-0400 Body temperature 98.4 [degF] II Deniz Ochoa Work Phone: [facility] 03-21-2024 17:20-040 Body weight 64.6 kg II Deniz Ochoa Work Phone: [facility] Encounters Encounter Date Encounter Type Care [...] / Non-visit II Fransisco Ochoa Work Phone: [facility] Work Phone: Start: 03-23-2024 Non-patient / Non-visit II Fransisco Ochoa Work Phone: [facility] Work Phone: Start: 03-22-2024 Non-patient / Non-visit II Fransisco Ochoa Work Phone: [facility] Work Phone: Start: 03-22-2024 Non-patient / Non-visit II Fransisco Ochoa Work Phone: [facility] Work Phone: Start: 03-21-2024 End: 03-25-2024 Evaluation and management of inpatient II Deniz Ochoa Work Phone: [facility] Work Phone: Start: 02-27-2024 End: [...] encounter procedure Deniz Ochoa MD Work Phone: [facility] Start: 10-02-2023 End: 10-02-2023 ambulatory SATINDER [...] [facility] [address] [place] [address] Robert Simpson, [address] [place] [address] [facility] Start: 06-30-2024 End: 06-30-2024 Patient encounter procedure 06/30/2024 11:30 AM EST Office Visit [facility] [address] [place] [address] Deniz Ochoa MD [address] [place] [address] [facility] Start: 04-29-2024 End: 04-29-2024 Patient encounter procedure 04/29/2024 11:00 AM EST Office Visit [facility] [address] [place] [address] Deniz Ochoa MD [address] [place] [address] [facility] Start: 04-15-2024 End: 04-15-2024 Patient encounter procedure 04/15/2024 11:00 AM EDT Office Visit [facility] [address] [place] [address] Deniz Ochoa MD [address] [place] [address] Arrived [facility] Comment on above: Arrived Start: 03-25-2024 [facility] Start: 03-24-2024 Referral to psychiatrist [facility] Start: 03-24-2024 [facility] Start: 03-23-2024 [facility] Start: 03-22-2024 Administration of prophylactic treatment [facility] Start: 03-22-2024 Referral to rehabilitation physician [facility] Start: 03-22-2024 [facility] Start: 03-21-2024 Consultation [facility] Start: 03-21-2024 Physical therapy procedure [facility] Start: 03-21-2024 Referral to occupati onal therapist [facility] Start: 03-21-2024 Hospital admission [facility] Start: 03-21-2024 [facility] Start: 03-21-2024 Urine culture [facility] Start: 03-21-2024 Bacteria identified in Urine by Culture Urine Culture [facility] Start: 02-15-2024 Influenza vaccination Influenza Vacc ine (#1) [facility] Start: 07-25-2023 End: 07-25-2023 ambulatory 07/25/2023 1:30 PM EST Treatment [facility] [address] [facility] [address] [place] [phone] Celina Craven, PT [address] [place] [address] [facility] Start: 07-23-2023 End: 07-23-2023 Patient encounter procedure 07/23/2023 10:00 AM EST Office Visit [facility] [address] [facility] [address] [place] [id number] Deniz Ochoa MD [address] [facility] [address] [place], [place] [id number] [facility] Start: 2020 Pneumococcal Vaccine : 65+ Years (2 - PCV) Pneumococcal Vaccine: 65+ Years (2 - PCV) [facility] Start: 2020 Pneumococcal Vaccine : 65+ Years (2 of 2 - PCV) Pneumococcal Vaccine: 65+ Years (2 of 2 - PCV) [facility] Start: 1945 Medicare Annual Well ness (AWV) Medicare Annual Wellness (AWV) [facility] Immunizations Immunization Date Immunization Notes Care Provider Fa cili 04-18-2023 Influenza, Seasonal, Quadrivalent, Adjuvanted Celina Craven PT Work Phone: [facility] 04-18-2023 influenza virus vacc ine, unspecified formulation Deniz Ochoa MD Work Phone: [facility] 03-26-2022 Influenza, High-dose Seasonal, Quadrivalent, Preservative Free Celina Craven PT Work Phone: [facility] 04-28-2021 Seasonal, trivalent, recombinant, injectable influenza vaccine, preservative free Celina Craven PT Work Phone: [facility] 04-18-2020 influenza, injectabl e, quadrivalent, preservative free Celina Craven PT Work Phone: [facility] 04-11-2019 Influenza, High-dose Seasonal, Quadrivalent, Preservative Free Celina Craven PT Work Phone: [facility] 2019 pneumococcal polysaccharide vaccine, 23 valent Celina Craven PT Work Phone: [facility] 04-15-2018 Influenza, High-dose Seasonal, Quadrivalent, Preservative Free Celina Craven PT Work Phone: [facility] 04-26-2017 influenza, injectabl e, quadrivalent, preservative free Celina Craven PT Work Phone: [facility] 05-18-2010 seasonal influenza, intradermal, preservative free Celina Craven PT Work Phone: [facility] Payers Date Payer Category Payer Medicare [id number] 2017 Medicare [employer] MEDICARE ADVANTAGE HU[employer] MEDICARE [id number] 2017-Present [address] [place] [id number] 2017 Medicare (Managed Care) [employer] EDICARE ADVANTAGE [id number] 5 2017 Private Health Insurance [id number] Self-pay 1945 Unknown [id number] 2.16.840.1.691688.3.579 .2.1258 1944 Unknown [id number] 2.16.840.1.456564.3.579 .2.1258 1944 Unknown [id number] 2.16.840.1.570398.3.579 .2.1258 1944 Unknown [id number] 2.16.840.1.273142.3.579 .2.1258 1944 Unknown [id number] 2.16.840.1.781128.3.579 .2.1258 1944 Unknown [id number] 2.16.840.1.180064.3.579 .2.1258 1944 Unknown [id number] 2.16.840.1.703796.3.579 .2.1258 1944 Unknown [id number] 2..840.1.938066.3.579 .2.1258 1944 Unknown [id number] 2.16.840.1.486692.3.579 .2.1258 1944 Unknown [id number] 2.16.840.1.257200.3.579 .2.1258 1944 Unknown [id number] 2.16.840.1.543586.3.579 .2.1258 1944 Unknown [id number] 2.16.840.1.158932.3.579 .2.1258 1944 Unknown [id number] 2.16.840.1.428540.3.579 .2.1258 1944 Unknown [id number] 2.16.840.1.127252.3.579 .2.1258 1944 Unknown [id number] 2.16.840.1.612399.3.579 .2.1258 1944 Unknown [id number] 2.16.840.1.566606.3.579 .2.1258 1944 Unknown [id number] 2.16.840.1.076451.3.579 .2.1258 1944 Unknown [id number] 2.16.840.1.069731.3.579 .2.9 1944 Unknown [id number] 2.16.840.1.820759.3.579 .2.1258 1944 Unknown [id number] 2.16.840.1.377042.3.579 .2.1258 1944 Unknown [id number] 2.16.840.1.698414.3.579 .2.1258 1944 Unknown [id number] 2.16.840.1.646067.3.579 .2.1258 1944 Unknown [id number] 2.16.840.1.358499.3.579 .2.1258 1944 Unknown [id number] 2.16.840.1.001521.3.579 .2.1258 1944 Unknown [id number] 2.16.840.1.366816.3.579 .2.1259 Unknown [id number] 2.16.840.1.494049.3.579 .2.593 Unknown [id number] 2.16.840.1.132944.3.579 .2.531 Social History Date Type Detail Facility Start: 06-16-1961 End: 01-14-2024 Tobacco smoking status SDIS Smokes tobacco daily [facility] Start: [birth year]-16-1962 [...] 03-24-2024 Tobacco smoking status NHIS Smoker (finding) [facility] Start: 1945 Sex Assigned At Female F [facility] Medical Equipment Procedure Code Equipment Code Equipment Origin al Text Equipment Identifier Dates Arthroplasty, hip, bipolar Orthopaedic cement, non-medicated ()[id number] FDA Start: 11-25-2019 Arthroplasty, hip, bipolar Femoral head bipolar component ()[id number] FDA Start: 11-25-2019 Arthroplasty, hip, bipolar Femoral head bipolar component ()[id number] FDA Start: 11-25-2019 Arthroplasty, hip, bipolar Uncoated hip femur prosthesis, one-piece ()[id number] FDA Start: 11-25-2019 Arthroplasty, hip, bipolar Femoral stem centralizer ()[id number] FDA Start: 11-25-2019 Arthroplasty, hip, bipolar Metallic femoral head prosthesis ()[id number] FDA Start: 11-25-2019 Arthroplasty, hip, bipolar Orthopaedic cement, non-medicated ()[id number] FDA Start: 11-25-2019 Arthroplasty, hip, bipolar Polymer orthopaedic cement restrictor, non-bioabsorbable, sterile ()[id number] FDA Start: 11-25-2019 Goals Date Patient Goal Desired Activity /State Functional Status Date Assessment Result Facility 03-25-2024 Functional status Patient is Pro gressing Toward Baseline [facility] Work Phone: Mental Status Date Assessment Result Facility 03-25-2024 Cognitive function Cognitive Sta tus Patient is Progressing Toward Baseline [facility] Work Phone: Clinical Notes 07-16-2023 to [...] this eye today. documented in this encounter [facility] 04-29-2024 History of Presen t illness [...] - She is seeing an ENT in [place] for this. Follow up in about 2 months (around 06/29/2024) for Routine F/U. documented in this encounter [facility] 04-15-2024 History of Presen t illness Narrative Images from the original note were not included. HPI Follow-up Additional comments: [facility] stay admitted 03/21/24 dx: UTI,fall,rhabdomyolysis discharged to [place] 03/25/24 discharged home 04/08/24 Medication Question Additional comments: Pt would like to stop the lexapro she was started on at [facility] Last edited by Clair Berger LPN on 04/15/2024 10:51 AM. Subjective Patient ID: Stella Kong is a 79 y.o. female who presents for Follow-up ([facility] stay admitted 03/21/24 dx: UTI,fall,rhabdomyolysis discharged to [place] 03/25/24 discharged home 04/08/24) and Medication Question (Pt would like to stop the lexapro she was started on at [facility]). Flowsheet Row Patient Outreach from 04/09/2024 in [facility] with Lilibeth Lux LPN Hospital Information ED, Hospital or Shelter Facility Discharge? Shelter Facility Patient has been contacted within two business days of discharge Yes Have two attempts been made to contact the patient within two business days of being discharged? Yes Discharge Date 04/08/24 Discharged To: Home Setting Shelter Facilities [facility] Admission Date 03/25/24 Medications Is [...] Management What is the home health agency? [facility] HOME HEALTH NURSE/PT/OT Patient Teaching Does the [...] changes are noted above. Generalized anxiety disorder ([facility]/HCC) - clonazePAM (KlonoPIN) 0.5 MG tablet; Take 1 tablet (0.5 mg) by mouth in the morning and 1 tablet (0.5 mg) before bedtime. - Stop Lexapro due to side effects, try different SSRI next appt. - Stop Alprazolam. Follow up in about 2 weeks (around 04/29/2024) for F/U med changes. documented in this encounter [facility] 03-25-2024 Consult note Note Date/Time March 24, 2024 4:21pm [facility] [address] [place] [address] Psychiatry Consult Note Signed Patient: Stella Kong MR#: [id number] : 1945 Acct:[id number] Age/Sex: 79 / F Adm Date: 4 Loc: 3T Room: [address] [place] [address] Type : ADM IN Attending Dr: Alonso [...] whichcan be done as an outpatient. Discussed halfway risks of benzodiazepine whichinclude potential for misuse, [...] responding to internalstimuli. 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 structural ironworker should schedule this prior to discharge. Typical [...] movements noted on exam. AIMS is Zero. structural ironworker to ensure safe discharge plan. I have reviewed evaluations by other providers (ER notes, nurses and staff) Prognosis: Factors to be considered are the chronicity and severity of the symptoms and signs, associated comorbidity, and differential diagnosis. Motivation to get in treatment, response to treatment, adherence to treatment recommendations, and verbal consent was provided. Documented By: Taqueria Duran MD 4 0623 Signed By: <Electronically signed by Taqueria Duran MD> 03/25/24 0989 [facility] Work Phone: [phone]) 275-868510-09-2024 Progress note Author Alonso Agudelo [facility] March 24, 2024 6:14pm Note Date/Time March 24, 2024 3: 26pm [facility] [address] [place], [place] [id number] Hospitalist Progress Note Signed Patient: Stella Kong MR#: [id number] : 1945 Acct:[id number] Age/Sex: 79 / F Adm Date: 4 Loc: Room: [address] [place] [address] Type: ADM IN Attending Dr: Alonso Agudelo [...] what if she is experience 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 so should the consult had gone to [...] mg 03/21/24 19:12 Bisacodyl 10 Mg Supp.Rect [place] 03/21/25 19:11 DAILY PRN Constipation Bisacodyl 10 [...] pain Ambulatory dysfunction -therapy evals - accepted [facility] Vivian[facility]upriya[facility] and eastonert received, plan DC 03/25 [...] signed by Alonso Agudelo MD> 03/24/24 1814 [facility] Work Phone: 1(900) 230-337210-08-2024 Consult note Author Deshawn Choudhary [facility] March 23, 2024 2:07pm Note Date/Time March 23, 2024 10 :38am [facility] [address] [place] [address] Physiatry (Rehab) Consult Note Signed Patient: Stella Kong MR#: [id number] : 1945 Acct:[id number] Age/Sex: 79 / F Adm Date: 4 Loc: 3T Room: [address] [place] [address] Type: ADM IN Attending Dr: Alonso Agudelo [...] negative unless noted below or in HPI REPLACED BY [facility] Medical History (Updated 03/22/24 @ 15:02 by [...] % (Auto) 66.5 Lymph % (Auto) 24.6 [place] % (Auto) 5.9 Eos % (Auto) 1.6 Baso % (Auto) 1.4 Nucleat RBC Rel Count 0.1 Neut # (Auto) 6.4 Lymph # (Auto) 2.4 [place] # (Auto) 0.6 Eos # (Auto) 0.1 [...] chart, including current orders, allied health and senior internet sales consultant notes, labs/imaging and performed dietrich elements of exam and I formulated the plan of care and facilitated the medical decision making. I completed a substantive portion of this encounter, the medical decision makingportion of this note in its entirety, including Allied health note review, nursing note review, senior internet sales consultant note review, discussion with nursing and case management, and more than 50% of my time was spent on counseling and coordination of care, time spent 60 minutes Documented By: Deshawn Choudhary MD 1027 Signed By: <Electronically signed by Deshawn Choudhary MD> 03/23/24 1407 <Electronically signed by DO LEILA Mayfield> 03/23/24 1038 [facility] Work Phone: 1(146) 167-311610-08-2024 Progress note Author Alonso Agudelo [facility] March 23, 2024 1:50pm Note Date/Time March 23, 2024 9: 53am [facility] [address] [place] [address] Hospitalist Progress Note Signed Patient: Stella Kong MR#: [id number] : 1945 Acct:[id number] Age/Sex: 79 / F Adm Date: 4 Loc: Room: [address] [place] [address] Type: ADM IN Attending Dr: Alonso Agudelo [...] mg 03/21/24 19:12 Bisacodyl 10 Mg Supp.Rect WY 03/21/25 19:11 DAILY PRN Constipation Bisacodyl 10 [...] signed by Alonso Agudelo MD> 03/23/24 1350 [facility] Work Phone: 1(330) 955-689710-07-2024 Consult note Author Mala Nettles [facility] March 22, 2024 4:26pm Note Date/Time March 22, 2024 4: 21pm [facility] [address] [place] [address] Cardiology Consult Note Signed Patient: Stella Kong MR#: [id number] : 1945 Acct:[id number] Age/Sex: 79 / F Adm Date: 4 Loc: Room: [address] [place] [address] Type: ADM IN Attending Dr: Alonso Agudelo [...] negative unless noted below or in HPI REPLACED BY [facility] Medical History (Updated 03/22/24 @ 15:02 by [...] # (Auto) 0.6 L 1.7 (1.00-4.8) x10E3/uL [place] # (Auto) 0.4 0.8 (0.0-0.8) x10E3/uL Eos [...] signed by Mala Nettles MD> 03/22/24 1626 [facility] Work Phone: 1(250) 317-350910-07-2024 Progress note Author Alonso Agudelo [facility] March 22, 2024 3:44pm Note Date/Time March 22, 2024 1: 47pm [facility] [address] [place] [address] Hospitalist Progress Note Signed Patient: Stella Kong MR#: [id number] : 1945 Acct:[id number] Age/Sex: 79 / F Adm Date: 4 Loc: Room: [address] [place] [address] Type: ADM IN Attending Dr: Alonso Agudelo [...] mg 03/21/24 19:12 Bisacodyl 10 Mg Supp.Rect WY 03/21/25 19:11 DAILY PRN Constipation Bisacodyl 10 [...] signed by Alonso Agudelo MD> 03/22/24 1544 [facility] Work Phone: 1(933) 309-805510-07-2024 Consult note Author Mani Garcia [facility] March 22, 2024 9:47am Note Date/Time March 22, 2024 9: 47am [facility] [address] [place] [address] Orthopedic Consult Note Signed Patient: Stella Kong MR#: [id number] : 1945 Acct:[id number] Age/Sex: 79 / F Adm Date: 4 Loc: 3T Room: [address] [place] [address] Type: ADM IN Attending Dr: Alonso Agudelo MD Copies to: MD Deniz Navas II, MD Justin A Kelley, DO~ History of Present Illness HPI Consult date: 03/22/2024 Requesting provider: Bryan Coppola DO Consult reason: joint pain History of present illness: Close 79-year-old female s/p left hip hemiarthroplasty for femoral neck fracturewho presents to [facility] after a ground-level fall. Patient tells me that she was standing by her bed whenever her vertigo picked and caused her to fall beside her bed. She landed on her left side. She was unable to get up and was brought to [facility] by EMS where she was having significant discomfort of left side and unable to bear weight. X-rays performed in the emergency department were found to be negative. REPLACED BY [facility] Medical History (Updated 03/22/24 @ 09:46 by [...] % (Auto) 74.0, Lymph % (Auto) 16.8, Sab[place] % (Auto) 7.8, Eos % (Auto) 0.5, Baso % (Auto) 0.9, Nucleat RBC Rel Count 0.0, Neut # (Auto) 7.5, Lymph # (Auto) 1.7, [place] # (Auto) 0.8, Eos # (Auto) 0.1, Baso # (Auto) 0.1, PHA Creatinine Clear 44.36, Sodium 140 D, Potassium 3.7, Chloride 109 H, Carbon Dioxide 25.2, Anion Gap 9.5, BUN 13, Creatinine 0.78, Est GFR (CKD-EPI) > 60.0, Glucose 95, Calcium 8.4 L, Magnesium 2.0, Total Creatine Kinase 7110 H, Troponin I High Muzu965.3 H*, 25-OH Vitamin D Total 33.0 03/21/24 23:04: Total Creatine Kinase 6966 H, CK-MB (CK-2) 80.7 H, CK-MB (CK-2) Rel Index 1.1, Troponin I High Sens 353.9 H* 03/21/24 23:00: Urine Color Colorless, Urine Appearance Clear, Urine pH 5.5, Ur Specific [place] 1.006, Urine Protein Negative, Urine Glucose (UA) [...] % (Auto) 91.7, Lymph % (Auto) 4.1, [place] % (Auto) 2.9, Eos % (Auto) 0.1, Baso % (Auto) 1.2, Nucleat RBC Rel Count 0.1, Neut # (Auto) 13.4 H, Lymph #(Auto) 0.6 L, [place] # (Auto) 0.4, Eos # (Auto) 0.0, [...] Appearance Clear, Urine pH 5.5, Ur Specific [place] 1.012, Urine Protein Negative, Urine Glucose (UA) [...] signed by Mani Garcia DO> 03/22/24 0947 [facility] Work Phone: 1(932) 476-305210-06-2024 History and physical note Author Bryan Coppola [facility] March 21, 2024 9:10pm Note Date/Time March 21, 2024 9: 10pm [facility] [address] [place] [address] Hospitalist H&P Signed Patient: Stella Kong MR#: [id number] : 1945 Acct:[id number] Age/Sex: 79 / F Adm Date: 4 Loc: 3T Room: 3L9588-9 Type: ADM IN Attending Dr: Bryan Coppola [...] day. So I would put her nae 56-meus-siam history. She does not drink any alcohol. Family history includes coronary artery disease and 3 brothers. Review of Systems Review of Systems Review of systems: 10 systems are reviewed and are negative except as mentioned elsewhere in the documentation. REPLACED BY [facility] Medical History (Updated 03/21/24 @ 21:08 by [...] % (Auto) 4.1 % (.) 03/21/24 17:58 Sabine % (Auto) 2.9 % (.) 03/21/24 17:58 Eos % (Auto) 0.1 % (.) 03/21/24 17:58 Baso % (Auto) 1.2 % (.) 03/21/24 17:58 Nucleat RBC Rel Count 0.1 /100 WBC (0-0.5) 03/21/24 17:58 Neut # (Auto) 13.4 x10E3/uL (1.8-7.7) H 03/21/24 17:58 Lymph # (Auto) 0.6 x10E3/uL (1.00-4.8) L 03/21/24 17:58 Sabine # (Auto) 0.4 x10E3/uL (0.0-0.8) 03/21/24 17:58 [...] pH 5.5 (5.0-9.0) 03/21/24 17:48 Ur Specific [place] 1.012 (1.001-1.030) 03/21/24 17:48 Urine Protein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
--- NOTE | 2024-05-20 03:08 | PC.NURSE ---
Shoulder immobilizer applied to the rt arm after pt received pain meds. Arm also supported with a pillow for comfort Pt tolerated fairly well. Ice reapplied to rt shoulder and rt hip
[2024-05-20 05:38] LABS: Basophils Percent Auto 0.2 % (0.2-2.0); Hematocrit 36.3 % (36.0-48.0); Hemoglobin 12.2 g/dL (12.0-16.0); Immature Granulocytes Abs Auto 0.04 10^3/uL (0.00-0.03); Immature Granulocytes Pct Auto 0.3 % (0.0-0.5); Lymphocytes Absolute Auto 0.7 10^3/uL (1.2-3.8); Lymphocytes Percent Auto 5.9 % (20.5-60.0); Mean Corpuscular HGB Conc 33.6 g/dL (29.9-35.2); Mean Corpuscular Hemoglobin 31.7 pg (26.7-34.0); Mean Corpuscular Volume 94.3 fL (81.0-99.0); Mean Platelet Volume 10.1 fL (9.5-13.5); Monocytes Absolute Auto 0.5 10^3/uL (0.3-0.8); Monocytes Percent Auto 4.2 % (1.7-12.0); Neutrophils Percent Auto 89.4 % (43.0-75.0); Platelet Count 181 10^3/uL (150-450); Red Blood Count 3.85 10^6/uL (4.20-5.40); Red Cell Distribution Width 12.3 % (11.0-15.0); White Blood Count 12.2 10^3/uL (4.0-11.0)
[2024-05-20 05:58] LABS: Alanine Aminotransferase 22 U/L (14-59); Albumin Globulin Ratio 0.9; Albumin Level 3.2 g/dL (3.4-5.0); Alkaline Phosphatase 60 U/L (46-116); Anion Gap 13.7; Aspartate Amino Transferase 14 U/L (15-37); BUN Creatinine Ratio 15.8; Bilirubin Total 0.4 mg/dL (0.2-1.0); Calcium 8.1 mg/dL (8.5-10.1); Carbon Dioxide 25.4 mmol/L (21.0-32.0); Chloride 106 mmol/L (98-107); Estimated GFR (African America >60 (>=60 mL/min/1.73m^2); Estimated GFR (Non-African Ame 53 (>=60 mL/min/1.73m^2); Globulin 3.4 g/dL; Glucose 218 mg/dL (74-106); Potassium 4.1 mmol/L (3.5-5.1); Sodium 141 mmol/L (136-145); Total Protein 6.6 g/dL (6.4-8.2)
[2024-05-20] MEDS: OXYCODONE HCL/ACETAMINOPHEN 5MG/325MG 2 TAB PO ×2 (06:00→11:51)
[2024-05-20] MEDS: ONDANSETRON PF 4 MG/2 ML VIAL IV ×2 (06:00→20:30)
[2024-05-20] MEDS: ESCITALOPRAM 10 MG TABLET 5 MG PO (08:36)
[2024-05-20] MEDS: ALPRAZOLAM 0.5 MG TABLET PO ×2 (08:36→23:04)
--- NOTE | 2024-05-20 09:44 | PM.HP ---
HPI H&P: HPI History of Present Illness Chief complaint: FALL - RT HIP AND HUMERUS FRACTURE Narrative: 79-year-old female who currently uses a walker to ambulate, lives with her at home has history of recurrent vertigo and frequent falls because of her vertigo. She was in her usual state of health when she had sudden onset vertigo yesterday and ended up falling on her right side. She was unable to get up after fall and was brought over to ED for further evaluation. Workup revealed right humeral and femoral fracture for which she was admitted overnight with an orthopedic consult. She is complaining of 8 out of 10 pain. She is currently n.p.o. for orthopedic surgery later today. Patient denies shortness of breath, palpitation. She reports mild dry cough since admission. She has history of COPD and uses albuterol as needed. She denies prior history of coronary artery disease or congestive heart failure. Her most recent surgery was about 4 years ago when she had left hip replacement. She denies any prior complications from anesthesia. She has poor functional status at baseline and has limited mobility because of her vertigo and uses a walker to ambulate. Opioid HPI Opioid Management Most Recent Pain and Opioid Data: Last Pain Scale 8 05/20/24 08:36 05/20/24 Last Pain Assessment 05/20/24 08:00 Last MAR Pain Assessment 05/20/24 08:36 Last ORT Total Score 0 05/20/24 01:41 05/20/24 Last ORT Risk Category Low Risk 05/20/24 01:41 05/20/24 Review of Systems ROS Status of ROS 10 or more systems reviewed and unremarkable except as noted in history and below [facility] Medical History (Updated 05/20/24 @ 09:49 by Shaikh Sebastian MD) Hypertension ?I10 - Essential (primary) hypertension (ICD-10) Frequent falls ?R29.6 - Repeated falls (ICD-10) Vertigo ?R42 - Dizziness and giddiness (ICD-10) Hypothyroidism ?E03.9 - Hypothyroidism, unspecified (ICD-10) Anxiety ?F41.9 - Anxiety disorder, unspecified (ICD-10) COPD (chronic obstructive pulmonary disease) ?J44.9 - Chronic obstructive pulmonary disease, unspecified (ICD-10) Surgical History History of cataract surgery ?Z98.49 - Cataract extraction status, unspecified eye (ICD-10) H/O removal of cyst ?Z98.890 - Other specified postprocedural states (ICD-10) Hx of tubal ligation ?Z98.51 - Tubal ligation status (ICD-10) H/O partial thyroidectomy ?E89.0 - Postprocedural hypothyroidism (ICD-10) History of hip replacement, total ?Z96.649 - Presence of unspecified artificial hip joint (ICD-10) History of cholecystectomy ?Z90.49 - Acquired absence of other specified parts of digestive tract (ICD-10) Family History Brother Family history of myocardial infarction Sister No problems noted. Mother Family history of cancer Aunt Family history of cancer Daughter Family history of hypertension Social History (Updated 02/18/24 @ 10:20 by Halle Owen, RN) Within the past year, how often did you have a drink containing alcohol: never Score interpretation: A score less than 3 is consistent with normal alcohol consumption. Smoking status: Current every day smoker Second hand tobacco smoke exposure: No Non-prescribed substance use: denies use Previous occupational history: retired Highest level of school completed/degree received: high school graduate Are you now , , , , never or living with a partner: Little interest or pleasure in doing things: not at all Feeling down, depressed, or hopeless: not at all Life stressor details: Scared to leave the house Do you think of yourself as: straight/heterosexual Gender Identity: female Meds Home Medications and Allergies Home Medications ?Medication ?Instructions ?Recorded ?Confirmed ?Type albuterol sulfate 90 mcg/actuation 2 puff inhalation Q4H PRN 06/19/23 05/19/24 History aerosol inhaler shortness of breath or wheezing levothyroxine 50 mcg tablet 50 mcg PO DAILY 06/19/23 05/19/24 History clonazepam 0.5 mg tablet 0.5 mg PO Q12H 05/19/24 05/19/24 History escitalopram oxalate 5 mg tablet 5 mg PO DAILY 05/19/24 05/19/24 History meclizine 12.5 mg tablet 12.5 mg PO QID PRN dizziness 05/19/24 05/20/24 History Allergies Allergy/AdvReac Type Severity Reaction Status Date / Time No Known Drug Allergies Allergy Verified 05/19/24 19:29 Exam Constitutional Vital Signs, click to edit/add: Last Vital Signs Temp 98.0 F 05/20/24 08:00 Pulse 86 05/20/24 08:00 Resp 18 05/20/24 08:00 BP 154/77 H 05/20/24 08:00 Pulse Ox 97 05/20/24 08:00 O2 Del Method Nasal Cannula 05/20/24 08:00 O2 Flow Rate 2 05/20/24 08:00 Documenting provider has reviewed patient's vital signs: yes Common normals: no apparent distress and oriented x3 General appearance: cooperative and frail appearing HENMT Common normals: normocephalic and head/scalp atraumatic Head and scalp: normocephalic and atraumatic Eye Common normals: conjunctivae normal and no scleral icterus Conjunctiva: conjunctiva(e) normal Respiratory Common normals: normal respiratory effort and clear to auscultation bilaterally Effort & inspection: able to speak in complete sentences Auscultation: clear to auscultation bilaterally Cardio Common normals: regular rate, S1 normal heart sound and S2 normal heart sound Rate: regular rate Heart sounds: S1 normal and S2 normal GI Common normals: Normal to inspection, nondistended, normoactive bowel sounds present, soft to palpation, non-tender and no hepatosplenomegaly Palpation: soft and no hepatosplenomegaly Extremity Common normals: no clubbing, cyanosis or edema Other: Right arm in sling. Right LE, rotated inward, shortened. Neuro Common normals: oriented x3, moves all extremities and no focal motor deficits Psych Common normals: mental status grossly normal, denies hallucinations, denies homicidal ideation and denies suicidal ideation Results Labs Labs: Short CBC 05/19/24 05/20/24 Range/Units 19:25 05:05 WBC 10.3 12.2 H (4.0-11.0) 10^3/uL Hgb 12.7 12.2 (12.0-16.0) g/dL Hct 37.4 36.3 (36.0-48.0) % Plt Count 217 181 (150-450) 10^3/uL BMP 05/19/24 05/20/24 19:25 05:05 Sodium 139 141 Potassium 3.9 4.1 Chloride 105 106 Carbon Dioxide 26.0 25.4 BUN 25.0 H 16.0 Creatinine 1.00 1.01 Glucose 135 H 218 H Calcium 8.4 L 8.1 L Liver Function 05/19/24 05/20/24 Range/Units 19:25 05:05 Total Bilirubin 0.3 0.4 (0.2-1.0) mg/dL AST 16 14 L (15-37) U/L ALT 17 22 (14-59) U/L Alkaline Phosphatase 66 60 (46-116) U/L Albumin 3.3 L 3.2 L (3.4-5.0) g/dL Urine 05/19/24 Range/Units 21:30 Urine Color Lt. yellow (YELLOW) Urine Clarity Clear (CLEAR) Urine pH 7.0 (5.0-9.0) Ur Specific [place] 1.015 (1.005-1.025) Urine Protein Negative (NEG/TRACE) mg/dL Urine Glucose (UA) 100 A (NEGATIVE) mg/dL Assessment and Plan Assessment and Plan (1) Fracture of hip, right, closed: Assessment and Plan: Orthopedic consult. Pain Control. Scheduled for OR today. Qualifiers: Encounter type: subsequent encounter Fracture healing: with nonunion Qualified Code(s): S72.001K - Fracture of unspecified part of neck of right femur, subsequent encounter for closed fracture with nonunion (2) Fracture of proximal humerus: Assessment and Plan: Pain control. Keep in arm sling. Unsure if its surgical or non surgical, await orthopedic consult. Qualifiers: Encounter type: subsequent encounter Fracture type: closed Fracture morphology: unspecified fracture morphology Laterality: right Fracture healing: with nonunion Qualified Code(s): S42.201K - Unspecified fracture of upper end of right humerus, subsequent encounter for fracture with nonunion (3) Fall: Assessment and Plan: Due to poor functional status, vertigo. PT/OT eval Qualifiers: Encounter type: subsequent encounter Qualified Code(s): W19.XXXD - Unspecified fall, subsequent encounter (4) Frequent falls: Assessment and Plan: PT/OT eval (5) Vertigo: Assessment and Plan: Meclizine as needed (6) Hypothyroidism: Assessment and Plan: C/w levothyroxine Qualifiers: Hypothyroidism type: unspecified Qualified Code(s): E03.9 - Hypothyroidism, unspecified (7) COPD (chronic obstructive pulmonary disease): Assessment and Plan: Albuterol as needed Qualifiers: COPD type: unspecified COPD Qualified Code(s): J44.9 - Chronic obstructive pulmonary disease, unspecified Urinary Catheter Management Urinary Catheter Management 2-way Urethral: Cath placed during this visit: no
--- NOTE | 2024-05-20 10:19 | CM.NOTE ---
Rounds made with Dr. Cortes. Plan for surgery today around 1600. Dr. Cortes answers all questions.
--- NOTE | 2024-05-20 10:32 | NUTR.NU ---
Dietary consult completed this date. 79 y o female admitted with Dx R shoulder humeral fracture an R hip fracture NPO this date R/T orthopedic surgery Other dx include vertigo HTN hypothyroid anxiety COPD ht 63 wt 60.5kg BMI 23.6wnl Stella has poor functional status at baseline and limited mobility. Labs reviewed serum albumin 3.2 low; glucose 218 H; GFR 53 L Risk of malnutrition R/T fall with fractures NPO status; surgery. Recommend Ensure 1 container bid po and prostat @ 30 ml po bid when Stella is permitted to eat. Will continue to monitor and f/u
--- NOTE | 2024-05-20 12:14 | SWNOTE1 ---
Important Message from Medicare reviewed and discussed with patient and pt's . Pt. and pt's verbalized understanding and pt's signed the form. Original given to patient's and copy placed in patient?s chart.
--- NOTE | 2024-05-20 12:15 | SWNOTE1 ---
SW met with pt to discuss dc needs. Pt's in room as well. He stated she was doing alright at home, but then the vertigo started so that was causing issues. He pt was at the [facility] and went home and Home health was coming in. Pt then had cateracts and then vertigo so they had to stop the therapy. At this time pt and in agreement that pt will need SNF to regain strength. Pt is going to the OR today at 4:00. Pt and in agreement for pt to go to [facility] at discharge. SW explained that pt is a precert and due to her surgery being later, the precert likely won't be started until tomorrow morning. They voiced understanding. SW to reach out to [facility] to see if they have openings. ALBERTO reached out to Oleg and she is alright with SW sending over referral and they will review. Referral sent to [facility] . Referral included face sheet, ED note, H&P, provider notes, case management report, nursing notes, diagnostic imaging, and med list. ALBERTO will send ortho notes and therapy notes once surgery is complete.
[2024-05-20] MEDS: LACTATED RINGER'S SOLUTION 1,000 ML 50 ML IV ×3 (13:37→20:34)
[2024-05-20] MEDS: CEFAZOLIN SODIUM/DEXTROSE,ISO 2 GM/50 ML PIGGYBACK IV (14:15)
--- NOTE | 2024-05-20 14:16 | PM.ORCN ---
History of Present Illness HPI Consult date: 05/20/24 Consult reason: fracture Chief complaint: FALL - RT HIP AND HUMERUS FRACTURE Narrative: Patient is an 79-year-old with a history of vertigo is a limited household ambulator with a walker due to this vertigo. She lost her balance yesterday while feeling dizzy fell injuring her right shoulder and right hip. She presented to the emergency room where x-rays revealed a right femoral neck fracture and a right proximal humerus fracture. Patient is being admitted for operative treatment of her injuries. She denies having pain elsewhere. Review of Systems ROS Status of ROS 10 or more systems reviewed and unremarkable except as noted in history and below [facility] Medical History (Updated 05/20/24 @ 09:49 by Shaikh Sebastian MD) Hypertension ?I10 - Essential (primary) hypertension (ICD-10) Frequent falls ?R29.6 - Repeated falls (ICD-10) Vertigo ?R42 - Dizziness and giddiness (ICD-10) Hypothyroidism ?E03.9 - Hypothyroidism, unspecified (ICD-10) Anxiety ?F41.9 - Anxiety disorder, unspecified (ICD-10) COPD (chronic obstructive pulmonary disease) ?J44.9 - Chronic obstructive pulmonary disease, unspecified (ICD-10) Surgical History History of cataract surgery ?Z98.49 - Cataract extraction status, unspecified eye (ICD-10) H/O removal of cyst ?Z98.890 - Other specified postprocedural states (ICD-10) Hx of tubal ligation ?Z98.51 - Tubal ligation status (ICD-10) H/O partial thyroidectomy ?E89.0 - Postprocedural hypothyroidism (ICD-10) History of hip replacement, total ?Z96.649 - Presence of unspecified artificial hip joint (ICD-10) History of cholecystectomy ?Z90.49 - Acquired absence of other specified parts of digestive tract (ICD-10) Family History Brother Family history of myocardial infarction Sister No problems noted. Mother Family history of cancer Aunt Family history of cancer Daughter Family history of hypertension Social History (Updated 02/18/24 @ 10:20 by Halle Owen RN) Within the past year, how often did you have a drink containing alcohol: never Score interpretation: A score less than 3 is consistent with normal alcohol consumption. Smoking status: Current every day smoker Second hand tobacco smoke exposure: No Non-prescribed substance use: denies use Previous occupational history: retired Highest level of school completed/degree received: high school graduate Are you now , , , , never or living with a partner: Little interest or pleasure in doing things: not at all Feeling down, depressed, or hopeless: not at all Life stressor details: Scared to leave the house Do you think of yourself as: straight/heterosexual Gender Identity: female Meds Home Medications and Allergies Home Medications ?Medication ?Instructions ?Recorded ?Confirmed ?Type albuterol sulfate 90 mcg/actuation 2 puff inhalation Q4H PRN 06/19/23 05/19/24 History aerosol inhaler shortness of breath or wheezing levothyroxine 50 mcg tablet 50 mcg PO DAILY 06/19/23 05/19/24 History clonazepam 0.5 mg tablet 0.5 mg PO Q12H 05/19/24 05/19/24 History escitalopram oxalate 5 mg tablet 5 mg PO DAILY 05/19/24 05/19/24 History meclizine 12.5 mg tablet 12.5 mg PO QID PRN dizziness 05/19/24 05/20/24 History Allergies Allergy/AdvReac Type Severity Reaction Status Date / Time No Known Drug Allergies Allergy Verified 05/19/24 19:29 Exam Narrative Exam Narrative: Exam today right shoulder is moderately swollen with ecchymosis. Sensation is intact over the lateral deltoid region and in her hand. She is able to wiggle her fingers and has a palpable radial pulse. Right hip reveals skin is intact. Palpable dorsalis pedis pulse with sensation intact to light touch. She is able to wiggle her toes. No knee or ankle tenderness on the right. Hip has pain with any attempts at range of motion. Left lower extremity is nontender to palpation. Left upper extremity has no pain with range of motion. Constitutional Vital Signs, click to edit/add: Last Vital Signs Temp 98.0 F 05/20/24 08:00 Pulse 86 05/20/24 08:00 Resp 18 05/20/24 08:00 BP 154/77 H 05/20/24 08:00 Pulse Ox 95 12/05/24 11:43 O2 Del Method Nasal Cannula 05/20/24 11:43 O2 Flow Rate 2 05/20/24 11:43 Results Labs Labs: Abnormal lab results 05/19/24 05/19/24 05/20/24 Range/Units 19:25 21:30 05:05 WBC 12.2 H (4.0-11.0) 10^3/uL RBC 3.96 L 3.85 L (4.20-5.40) 10^6/uL MPV 9.4 L (9.5-13.5) fL Neut % (Auto) 89.4 H (43.0-75.0) % Lymph % (Auto) 5.9 L (20.5-60.0) % Eos % (Auto) 0.0 L (0.9-7.0) % Neut # (Auto) 11.0 H (1.4-6.5) 10^3/uL Lymph # (Auto) 0.7 L (1.2-3.8) 10^3/uL Abs Immat Gran (auto) 0.07 H 0.04 H (0.00-0.03) 10^3/uL Imm/Tot Granulo (auto) 0.7 H (0.0-0.5) % BUN 25.0 H (7.0-18.0) mg/dL Est GFR (Non-Af Amer) 53 L 53 L (>=60 mL/min/1.73m^2) Glucose 135 H 218 H (74-106) mg/dL Calcium 8.4 L 8.1 L (8.5-10.1) mg/dL AST 14 L (15-37) U/L Albumin 3.3 L 3.2 L (3.4-5.0) g/dL Urine Glucose (UA) 100 A (NEGATIVE) mg/dL Ur Leukocyte Esterase Trace A (NEGATIVE) Urine WBC 2-5 A (NONE SEEN) #/HPF Ur Transition Epith Cell Few A (NONE SEEN) #/LPF H & H 05/19/24 05/20/24 Range/Units 19:25 05:05 Hgb 12.7 12.2 (12.0-16.0) g/dL Hct 37.4 36.3 (36.0-48.0) % All other labs normal. Diagnostic results Shoulder x-ray: image reviewed (Right proximal humerus fracture with mild translation) Hip x-ray: image reviewed (Displaced right femoral neck fracture) Assessment and Plan Assessment and Plan (1) Fracture of hip, right, closed: Qualifiers: Encounter type: subsequent encounter Fracture healing: with nonunion Qualified Code(s): S72.001K - Fracture of unspecified part of neck of right femur, subsequent encounter for closed fracture with nonunion (2) Fracture of proximal humerus: Qualifiers: Encounter type: subsequent encounter Fracture healing: with nonunion Fracture morphology: unspecified fracture morphology Fracture type: closed Laterality: right Qualified Code(s): S42.201K - Unspecified fracture of upper end of right humerus, subsequent encounter for fracture with nonunion (3) Fall: Qualifiers: Encounter type: subsequent encounter Qualified Code(s): W19.XXXD - Unspecified fall, subsequent encounter (4) Frequent falls: (5) Vertigo: (6) Hypothyroidism: Qualifiers: Hypothyroidism type: unspecified Qualified Code(s): E03.9 - Hypothyroidism, unspecified (7) COPD (chronic obstructive pulmonary disease): Qualifiers: COPD type: unspecified COPD Qualified Code(s): J44.9 - Chronic obstructive pulmonary disease, unspecified Plan I have discussed the injuries with the patient and her . For her proximal humerus fracture we will treat this nonoperatively in a sling. She needs to be nonweightbearing through that right upper extremity. For her right femoral neck fracture I recommended a right hip hemiarthroplasty. I have discussed risks of the procedure including but not limited to risk of heart attack, pneumonia, stroke, need for additional surgery, chronic pain and loss of life. We have also discussed the benefits of proceeding with the procedure. They understand and have elected to proceed.
--- NOTE | 2024-05-20 14:21 | P.ORPRC_ITS ---
Procedure Note Date of procedure: 05/20/24 Pre-op diagnosis: Right femoral neck fracture Post-op diagnosis: same as pre-op Procedure: Proceed: Right hip hemiarthroplasty Detailed description of procedure: After informed consent was obtained the patient was brought to the operating room general anesthetic was administered. Placed was placed in the lateral decubitus position with special consideration taken to a right proximal humerus fracture. The right leg was prepped and draped in usual sterile fashion. 14 cm curvilinear incision was made for a posterior approach to the hip. Fascia was incised in line with the incision. Short external rotators were incised off the greater trochanter and tagged for later repair. Capsule was incised. Revision osteotomy was performed using the osteotomy cutting guide and sagittal saw. Femoral head was removed and sized to 46 millimeters. Attention was next turned to preparation of the femoral canal. Box osteotome was used followed by a lateralizing reamer and a canal finder. Sequential broaching was next pe rformed to size 11 for the Em/Biomet echo hip fracture unipolar hemiarthroplasty system. Trial neck lengths and 46 millimeter endo head were reduced and ultimately final sizes were 9 stem, +6 neck, 46 mm head. Trial components were removed. Final components were brought up to the table and cement was prepared in standard fashion. The canal was brushed, irrigated and dried. Distal Cristina plug was placed. Cement was placed using thumb pressurization. Final size 9 stem was placed and held into position till cement hardened. +6 neck and 46 mm head were placed. Hip was reduced and placed through range of motion and found to be stable and appropriate length. Wounds were irrigated. Capsule was repaired with a #2 FiberWire suture. Short external rotators were repaired through drill holes with sutures tied over the greater trochanter bony bridge. Fascia was closed with #2 FiberWire. Skin was closed in standard fashion in layers. Sterile dressing was placed. Hip abduction pillow was placed. Patient was awakened and brought to the recovery room in stable condition. There were no intraoperative or immediate postoperative complications. Anesthesia: GETA Surgeon: Cristobal Chavez Estimated blood loss (mL): 150 Urine output (mL): 300 Pathology: none sent Condition: stable Disposition: PACU
[2024-05-20] MEDS: LIDOCAINE HCL 1%-EPINEPHRINE 1:100,000 20 ML MDV 10 ML INJ (16:11)
[2024-05-20] MEDS: BUPIVACAINE HCL 0.5% PF 50 MG/10 ML VIAL 20 ML INJ (16:11)
--- NOTE | 2024-05-20 16:22 | SWNOTE1 ---
[facility] is able to accept and will start precert once they have PT/OT notes.
--- NOTE | 2024-05-20 16:30 | XR_ITS ---
The [address] [address] Patient Name: TRACY GREEN MRN: [id number] date: 1945 Sex: F Assigned Patient Location: [place] Current Patient Location: [place] Accession/Order Number: [id number] Exam Date: 05/20/2024 16:45 Report Date: 05/20/2024 18:12 At the request of: LEANDRO GARCIA Procedure: XR hip RT min 2V EXAMINATION: XR hip RT min 2V, , 05/20/2024 4:45 PM EST INDICATION: s/p hip hemiarthroplasty HISTORY: Ordering Provider Reason for Exam: s/p hip hemiarthroplasty Technologist Note: Additional: COMPARISON: None. TECHNIQUE: Right hip x-ray: 2 view(s). FINDINGS: Patient is post right hip arthroplasty with intact hardware in normal alignment. No significant periprosthetic lucency is seen. Soft tissue gas is seen about the right hip. Skin dominga are also seen about the lateral right hip. XR/XR hip RT min 2V IMPRESSION: Post right hip arthroplasty with immediate postoperative changes. Electronically authenticated by: YANE PEREZ Date: 05/20/2024 18:12
--- NOTE | 2024-05-20 17:31 | PC.NURSE ---
Patient bringing up thick sputum when coached to cough. Dr. Hammond also giving Labetalol for elevated BP.
[2024-05-20] MEDS: CEFAZOLIN SODIUM 2 GM/50 ML D5W PREMIX IV (23:04)
[2024-05-21] VITALS (11 sets, daily range): BP systolic 107–156; BP diastolic 60–77; PULSE 77–93; TEMP 36.4–38.1; O2SAT 89–97
[2024-05-21] MEDS: CEFAZOLIN SODIUM 2 GM/50 ML D5W PREMIX IV ×2 (05:35→13:42)
[2024-05-21 08:05] LABS: Basophils Percent Auto 0.3 % (0.2-2.0); Eosinophils Absolute Auto 0.1 10^3/uL (0.0-0.7); Eosinophils Percent Auto 0.5 % (0.9-7.0); Hematocrit 27.5 % (36.0-48.0); Hemoglobin 9.2 g/dL (12.0-16.0); Immature Granulocytes Abs Auto 0.02 10^3/uL (0.00-0.03); Immature Granulocytes Pct Auto 0.2 % (0.0-0.5); Lymphocytes Absolute Auto 1.3 10^3/uL (1.2-3.8); Lymphocytes Percent Auto 14.1 % (20.5-60.0); Mean Corpuscular HGB Conc 33.5 g/dL (29.9-35.2); Mean Corpuscular Hemoglobin 32.1 pg (26.7-34.0); Mean Corpuscular Volume 95.8 fL (81.0-99.0); Mean Platelet Volume 10.2 fL (9.5-13.5); Monocytes Absolute Auto 0.5 10^3/uL (0.3-0.8); Monocytes Percent Auto 5.3 % (1.7-12.0); Neutrophils Absolute Auto 7.4 10^3/uL (1.4-6.5); Neutrophils Percent Auto 79.6 % (43.0-75.0); Platelet Count 110 10^3/uL (150-450); Red Blood Count 2.87 10^6/uL (4.20-5.40); Red Cell Distribution Width 12.2 % (11.0-15.0); White Blood Count 9.2 10^3/uL (4.0-11.0)
[2024-05-21 08:12] LABS: Alanine Aminotransferase 30 U/L (14-59); Albumin Globulin Ratio 0.8; Albumin Level 2.2 g/dL (3.4-5.0); Alkaline Phosphatase 49 U/L (46-116); Anion Gap 6.9; Aspartate Amino Transferase 28 U/L (15-37); BUN Creatinine Ratio 12.5; Bilirubin Total 0.3 mg/dL (0.2-1.0); Calcium 7.8 mg/dL (8.5-10.1); Chloride 107 mmol/L (98-107); Estimated GFR (African America >60 (>=60 mL/min/1.73m^2); Estimated GFR (Non-African Ame 56 (>=60 mL/min/1.73m^2); Globulin 2.7 g/dL; Glucose 98 mg/dL (74-106); Potassium 3.9 mmol/L (3.5-5.1); Sodium 140 mmol/L (136-145); Total Protein 4.9 g/dL (6.4-8.2)
--- NOTE | 2024-05-21 08:14 | PM.ORPN ---
Progress Note: A&P Assessment and Plan (1) Fracture of hip, right, closed: Assessment and Plan: POD #1 right hip hemiarthroplasty -WBAT -DVT prophylaxis -Abduction pillow x 6 weeks -PT evaluation -Pain control per hospitalist -Patient can discharge from hospital if pain is controlled, follow-up with Dr. Chavez in 3 weeks for staple removal and x-ray. Qualifiers: Encounter type: subsequent encounter Fracture healing: with nonunion Qualified Code(s): S72.001K - Fracture of unspecified part of neck of right femur, subsequent encounter for closed fracture with nonunion (2) Fracture of proximal humerus: Assessment and Plan: Right proximal humerus fracture -NWB through right upper extremity, sling x 6 weeks, can work on elbow ROM a few times a day as tolerated. -Nonoperative management -Pain control -Follow-up in 3 weeks as above. Plan discussed with my supervising physician, Dr. Chavez. Qualifiers: Encounter type: subsequent encounter Fracture healing: with nonunion Fracture morphology: unspecified fracture morphology Fracture type: closed Laterality: right Qualified Code(s): S42.201K - Unspecified fracture of upper end of right humerus, subsequent encounter for fracture with nonunion (3) Fall: Qualifiers: Encounter type: subsequent encounter Qualified Code(s): W19.XXXD - Unspecified fall, subsequent encounter (4) Frequent falls: (5) Vertigo: (6) Hypothyroidism: Qualifiers: Hypothyroidism type: unspecified Qualified Code(s): E03.9 - Hypothyroidism, unspecified (7) COPD (chronic obstructive pulmonary disease): Qualifiers: COPD type: unspecified COPD Qualified Code(s): J44.9 - Chronic obstructive pulmonary disease, unspecified Subjective Subjective Principal diagnosis: Right Humerus and Femur Fracture Interval history: Patient is a POD #1 right hip hemiarthroplasty and doing well. She also has a right proximal humerus fracture and is in the sling. She states that her pain is an 8 out of 10, but is laying comfortably in the hospital bed in no distress. Patient denies any paresthesias to her upper or lower extremities. Exam Narrative Exam Narrative: On exam patient is laying in the hospital bed in no distress, eyes open upon my arrival, alert and oriented x 3. On inspection of the right shoulder there is anterior ecchymosis, patient is in a sling, 5/5 quality assurance supervisor trim strength bilaterally. 2+ radial pulses palpated. Bilateral upper extremities with sensation intact to light touch distally. On inspection of the right hip the dressing is clean/dry/intact, thigh is soft and compressible. Abduction pillow in place. 5/5 dorsiflexion/plantarflexion bilaterally. 2+ DP pulses palpated. Sensation intact distally with light touch. Constitutional Vital Signs, click to edit/add: Last Vital Signs Temp 98.1 F 05/21/24 04:00 Pulse 77 05/21/24 04:00 Resp 20 05/21/24 04:00 BP 107/60 05/21/24 04:00 Pulse Ox 97 05/21/24 04:30 O2 Del Method Nasal Cannula 05/21/24 04:30 O2 Flow Rate 5 05/21/24 04:30 Urinary Catheter Management Urinary Catheter Management 2-way Urethral: Cath placed during this visit: no Urethral: Cath placed during this visit: no
[2024-05-21] MEDS: ESCITALOPRAM 10 MG TABLET 5 MG PO (08:36)
[2024-05-21] MEDS: OXYCODONE HCL/ACETAMINOPHEN 5MG/325MG 2 TAB PO ×2 (09:25→15:18)
--- NOTE | 2024-05-21 09:33 | SWNOTE1 ---
Therapy will be working with pt around 10:00. SW to send evals once complete.
--- NOTE | 2024-05-21 10:14 | P.IMPN_ITS ---
Progress Note: A&P Assessment and Plan (1) Fracture of hip, right, closed: Assessment and Plan: s/p hemiarthroplasty. PT/OT eval. Pain control. Precert started for rehab placement. Qualifiers: Encounter type: subsequent encounter Fracture healing: with nonunion Qualified Code(s): S72.001K - Fracture of unspecified part of neck of right femu r, subsequent encounter for closed fracture with nonunion (2) Fracture of proximal humerus: Assessment and Plan: NWB, sling x 6 weeks. Pain control. PT/OT eval. Outpatient f/u with Orthopedics. Qualifiers: Encounter type: subsequent encounter Fracture healing: with nonunion Fracture morphology: unspecified fracture morphology Fracture type: closed La terality: right Qualified Code(s): S42.201K - Unspecified fracture of upper end of right humerus, subsequent encounter for fracture with nonunion (3) Fall: Assessment and Plan: Working with PT/OT, awaiting precert for rehab Qualifiers: Encounter type: subsequent encounter Qualified Code(s): W19.XXXD - Unspecified fall, subsequent encounter (4) Frequent falls: Assessment and Plan: Working with PT/OT, awaiting precert for rehab (5) Vertigo: Assessment and Plan: Meclizine as needed (6) Hypothyroidism: Assessment and Plan: C/w levothyroxine Qualifiers: Hypothyroidism type: unspecified Qualified Code(s): E03.9 - Hypothyroidism, unspecified (7) COPD (chronic obstructive pulmonary disease): Assessment and Plan: No wheezing or evidence of bronchospasm Qualifiers: COPD type: unspecified COPD Qualified Code(s): J44.9 - Chronic obstructive pulmonary disease, unspecified (8) Postoperative anemia: Assessment and Plan: Post op anemia noted. Monitor H&H. (9) Postoperative hypoxia: Assessment and Plan: Post op hypoxia, 2 L. no resp complaints. OPEP ordered. Wean off 2 as tolerated. (10) Postoperative fever: Assessment and Plan: Monitor closely. Likely non infectious and due to anesthesia, post op inflammatory reaction/ atelectasis. OPEP ordered. Monitor. Hold off abx. Internal Medicine - PN: Subj Subjective Interval history: Seen and examined. Reports poorly controlled pain s/p right hip rené arthroplasty. Mild post op hypoxia, low grade fever noted. Exam Constitutional Vital Signs, click to edit/add: Last Vital Signs Temp 100.5 F H 05/21/24 08:50 Pulse 85 05/21/24 08:50 Resp 18 05/21/24 08:50 BP 124/74 05/21/24 08:50 Pulse Ox 91 L 05/21/24 09:34 O2 Del Method Nasal Cannula 05/21/24 09:34 O2 Flow Rate 4 05/21/24 08:50 Documenting provider has reviewed patient's vital signs: yes Common normals: no apparent distress and oriented x3 General appearance: cooperative and frail appearing Respiratory Common normals: normal respiratory effort and clear to auscultation bilaterally Effort & inspection: able to speak in complete sentences Auscultation: clear to auscultation bilaterally Cardio Common normals: regular rate, S1 normal heart sound and S2 normal heart sound Rate: regular rate Heart sounds: S1 normal and S2 normal Extremity Common normals: no clubbing, cyanosis or edema Other: Right arm in sling. Neuro Common normals: oriented x3, moves all extremities and no focal motor deficits Psych Common normals: mental status grossly normal, denies hallucinations, denies homicidal ideation and denies suicidal ideation Internal Medicine - PN: Obj Da Labs Labs: Laboratory Results - last 24 hr 05/21/24 07:01 WBC 9.2 RBC 2.87 L Hgb 9.2 L Hct 27.5 L MCV 95.8 MCH 32.1 MCHC 33.5 RDW 12.2 Plt Count 110 L MPV 10.2 Neut % (Auto) 79.6 H Lymph % (Auto) 14.1 L [place] % (Auto) 5.3 Eos % (Auto) 0.5 L Baso % (Auto) 0.3 Neut # (Auto) 7.4 H Lymph # (Auto) 1.3 [place] # (Auto) 0.5 Eos # (Auto) 0.1 Baso # (Auto) 0.0 Abs Immat Gran (auto) 0.02 Imm/Tot Granulo (auto) 0.2 Sodium 140 Potassium 3.9 Chloride 107 Carbon Dioxide 30.0 Anion Gap 6.9 BUN 12.0 Creatinine 0.96 Est GFR ( Amer) >60 Est GFR (Non-Af Amer) 56 L BUN/Creatinine Ratio 12.5 Glucose 98 Calcium 7.8 L Total Bilirubin 0.3 AST 28 ALT 30 Alkaline Phosphatase 49 Total Protein 4.9 L Albumin 2.2 L Globulin 2.7 Albumin/Globulin Ratio 0.8 Urinary Catheter Management Urinary Catheter Management 2-way Urethral: Cath placed during this visit: no Urethral: Cath placed during this visit: no
--- NOTE | 2024-05-21 10:28 | CM.NOTE ---
Rounds made with Dr. Cortes, pt will transfer to [facility] when medically stable.
--- NOTE | 2024-05-21 11:34 | SWNOTE1 ---
ALBERTO faxed PT note, physician note, ortho note and procedure note, labs, vitals, and nursing notes to [facility] for precert to be started.
--- NOTE | 2024-05-21 11:39 | SWNOTE1 ---
ALBERTO sent OT note over to [facility] as well for precert. Precert started.
[2024-05-21] MEDS: DOCUSATE SODIUM 100 MG CAPSULE 200 MG PO (15:18)
[2024-05-21] MEDS: IPRATROPIUM/ALBUTEROL SULFATE 3 ML AMPUL.NEB IH (15:35)
--- NOTE | 2024-05-21 15:55 | SWNOTE1 ---
ALBERTO completed HENS. ALBERTO also spoke to pt's daugher and son in law in room. They were asking about penitentiary care. 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
--- NOTE | 2024-05-21 16:39 | RESP.RT ---
Pt would take only about 2 minutes of the treatment and then refused to continue. She states she hates the way they make her feel all nervous .
[2024-05-21] MEDS: MORPHINE SULFATE 2 MG/ML SYRINGE IV ×2 (17:30→21:39)
--- NOTE | 2024-05-21 20:17 | RESP.RT ---
Patient states she does not like the way they make her feel says they make her feel anxious
--- NOTE | 2024-05-21 20:19 | RESP.RT ---
Titrated to 1 lpm
[2024-05-22] VITALS (8 sets, daily range): BP systolic 131–158; BP diastolic 76–91; PULSE 89–95; TEMP 36.6–37.2; O2SAT 90–96
[2024-05-22] MEDS: TEMAZEPAM 15 MG CAPSULE PO ×2 (00:19→19:51)
--- NOTE | 2024-05-22 07:04 | XR_ITS ---
The [address] [address] Patient Name: TRACY GREEN MRN: [id number] date: 1945 Sex: F Assigned Patient Location: Current Patient Location: Accession/Order Number: [id number] Exam Date: 05/22/2024 07:30 Report Date: 05/22/2024 08:23 At the request of: KARLOS BACH Procedure: XR chest 1V EXAM: XR chest 1V , 05/22/2024 HISTORY: acute hypoxia COMPARISON: Previous x-ray from 05/19/2024. TECHNIQUE: X-ray of the chest, portable upright AP view. FINDINGS: Mild enlargement of the cardiac silhouette. Mild atherosclerotic calcification of the aortic arch. Lungs and costophrenic angles are clear. Impacted fracture of the right proximal humerus again noted. XR/XR chest 1V IMPRESSION: No acute cardiopulmonary findings. Mild cardiac enlargement. Electronically authenticated by: MEMO HAMMOND Date: 05/22/2024 08:23
--- NOTE | 2024-05-22 07:06 | P.PN_ITS ---
Progress Note: Subjective Subjective Interval history: No new complaints today, states pain well-controlled, denies shortness of breath Exam Constitutional Vital Signs, click to edit/add: Last Vital Signs Temp 98.5 F 05/22/24 05:00 Pulse 95 H 05/22/24 05:00 Resp 18 05/22/24 05:00 BP 158/88 H 05/22/24 05:00 Pulse Ox 90 L 05/22/24 05:00 O2 Del Method Nasal Cannula 05/22/24 05:00 O2 Flow Rate 2 05/22/24 05:00 Documenting provider has reviewed patient's vital signs: yes Common normals: no apparent distress Chest Common normals: inspection of chest normal Respiratory Common normals: normal respiratory effort, no retractions and no use of accessory muscles Cardio Common normals: regular rate and regular rhythm GI Common normals: Normal to inspection, nondistended, normoactive bowel sounds present and soft to palpation Progress Note: Objective Labs Labs: Short CBC 05/21/24 Range/Units 07:01 WBC 9.2 (4.0-11.0) 10^3/uL Hgb 9.2 L (12.0-16.0) g/dL Hct 27.5 L (36.0-48.0) % Plt Count 110 L (150-450) 10^3/uL BMP 05/21/24 07:01 Sodium 140 Potassium 3.9 Chloride 107 Carbon Dioxide 30.0 BUN 12.0 Creatinine 0.96 Glucose 98 Calcium 7.8 L Liver Function 05/21/24 Range/Units 07:01 Total Bilirubin 0.3 (0.2-1.0) mg/dL AST 28 (15-37) U/L ALT 30 (14-59) U/L Alkaline Phosphatase 49 (46-116) U/L Albumin 2.2 L (3.4-5.0) g/dL Progress Note: A&P Assessment and Plan (1) Fracture of hip, right, closed: Qualifiers: Encounter type: subsequent encounter Fracture healing: with nonunion Qualified Code(s): S72.001K - Fracture of unspecified part of neck of right femur, subsequent encounter for closed fracture with nonunion (2) Fracture of proximal humerus: Qualifiers: Encounter type: subsequent encounter Fracture healing: with nonunion Fracture morphology: unspecified fracture morphology Fracture type: closed Laterality: right Qualified Code(s): S42.201K - Unspecified fracture of upper end of right humerus, subsequent encounter for fracture with nonunion (3) Fall: Qualifiers: Encounter type: subsequent encounter Qualified Code(s): W19.XXXD - Unspecified fall, subsequent encounter (4) Frequent falls: (5) Vertigo: (6) Hypothyroidism: Qualifiers: Hypothyroidism type: unspecified Qualified Code(s): E03.9 - Hypothyroidism, unspecified (7) COPD (chronic obstructive pulmonary disease): Qualifiers: COPD type: unspecified COPD Qualified Code(s): J44.9 - Chronic obstructive pulmonary disease, unspecified (8) Postoperative anemia: (9) Postoperative hypoxia: (10) Postoperative fever: Plan Admission findings: Status post fall with right hip fracture and proximal humerus fracture. Sinus tachycardia, leukocytosis Facture of hip, right, closed: s/p hemiarthroplasty. Plan per orthopedics Fracture of proximal humerus: sling x 6 weeks. Plan per orthopedics Frequent falls: PT and OT to evaluate-patient in need of rehab Vertigo: Currently resolved Hypothyroidism: Continue with home medications COPD (chronic obstructive pulmonary disease): Continue with current treatment plan, try to wean supplemental oxygen Postoperative anemia: Check on CBC later today Postoperative hypoxia: Encouraged OPEP and try to wean supplemental oxygen Postoperative fever: No further spikes in temperature, still possibly related to postop inflammation. No new symptoms. Repeat UA Admission status: Patient with a fall with multiple fractures, mild postop fever and postop anemia with mild postoperative hypoxia, medically necessary treatment will span 2 midnights. Inpatient status. Urinary Catheter Management Urinary Catheter Management 2-way Urethral: Cath placed during this visit: no Urethral: Cath placed during this visit: no
[2024-05-22] MEDS: ENSURE ORIGINAL 237 ML BOTTLE PO ×2 (08:42→19:51)
[2024-05-22] MEDS: ESCITALOPRAM 10 MG TABLET 5 MG PO (08:42)
[2024-05-22 10:16] LABS: Basophils Absolute Auto 0.1 10^3/uL (0.0-0.1); Basophils Percent Auto 0.5 % (0.2-2.0); Eosinophils Absolute Auto 0.2 10^3/uL (0.0-0.7); Eosinophils Percent Auto 2.1 % (0.9-7.0); Hemoglobin 9.7 g/dL (12.0-16.0); Immature Granulocytes Abs Auto 0.03 10^3/uL (0.00-0.03); Immature Granulocytes Pct Auto 0.3 % (0.0-0.5); Lymphocytes Absolute Auto 0.9 10^3/uL (1.2-3.8); Lymphocytes Percent Auto 9.3 % (20.5-60.0); Mean Corpuscular HGB Conc 34.6 g/dL (29.9-35.2); Mean Corpuscular Hemoglobin 32.6 pg (26.7-34.0); Mean Platelet Volume 10.6 fL (9.5-13.5); Monocytes Absolute Auto 0.6 10^3/uL (0.3-0.8); Neutrophils Absolute Auto 7.9 10^3/uL (1.4-6.5); Neutrophils Percent Auto 81.8 % (43.0-75.0); Platelet Count 117 10^3/uL (150-450); Red Blood Count 2.98 10^6/uL (4.20-5.40); Red Cell Distribution Width 12.2 % (11.0-15.0); White Blood Count 9.7 10^3/uL (4.0-11.0)
[2024-05-22 10:21] LABS: Anion Gap 9.7; BUN Creatinine Ratio 14.1; Calcium 7.9 mg/dL (8.5-10.1); Carbon Dioxide 28.9 mmol/L (21.0-32.0); Chloride 103 mmol/L (98-107); Estimated GFR (African America >60 (>=60 mL/min/1.73m^2); Estimated GFR (Non-African Ame >60 (>=60 mL/min/1.73m^2); Glucose 107 mg/dL (74-106); Potassium 3.6 mmol/L (3.5-5.1); Sodium 138 mmol/L (136-145)
--- NOTE | 2024-05-22 11:13 | PT.DAILY ---
Physical Therapy Daily Note PT Daily Note/Assess Start: 05/22/24 10:54 Freq: Status: Active Protocol: Document 05/22/24 10:54 [id number] (Rec: 05/22/24 11:13 [id number]) Physical Therapy Daily Note/Assessment Time In/Time Out Time In 09:15 Time Out 09:27 Pain In Pain N/A Pain Out Pain N/A Subjective Subjective Patient states she has pain but is unable to provide numerical rating when requested. Patient states she really does not want to get up but will if she can use the BSC. Patient agreeable to participate with PT. Therapeutic Activity Time Therapeutic Activity 17 Minutes (minutes) Therapeutic Activity 1 Units Therapeutic Activity Treatment Bed Mobility Ability Moderate Assist,2 Person Assist Therapeutic Activity ABD pillow removed. Bed mobility: supine to R sitting Comments is MOD to MAX A +2, VC's to participate to move LE, initiates movement to L LE and no initiation of movement to R LE. Patient with posterior lean to the right and grasps tightly with L hand on bedding. VC's to correct sitting posture with MIN A. Transfer: with gait belt, STS to rené walker on L, is MAX A +1 & MOD A +1. VC's to lean forward as patient is pushing back into posterior lean. Stand pivot transfer to L to BSC: MOD A +2. VC's to shift weight and advance LE, MOD A +1 to weight shift to unload LE for advancement. Patient with considerable difficulty weight shifting. Patient requires MAX for rené walker management. Patient completed 3 small steps to BSC with MAX +1. Patient attempted to toilet without success. Patient able to sit on BSC without posterior leaning or L UE support. STS transfer: MOD A +2 w/ VC's for hand placement on arm rest of BSC and then to rené-walker. STS pivot transfer from BSC to EOB MAX A +2. Patient is able to sit EOB in upright posture without leaning or UE support x 1 minute. Patient is MAX A +2 for sitting to supine and positioning in bed. ABD pillow placed b/w patients leg and secured. Bed rails in place and CBWR. Nursing staff, Kelsey assisted with treatment and then assisted patient with her breakfast. Total Physical Therapy Time Total Therapy 17 Minutes Total Physical 1 Therapy Units Summary Daily Note Summary Patient demonstrates significant functional mobility deficits requiring MOD to MAX. Patients sitting balance did improve after functional mobility of standing and sitting. Patient would benefit from SNF to address functional deficits to regain PLOF.
[2024-05-22] MEDS: OXYCODONE HCL/ACETAMINOPHEN 5MG/325MG 2 TAB PO ×2 (11:57→19:50)
[2024-05-22] MEDS: ALPRAZOLAM 0.5 MG TABLET PO ×2 (11:57→19:50)
[2024-05-23] VITALS (8 sets, daily range): BP systolic 127–157; BP diastolic 77; PULSE 90–105; TEMP 36.7–37.3; O2SAT 87–96
[2024-05-23 06:35] LABS: Basophils Percent Auto 0.5 % (0.2-2.0); Eosinophils Absolute Auto 0.4 10^3/uL (0.0-0.7); Hematocrit 27.2 % (36.0-48.0); Hemoglobin 9.3 g/dL (12.0-16.0); Immature Granulocytes Abs Auto 0.03 10^3/uL (0.00-0.03); Immature Granulocytes Pct Auto 0.4 % (0.0-0.5); Lymphocytes Absolute Auto 1.8 10^3/uL (1.2-3.8); Lymphocytes Percent Auto 23.7 % (20.5-60.0); Mean Corpuscular HGB Conc 34.2 g/dL (29.9-35.2); Mean Corpuscular Hemoglobin 32.1 pg (26.7-34.0); Mean Corpuscular Volume 93.8 fL (81.0-99.0); Mean Platelet Volume 10.4 fL (9.5-13.5); Monocytes Absolute Auto 0.6 10^3/uL (0.3-0.8); Monocytes Percent Auto 7.6 % (1.7-12.0); Neutrophils Absolute Auto 4.6 10^3/uL (1.4-6.5); Neutrophils Percent Auto 62.8 % (43.0-75.0); Platelet Count 122 10^3/uL (150-450); Red Cell Distribution Width 12.2 % (11.0-15.0); White Blood Count 7.4 10^3/uL (4.0-11.0)
[2024-05-23 06:38] LABS: Anion Gap 8.4; BUN Creatinine Ratio 15.9; Calcium 8.1 mg/dL (8.5-10.1); Carbon Dioxide 31.2 mmol/L (21.0-32.0); Chloride 104 mmol/L (98-107); Estimated GFR (African America >60 (>=60 mL/min/1.73m^2); Estimated GFR (Non-African Ame >60 (>=60 mL/min/1.73m^2); Glucose 94 mg/dL (74-106); Potassium 3.6 mmol/L (3.5-5.1); Sodium 140 mmol/L (136-145)
--- NOTE | 2024-05-23 09:00 | P.PN_ITS ---
Progress Note: Subjective Subjective Interval history: No new complaints today, states pain well-controlled, denies shortness of breath Exam Constitutional Vital Signs, click to edit/add: Last Vital Signs Temp 97.8 F 05/22/24 19:39 Pulse 92 H 05/22/24 19:39 Resp 17 05/22/24 20:00 BP 150/91 H 05/22/24 19:39 Pulse Ox 90 L 05/22/24 22:06 O2 Del Method Nasal Cannula 05/22/24 22:06 O2 Flow Rate 1 05/22/24 22:06 Documenting provider has reviewed patient's vital signs: yes Common normals: no apparent distress Chest Common normals: inspection of chest normal Respiratory Common normals: normal respiratory effort, no retractions and no use of accessory muscles Cardio Common normals: regular rate and regular rhythm GI Common normals: Normal to inspection, nondistended, normoactive bowel sounds present and soft to palpation Progress Note: Objective Labs Labs: Short CBC 05/22/24 05/23/24 Range/Units 07:30 05:49 WBC 9.7 7.4 (4.0-11.0) 10^3/uL Hgb 9.7 L 9.3 L (12.0-16.0) g/dL Hct 28.0 L 27.2 L (36.0-48.0) % Plt Count 117 L 122 L (150-450) 10^3/uL BMP 05/22/24 05/23/24 07:30 05:49 Sodium 138 140 Potassium 3.6 3.6 Chloride 103 104 Carbon Dioxide 28.9 31.2 BUN 11.0 13.0 Creatinine 0.78 0.82 Glucose 107 H 94 Calcium 7.9 L 8.1 L Progress Note: A&P Assessment and Plan (1) Fracture of hip, right, closed: Qualifiers: Encounter type: subsequent encounter Fracture healing: with nonunion Qualified Code(s): S72.001K - Fracture of unspecified part of neck of right femur, subsequent encounter for closed fracture with nonunion (2) Fracture of proximal humerus: Qualifiers: Encounter type: subsequent encounter Fracture healing: with nonunion Fracture morphology: unspecified fracture morphology Fracture type: closed Laterality: right Qualified Code(s): S42.201K - Unspecified fracture of upper end of right humerus, subsequent encounter for fracture with nonunion (3) Fall: Qualifiers: Encounter type: subsequent encounter Qualified Code(s): W19.XXXD - Unspecified fall, subsequent encounter (4) Frequent falls: (5) Vertigo: (6) Hypothyroidism: Qualifiers: Hypothyroidism type: unspecified Qualified Code(s): E03.9 - Hypothyroidism, unspecified (7) COPD (chronic obstructive pulmonary disease): Qualifiers: COPD type: unspecified COPD Qualified Code(s): J44.9 - Chronic obstructive pulmonary disease, unspecified (8) Postoperative anemia: (9) Postoperative hypoxia: (10) Postoperative fever: Plan Admission findings: Status post fall with right hip fracture and proximal humerus fracture. Sinus tachycardia, leukocytosis Facture of hip, right, closed: s/p hemiarthroplasty. Plan per orthopedics Fracture of proximal humerus: sling x 6 weeks. Plan per orthopedics Frequent falls: PT and OT to evaluate-patient in need of rehab Vertigo: Currently resolved Hypothyroidism: Continue with home medications COPD (chronic obstructive pulmonary disease): Seems to be improving Acute blood loss anemia secondary to surgery postoperative anemia: Continue to monitor daily Postoperative hypoxia: Overall improving Postoperative fever: No further spikes in temperature, still possibly related to postop inflammation. No new symptoms. Repeat UA Admission status: Patient with a fall with multiple fractures, mild postop fever and postop anemia with mild postoperative hypoxia, medically necessary treatment will span 2 midnights. Inpatient status. Urinary Catheter Management Urinary Catheter Management 2-way Urethral: Cath placed during this visit: no Urethral: Cath placed during this visit: no
[2024-05-23] MEDS: ESCITALOPRAM 10 MG TABLET 5 MG PO (09:13)
[2024-05-23] MEDS: ENSURE ORIGINAL 237 ML BOTTLE PO ×2 (09:13→21:43)
--- NOTE | 2024-05-23 09:14 | PC.NURSE ---
2 max assist to get patient up to [facility]. Patient will not move feet. Total lift to [facility] from [facility]
[2024-05-23] MEDS: DOCUSATE SODIUM 100 MG CAPSULE 200 MG PO (10:36)
[2024-05-23] MEDS: POLYETHYLENE GLYCOL 3350 17 GM POWDER PACKET PO (10:36)
[2024-05-23] MEDS: OXYCODONE HCL/ACETAMINOPHEN 5MG/325MG 2 TAB PO ×2 (11:57→19:22)
[2024-05-23] MEDS: ALPRAZOLAM 0.5 MG TABLET PO (11:57)
[2024-05-23] MEDS: TEMAZEPAM 15 MG CAPSULE PO (23:03)
[2024-05-24] VITALS: BP 128/72; PULSE 85; TEMP 37.3; O2SAT 91
[2024-05-24 04:00] VITALS: BP 109/67; PULSE 74; TEMP 36.9; O2SAT 90
[2024-05-24 05:40] LABS: Basophils Percent Auto 0.4 % (0.2-2.0); Eosinophils Absolute Auto 0.4 10^3/uL (0.0-0.7); Eosinophils Percent Auto 3.8 % (0.9-7.0); Hematocrit 27.6 % (36.0-48.0); Hemoglobin 9.3 g/dL (12.0-16.0); Immature Granulocytes Abs Auto 0.04 10^3/uL (0.00-0.03); Immature Granulocytes Pct Auto 0.4 % (0.0-0.5); Lymphocytes Absolute Auto 2.3 10^3/uL (1.2-3.8); Lymphocytes Percent Auto 23.7 % (20.5-60.0); Mean Corpuscular HGB Conc 33.7 g/dL (29.9-35.2); Mean Corpuscular Hemoglobin 31.7 pg (26.7-34.0); Mean Corpuscular Volume 94.2 fL (81.0-99.0); Mean Platelet Volume 10.2 fL (9.5-13.5); Monocytes Absolute Auto 0.8 10^3/uL (0.3-0.8); Monocytes Percent Auto 8.4 % (1.7-12.0); Neutrophils Absolute Auto 6.1 10^3/uL (1.4-6.5); Neutrophils Percent Auto 63.3 % (43.0-75.0); Platelet Count 157 10^3/uL (150-450); Red Blood Count 2.93 10^6/uL (4.20-5.40); Red Cell Distribution Width 12.2 % (11.0-15.0); White Blood Count 9.6 10^3/uL (4.0-11.0)
[2024-05-24 05:48] LABS: BUN Creatinine Ratio 17.2; Calcium 8.2 mg/dL (8.5-10.1); Carbon Dioxide 30.7 mmol/L (21.0-32.0); Chloride 101 mmol/L (98-107); Estimated GFR (African America >60 (>=60 mL/min/1.73m^2); Estimated GFR (Non-African Ame 58 (>=60 mL/min/1.73m^2); Glucose 97 mg/dL (74-106); Potassium 3.7 mmol/L (3.5-5.1); Sodium 135 mmol/L (136-145)
--- NOTE | 2024-05-24 06:50 | P.PN_ITS ---
Progress Note: Subjective Subjective Interval history: No new complaints today, states pain well-controlled, denies shortness of breath Exam Constitutional Vital Signs, click to edit/add: Last Vital Signs Temp 98.4 F 05/24/24 04:00 Pulse 74 05/24/24 04:00 Resp 18 05/24/24 04:00 BP 109/67 05/24/24 04:00 Pulse Ox 90 L 05/24/24 04:00 O2 Del Method Nasal Cannula 05/24/24 04:00 O2 Flow Rate 1 05/24/24 04:00 Progress Note: Objective Labs Labs: Short CBC 05/24/24 Range/Units 04:50 WBC 9.6 (4.0-11.0) 10^3/uL Hgb 9.3 L (12.0-16.0) g/dL Hct 27.6 L (36.0-48.0) % Plt Count 157 (150-450) 10^3/uL BMP 05/24/24 04:50 Sodium 135 L Potassium 3.7 Chloride 101 Carbon Dioxide 30.7 BUN 16.0 Creatinine 0.93 Glucose 97 Calcium 8.2 L Progress Note: A&P Assessment and Plan (1) Fracture of hip, right, closed: Qualifiers: Encounter type: subsequent encounter Fracture healing: with nonunion Qualified Code(s): S72.001K - Fracture of unspecified part of neck of right fe mur, subsequent encounter for closed fracture with nonunion (2) Fracture of proximal humerus: Qualifiers: Encounter type: subsequent encounter Fracture healing: with nonunion Fracture morphology: unspecified fracture morphology Fracture type: closed Laterality: right Qualified Code(s): S42.201K - Unspecified fracture of upper end of right humerus, subsequent encounter for fracture with nonunion (3) Fall: Qualifiers: Encounter type: subsequent encounter Qualified Code(s): W19.XXXD - Unspecified fall, subsequent encounter (4) Frequent falls: (5) Vertigo: (6) Hypothyroidism: Qualifiers: Hypothyroidism type: unspecified Qualified Code(s): E03.9 - Hypothyroidism, unspecified (7) COPD (chronic obstructive pulmonary disease): Qualifiers: COPD type: unspecified COPD Qualified Code(s): J44.9 - Chronic obstructive pulmonary disease, unspecified (8) Postoperative anemia: (9) Postoperative hypoxia: (10) Postoperative fever: Plan Admission findings: Status post fall with right hip fracture and proximal humerus fracture. Sinus tachycardia, leukocytosis Facture of hip, right, closed: s/p hemiarthroplasty. Plan per orthopedics Fracture of proximal humerus: sling x 6 weeks. Plan per orthopedics Frequent falls: PT and OT to evaluate-patient in need of rehab Vertigo: Currently resolved Hypothyroidism: Continue with home medications COPD (chronic obstructive pulmonary disease): Seems to be improving Acute blood loss anemia secondary to surgery postoperative anemia: Continue to monitor daily Postoperative hypoxia: Overall improving Postoperative fever: No further spikes in temperature, still possibly related to postop inflammation. No new symptoms. Repeat UA Admission status: Patient with a fall with multiple fractures, mild postop fever and postop anemia with mild postoperative hypoxia, medically necessary treatment will span 2 midnights. Inpatient status. Urinary Catheter Management Urinary Catheter Management 2-way Urethral: Cath placed during this visit: no Urethral: Cath placed during this visit: no
[2024-05-24 07:17] VITALS: BP 111/70; PULSE 70; TEMP 36.8; O2SAT 91
--- NOTE | 2024-05-24 08:04 | P.DS_ITS ---
DS: Providers Provider Date of admission: 05/20/24 00:42 Primary care physician: DENTON ASCENCIO Consults: 05/20/24 Consult to Dietitian Routine Reason for consultation: Poor appetite Has provider been notified: No 05/20/24 07:56 Consult to Orthopedics Routine Consulting Provider: Cristobal Chavez Reason for consultation: hip fracture 05/20/24 07:58 Occupational Therapy Eval and Treat Routine Reason for consultation: Hip fracture Physical Therapy Eval and Treat Routine Reason for consultation: Hip fracture DS: Diagnosis Discharge Diagnosis (1) Fracture of hip, right, closed: Qualifiers: Encounter type: subsequent encounter Fracture healing: with nonunion Qualified Code(s): S72.001K - Fracture of unspecified part of neck of right femur, subsequent encounter for closed fracture with nonunion (2) Fracture of proximal humerus: Qualifiers: Encounter type: subsequent encounter Fracture healing: with nonunion Fracture morphology: unspecified fracture morphology Fracture type: closed Laterality: right Qualified Code(s): S42.201K - Unspecified fracture of upper end of right humerus, subsequent encounter for fracture with nonunion (3) Fall: Qualifiers: Encounter type: subsequent encounter Qualified Code(s): W19.XXXD - Unspecified fall, subsequent encounter (4) Frequent falls: (5) Vertigo: (6) Hypothyroidism: Qualifiers: Hypothyroidism type: unspecified Qualified Code(s): E03.9 - Hypothyroidism, unspecified (7) COPD (chronic obstructive pulmonary disease): Qualifiers: COPD type: unspecified COPD Qualified Code(s): J44.9 - Chronic obstructive pulmonary disease, unspecified (8) Postoperative anemia: (9) Postoperative hypoxia: (10) Postoperative fever: Plan Admission findings: Status post fall with right hip fracture and proximal humerus fracture. Sinus tachycardia, leukocytosis Facture of hip, right, closed: s/p hemiarthroplasty. Plan per orthopedics Fracture of proximal humerus: sling x 6 weeks. Plan per orthopedics Frequent falls: PT and OT to evaluate-patient in need of rehab Vertigo: Currently resolved Hypothyroidism: Continue with home medications COPD (chronic obstructive pulmonary disease): Seems to be improving Acute blood loss anemia secondary to surgery postoperative anemia: Continue to monitor daily Postoperative hypoxia: Overall improving Postoperative fever: No further spikes in temperature, still possibly related to postop inflammation. No new symptoms. Repeat UA Admission status: Patient with a fall with multiple fractures, mild postop fever and postop anemia with mild postoperative hypoxia, medically necessary treatment will span 2 midnights. Inpatient status. DS: Summary Hospital Course Hospital Course: Patient was admitted status post fall, had humeral and hip fracture, surgical intervention for the hip was completed, patient has some mild hypoxia postoperatively and seem to be more in acute exacerbation of COPD, no leukocytosis, no sputum production, slowly improving with aerosol treatments, able to wean supplemental oxygen some at this point. At this point she is medically stable for discharge to rehab. Medications see list. Follow-up PCP after discharge from rehab Time Spent with Patient Time attestation: Total time spent providing and/or coordinating discharge services: Exam Constitutional Vital Signs, click to edit/add: Last Vital Signs Temp 98.2 F 05/24/24 07:17 Pulse 70 05/24/24 07:17 Resp 20 05/24/24 07:17 BP 111/70 12/09/24 07:17 Pulse Ox 91 L 05/24/24 07:17 O2 Del Method Room Air 05/24/24 07:17 O2 Flow Rate 1 05/24/24 04:00 Documenting provider has reviewed patient's vital signs: yes Common normals: no apparent distress Chest Common normals: inspection of chest normal Respiratory Common normals: normal respiratory effort, no retractions, no use of accessory muscles and clear to auscultation bilaterally Cardio Common normals: regular rate, regular rhythm and no murmurs GI Common normals: Normal to inspection, nondistended, normoactive bowel sounds present and soft to palpation DS: Data Data Completed and Pending Labs on day of discharge: Labs from last 24 hours 05/24/24 04:50 WBC 9.6 RBC 2.93 L Hgb 9.3 L Hct 27.6 L MCV 94.2 MCH 31.7 MCHC 33.7 RDW 12.2 Plt Count 157 MPV 10.2 Neut % (Auto) 63.3 Lymph % (Auto) 23.7 [place] % (Auto) 8.4 Eos % (Auto) 3.8 Baso % (Auto) 0.4 Neut # (Auto) 6.1 Lymph # (Auto) 2.3 [place] # (Auto) 0.8 Eos # (Auto) 0.4 Baso # (Auto) 0.0 Abs Immat Gran (auto) 0.04 H Imm/Tot Granulo (auto) 0.4 Sodium 135 L Potassium 3.7 Chloride 101 Carbon Dioxide 30.7 Anion Gap 7.0 BUN 16.0 Creatinine 0.93 Est GFR ( Amer) >60 Est GFR (Non-Af Amer) 58 L BUN/Creatinine Ratio 17.2 Glucose 97 Calcium 8.2 L Discharge Plan Discharge Disposition: Xfer SNF Condition: Fair Discharge Medications: New oxycodone-acetaminophen 5-325 mg Tablet 1 tab PO Q6H PRN (Reason: Pain ) Qty: 120 0RF clonazepam 0.5 mg tablet 0.5 mg PO Q8H Qty: 90 0RF Continued albuterol sulfate 90 mcg/actuation HFA aerosol inhaler 2 puff INHALATION Q4H PRN (Reason: shortness of breath or wheezing) levothyroxine 50 mcg tablet 50 mcg PO DAILY escitalopram oxalate 5 mg tablet 5 mg PO DAILY meclizine 12.5 mg tablet 12.5 mg PO QID PRN (Reason: dizziness) Discontinued clonazepam 0.5 mg tablet 0.5 mg PO Q12H Print Language: Greek [employer]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
--- NOTE | 2024-05-24 08:19 | CM.NOTE ---
Rounds made with Dr. Valle, pt will discharge to [facility] for skilled therapy when medically stable.
[2024-05-24] MEDS: ENSURE ORIGINAL 237 ML BOTTLE PO (08:32)
[2024-05-24] MEDS: ESCITALOPRAM 10 MG TABLET 5 MG PO (08:32)
--- NOTE | 2024-05-24 09:25 | SWNOTE1 ---
SW receive a message from Oleg Minaya and pt is approved to go. SW let case management know.
[2024-05-24] MEDS: OXYCODONE HCL/ACETAMINOPHEN 5MG/325MG 1 TAB PO (09:42)
--- NOTE | 2024-05-24 09:45 | CM.NOTE ---
2nd Important Message From Medicare discussed with pt, pt verbalizes understanding and denies questions or concerns.
[2024-05-24 10:25] VITALS: O2SAT 90
[2024-05-24 10:40] VITALS: O2SAT 91
--- NOTE | 2024-05-24 10:45 | SWNOTE1 ---
Pt is approved to go skilled and is medically stable. Pt will need stretcher for transport. SW called and set up [facility] and they will be here at 12:45 to transport. ALBERTO notified nurse and [facility]. SW attempted to call , but could nto leave voicemail as his mailbox was full. SW to call again. ALBERTO faxed over dc med rec, dc summary, vitals and labs from today, and therapy notes. Pt is going to [facility] skilled.
--- NOTE | 2024-05-24 10:53 | SWNOTE1 ---
SW was able to speak with pt's , Jovi, to let him know time of transport.
--- NOTE | 2024-05-24 11:30 | PC.NURSE ---
report called to Libby deluna [place]
--- NOTE | 2024-05-24 11:52 | NUTR.NU ---
Dietary consultcompleted. Interviewed Stella at bedside. Stella has poor appetite. Transfer to [facility] for continuing care. Recommend Ensure bid po nutritional supplement to promote weight stability and nutritional adequacy.
== END 2024-05-24 13:08 | DRG 522 ==
LOC: ER 05-20 00:58 → MS 05-20 01:36
PROVIDERS: Internal Medicine; Orthopaedic Surgery; Registered Nurse; Admitting Provider Family Medicine; Emergency Provider Emergency Medicine; PCP Internal Medicine; Visit Provider Family Medicine
PROC: 0SRR0J9 Replacement of Right Hip Joint, Femoral Surface with Synthetic Substitute, Cemented, Open Approach (ICD-10-PCS; principal; 2024-05-20 15:00)
DX: S72.001A Fracture of unspecified part of neck of right femur, initial encounter for closed fracture (principal); S42.211A Unspecified displaced fracture of surgical neck of right humerus, initial encounter for closed fracture; D62 Acute posthemorrhagic anemia; J44.1 Chronic obstructive pulmonary disease with (acute) exacerbation; Z91.81 History of falling; W18.39XA Other fall on same level, initial encounter; Z96.642 Presence of left artificial hip joint; I10 Essential (primary) hypertension; E89.0 Postprocedural hypothyroidism; F41.9 Anxiety disorder, unspecified; Z98.51 Tubal ligation status; Z90.49 Acquired absence of other specified parts of digestive tract; R42 Dizziness and giddiness; Z79.890 Hormone replacement therapy; R09.02 Hypoxemia; R50.82 Postprocedural fever; Z87.891 Personal history of nicotine dependence
CPT/HCPCS: 36415; 51702; 70450; 71045; 72125; 73030; 73502; 80048; 80053; 81001; 83605; 83735; 83880; 84484; 85025; 87086; 93005; 94640; 94667; 94668; 94761; 94762; 96361; 96374; 96375; 96376; 97161; 97165; 97530; 97535; 99285; C1713; C1776; J0665; J0690; J1100; J1200; J1290; J1885; J2250; J2270; J2371; J2405; J2704; J2765; J3010

== ENCOUNTER 2024-06-21 13:10 | Outpatient (OUT) | payer MEDICARE, SELFPAY ==
--- NOTE | 2024-06-21 | XR_ITS ---
The [address] [address] Patient Name: TRACY GREEN MRN: [id number] date: 1945 Sex: F Assigned Patient Location: Current Patient Location: Accession/Order Number: [id number] Exam Date: 06/21/2024 13:25 Report Date: 06/22/2024 10:11 At the request of: LEANDRO GARCIA Procedure: XR humerus RT EXAM: XR humerus RT HISTORY: RIGHT HUMERUS PAIN COMPARISON: None. TECHNIQUE: AP and lateral views of the right humerus were obtained. FINDINGS: There is chronic appearing deformity of the right humeral head. There is an old malunited/nonunited fracture of the humeral head extending into the right humeral neck. Severe narrowing of the subacromial space is seen. Degenerative changes are seen at the right acromioclavicular joint. 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 Electronically authenticated by: DEBRA WOODS Date: 06/22/2024 10:11
--- NOTE | 2024-06-21 | XR_ITS ---
The [address] [address] Patient Name: TRACY GREEN MRN: [id number] date: 1945 Sex: F Assigned Patient Location: Current Patient Location: Accession/Order Number: [id number] Exam Date: 06/21/2024 13:25 Report Date: 06/22/2024 10:11 At the request of: LEANDRO GARCIA Procedure: XR hip RT 2V w/ pelvis EXAM: XR hip RT 2V w/ pelvis HISTORY: RIGHT HIP AND PELVIS PAIN COMPARISON: 05/19/2024. TECHNIQUE: AP and lateral views of the right hip were obtained. AP view of the pelvis was obtained. FINDINGS: Status post right hip arthroplasty. There has been cementing of the right proximal femur. No evidence of immediate postoperative complications are seen. Stable appearance of the left hip arthroplasty. Degenerative changes at the sacroiliac joints. XR/XR hip RT 2V w/ pelvis IMPRESSION: Status post right hip arthroplasty. Electronically authenticated by: DEBRA WOODS Date: 06/22/2024 10:11
== END 2024-06-21 13:11 | disposition home or self-care (01) ==
LOC: EC 13:10
PROVIDERS: PCP Internal Medicine; Visit Provider Orthopaedic Surgery
DX: S72.001D Fracture of unspecified part of neck of right femur, subsequent encounter for closed fracture with routine healing (principal); S42.294P Other nondisplaced fracture of upper end of right humerus, subsequent encounter for fracture with malunion; Z96.641 Presence of right artificial hip joint
CPT/HCPCS: 73060; 73502

== ENCOUNTER 2024-07-22 13:16 | Emergency (ER) | payer MEDICARE, SELFPAY ==
[2024-07-22] VITALS (11 sets, daily range): BP systolic 129; BP diastolic 80; PULSE 99–118; TEMP 36.3; O2SAT 82–96; BMI 16.9
--- NOTE | 2024-07-22 13:15 | CT_ITS ---
The [address] [address] Patient Name: TRACY GREEN MRN: [id number] date: 1945 Sex: F Assigned Patient Location: ER Current Patient Location: ER Accession/Order Number: [id number] Exam Date: 07/22/2024 13:30 Report Date: 07/22/2024 14:14 At the request of: ISSA DALTON Procedure: CT head/brain wo con EXAM: CT head/brain wo con HISTORY: Weakness, mental status decline COMPARISON: CT head 05/19/2024. TECHNIQUE: Axial noncontrast CT imaging of the head was performed with coronal and sagittal reformats. This CT exam was performed using one or more of the following dose reduction techniques: Automated exposure control, adjustment of the MA and/or kV according to patient size, or use of iterative reconstruction technique. FINDINGS: Calvarium/skull base: No evidence of acute fracture or destructive lesion. Mastoid air cells are well aerated. Bilateral [place] ocular lens replacements. Paranasal sinuses: Small air-fluid level involving the dependent right maxillary sinus. Brain: No acute intracranial hemorrhage. No acute large vascular territory infarct. Stable parenchymal volume loss. Similar mild periventricular white matter hypoattenuation which most commonly relates to sequela of small vessel disease. No mass lesion or mass effect. No hydrocephalus. CT/CT head/brain wo con IMPRESSION: 1. No acute large vascular territory infarct or acute cranial hemorrhage. 2. Right maxillary sinus disease. Electronically authenticated by: IKE CRISTINA Date: 07/22/2024 14:14
--- NOTE | 2024-07-22 13:15 | ECG_ITS ---
The [facility] Test Date: 2024-07-22 Pat Name: TRACY GREEN Department: Room: - Gender: Female Home Agent: : 1945 Requested By: DENTON ASCENCIO Order Number: [id number] Reading MD: RAFAEL BARRIENTOS Measurements Intervals [place] Rate: 99 P: 74 GA: 132 QRS: 69 QRSD: 78 T: 40 QT: 354 QTc: 410 Interpretive Statements 1100 Sinus rhythm [address] depression [address] & [place] abnormality 9150 abnormal ECG Compared to ECG 05/19/2024 19:24:28 No significant changes Electronically Signed On 07-22-2024 20:18:24 EST by RAFAEL BARRIENTOS
--- NOTE | 2024-07-22 13:15 | XR_ITS ---
The [address] [address] Patient Name: TRACY GREEN MRN: [id number] date: 1945 Sex: F Assigned Patient Location: ER Current Patient Location: ER Accession/Order Number: [id number] Exam Date: 07/22/2024 13:30 Report Date: 07/22/2024 14:07 At the request of: ISSA DALTON Procedure: XR chest 1V EXAM: XR chest 1V HISTORY: . Weakness . COMPARISON: 06/01/2024 TECHNIQUE: Single view of the chest FINDINGS: Heart and vascularity are unremarkable. Lungs are free of focal infiltrates. Grossly no acute bony abnormality is appreciated. XR/XR chest 1V IMPRESSION: No acute heart or lung disease identified. Electronically authenticated by: TAMMY MARTINES Date: 07/22/2024 14:07
--- NOTE | 2024-07-22 13:18 | ED.GENADUL1 ---
HPI HPI - General Adult General Chief complaint: Altered Mental Status Stated complaint: UTI Time Seen by Provider: 07/22/24 13:38 Source: medical record Mode of arrival: ambulance Limitations: altered mental status History of Present Illness HPI narrative: 79 year old female presents to the ED from [facility] for evaluation. Pt has had generalized decline over the past 3-4 months. 05/19/24 she was evaluated in the ED for a right hip and right proximal humerus fracture. She has been at the facility since her discharge from the hospital. Pt family reports generalized decline that worsens every week. She has not been ambulatory since the fall. She has had increased confusion. She was started on Cipro yesterday for a UTI. Related Data Home Medications ?Medication ?Instructions ?Recorded ?Confirmed albuterol sulfate 90 mcg/actuation 2 puff inhalation Q4H PRN 06/19/23 05/19/24 aerosol inhaler shortness of breath or wheezing levothyroxine 50 mcg tablet 50 mcg PO DAILY 06/19/23 05/19/24 escitalopram oxalate 5 mg tablet 5 mg PO DAILY 05/19/24 05/19/24 meclizine 12.5 mg tablet 12.5 mg PO QID PRN dizziness 05/19/24 05/20/24 Previous Rx's ?Medication ?Instructions ?Recorded clonazepam 0.5 mg tablet 0.5 mg PO Q8H anxiety #90 tabs 05/24/24 oxycodone-acetaminophen 5 mg-325 1 tab PO Q6H PRN Pain #120 tabs 05/24/24 mg tablet Allergies Allergy/AdvReac Type Severity Reaction Status Date / Time No Known Drug Allergies Allergy Verified 05/19/24 19:29 Opioid HPI Opioid Management Most Recent Opioid Data: Last Pain Scale 5 05/24/24 09:56 05/24/24 Last Pain Intensity 7 05/21/24 10:52 05/21/24 Last ORT Total Score 0 05/20/24 01:41 05/20/24 Last ORT Risk Category Low Risk 05/20/24 01:41 05/20/24 Review of Systems ROS Constitutional Reports: fatigue; Denies: fever or chills Eyes Denies: change in vision Ears, nose, mouth, and throat Denies: neck pain Cardiovascular Denies: chest pain Respiratory Denies: shortness of breath Gastrointestinal Denies: abdominal pain, vomiting or diarrhea Genitourinary Denies: painful urination Musculoskeletal Reports: limited range of motion Integumentary/Breast Denies: rash Neurological Reports: weakness in extremities and confusion; Denies: headache [facility] Medical History (Updated 07/22/24 @ 15:54 by Ashly Fu) History of anxiety ?Z86.59 - Personal history of other mental and behavioral disorders (ICD-10) History of hypothyroidism ?Z86.39 - Personal history of other endocrine, nutritional and metabolic disease (ICD-10) History of COPD ?Z87.09 - Personal history of other diseases of the respiratory system (ICD-10) Postoperative fever ?R50.82 - Postprocedural fever (ICD-10) Postoperative hypoxia ?R09.02 - Hypoxemia (ICD-10) ?Z98.890 - Other specified postprocedural states (ICD-10) Postoperative anemia ?D64.9 - Anemia, unspecified (ICD-10) Fall ?W19.XXXA - Unspecified fall, initial encounter (ICD-10) Fracture of hip, right, closed ?S72.001A - Fracture of unspecified part of neck of right femur, initial encounter for closed fracture (ICD-10) Fracture of proximal humerus ?S42.209A - Unspecified fracture of upper end of unspecified humerus, initial encounter for closed fracture (ICD-10) Fall from standing ?W19.XXXA - Unspecified fall, initial encounter (ICD-10) Hypertension ?I10 - Essential (primary) hypertension (ICD-10) Frequent falls ?R29.6 - Repeated falls (ICD-10) Vertigo ?R42 - Dizziness and giddiness (ICD-10) Hypothyroidism ?E03.9 - Hypothyroidism, unspecified (ICD-10) Anxiety ?F41.9 - Anxiety disorder, unspecified (ICD-10) COPD (chronic obstructive pulmonary disease) ?J44.9 - Chronic obstructive pulmonary disease, unspecified (ICD-10) Surgical History History of cataract surgery ?Z98.49 - Cataract extraction status, unspecified eye (ICD-10) H/O removal of cyst ?Z98.890 - Other specified postprocedural states (ICD-10) Hx of tubal ligation ?Z98.51 - Tubal ligation status (ICD-10) H/O partial thyroidectomy ?E89.0 - Postprocedural hypothyroidism (ICD-10) History of hip replacement, total ?Z96.649 - Presence of unspecified artificial hip joint (ICD-10) History of cholecystectomy ?Z90.49 - Acquired absence of other specified parts of digestive tract (ICD-10) Family History Brother Family history of myocardial infarction Sister No problems noted. Mother Family history of cancer Aunt Family history of cancer Daughter Family history of hypertension Social History (Updated 02/18/24 @ 10:20 by Halle Owen, RN) Within the past year, how often did you have a drink containing alcohol: never Score interpretation: A score less than 3 is consistent with normal alcohol consumption. Smoking status: Current every day smoker Second hand tobacco smoke exposure: No Non-prescribed substance use: denies use Previous occupational history: retired Highest level of school completed/degree received: high school graduate Are you now , , , , never or living with a partner: Little interest or pleasure in doing things: not at all Feeling down, depressed, or hopeless: not at all Life stressor details: Scared to leave the house Do you think of yourself as: straight/heterosexual Gender Identity: female Exam Constitutional Vital Signs, click to edit/add: Last Vital Signs Temp 97.4 F L 07/22/24 12:58 Pulse 99 H 07/22/24 15:48 Resp 16 07/22/24 15:48 BP 129/80 07/22/24 12:58 Pulse Ox 95 07/22/24 15:48 O2 Del Method Room Air 07/22/24 15:48 Common normals: no apparent distress and alert General appearance: cooperative HENLA Common normals: external ears normal; oral mucous membranes not moist (DRY) Throat: uvula midline Eye Common normals: PERRL, conjunctivae normal and no scleral icterus Neck & C-Spine Common normals: supple Chest Chest: symmetrical chest wall rise Respiratory Common normals: normal respiratory effort Effort & inspection: able to speak in complete sentences and symmetric chest movement Cardio Common normals: regular rate and regular rhythm GI Common normals: soft to palpation and non-tender Neuro Other: Pt alert, confused. Speech clear. No facial droop. Pt moving BUE. Hand grasps equal. BLE stiff. Pt unable to flex knees or feet. Feet fixed in hyperextended state. Course Vital Signs Vital signs: Vital Signs Temperature 97.4 F L 07/22/24 12:58 Pulse Rate 118 H 07/22/24 12:58 Respiratory Rate 20 07/22/24 12:58 Blood Pressure 129/80 07/22/24 12:58 Pulse Oximetry 94 L 07/22/24 12:58 Oxygen Delivery Method Room Air 07/22/24 12:58 Temperature 97.4 F L 07/22/24 12:58 Pulse Rate 99 H 07/22/24 15:48 Respiratory Rate 16 07/22/24 15:48 Blood Pressure 129/80 07/22/24 12:58 Pulse Oximetry 95 07/22/24 15:48 Oxygen Delivery Method Room Air 07/22/24 15:48 Medical Decision Making MDM Narrative Medical decision making narrative: WBC count was 11.8. Urinalysis showed infection. She was started on Cipro yesterday for a UTI. Imaging was negative for acute findings. Findings were discussed. The family reported the patient has been declining over the past 3-4 months. Follow up with pcp for a recheck, further evaluation and treatment. Medical Records Medical records reviewed: Yes I reviewed the patient's medical records Lab Data Lab results reviewed: Yes I reviewed the patient's lab results Labs: Lab Results 07/22/24 07/22/24 Range/Units 13:00 15:25 WBC 11.8 H (4.0-11.0) 10^3/uL RBC 4.20 (4.20-5.40) 10^6/uL Hgb 13.0 (12.0-16.0) g/dL Hct 39.9 (36.0-48.0) % MCV 95.0 (81.0-99.0) fL MCH 31.0 (26.7-34.0) pg MCHC 32.6 (29.9-35.2) g/dL RDW 12.9 (11.0-15.0) % Plt Count 290 (150-450) 10^3/uL MPV 10.2 (9.5-13.5) fL Neut % (Auto) 84.5 H (43.0-75.0) % Lymph % (Auto) 9.9 L (20.5-60.0) % [place] % (Auto) 4.8 (1.7-12.0) % Eos % (Auto) 0.1 L (0.9-7.0) % Baso % (Auto) 0.4 (0.2-2.0) % Neut # (Auto) 10.0 H (1.4-6.5) 10^3/uL Lymph # (Auto) 1.2 (1.2-3.8) 10^3/uL [place] # (Auto) 0.6 (0.3-0.8) 10^3/uL Eos # (Auto) 0.0 (0.0-0.7) 10^3/uL Baso # (Auto) 0.1 (0.0-0.1) 10^3/uL Abs Immat Gran (auto) 0.03 (0.00-0.03) 10^3/uL Imm/Tot Granulo (auto) 0.3 (0.0-0.5) % Sodium 149 H (136-145) mmol/L Potassium 3.6 (3.5-5.1) mmol/L Chloride 109 H (98-107) mmol/L Carbon Dioxide 26.8 (21.0-32.0) mmol/L Anion Gap 16.8 BUN 21.0 H (7.0-18.0) mg/dL Creatinine 1.15 H (0.55-1.02) mg/dL Est GFR ( Amer) 55 L (>=60 mL/min/1.73m^2) Est GFR (Non-Af Amer) 45 L (>=60 mL/min/1.73m^2) BUN/Creatinine Ratio 18.3 Glucose 122 H (74-106) mg/dL Calcium 9.5 (8.5-10.1) mg/dL Total Bilirubin 0.5 (0.2-1.0) mg/dL AST 22 (15-37) U/L ALT 23 (14-59) U/L Alkaline Phosphatase 85 (46-116) U/L Total Protein 7.3 (6.4-8.2) g/dL Albumin 3.3 L (3.4-5.0) g/dL Globulin 4.0 g/dL Albumin/Globulin Ratio 0.8 Urine Color Yellow (YELLOW) Urine Clarity Clear (CLEAR) Urine pH 5.5 (5.0-9.0) Ur Specific [place] >=1.030 A (1.005-1.025) Urine Protein 30 A (NEG/TRACE) mg/dL Urine Glucose (UA) Negative (NEGATIVE) mg/dL Urine Ketones Trace A (NEGATIVE) mg/dL Urine Occult Blood Trace-i (NEGATIVE) Urine Nitrite Negative (NEGATIVE) Urine Bilirubin Negative (NEGATIVE) Urine Urobilinogen 0.2 (0.2-1.0) EU/dL Ur Leukocyte Esterase Trace A (NEGATIVE) Urine RBC 0-2 (0-2) #/HPF Urine WBC 20-50 A (NONE SEEN) #/HPF Ur Squamous Epith Cells Few A (NONE/RARE) #/LPF Urine Crystals None seen (None Seen) #/HPF Urine Bacteria Moderate A (NONE SEEN) #/HPF Urine Casts None seen (NONE SEEN) #/LPF Urine Mucus None seen (NONE SEEN) Urine Yeast Seen A (NONE SEEN) Ur Culture Indicated? Yes Imaging Data Chest x-ray: Attestation: I have reviewed the pertinent imaging results. Radiologist's impression: ITS Impressions Chest X-Ray 07/22/24 13:15 IMPRESSION: No acute heart or lung disease identified. Electronically authenticated by: TAMMY MARTINES Date: 07/22/2024 14:[address] 07/22/24 13:15 IMPRESSION: 1. No acute large vascular territory infarct or acute cranial hemorrhage. 2. Right maxillary sinus disease. Electronically authenticated by: IKE CRISTINA Date: 07/22/2024 14:14 ECG Data Attestation: ?I have reviewed the pertinent ECG results. (EKG was reviewed by the attending physician. It showed sinus rhythm at a rate of 99. No STEMI. ) Interpretation: Measurements Intervals [place] Rate: 99 P: 74 NC: 132 QRS: 69 QRSD: 78 T: 40 QT: 354 QTc: 410 Interpretive Statements 1100 Sinus rhythm [address] depression [address] & [place] abnormality 9150 abnormal ECG No previous ECG available for comparison Discharge Plan Discharge Chief Complaint: Altered Mental Status Clinical Impression: General weakness, Acute UTI Patient Disposition: Home, Self-Care Time of Disposition Decision: 15:54 Condition: Fair Mode of Transportation: EMS Prescriptions / Home Meds: No Action albuterol sulfate 90 mcg/actuation HFA aerosol inhaler 2 puff INHALATION Q4H PRN (Reason: shortness of breath or wheezing) levothyroxine 50 mcg tablet 50 mcg PO DAILY escitalopram oxalate 5 mg tablet 5 mg PO DAILY meclizine 12.5 mg tablet 12.5 mg PO QID PRN (Reason: dizziness) oxycodone-acetaminophen 5-325 mg Tablet 1 tab PO Q6H PRN (Reason: Pain ) Qty: 120 0RF clonazepam 0.5 mg tablet 0.5 mg PO Q8H Qty: 90 0RF Print Language: Turkmen Instructions: Urinary Tract Infection in Women (ED), Weakness (ED) Additional Instructions: Continue the Cipro as directed for your UTI. Referrals: DENTON ASCENCIO [Primary Care Provider] - 1 week
[2024-07-22 13:23] LABS: Basophils Absolute Auto 0.1 10^3/uL (0.0-0.1); Basophils Percent Auto 0.4 % (0.2-2.0); Eosinophils Percent Auto 0.1 % (0.9-7.0); Hematocrit 39.9 % (36.0-48.0); Immature Granulocytes Abs Auto 0.03 10^3/uL (0.00-0.03); Immature Granulocytes Pct Auto 0.3 % (0.0-0.5); Lymphocytes Absolute Auto 1.2 10^3/uL (1.2-3.8); Lymphocytes Percent Auto 9.9 % (20.5-60.0); Mean Corpuscular HGB Conc 32.6 g/dL (29.9-35.2); Mean Platelet Volume 10.2 fL (9.5-13.5); Monocytes Absolute Auto 0.6 10^3/uL (0.3-0.8); Monocytes Percent Auto 4.8 % (1.7-12.0); Neutrophils Percent Auto 84.5 % (43.0-75.0); Platelet Count 290 10^3/uL (150-450); Red Cell Distribution Width 12.9 % (11.0-15.0); White Blood Count 11.8 10^3/uL (4.0-11.0)
--- OUTSIDE RECORDS SUMMARY | 2024-07-22 13:34 | XMS_ITS | CCD ---
Author Organization [facility] Care Team Providers Care Chief Lifestyle Officer Name Role Phone REQUEST, NONE LISTED Admitting Unavailable ISAIAH GU Consulting Unavailable REQUEST, NONE LISTED Attending Unavailable Deniz Ochoa MD Unavailable [phone] Deniz Ochoa MD Primary Care Provider TIMMY Ochoa Primary Care Provider DO Yokasta Flores Emergency Provider DO Bryan Coppola Admit Provider DO Bryan Coppola Attending Provider MD Cliff West Other Provider MD Janett Owen Other Provider GEETHA Thao-C Kelsey Grayson Other Provider DO Mani Garcia A Other Provider MD Darci Marley II Other Provider DO Sohan Kelly Other Provider MD Alonso Agudelo Attending Provider [phone] MD Maria Del Rosario Thornton Other [...] RAINEY Attending Unavailable DENIZ OCHOA Referring Unavailable GUZITATI Brown Attending Unavailable DENIZ OCHOA Referring Unavailable GUZIK, TATI Attending Unavailable DENIZ OCHOA Referring Unavailable SATINDER SYLVESTER Attending Unavailable ARIANNA RAINEY Attending Unavailable DENIZ OCHOA Referring Unavailable GUZIK, TATI Attending Unavailable DENIZ OHCOA Referring Unavailable GUZIK, TATI Attending Unavailable DENIZ OCHOA Referring Unavailable ARIANNA RAINEY Attending Unavailable DENIZ OCHOA Referring Unavailable GUELOINA, TATI Attending Unavailable DENIZ OCHOA Referring Unavailable ROBERT PYLE Attending Unavailable EDILMA SHEPPARD Referring Unavailable ROBERT PYLE Attending Unavailable ROBERT PYLE Attending Unavailable ROBERT PYLE Attending Unavailable ROBERT PYLE Attending Unavailable DENIZ OCHOA Attending Unavailable DENIZ OCHOA Attending Unavailable ROBERT PYLE Attending Unavailable Alonso Agudelo Attending Unavailable Deniz Ochoa Primary Care Unavailable Bryan Coppola Admitting UnavailCliff Hernandez Consulting Unavailable Janett Owen Consulting Unavailable Kelsey Thao Consulting Unavailable Mani Garcia Consulting Unavailable Darci Marley II Consulting UnavailSohan Salguero Consulting Unavailable Maria Del Rosario Thornton Consulting Unavailable Germain Witt Consulting Unavailable Flor Dee Consulting Unavailable Naresh Mcguire Jr Consulting UnavailDeshawn Juarez Consulting UnavailTaqueria Menard Consulting Unavailab DENIZ Ho Primary Care Physician MICHAEL CAICEDO Attending Unavailable MICHAEL CAICEDO Admitting Unavailable MICHAEL CAICEDO Attending Unavailable MICHAEL CAICEDO Admitting Unavailable Allergies Allergy Classification Reported Allergen(s) Allergy Type Date of Onset Reaction(s) Facility (1 source) venlafaxine Drug Allergy 4 [facility] Repository (17 sources) atorvastatin Drug Allergy 4 Unknown [facility] Healthcare (17 sources) cefdinir Drug Allergy 4 Rash [facility] Healthcare (17 sources) Clarithromycin Allergy to substance 4 Unknown [facility] Healthcare (17 sources) Sulfamethoxazole Allergy to substance 4 Unknown [facility] Healthcare (17 sources) Sulfanilamide Allergy to substance 4 Unknown [facility] Healthcare (17 sources) venlafaxine Drug Allergy 4 [facility] Medications Current Medications Medication Drug Class(es) Dates Sig (Normalized) Sig (Original) acetaminophen 500 mg oral capsule (1 source) Start: 03-25-2024 take 1000 mg by mouth every eight hours Acetaminophen Active 1000 MG PO Every 8 hours 84 14 March 25, 2024 12:00am [id number] 200 actuat albuterol 0.09 mg/actuat metered dose inhaler (20 sources) beta2-Adrenergic Agonist Start: 04-29-2024 End: 04-29-2025 [...] 06/27/2023 Active ALPRAZolam 0.5 mg oral tablet (13 sources) Benzodiazepine Start: 11-24-2019 End: 03-25-2024 take 0.5 mg by mouth three times daily Alprazolam Active 0.5 MG PO As Directed 25 March 25, 2024 11:20am 0.5mg TID at 0730 1200 1630 0.25mg daily at 0930 0.25mg HS prn Patient demonstrates withdrawal signs if not administered on this schedule with resultant tremors and CPK elevations. Please administer as directed. Started on SSRI during hospitalization with plans to see outpatient psychiatry with eventual SLOW wean of Benzo in a couple months after SSRI optimized Start: 11-24-2019 take 1 tablet by ani th every six hours as needed for anxiety and depression and depression ALPRAZolam (Xanax) 0.5 MG tablet Indications: Depressive disorder (CMS/HCC) TAKE 1 TABLET BY MOUTH EVERY 6 HOURS NEEDED FOR ANXIETY 120 tablet 2 12/25/2023 Active amoxicillin 80 mg/ml oral suspension (2 sources) Penicillin-class Antibacterial Start: 01-29-2024 End: 02-05-2024 take 6 mL by mouth in the morning, then take 6 mL by mouth in the evening, then take 6 mL by mouth at bedtime amoxicillin (Amoxil) 400 MG/5ML suspension Indications: Urinary tract infection without hematuria, site unspecified Take 6 mL (480 mg) by mouth in the morning and 6 mL (480 mg) in the evening and 6 mL (480 mg) before bedtime. Do all this for 7 days. 126 mL 01/29/2024 02/05/2024 Active Calcium Carbonate-Vitamin D3 (Oyster Shell Calcium-Vit [...] 04/15/2024 Discontinued clonazePAM 0.5 mg oral tablet (8 sources) Benzodiazepine Start: 04-15-2024 End: 10-12-2024 take 1 tablet by mouth in the morning clonazePAM (KlonoPIN) 0.5 MG tablet Indications: Generalized anxiety disorder (CMS/HCC) Take 1 tablet (0.5 mg) by mouth in the morning and 1 tablet (0.5 mg) before bedtime. 60 tablet 3 04/15/2024 10/12/2024 Active docusate sodium 100 mg oral capsule (12 sources) Start: 03-25-2024 take 100 mg by mouth twice daily Docusate Sodium Active 100 MG PO Twice daily March 25, 2024 12:00am Start: 11-28-2019 End: [...] 2024 12:00am ibuprofen 800 mg oral tablet (8 sources) Nonsteroidal Anti-inflammatory Drug take 1 tablet by mouth in the morning, then take 1 tablet by mouth in the evening, then take 1 tablet by mouth at bedtime ibuprofen 800 MG tablet Take 800 mg by mouth in the morning and 800 mg in the evening and 800 mg before bedtime. Active ketorolac tromethamine 5 mg/ml ophthalmic solution (2 sources) Nonsteroidal Anti-inflammatory Drug, Cyclooxygenase Inhibitor Start: 01-14-2024 End: 02-13-2024 take 1 drop(s) into the eye(s) in the morning ketorolac (Acular) 0.5 % ophthalmic solution Indications: Age-related nuclear cataract of both eyes Administer 1 drop into affected eye(s) in the morning and 1 drop before bedtime. 5 mL 1 01/14/2024 02/13/2024 Active levothyroxine sodium 0.05 mg oral tablet (19 sources) l-Thyroxine Start: 06-23-2024 take 1 tablet by mouth once daily levothyroxine (Synthroid, Levoxyl) 50 MCG tablet Indications: Hypothyroidism, unspecified type (CMS/HCC) TAKE 1 TABLET BY MOUTH EVERY DAY ON EMPTY STOMACH 100 tablet 3 06/23/2024 Active Start: 11-24-2019 take 1 tablet by ani th once daily levothyroxine (Synthroid, Levoxyl) 50 MCG tablet Indications: Hypothyroidism, unspecified type (CMS/HCC) TAKE 1 TABLET BY MOUTH EVERY DAY ON EMPTY STOMACH FOR 90 DAYS 100 tablet 3 06/27/2023 Active lidocaine 0.04 mg/mg medicated patch (10 sources) Antiarrhythmic, Amide Local Anesthetic Start: 03-25-2024 [...] as directed by MD. Active meclizine hydrochloride 12.5 mg oral tablet (12 sources) Antiemetic Start: 05-17-2024 take 1 tablet by mouth four times daily as needed for dizziness meclizine (Antivert) 12.5 MG tablet Indications: Vertigo Take 1 tablet (12.5 mg) by mouth 4 (four) times a day as needed for dizziness 30 tablet 05/17/2024 Active Start: 03-25-2024 take 25 mg by mouth three times daily Meclizine Active 25 MG PO Three times daily March 25, 2024 11:20am Start: 03-21-2024 End: 03-25-2024 take 50 mg by mouth once daily Meclizine Discontinued 50 MG PO Daily March 21, 2024 12:00am March 25, 2024 11:21am take 1 tablet by ani th four times daily as needed for dizziness meclizine (Antivert) 12.5 MG tablet Take 12.5 mg by mouth 4 (four) times a day as needed for dizziness Active 24 hr nicotine 0.292 mg/hr transdermal system (12 sources) Cholinergic Nicotinic Agonist Start: 04-19-2024 nicotine [...] Active 17.2 MG PO Daily at bedtime March 25, 2024 12:00am Completed/Discontinued Medications Medication [...] mg Tablet Discontinued 500 MG PO Daily 0 November 28, 2019 12:00am March 21, 2024 7:23pm Calcium Carbonate-Vitamin D3 (Oyster Shell Calcium-Vit D3) 500 mg(1,250mg) -200 unit Tablet (2 sources) Start: 11-28-2019 End: 03-21-2024 take 1 tablet by mouth once at mealtime Calcium Carbonate-Vitamin D3 (Oyster Shell Calcium-Vit D3) 500 mg(1,250mg) -200 unit Tablet Discontinued 1 TAB PO 3x/Day with meals November 28, 2019 12:00am March 21, 2024 [...] Suspension Discontinued 30 ML PO Twice daily November 28, 2019 12:00am March 21, 2024 7:23pm Sennosides (Senokot) 8.6 mg tablet (2 sources) Start: 11-29-2019 End: 03-21-2024 take 2 tablets by mouth once daily at bedtime Sennosides (Senokot) 8.6 mg tablet Discontinued 17.2 MG PO Daily at bedtime November 29, 2019 12:00am March 21, 2024 7:23pm Problems Active Problems Problem Classification Problem Date Documented Date Episodic/Chronic Anxiety disorders (20 sources) Generalized anxiety disorder; Translations: [Generalized anxiety [...] 03-21-2024 03-21-2024 Chronic Disorders of lipid metabolism (17 sources) Hyperlipidemia; Translations: [Hyperlipidemia, unspecified] Onset: 06-24-2023 06-24-2023 Chronic Lung disease due to external agents (8 sources) Reactive airways dysfunction syndrome; Translations: [Other acute and subacute respiratory conditions due to chemicals, gases, fumes and vapors] Onset: 04-29-2024 04-29-2024 Episodic Menopausal disorders (17 sources) Primary ovarian failure; Translations: [Other primary ovarian failure] Onset: 06-24-2023 06-24-2023 Chronic Mood disorders (17 sources) Depressive disorder; Translations: [Depressive disorder] Onset: 11-19-2022 11-19-2022 Chronic Nutritional deficiencies (17 sources) Vitamin D deficiency; Translations: [Vitamin D deficiency, unspecified] Onset: 01-07-2023 01-07-2023 Chronic Osteoarthritis (19 sources) Osteoarthritis; Translations: [Unspecified osteoarthritis, unspecified site] Onset: 06-24-2023 06-24-2023 Chronic Osteoporosis (20 sources) Senile osteoporosis; Translations: [Age-related osteoporosis without current pathological fracture] Onset: 01-07-2023 01-07-2023 Chronic Other connective tissue disease (2 sources) Rhabdomyolysis; Translations: [Rhabdomyolysis] 03-21-2024 Episodic Other hereditary and degenerative nervous [...] [Pain in left hip] 11-25-2019 Episodic Other upper respiratory disease (17 sources) Allergic rhinitis; Translations: [Other allergic rhinitis] Onset: 06-24-2023 06-24-2023 Chronic Other upper respiratory infections (17 sources) Sinusitis; Translations: [Chronic sinusitis, unspecified] Onset: 06-24-2023 06-24-2023 Chronic Pathological fracture (2 sources) Pathological fracture of femur due to osteoporosis; Translations: [Age-related osteoporosis with current pathological fracture, left femur, initial encounter for fracture] 11-25-2019 Episodic Substance-related disorders (20 sources) Tobacco dependence syndrome; Translations: [Nicotine dependence, unspecified, uncomplicated] Onset: 06-24-2023 06-24-2023 Chronic Thyroid disorders (20 sources) Hypothyroidism; Translations: [Hypothyroidism, unspecified] Onset: 06-24-2023 06-24-2023 Chronic Past or Other Problems Problem Classification Problem Date Documented Date Episodic/Chronic Biliary tract disease (17 sources) Gallstone; Translations: [Calculus of gallbladder without cholecystitis without obstruction] Onset: 06-24-2023 06-24-2023 Episodic Conditions associated with dizziness or vertigo (20 sources) Vertigo; Translations: [Dizziness and giddiness] Onset: 06-24-2023 07-20-2023 Episodic Diabetes mellitus without complication (17 sources) Impaired fasting glycemia; Translations: [Impaired fasting glucose] Onset: 01-07-2023 01-07-2023 Episodic E Codes: Fall (5 sources) Fall; Translations: [Unspecified fall, initial encounter] Onset: 03-21-2024 03-21-2024 Episodic Fracture of neck of femur (hip) (4 sources) Closed fracture of femur, subcapital; Translations: [Unspecified intracapsular fracture of left femur, initial encounter for closed fracture] Onset: 03-21-2024 11-24-2019 Episodic Gastritis and duodenitis (17 sources) Gastritis; Translations: [Other gastritis with bleeding] Onset: 06-24-2023 06-24-2023 Episodic Mood disorders (15 sources) Mood disorders Onset: 10-02-2023 10-02-2023 Nonmalignant breast conditions (17 sources) Solitary cyst of breast; Translations: [Solitary cyst of unspecified breast] Onset: 06-24-2023 06-24-2023 Episodic Other connective tissue disease (3 sources) Rhabdomyolysis; Translations: [Rhabdomyolysis] Onset: 03-21-2024 03-21-2024 Episodic Other connective tissue disease (15 sources) Falls; Translations: [Repeated falls] Onset: 08-22-2023 08-22-2023 Episodic Other lower respiratory disease (17 sources) Disorder of lung; Translations: [Other disorders of lung] Onset: 01-07-2023 01-07-2023 Episodic Other non-traumatic joint disorders (2 sources) Pain in left hip; Translations: [Pain in joint, pelvic region and thigh] Onset: 03-21-2024 03-25-2024 Episodic Other screening for suspected conditions (not mental disorders or infectious disease) (5 sources) Raised cardiac enzyme or marker; Translations: [Other specified abnormal findings of blood chemistry] Onset: 03-21-2024 03-21-2024 Episodic Spondylosis; intervertebral disc disorders; other back problems (15 sources) Neck pain; Translations: [Cervicalgia] Onset: 08-22-2023 08-22-2023 Episodic Superficial injury; contusion (9 sources) Contusion of left front wall of thorax, initial encounter; Translations: [Contusion of rib on left side] Onset: 03-21-2024 03-21-2024 Episodic Urinary tract infections (7 sources) Acute urinary tract infection; Translations: [Urinary tract infection, site not specified] Onset: 03-21-2024 03-21-2024 Episodic Results Test Name Value Interpretation Reference Range Facility [facility] 07-19-2024 Anion gap [Moles/Vol] 14 mmol/L Normal 6-16 [facility] Comment on above: Performed By: #### 2 [id number] #### [facility] [address] [place] [address] Calcium [Mass/Vol] 9.7 mg/dL Normal 8.9-11.1 [facility] Comment on above: Performed By: #### 2 [id number] #### [facility] [address] [place] [address] Chloride [Moles/Vol] 107 mmol/L Normal 101-111 [facility] Comment on above: Performed By: #### 2 [id number] #### [facility] [address] [place] [address] CO2 [Moles/Vol] 25 mmol/L Normal 21-31 [facility] Comment on above: Performed By: #### 2 [id number] #### [facility] [address] [place] [address] Creatinine [Mass/Vol] 0.8 mg/dL Normal 0.5-1.3 [facility] Comment on above: Performed By: #### 2 [id number] #### [facility] [address] [place] [address] Glucose [Mass/Vol] 126 mg/dL Normal 55-199 [facility] Comment on above: Performed By: #### 2 [id number] #### [facility] [address] [place] [address] Potassium [Moles/Vol] 3.8 mmol/L Normal 3.5-5.3 [facility] Comment on above: Performed By: #### 2 [id number] #### [facility] [address] [place] [address] Sodium [Moles/Vol] 142 mmol/L Normal 135-145 [facility] Comment on above: Performed By: #### 2 [id number] #### [facility] [address] [place] [address] Urea nitrogen [Mass/Vol] 20 mg/dL Normal 5-21 [facility] Comment on above: Performed By: #### 2 [id number] #### [facility] [address] [place] [address] Urea nitrogen/Creatinine [Mass ratio] 25 No Units High 10-20 [facility] Comment on above: Performed By: #### 2 [id number] #### [facility] [address] [place] [address] CBC w/ Auto Diffon 5 Basophils/100 WBC (Bld) 1.0 % Normal 0.0-2.0 [facility] Comment on above: Performed By: #### 2 [id number] #### [facility] [address] [place] [address] Basophils/Leukocytes Auto (Bld) [Pure # fraction] 0.1 E9/L Normal 0.0-0.2 [facility] Comment on above: Performed By: #### 2 [id number] #### [facility] [address] [place] [address] Eosinophils (Bld) [#/Vol] 0.0 E9/L Normal 0.0-0.5 [facility] Comment on above: Performed By: #### 2 [id number] #### [facility] [address] [place] [address] Eosinophils/100 WBC (Bld) 0.4 % Normal 0.0-8.0 [facility] Comment on above: Performed By: #### 2 [id number] #### [facility] [address] [place] [address] Erythrocyte distribution width (RBC) [Ratio] 13.7 % Normal 10.9-14.2 [facility] Comment on above: Performed By: #### 2 [id number] #### [facility] [address] [place] [address] Hematocrit (Bld) [Volume fraction] 38.3 % Normal 34.0-46.0 [facility] Comment on above: Performed By: #### 2 [id number] #### [facility] [address] [place] [address] Hemoglobin (Bld) [Mass/Vol] 13.3 g/dL Normal 12.0-16.0 [facility] Comment on above: Performed By: #### 2 [id number] #### [facility] [address] [place] [address] Lymphocytes (Bld) [#/Vol] 2.1 E9/L Normal 1.0-4.0 [facility] Comment on above: Performed By: #### 2 [id number] #### [facility] [address] [place] [address] Lymphocytes/100 WBC (Bld) 19.3 % Normal 14.0-50.0 [facility] Comment on above: Performed By: #### 2 [id number] #### [facility] [address] [place] [address] MCH (RBC) [Entitic mass] 31.9 pg Normal 27.0-34.0 [facility] Comment on above: Performed By: #### 2 [id number] #### [facility] [address] [place] [address] MCHC (RBC) [Mass/Vol] 34.8 g/dL Normal 31.4-36.0 [facility] Comment on above: Performed By: #### 2 [id number] #### [facility] [address] [place] [address] MCV (RBC) [Entitic vol] 91.4 fL Normal 80.0-100.0 [facility] Comment on above: Performed By: #### 2 [id number] #### [facility] [address] [place] [address] Monocytes (Bld) [#/Vol] 0.5 E9/L Normal 0.2-1.0 [facility] Comment on above: Performed By: #### 2 [id number] #### [facility] [address] [place] [address] Neutrophils (Bld) [#/Vol] 8.0 E9/L High 2.0-7.5 [facility] Comment on above: Performed By: #### 2 [id number] #### [facility] [address] [place] [address] Neutrophils/100 WBC (Bld) 74.7 % Normal 36.0-75.0 [facility] Comment on above: Performed By: #### 2 [id number] #### [facility] [address] [place] [address] Platelet 340.0 E9/L Normal 150.0-500. 0 [facility] Comment on above: Performed By: #### 2 [id number] #### [facility] [address] [place] [address] Platelet mean volume (Bld) [Entitic vol] 8.1 fL Normal 6.4-10.8 [facility] Comment on above: Performed By: #### 2 [id number] #### [facility] [address] [place] [address] RBC (Bld) [#/Vol] 4.2 E12/L Low 4.3-5.9 [facility] Comment on above: Performed By: #### 2 [id number] #### [facility] [address] [place] [address] WBC corrected for nucl RBC Auto (Bld) [#/Vol] 10.7 E9/L Normal 4.0-11.0 [facility] Comment on above: Performed By: #### 2 [id number] #### [facility] [address] [place] [address] CHEMISTRYOrdered By: SYSTEM SYSTEM on 07-19-2024 Anion gap [Moles/Vol] 14 mmol/L Normal 6 - 16 mEq/L [facility] Calcium [Mass/Vol] 9.7 mg/dL Normal 8.9 - 11. 1 mg/dL [facility] Chloride [Moles/Vol] 107 mmol/L Normal 101 - 1 11 mmol/L [facility] CO2 [Moles/Vol] 25 mmol/L Normal 21 - 31 mmol/L [facility] Creatinine [Mass/Vol] 0.8 mg/dL Normal 0.5 - 1.3 mg/dL [facility] eGFR 74 mL/min/1.73 m2 Normal >=59mL/min /1.73 m2 [facility] Glucose [Mass/Vol] 126 mg/dL Normal 55 - 199 mg/dL [facility] Potassium [Moles/Vol] 3.8 mmol/L Normal 3.5 - 5.3 mmol/L [facility] Sodium [Moles/Vol] 142 mmol/L Normal 135 - 145 mmol/L [facility] Urea nitrogen [Mass/Vol] 20 mg/dL Normal 5 - 21 mg/dL [facility] Urea nitrogen/Creatinine [Mass ratio] 25 mg/mg High 10 - 20 [facility] CBC W/ AUTO DIFFon 02-0 Basophils/100 WBC (Bld) 1 % 0.0 - 2.0 % [facility] EOSINOPHILS/100 LEUKOCYTES:NFR:PT:BLD:Q N:AUTOMATED COUNT 0.4 % 0.0 - 8.0 % [facility] EOSINOPHILS:NCNC:PT:BLD :QN: 0 [facility] BASOPHILS/LEUKOCYTES:NF R.DF:PT:BLD:QN:AUTOMATE D COUNT 0.1 [facility] ERYTHROCYTE MEAN CORPUSCULAR HEMOGLOBIN CONCENTRATION:MCNC:PT:R BC:QN 34.8 [facility] ERYTHROCYTE MEAN CORPUSCULAR HEMOGLOBIN:ENTMASS:PT:R BC:QN 31.9 pg 27.0 - 34.0 pg [facility] ERYTHROCYTE MEAN CORPUSCULAR VOLUME:ENTVOL:PT:RBC:QN :AUTOMATED COUNT 91.4 fL 80.0 - 100.0 fL [facility] ERYTHROCYTES:NCNC:PT:BL D:QN:AUTOMATED COUNT 4.2 Low [facility] HEMOGLOBIN:MCNC:PT:BLD: QN: 13.3 [facility] LEUKOCYTES 10.7 [facility] MONOCYTES:NCNC:PT:BLD:Q N:AUTOMATED COUNT 0.5 [facility] NEUTROPHILS:NCNC:PT:BLD :QN:AUTOMATED COUNT 8 High [facility] Interpretation and review of laboratory results Abnormal [facility] LYMPHOCYTES:NCNC:PT:BLD :QN: 2.1 [facility] Platelets (Bld) [#/Vol] 340 10*3/uL [facility] Original Ordering Provider: [facility] HEMATOLOGYOrdered By: SYSTEM SYSTEM on 07-19-2024 Basophils/100 WBC (Bld) 1.0 % Normal 0.0 - 2.0 % [facility] Basophils/Leukocytes Auto (Bld) [Pure # fraction] 0.1 E9/L Normal 0.0 - 0.2 E9/L [facility] Eosinophils (Bld) [#/Vol] 0.0 E9/L Normal 0.0 - 0.5 E9/L [facility] Eosinophils/100 WBC (Bld) 0.4 % Normal 0.0 - 8.0 % [facility] Erythrocyte distribution width (RBC) [Ratio] 13.7 % Normal 10.9 - 14.2 % [facility] Hematocrit (Bld) [Volume fraction] 38.3 % Normal 34.0 - 46.0 % [facility] Hemoglobin (Bld) [Mass/Vol] 13.3 g/dL Normal 12.0 - 16.0 gm/dL [facility] Lymphocytes (Bld) [#/Vol] 2.1 E9/L Normal 1.0 - 4.0 E9/L [facility] Lymphocytes/100 WBC (Bld) 19.3 % Normal 14.0 - 50.0 % [facility] MCH (RBC) [Entitic mass] 31.9 pg Normal 27.0 - 34.0 pg [facility] MCHC (RBC) [Mass/Vol] 34.8 g/dL Normal 31.4 - 36.0 gm/dL [facility] MCV (RBC) [Entitic vol] 91.4 fL Normal 80.0 - 100.0 fL [facility] Monocytes (Bld) [#/Vol] 0.5 E9/L Normal 0.2 - 1.0 E9/L [facility] Monocytes/100 WBC (Bld) 4.6 % Normal 4.0 - 14.0 % [facility] Neutrophils (Bld) [#/Vol] 8.0 E9/L High 2.0 - 7.5 E9/L [facility] Neutrophils/100 WBC (Bld) 74.7 % Normal 36.0 - 75.0 % [facility] Platelet 340.0 E9/L Normal 150.0 - 500.0 E9/L [facility] Platelet mean volume (Bld) [Entitic vol] 8.1 fL Normal 6.4 - 10.8 fL [facility] RBC (Bld) [#/Vol] 4.2 E12/L Low 4.3 - 5.9 E12/L [facility] WBC corrected for nucl RBC Auto (Bld) [#/Vol] 10.7 E9/L Normal 4.0 - 11.0 E9/L [facility] eGFRon 07-19-2024 eGFR 74 mL/min/1.73 m2 Normal >=59 [facility] Comment on above: Performed By: #### 1 [id number] #### [facility] [address] [place] [address] Basic Metabolic Panelon 03-16 Creatinine Clr Calc Pharmacy 44.36 Normal [facility] Comment on above: Result Comment: PERF ORMED BY: [place] [address] PATHOLOGIST LOGISTICS VICE PRESIDENT SARAH IRAHETA M.D. Performed By: #### C K, BMP #### [facility] [address] [place] [address] [place] GFR/1.73 sq M.predicted MDRD (S/P/Bld) [Vol rate/Area] mL/min/{1.73_m2} Normal [facility] Comment on above: Performed By: #### C K, BMP #### [facility] [address] [place] [address] [place] Calcium [Mass/volume] in Ser um or PlasmaOrdered By: Teresa Antony on 03-25-2024 Calcium [Mass/Vol] 8.8 mg/dL Normal 8.6-10.3 [facility] Comment on above: Performed By: #### C K, BMP #### [facility] [address] [place] [address] [place] Carbon dioxide, total [Moles /volume] in Serum or PlasmaOrdered By: Teresa Antony on 03-25-2024 CO2 [Moles/Vol] 26.2 mmol/L Normal 21.0-31.0 [facility] Comment on above: Performed By: #### C K, BMP #### [facility] [address] [place] [address] [place] Chloride [Moles/volume] in S selene or PlasmaOrdered By: Teresa Antony on 03-25-2024 Chloride [Moles/Vol] 104 mmol/L Normal 98-107 [facility] Comment on above: Performed By: #### C K, BMP #### [facility] [address] [place] [address] [place] Creatine kinase [Enzymatic a ctivity/volume] in Serum or PlasmaOrdered By: Teresa Antony on 03-25-2024 CK [Catalytic activity/Vol] 1400 U/L High 30-223 [facility] Comment on above: Result Comment: PERF ORMED BY: [place] [address] PATHOLOGIST LOGISTICS VICE PRESIDENT SARAH IRAHETA M.D. Performed By: #### C K, BMP #### [facility] [address] [place] [address] [place] Creatinine [Mass/volume] in Serum or PlasmaOrdered By: Teresa Antony on 03-25-2024 Creatinine [Mass/Vol] 0.71 mg/dL Normal 0.60-1.20 [facility] Comment on above: Performed By: #### C K, BMP #### [facility] [address] Glucose [Mass/volume] in Ser um or PlasmaOrdered By: Teresa Antony on 03-25-2024 Glucose [Mass/Vol] 104 mg/dL High 70-100 [facility] Comment on above: ADA recommended refe rence rangeRandom Glucose Reference Range is dependent on time and content of last meal. Glucose of more than 200 mg/dL in a nonstressed, ambulatory subject supports the diagnosis of Diabetes Mellitus. Result Comment: [place] Glucose Reference Range is dependent on time and content of last meal. Glucose of more than 200 mg/dL in a nonstressed, ambulatory subject supports the diagnosis of Diabetes Mellitus. ADA recommended reference range Performed By: #### C K, BMP #### [address] No Panel InformationOrdered By: Teresa Antony on 03-25-2024 Estimated GFR (CKD-EPI) > 60.0 mL/Min [facility] Creatinine Clearance (Chem 44.36 [facility] Potassium [Moles/volume] in Serum or PlasmaOrdered By: Teresa Antony on 03-25-2024 Potassium [Moles/Vol] 3.4 mmol/L Low 3.5-5.1 [facility] Comment on above: Performed By: #### C K, BMP #### [address] Serum or plasma anion gap de terminationOrdered By: Teresa Antony on 03-25-2024 Anion gap [Moles/Vol] 11.2 mmol/L Normal 6.0-15.0 [facility] Comment on above: Performed By: #### C K, BMP #### [address] Sodium [Moles/volume] in Ser um or PlasmaOrdered By: Teresa Antony on 03-25-2024 Sodium [Moles/Vol] 138 mmol/L Normal 136-145 [facility] Comment on above: Performed By: #### C K, BMP #### [address] Urea nitrogen [Mass/volume] in Serum or PlasmaOrdered By: Teresa Antony on 03-25-2024 Urea nitrogen [Mass/Vol] 13 mg/dL Normal 7-25 [facility] Comment on above: Performed By: #### C K, BMP #### [address] Automated basophil %Ordered By: Bryan Coppola on 03-24-2024 Basophils/100 WBC (Bld) 0.8 % Normal . [facility] Comment on above: Performed By: #### H S TROP #### [address] Automated basophil countOrde red By: Bryan Coppola on 03-24-2024 Basophils (Bld) [#/Vol] 0.1 10*3/uL Normal 0.0-0.2 [facility] Comment on above: Result Comment: PERF ORMED BY: [place] [address] PATHOLOGIST LOGISTICS VICE PRESIDENT SARAH IRAHETA M.D. Performed By: #### H S TROP #### [address] Automated blood monocyte cou ntOrdered By: Bryan Coppola on 03-24-2024 Monocytes (Bld) [#/Vol] 0.5 10*3/uL Normal 0.0-0.8 [facility] Comment on above: Performed By: #### H S TROP #### [address] Automated eosinophil %Ordere d By: Bryan Coppola on 03-24-2024 Eosinophils/100 WBC (Bld) 2.4 % Normal . [facility] Comment on above: Performed By: #### H S TROP #### [address] Automated eosinophil countOr dered By: Bryan Coppola on 03-24-2024 Eosinophils (Bld) [#/Vol] 0.2 10*3/uL Normal 0.0-0.45 [facility] Comment on above: Performed By: #### H S TROP #### [address] Automated monocyte %Ordered By: Bryanjustin Coppola on 03-24-2024 Monocytes/100 WBC (Bld) 7.5 % Normal . [facility] Comment on above: Performed By: #### H S TROP #### [address] Automated neutrophil %Ordere d By: Bryankelsie Coppola on 03-24-2024 Neutrophils/100 WBC (Bld) 64.6 % Normal . [facility] Comment on above: Performed By: #### H S TROP #### [address] Basic Metabolic Panelon 10-0 Anion gap [Moles/Vol] 9.1 mmol/L Normal 6.0-15.0 [facility] Comment on above: Performed By: #### H S TROP #### [address] Calcium [Mass/Vol] 8.4 mg/dL Low 8.6-10.3 [facility] Comment on above: Performed By: #### H S TROP #### [address] Chloride [Moles/Vol] 109 mmol/L High 98-107 [facility] Comment on above: Performed By: #### H S TROP #### [address] CO2 [Moles/Vol] 26.9 mmol/L Normal 21.0-31.0 [facility] Comment on above: Performed By: #### H S TROP #### [address] Creatinine [Mass/Vol] 0.68 mg/dL Normal 0.60-1.20 [facility] Comment on above: Performed By: #### H S TROP #### [address] Creatinine Clr Calc Pharmacy 44.36 Normal [facility] Comment on above: Result Comment: PERF ORMED BY: [place] [address] PATHOLOGIST LOGISTICS VICE PRESIDENT SARAH IRAHETA M.D. Performed By: #### H S TROP #### [place] [address] [place] GFR/1.73 sq M.predicted MDRD (S/P/Bld) [Vol rate/Area] mL/min/{1.73_m2} Normal [facility] Comment on above: Performed By: #### H S TROP #### [address] Glucose [Mass/Vol] 88 mg/dL Normal 70-100 [facility] Comment on above: Result Comment: [facility] Glucose Reference Range is dependent on time and content of last meal. Glucose of more than 200 mg/dL in a nonstressed, ambulatory subject supports the diagnosis of Diabetes Mellitus. ADA recommended reference range Performed By: #### H S TROP #### [address] Potassium [Moles/Vol] 3.0 mmol/L Low 3.5-5.1 [facility] Comment on above: Performed By: #### H S TROP #### [place] [address] [place] Sodium [Moles/Vol] 142 mmol/L Normal 136-145 [facility] Comment on above: Performed By: #### H S TROP #### [place] [address] [place] Urea nitrogen [Mass/Vol] 13 mg/dL Normal 7-25 [facility] Comment on above: Performed By: #### H S TROP #### [place] [address] [place] Complete Blood Count Auto Di ffon 03-24-2024 Mean Corpuscular HGB Conc 35.0 g/dL Normal 32.0-35.0 [facility] Comment on above: Performed By: #### H S TROP #### [address] NRBC% 0.1 /100{WBC} Normal 0-0.5 [facility] Comment on above: Performed By: #### H S TROP #### [address] Creatine Kinaseon 03-24-2024 CK [Catalytic activity/Vol] 2390 U/L High 30-223 [facility] Comment on above: Result Comment: PERF ORMED BY: [place] [address] PATHOLOGIST LOGISTICS VICE PRESIDENT SARAH IRAHETA M.D. Performed By: #### H S TROP #### [address] Erythrocyte distribution wid th [Ratio] by Automated countOrdered By: Bryan Coppola on 03-24-2024 Erythrocyte distribution width (RBC) [Ratio] 13.5 % Normal 11.9-15.3 [facility] Comment on above: Performed By: #### H S TROP #### [address] Erythrocytes [#/volume] in B lood by Automated countOrdered By: Bryan Coppola on 03-24-2024 RBC (Bld) [#/Vol] 3.89 10*6/uL Normal 3.60-5.00 [facility] Comment on above: Performed By: #### H S TROP #### [address] Hematocrit [Volume Fraction] of Blood by Automated countOrdered By: Bryan Coppola on 03-24-2024 Hematocrit (Bld) [Volume fraction] 35.7 % Normal 34.0-46.4 [facility] Comment on above: Performed By: #### H S TROP #### [address] Hemoglobin [Mass/volume] in BloodOrdered By: Bryan Coppola on 03-24-2024 Hemoglobin (Bld) [Mass/Vol] 12.5 g/dL Normal 11.8-15.4 [facility] Comment on above: Performed By: #### H S TROP #### [address] Leukocytes [#/volume] correc stephanie for nucleated erythrocytes in Blood by Automated counOrdered By: Bryan Coppola on 03-24-2024 WBC corrected for nucl RBC Auto (Bld) [#/Vol] 6.7 10*3/uL 3.8-11.6 [facility] Leukocytes [#/volume] in Blo od by Automated countOrdered By: Bryan Coppola on 03-24-2024 WBC (Bld) [#/Vol] 6.7 10*3/uL Normal 3.8-11.6 [facility] Comment on above: Performed By: #### H S TROP #### [place] [address] [place] Lymphocytes [#/volume] in Bl ood by Automated countOrdered By: Bryan Coppola on 03-24-2024 Lymphocytes (Bld) [#/Vol] 1.7 10*3/uL Normal 1.00-4.8 [facility] Comment on above: Performed By: #### H S TROP #### [place] [address] [place] Lymphocytes/100 leukocytes i n Blood by Automated countOrdered By: Bryan Coppola on 03-24-2024 Lymphocytes/100 WBC (Bld) 24.7 % Normal . [facility] Comment on above: Performed By: #### H S TROP #### [place] [address] [place] MCH [Entitic mass] by Automa stephanie countOrdered By: Bryan Coppola on 03-24-2024 MCH (RBC) [Entitic mass] 32.1 pg Normal 24.7-34.3 [facility] Comment on above: Performed By: #### H S TROP #### [facility] [address] [place] [address] MCHC Auto (RBC) [Mass/Vol]Or dered By: Bryan Coppola on 03-24-2024 MCHC (RBC) [Mass/Vol] 35.0 g/dL 32.0-35.0 [facility] MCV [Entitic volume] by Auto mated countOrdered By: Bryan Coppola on 03-24-2024 MCV (RBC) [Entitic vol] 91.7 fL Normal 80-100 [facility] Comment on above: Performed By: #### H S TROP #### [address] Neutrophils [#/volume] in Bl ood by Automated countOrdered By: Bryan Coppola on 03-24-2024 Neutrophils (Bld) [#/Vol] 4.3 10*3/uL Normal 1.8-7.7 [facility] Comment on above: Performed By: #### H S TROP #### [address] Nucleated erythrocytes [Pres ence] in Blood by Automated countOrdered By: Bryan Coppola on 03-24-2024 Nucleated RBC Auto Ql (Bld) 0.1 /100{WBC} 0-0.5 [facility] Platelet mean volume [Entiti c volume] in Blood by Automated countOrdered By: Bryan Coppola on 03-24-2024 Platelet mean volume (Bld) [Entitic vol] 7.8 fL Normal 6.3-10.7 [facility] Comment on above: Performed By: #### H S TROP #### [facility] [address] [place] [address] [place] Platelets [#/volume] in Bloo d by Automated countOrdered By: Bryan Coppola on 03-24-2024 Platelets (Bld) [#/Vol] 183 10*3/uL Normal 150-450 [facility] Comment on above: Performed By: #### H S TROP #### [address] Basic Metabolic Panelon 10-0 Anion gap [Moles/Vol] Not performed Normal 6.0-15.0 [facility] Comment on above: Performed By: #### H S TROP #### [address] Calcium [Mass/Vol] 8.6 mg/dL Normal 8.6-10.3 [facility] Comment on above: Performed By: #### H S TROP #### [address] Chloride [Moles/Vol] 107 mmol/L Normal 98-107 [facility] Comment on above: Performed By: #### H S TROP #### [address] CO2 [Moles/Vol] 25.0 mmol/L Normal 21.0-31.0 [facility] Comment on above: Performed By: #### H S TROP #### [address] Creatinine [Mass/Vol] 0.81 mg/dL Normal 0.60-1.20 [facility] Comment on above: Performed By: #### H S TROP #### [place] [address] [place] Creatinine Clr Calc Pharmacy 43.81 Normal [facility] Comment on above: Result Comment: PERF ORMED BY: [place] [address] PATHOLOGIST LOGISTICS VICE PRESIDENT SARAH IRAHETA M.D. Performed By: #### H S TROP #### [place] [address] [place] GFR/1.73 sq M.predicted MDRD (S/P/Bld) [Vol rate/Area] mL/min/{1.73_m2} Normal [facility] Comment on above: Performed By: #### H S TROP #### [place] [address] [place] Glucose [Mass/Vol] 78 mg/dL Normal 70-100 [facility] Comment on above: Result Comment: [facility] Glucose Reference Range is dependent on time and content of last meal. Glucose of more than 200 mg/dL in a nonstressed, ambulatory subject supports the diagnosis of Diabetes Mellitus. ADA recommended reference range Performed By: #### H S TROP #### [address] Potassium Normal 3.5-5.1 [facility] Comment on above: Result Comment: Spec imen hemolyzed, redraw requested Performed By: #### H S TROP #### [place] [address] [place] Sodium [Moles/Vol] 138 mmol/L Normal 136-145 [facility] Comment on above: Performed By: #### H S TROP #### [address] Urea nitrogen [Mass/Vol] 12 mg/dL Normal 7-25 [facility] Comment on above: Performed By: #### H S TROP #### [address] Complete Blood Count Auto Di ffon 03-23-2024 Basophils (Bld) [#/Vol] 0.1 10*3/uL Normal 0.0-0.2 [facility] Comment on above: Result Comment: PERF ORMED BY: [place] [address] PATHOLOGIST LOGISTICS VICE PRESIDENT SARAH IRAHETA M.D. Performed By: #### H S TROP #### [place] [address] [place] Basophils/100 WBC (Bld) 1.4 % Normal . [facility] Comment on above: Performed By: #### H S TROP #### [place] [address] [place] Eosinophils (Bld) [#/Vol] 0.1 10*3/uL Normal 0.0-0.45 [facility] Comment on above: Performed By: #### H S TROP #### [address] Eosinophils/100 WBC (Bld) 1.6 % Normal . [facility] Comment on above: Performed By: #### H S TROP #### [address] Erythrocyte distribution width (RBC) [Ratio] 13.5 % Normal 11.9-15.3 [facility] Comment on above: Performed By: #### H S TROP #### [address] Hematocrit (Bld) [Volume fraction] 38.9 % Normal 34.0-46.4 [facility] Comment on above: Performed By: #### H S TROP #### [address] Hemoglobin (Bld) [Mass/Vol] 13.5 g/dL Normal 11.8-15.4 [facility] Comment on above: Performed By: #### H S TROP #### [address] Lymphocytes (Bld) [#/Vol] 2.4 10*3/uL Normal 1.00-4.8 [facility] Comment on above: Performed By: #### H S TROP #### [address] Lymphocytes/100 WBC (Bld) 24.6 % Normal . [facility] Comment on above: Performed By: #### H S TROP #### [address] MCH (RBC) [Entitic mass] 32.0 pg Normal 24.7-34.3 [facility] Comment on above: Performed By: #### H S TROP #### [address] MCV (RBC) [Entitic vol] 92.4 fL Normal 80-100 [facility] Comment on above: Performed By: #### H S TROP #### [address] Mean Corpuscular HGB Conc 34.7 g/dL Normal 32.0-35.0 [facility] Comment on above: Performed By: #### H S TROP #### [place] [address] [place] Monocytes (Bld) [#/Vol] 0.6 10*3/uL Normal 0.0-0.8 [facility] Comment on above: Performed By: #### H S TROP #### [place] [address] [place] Monocytes/100 WBC (Bld) 5.9 % Normal . [facility] Comment on above: Performed By: #### H S TROP #### [address] Neutrophils (Bld) [#/Vol] 6.4 10*3/uL Normal 1.8-7.7 [facility] Comment on above: Performed By: #### H S TROP #### [place] [address] [place] Neutrophils/100 WBC (Bld) 66.5 % Normal . [facility] Comment on above: Performed By: #### H S TROP #### [place] [address] [place] NRBC% 0.1 /100{WBC} Normal 0-0.5 [facility] Comment on above: Performed By: #### H S TROP #### [place] [address] [place] Platelet mean volume (Bld) [Entitic vol] 8.3 fL Normal 6.3-10.7 [facility] Comment on above: Performed By: #### H S TROP #### [place] [address] [place] Platelets (Bld) [#/Vol] 193 10*3/uL Normal 150-450 [facility] Comment on above: Performed By: #### H S TROP #### [place] [address] [place] RBC (Bld) [#/Vol] 4.21 10*6/uL Normal 3.60-5.00 [facility] Comment on above: Performed By: #### H S TROP #### [address] WBC (Bld) [#/Vol] 9.6 10*3/uL Normal 3.8-11.6 [facility] Comment on above: Performed By: #### H S TROP #### [address] Creatine Kinaseon 03-23-2024 CK [Catalytic activity/Vol] 930 U/L High 30-223 [facility] Comment on above: Result Comment: PERF ORMED BY: [place] [address] PATHOLOGIST LOGISTICS VICE PRESIDENT SARAH IRAHETA M.D. Performed By: #### H S TROP #### [address] Redraw Potassiumon Potassium [Moles/Vol] 3.8 mmol/L Normal 3.5-5.1 [facility] Comment on above: Order Comment: HEMOL YZED SPECIMEN NOTIFIED GAURAV Result Comment: Hemo lysis is present at a level that could interfere with the result. Contact lab if redraw is required PERFORMED BY: [place] [address] PATHOLOGIST LOGISTICS VICE PRESIDENT SARAH IRAHETA M.D. Performed By: #### H S TROP #### [address] Basic Metabolic Panelon 10-0 Anion gap [Moles/Vol] 9.5 mmol/L Normal 6.0-15.0 [facility] Comment on above: Performed By: #### M G, [id number], BMP, CK, CBC, HS TROP #### [address] Calcium [Mass/Vol] 8.4 mg/dL Low 8.6-10.3 [facility] Comment on above: Performed By: #### M G, [id number], BMP, CK, CBC, HS TROP #### [facility] [address] Chloride [Moles/Vol] 109 mmol/L High 98-107 [facility] Comment on above: Performed By: #### M G, [id number], BMP, CK, CBC, HS TROP #### [facility] [address] CO2 [Moles/Vol] 25.2 mmol/L Normal 21.0-31.0 [facility] Comment on above: Performed By: #### M G, [id number], BMP, CK, CBC, HS TROP #### [facility] [address] Creatinine [Mass/Vol] 0.78 mg/dL Normal 0.60-1.20 [facility] Comment on above: Performed By: #### M G, [id number], BMP, CK, CBC, HS TROP #### [address] Creatinine Clr Calc Pharmacy 44.36 Normal [facility] Comment on above: Performed By: #### M G, [id number], BMP, CK, CBC, HS TROP #### [address] GFR/1.73 sq M.predicted MDRD (S/P/Bld) [Vol rate/Area] mL/min/{1.73_m2} Normal [facility] Comment on above: Performed By: #### M G, [id number], BMP, CK, CBC, HS TROP #### [facility] [address] Glucose [Mass/Vol] 95 mg/dL Normal 70-100 [facility] Comment on above: Result Comment: [place] Glucose Reference Range is dependent on time and content of last meal. Glucose of more than 200 mg/dL in a nonstressed, ambulatory subject supports the diagnosis of Diabetes Mellitus. ADA recommended reference range Performed By: #### M G, [id number], BMP, CK, CBC, HS TROP #### [facility] [address] Potassium [Moles/Vol] 3.7 mmol/L Normal 3.5-5.1 [facility] Comment on above: Performed By: #### M G, [id number], BMP, CK, CBC, HS TROP #### [address] Sodium [Moles/Vol] 140 mmol/L Significant change down 136-145 [facility] Comment on above: Performed By: #### M G, [id number], BMP, CK, CBC, HS TROP #### [address] Urea nitrogen [Mass/Vol] 13 mg/dL Normal 7-25 [facility] Comment on above: Performed By: #### M G, [id number], BMP, CK, CBC, HS TROP #### [address] Complete Blood Count Auto Di ffon 03-22-2024 Basophils (Bld) [#/Vol] 0.1 10*3/uL Normal 0.0-0.2 [facility] Comment on above: Result Comment: PERF ORMED BY: [place] [address] PATHOLOGIST LOGISTICS VICE PRESIDENT SARAH IRAHETA M.D. Performed By: #### M G, [id number], BMP, CK, CBC, HS TROP #### [address] Basophils/100 WBC (Bld) 0.9 % Normal . [facility] Comment on above: Performed By: #### M G, [id number], BMP, CK, CBC, HS TROP #### [place] [address] [place] Eosinophils (Bld) [#/Vol] 0.1 10*3/uL Normal 0.0-0.45 [facility] Comment on above: Performed By: #### M G, [id number], BMP, CK, CBC, HS TROP #### [place] [address] [place] Eosinophils/100 WBC (Bld) 0.5 % Normal . [facility] Comment on above: Performed By: #### M G, [id number], BMP, CK, CBC, HS TROP #### [address] Erythrocyte distribution width (RBC) [Ratio] 13.3 % Normal 11.9-15.3 [facility] Comment on above: Performed By: #### M G, [id number], BMP, CK, CBC, HS TROP #### [address] Hematocrit (Bld) [Volume fraction] 38.1 % Normal 34.0-46.4 [facility] Comment on above: Performed By: #### M G, [id number], BMP, CK, CBC, HS TROP #### [address] Hemoglobin (Bld) [Mass/Vol] 13.2 g/dL Normal 11.8-15.4 [facility] Comment on above: Performed By: #### M G, [id number], BMP, CK, CBC, HS TROP #### [address] Lymphocytes (Bld) [#/Vol] 1.7 10*3/uL Normal 1.00-4.8 [facility] Comment on above: Performed By: #### M G, [id number], BMP, CK, CBC, HS TROP #### [address] Lymphocytes/100 WBC (Bld) 16.8 % Normal . [facility] Comment on above: Performed By: #### M G, [id number], BMP, CK, CBC, HS TROP #### [address] MCH (RBC) [Entitic mass] 31.8 pg Normal 24.7-34.3 [facility] Comment on above: Performed By: #### M G, [id number], BMP, CK, CBC, HS TROP #### [address] MCV (RBC) [Entitic vol] 91.8 fL Normal 80-100 [facility] Comment on above: Performed By: #### M G, [id number], BMP, CK, CBC, HS TROP #### [address] Mean Corpuscular HGB Conc 34.7 g/dL Normal 32.0-35.0 [facility] Comment on above: Performed By: #### M G, [id number], BMP, CK, CBC, HS TROP #### [address] Monocytes (Bld) [#/Vol] 0.8 10*3/uL Normal 0.0-0.8 [facility] Comment on above: Performed By: #### M G, [id number], BMP, CK, CBC, HS TROP #### [address] Monocytes/100 WBC (Bld) 7.8 % Normal . [facility] Comment on above: Performed By: #### M G, [id number], BMP, CK, CBC, HS TROP #### [address] Neutrophils (Bld) [#/Vol] 7.5 10*3/uL Normal 1.8-7.7 [facility] Comment on above: Performed By: #### M G, [id number], BMP, CK, CBC, HS TROP #### [address] Neutrophils/100 WBC (Bld) 74.0 % Normal . [facility] Comment on above: Performed By: #### M G, [id number], BMP, CK, CBC, HS TROP #### [address] NRBC% 0.0 /100{WBC} Normal 0-0.5 [facility] Comment on above: Performed By: #### M G, [id number], BMP, CK, CBC, HS TROP #### [facility] [address] Platelet mean volume (Bld) [Entitic vol] 7.9 fL Normal 6.3-10.7 [facility] Comment on above: Performed By: #### M G, [id number], BMP, CK, CBC, HS TROP #### [address] Platelets (Bld) [#/Vol] 201 10*3/uL Normal 150-450 [facility] Comment on above: Performed By: #### M G, [id number], BMP, CK, CBC, HS TROP #### [address] RBC (Bld) [#/Vol] 4.15 10*6/uL Normal 3.60-5.00 [facility] Comment on above: Performed By: #### M G, [id number], BMP, CK, CBC, HS TROP #### [address] WBC (Bld) [#/Vol] 10.2 10*3/uL Normal 3.8-11.6 [facility] Comment on above: Performed By: #### M G, [id number], BMP, CK, CBC, HS TROP #### [address] Creatine Kinaseon 03-22-2024 CK [Catalytic activity/Vol] 7110 U/L High 30-223 [facility] Comment on above: Performed By: #### C K, BMP #### [address] E[facility] echo transthoracicon ECH echo transthoracic [facility] [place] [address] Echocardiogram Signed Patient: Stella Green MR#: [id number] 81 : 1945 Acct:[id number] Age/Sex: 79 / F ADM Date: 03/21/24 Loc: Room: [address] [place] [address] Type: ADM IN Attending Dr: Alonso Agudelo MD Ordering Provider: Bryan Coppola DO Date of Service: 03/22/2401/06/500 [facility] echo transthoracic: dyspnea Copies to: DO Mala [...] mmHg RAP systole: 3.0 mmHg Transcribed By: SCV Performed At: 03/22/24 0907 Signed By: Mala Nettles MD 03/22/24 1001 Normal [facility] Magnesium [Mass/volume] in S selene or PlasmaOrdered By: Bryan Coppola on 03-22-2024 Magnesium [Mass/Vol] 2.0 mg/dL Normal 1.9-2.7 [facility] Comment on above: Performed By: #### M G, [id number], BMP, CK, CBC, HS TROP #### [facility] [address] Troponin I High Sensitivityo n 03-22-2024 Troponin I High Sensitivity 255.3 pg/mL Off scale high 0.0-15.0 [facility] Comment on above: Result Comment: Crit ical Result : Called to and read back by: KASH GRAHAM at: 03/22/2024 07:53:28 by:PB PERFORMED BY: [facility] [address] [place] [address] PATHOLOGIST LOGISTICS VICE PRESIDENT SARAH IRAHETA M.D. Performed By: #### Ramon Brown, BMP #### [address] Troponin I.cardiac [Mass/vol ume] in Serum or Plasma by Detection limit <= 0.01 ng/Ordered By: Bryan Coppola on 03-22-2024 Troponin I.cardiac DL <= 0.01 ng/mL [Mass/Vol] 255.3 pg/mL High 0.0-15.0 [facility] Comment on above: Critical Result : Ca lled to and read back by: KASH GRAHAM at: 03/22/2024 07:53:28 by:KOJO Vitamin D 25 Hydroxy Totalon 03-22-2024 Vitamin D 25 Hydroxy Total 33.0 ng/mL Normal 30-100 [facility] Comment on above: Result Comment: SEBAS MIN D STATUS 25(OH)VITAMIN D RANGE (ng/mL) Deficient <20 Insufficient 20 to <30 Sufficient 30 to 100 Reference: Elana Cesar, Hilario BUSCH, et al. Evaluation,treatment, and prevention of vitamin D deficiency; an Endocrine Society clinical practice guideline. JCEM. 2010; 96(7):1911-30. PERFORMED BY: [place] [address] PATHOLOGIST LOGISTICS VICE PRESIDENT SARAH IRAHETA M.D. Performed By: #### Ramon Brown, BMP #### [place] [id number] [facility] Vitamin D+Metabolites [Mass/ volume] in Serum or PlasmaOrdered By: Bryan Coppola on 03-22-2024 Vitamin D+Metabolites [Mass/Vol] 33.0 ng/mL 30-100 [facility] Comment on above: VITAMIN D STATUS [...] ALT [Catalytic activity/Vol] 15 U/L Normal 7-52 [facility] Comment on above: Performed By: #### C K, BMP #### [facility] [address] [place] [address] [place] Albumin [Mass/volume] in Ser um or Plasma by Bromocresol green (BCG) dye binding methoOrdered By: Yokasta Flores on 03-21-2024 Albumin BCG dye [Mass/Vol] 3.8 g/dL 3.5-5.7 [facility] Alkaline phosphatase [Enzyma tic activity/volume] in Serum or PlasmaOrdered By: Yokasta Flores on 03-21-2024 ALP [Catalytic activity/Vol] 55 U/L Normal 34-104 [facility] Comment on above: Performed By: #### Ramon Brown, BMP #### [address] Aspartate aminotransferase [ Enzymatic activity/volume] in Serum or PlasmaOrdered By: Yokasta Flores on 03-21-2024 AST [Catalytic activity/Vol] 30 U/L Normal 13-39 [facility] Comment on above: Performed By: #### C K, BMP #### [address] Automated basophil %Ordered By: Yokasta Flores on 03-21-2024 Basophils/100 WBC (Bld) 1.2 % Normal . [facility] Comment on above: Performed By: #### C K, BMP #### [address] Automated basophil countOrde red By: Yokasta Flores on 03-21-2024 Basophils (Bld) [#/Vol] 0.2 10*3/uL Normal 0.0-0.2 [facility] Comment on above: Result Comment: PERF ORMED BY: [place] [address] PATHOLOGIST LOGISTICS VICE PRESIDENT SARAH IRAHETA M.D. Performed By: #### C K, BMP #### [address] Automated blood monocyte cou ntOrdered By: Yokasta Flores on 03-21-2024 Monocytes (Bld) [#/Vol] 0.4 10*3/uL Normal 0.0-0.8 [facility] Comment on above: Performed By: #### C K, BMP #### [address] Automated eosinophil %Ordere d By: Yokasta Flores on 03-21-2024 Eosinophils/100 WBC (Bld) 0.1 % Normal . [facility] Comment on above: Performed By: #### C K, BMP #### [address] Automated eosinophil countOr dered By: Yokasta Flores on 03-21-2024 Eosinophils (Bld) [#/Vol] 0.0 10*3/uL Normal 0.0-0.45 [facility] Comment on above: Performed By: #### C K, BMP #### [address] Automated monocyte %Ordered By: Yokasta Flores on 03-21-2024 Monocytes/100 WBC (Bld) 2.9 % Normal . [facility] Comment on above: Performed By: #### C K, BMP #### [address] Automated neutrophil %Ordere d By: Yokasta Flores on 03-21-2024 Neutrophils/100 WBC (Bld) 91.7 % Normal . [facility] Comment on above: Performed By: #### C K, BMP #### [address] Bacteria [Presence] in Urine by AutomatedOrdered By: Bryan Coppola on 03-21-2024 Bacteria Auto Ql (U) 1+ [HPF] High None Seen [facility] Bacteria [Presence] in Urine by AutomatedOrdered By: Yokasta Flores on 03-21-2024 Bacteria Auto Ql (U) 2+ [HPF] High None Seen [facility] Bilirubin Test strip Ql (U)O rdered By: Yokasta Flores on 03-21-2024 Bilirubin Ql (U) Negative Negative [facility] Bilirubin.total [Mass/volume ] in Serum or PlasmaOrdered By: Yokasta Flores on 03-21-2024 Bilirubin [Mass/Vol] 0.4 mg/dL Normal 0.3-1.0 [facility] Comment on above: Performed By: #### C K, BMP #### [facility] [address] head/brain wo conon 03-21 CT head/brain wo con [facility] [place] [address] [place] [address] CT Scan Report Signed Patient: Stella Green MR#: [id number] 81 : 1945 Acct:[id number] Age/Sex: 79 / F ADM Date: 03/21/24 Loc: ER Room: Type: [facility] ER Attending Dr: Copies to: Yokasta [...] Lipscomb Jr., D.O.03/21/2024 6:18 PM Dictation Location: [place] [address] Transcribed By: [facility] 03/21/241817 Dictated By: Germain Lipscomb Jr, DO 03/21/241814 Signed By: 10/06/24 1818 Normal [facility] Calcium [Mass/volume] in Ser um or PlasmaOrdered By: Yokasta Flores on 03-21-2024 Calcium [Mass/Vol] 8.5 mg/dL Low 8.6-10.3 [facility] Comment on above: Performed By: #### C K, BMP #### [address] Carbon dioxide, total [Moles /volume] in Serum or PlasmaOrdered By: Yokasta Flores on 03-21-2024 CO2 [Moles/Vol] 22.6 mmol/L Normal 21.0-31.0 [facility] Comment on above: Performed By: #### C K, BMP #### [address] Chloride [Moles/volume] in S selene or PlasmaOrdered By: Yokasta Flores on 03-21-2024 Chloride [Moles/Vol] 102 mmol/L Normal 98-107 [facility] Comment on above: Performed By: #### C K, BMP #### [address] Color of Urine by AutoOrdere d By: Bryan Coppola on 03-21-2024 Color (U) Colorless Normal Yellow [facility] Comment on above: Order Comment: Name Collection Type:: Straight Catheter Performed By: #### A DDONMALLORY, CUU #### [place] [address] [place] Color of Urine by AutoOrdere d By: Yokasta Flores on 03-21-2024 Color (U) Light-yellow Normal Yellow [facility] Comment on above: Order Comment: Name Collection Type:: Clean-Voided Midstream Performed By: #### A RADHA, CUU #### [place] [address] [place] Complete Blood Count Auto Di ffon 03-21-2024 Mean Corpuscular HGB Conc 34.7 g/dL Normal 32.0-35.0 [facility] Comment on above: Performed By: #### C K, BMP #### [address] Monocytes/100 WBC (Bld) 14.37 % Normal 0.00-20.00 [facility] Comment on above: Performed By: #### C K, BMP #### [address] NRBC% 0.1 /100{WBC} Normal 0-0.5 [facility] Comment on above: Performed By: #### C K, BMP #### [address] Comprehensive Metabolic Pane tila 03-21-2024 Albumin [Mass/Vol] 3.8 g/dL Normal 3.5-5.7 [facility] Comment on above: Performed By: #### C K, BMP #### [address] Creatinine Clr Calc Pharmacy 42.12 Normal [facility] Comment on above: Result Comment: PERF ORMED BY: [place] [address] PATHOLOGIST LOGISTICS VICE PRESIDENT SARAH IRAHETA M.D. Performed By: #### C K, BMP #### [address] GFR/1.73 sq M.predicted MDRD (S/P/Bld) [Vol rate/Area] mL/min/{1.73_m2} Normal [facility] Comment on above: Performed By: #### C K, BMP #### [place] [address] [place] Creatine Kinaseon 03-21-2024 CK [Catalytic activity/Vol] 6966 U/L High 30-223 [facility] Comment on above: Performed By: #### C K, BMP #### [address] Creatine kinase [Enzymatic a ctivity/volume] in Serum or PlasmaOrdered By: Yokasta Flores on 03-21-2024 CK [Catalytic activity/Vol] 1460 U/L High 30-223 [facility] Comment on above: Result Comment: PERF ORMED BY: [place] [address] PATHOLOGIST LOGISTICS VICE PRESIDENT SARAH IRAHETA M.D. Performed By: #### C K, BMP #### [address] Creatine kinase.MB [Mass/vol ume] in Serum or PlasmaOrdered By: Bryan Coppola on 03-21-2024 CK.MB [Mass/Vol] 80.7 ng/mL High 0.6-6.3 [facility] Comment on above: Performed By: #### H S TROP #### [place] [address] [place] Creatinine Kinase MBon 03-21 CKMB Relative Index 1.1 % Normal 0.00-2.50 [facility] Comment on above: Performed By: #### H S TROP #### [place] [address] [place] Creatinine [Mass/volume] in Serum or PlasmaOrdered By: Yokasta Flores on 03-21-2024 Creatinine [Mass/Vol] 0.94 mg/dL Normal 0.60-1.20 [facility] Comment on above: Performed By: #### C K, BMP #### [place] [address] [place] Dipstick and Microscopicon 1 0 Bacteria,Urine 1+ High None Seen [facility] Comment on above: Order Comment: Name Collection Type:: Straight Catheter Performed By: #### A DDJAIDAUAPLUS, CUU #### [place] [address] [place] Glucose Ql (U) 70 mg/dL High Normal [facility] Comment on above: Order Comment: Name Collection Type:: Straight Catheter Performed By: #### A DDONUAPLUS, CUU #### [place] [address] [place] Specificy [place],Urine 1.006 Normal 1.00 1-1.03 0 [facility] Comment on above: Order Comment: Name Collection Type:: Straight Catheter Performed By: #### A DDONUAPLUS, CUU #### [address] WBC CLUMP, Urine Moderate High None Seen [facility] Comment on above: Order Comment: Name Collection Type:: Straight Catheter Performed By: #### A DDONUAPLUS, CUU #### [address] WBC,Urine 20-49 High 0-4 [facility] Comment on above: Order Comment: Name Collection Type:: Straight Catheter Performed By: #### A DDONUAPLUS, CUU #### [address] Bacteria,Urine 2+ High None Seen [facility] Comment on above: Order Comment: Name Collection Type:: Clean-Voided Midstream Performed By: #### A DDONUAPLUS, CUU #### [address] Bilirubin,Urine Negative Normal Negative [facility] Comment on above: Order Comment: Name Collection Type:: Straight Catheter Performed By: #### A DDONUAPLUS, CUU #### [address] Order Comment: Name Collection Type:: Clean-Voided Midstream Glucose Ql (U) 300 mg/dL High Normal [facility] Comment on above: Order Comment: Name Collection Type:: Clean-Voided Midstream Performed By: #### A DDONUAPLUS, CUU #### [address] Hyaline Casts,Urine None Normal 0-8 [facility] Comment on above: Order Comment: Name Collection Type:: Straight Catheter Result Comment: PERF ORMED BY: [place] [address] PATHOLOGIST LOGISTICS VICE PRESIDENT SARAH IRAHETA M.D. Performed By: #### A DDONUAPLUS, CUU #### [address] Order Comment: Name Collection Type:: Clean-Voided Midstream Mucus,Urine Rare Normal [facility] Comment on above: Order Comment: Name Collection Type:: Clean-Voided Midstream Result Comment: PERF ORMED BY: [place] [address] PATHOLOGIST LOGISTICS VICE PRESIDENT SARAH IRAHETA M.D. Performed By: #### A DDONUAPLUS, CUU #### [address] Nitrite,Urine Positive High Negative [facility] Comment on above: Order Comment: Name Collection Type:: Straight Catheter Performed By: #### A DDONUAPLUS, CUU #### [address] Order Comment: Name Collection Type:: Clean-Voided Midstream Occult Blood,Urine 3+ High Negative [facility] Comment on above: Order Comment: Name Collection Type:: Straight Catheter Result Comment: PERF ORMED BY: [place] [address] PATHOLOGIST LOGISTICS VICE PRESIDENT SARAH IRAHETA M.D. Performed By: #### A DDONUAPLUS, CUU #### [address] Order Comment: Name Collection Type:: Clean-Voided Midstream Protein,Urine Negative Normal Negative [facility] Comment on above: Order Comment: Name Collection Type:: Straight Catheter Performed By: #### A DDONUAPLUS, CUU #### [address] Order Comment: Name Collection Type:: Clean-Voided Midstream RBC,Urine 3-4 Normal 0-4 [facility] Comment on above: Order Comment: Name Collection Type:: Straight Catheter Performed By: #### A DDONUAPLUS, CUU #### [address] Order Comment: Name Collection Type:: Clean-Voided Midstream Specificy [place],Urine 1.012 Normal 1.00 1-1.03 0 [facility] Comment on above: Order Comment: Name Collection Type:: Clean-Voided Midstream Performed By: #### A DDONUAPLUS, CUU #### [address] Squamous Epithelial Cell,Urine 1-2 Normal 0-2 [facility] Comment on above: Order Comment: Name Collection Type:: Straight Catheter Performed By: #### A DDONUAPLUS, CUU #### [address] Order Comment: Name Collection Type:: Clean-Voided Midstream Urobilinogen,Urine Normal Normal Normal [facility] Comment on above: Order Comment: Name Collection Type:: Straight Catheter Performed By: #### A DDONUAPLUS, CUU #### [address] Order Comment: Name Collection Type:: Clean-Voided Midstream WBC,Urine 10-19 High 0-4 [facility] Comment on above: Order Comment: Name Collection Type:: Clean-Voided Midstream Performed By: #### A DDONUAPLUS, CUU #### [address] ECG 12 lead ECGon 03-21-2024 ECG 12 lead ECG [facility] [place] [address] Electrocardiograph Report Signed Patient: Stella Green MR#: [id number] 81 : 1945 Acct:[id number] Age/Sex: 79 / F ADM Date: 03/21/24 Loc: ER Room: Type: [facility] ER Attending Dr: Ordering Provider: Yokasta [...] longer present Confirmed by YOKASTA FLORES DO ([id number]) on 03/21/2024 8:02:58 PM Referred By: Electronically Signed By: YOKASTA FLORES DO Transcribed By: MUS Signed By Yokasta Flores DO 03/21 Normal [facility] Epithelial cells.squamous [# /area] in Urine sediment by Automated countOrdered By: Yokasta Flores on 03-21-2024 Epithelial cells.squamous Auto (Urine sed) [#/Area] 1-2 [HPF] 0-2 [facility] Erythrocyte distribution wid th [Ratio] by Automated countOrdered By: Yokasta Flores on 03-21-2024 Erythrocyte distribution width (RBC) [Ratio] 13.6 % Normal 11.9-15.3 [facility] Comment on above: Performed By: #### C K, BMP #### [facility] [address] [place] [address] Erythrocytes [#/area] in Uri ne sediment by Automated countOrdered By: Yokasta Flores on 03-21-2024 RBC Auto (Urine sed) [#/Area] 3-4 [HPF] 0-4 [facility] Erythrocytes [#/volume] in B lood by Automated countOrdered By: Yokasta Flores on 03-21-2024 RBC (Bld) [#/Vol] 4.10 10*6/uL Normal 3.60-5.00 [facility] Comment on above: Performed By: #### C K, BMP #### [facility] [address] [place] [address] Glucose [Mass/volume] in Ser um or PlasmaOrdered By: Yokasta Flores on 03-21-2024 Glucose [Mass/Vol] 105 mg/dL High 70-100 [facility] Comment on above: ADA recommended refe rence rangeRandom Glucose Reference Range is dependent on time and content of last meal. Glucose of more than 200 mg/dL in a nonstressed, ambulatory subject supports the diagnosis of Diabetes Mellitus. Result Comment: [place] om Glucose Reference Range is dependent on time and content of last meal. Glucose of more than 200 mg/dL in a nonstressed, ambulatory subject supports the diagnosis of Diabetes Mellitus. ADA recommended reference range Performed By: #### C K, BMP #### [facility] [address] Glucose [Mass/volume] in Uri ne by Test stripOrdered By: Bryan Coppola on 03-21-2024 Glucose Test strip (U) [Mass/Vol] 70 mg/dL High [facility] Glucose [Mass/volume] in Uri ne by Test stripOrdered By: Yokasta Flores on 03-21-2024 Glucose Test strip (U) [Mass/Vol] 300 mg/dL High Normal [facility] Hematocrit [Volume Fraction] of Blood by Automated countOrdered By: Yokasta Flores on 03-21-2024 Hematocrit (Bld) [Volume fraction] 37.4 % Normal 34.0-46.4 [facility] Comment on above: Performed By: #### C K, BMP #### [facility] [address] [place] [address] Hemoglobin Test strip Ql (U) Ordered By: Yokasta Flores on 03-21-2024 Hemoglobin Ql (U) 3+ High Negative [facility] Hemoglobin [Mass/volume] in BloodOrdered By: Yokasta Flores on 03-21-2024 Hemoglobin (Bld) [Mass/Vol] 13.0 g/dL Normal 11.8-15.4 [facility] Comment on above: Performed By: #### C K, BMP #### [facility] [address] [place] [address] Hyaline casts [#/area] in Ur ine sediment by Automated countOrdered By: Yokasta Flores on 03-21-2024 Hyaline casts Auto (Urine sed) [#/Area] None [LPF] 0-8 [facility] INR in Platelet poor plasma by Coagulation assayOrdered By: Yokasta Flores on 03-21-2024 INR Coag (PPP) [Relative time] 1.0 {INR} Normal [facility] Comment on above: INR Therapeutic Rang [...] heart valves: 3 - 4.5 PERFORMED BY: [place] [address] PATHOLOGIST LOGISTICS VICE PRESIDENT SARAH IRAHETA M.D. Performed By: #### C K, BMP #### [facility] [address] [place] [address] Ketones [Presence] in Urine by Test stripOrdered By: Bryan Coppola on 03-21-2024 Ketones Ql (U) Trace High Negative [facility] Comment on above: Order Comment: Name Collection Type:: Straight Catheter Performed By: #### A DDONUAPLUS, CUU #### [facility] [address] [place] [address] [place] Ketones [Presence] in Urine by Test stripOrdered By: Yokasta Flores on 03-21-2024 Ketones Ql (U) Negative Normal Negative [facility] Comment on above: Order Comment: Name Collection Type:: Clean-Voided Midstream Performed By: #### A DDONUAPLUS, CUU #### [facility] [address] [place] [address] Laboratory - Microbiology an d Antimicrobial susceptibilityOrdered By: Bryan Coppola on 03-21-2024 Bacteria identified Cx Nom (U) No Growth 2 Days [facility] Laboratory - Microbiology an d Antimicrobial susceptibilityOrdered By: Yokasta Flores on 03-21-2024 Bacteria identified Cx Nom (U) Escherichia coli Abnormal [facility] Leukocyte clumps [Presence] in Urine by AutomatedOrdered By: Bryan Coppola on 03-21-2024 Leukocyte clumps Auto Ql (U) Moderate [LPF] High None Seen [facility] Leukocyte esterase [Presence ] in Urine by Test stripOrdered By: Bryan Coppola on 03-21-2024 Leukocyte esterase Test strip Ql (U) 4+ High Negative [facility] Comment on above: Order Comment: Name Collection Type:: Straight Catheter Performed By: #### A DDONUAPLUS, CUU #### [facility] [address] [place] [address] [place] Leukocyte esterase [Presence ] in Urine by Test stripOrdered By: Yokasta Flores on 03-21-2024 Leukocyte esterase Test strip Ql (U) 2+ High Negative [facility] Comment on above: Order Comment: Name Collection Type:: Clean-Voided Midstream Performed By: #### A DDONUAPLUS, CUU #### [facility] [address] [place] [address] [place] Leukocytes [#/area] in Urine sediment by Automated countOrdered By: Bryan Coppola on 03-21-2024 WBC Auto (Urine sed) [#/Area] 20-49 [HPF] High 0-4 [facility] Leukocytes [#/area] in Urine sediment by Automated countOrdered By: Yokasta Flores on 03-21-2024 WBC Auto (Urine sed) [#/Area] 10-19 [HPF] High 0-4 [facility] Leukocytes [#/volume] correc stephanie for nucleated erythrocytes in Blood by Automated counOrdered By: Yokasta Flores on 03-21-2024 WBC corrected for nucl RBC Auto (Bld) [#/Vol] 14.6 10*3/uL High 3.8-11.6 [facility] Leukocytes [#/volume] in Blo od by Automated countOrdered By: Yokasta Flores on 03-21-2024 WBC (Bld) [#/Vol] 14.6 10*3/uL High 3.8-11.6 [facility] Comment on above: Performed By: #### C K, BMP #### [facility] [address] [place] [address] [place] Lymphocytes [#/volume] in Bl ood by Automated countOrdered By: Yokasta Flores on 03-21-2024 Lymphocytes (Bld) [#/Vol] 0.6 10*3/uL Low 1.00-4.8 [facility] Comment on above: Performed By: #### C K, BMP #### [address] Lymphocytes/100 leukocytes i n Blood by Automated countOrdered By: Yokasta Flores on 03-21-2024 Lymphocytes/100 WBC (Bld) 4.1 % Normal . [facility] Comment on above: Performed By: #### C K, BMP #### [address] MCH [Entitic mass] by Automa stephanie countOrdered By: Yokasta Flores on 03-21-2024 MCH (RBC) [Entitic mass] 31.7 pg Normal 24.7-34.3 [facility] Comment on above: Performed By: #### C K, BMP #### [address] MCHC Auto (RBC) [Mass/Vol]Or dered By: Yokasta Flores on 03-21-2024 MCHC (RBC) [Mass/Vol] 34.7 g/dL 32.0-35.0 [facility] MCV [Entitic volume] by Auto mated countOrdered By: Yokasta Flores on 03-21-2024 MCV (RBC) [Entitic vol] 91.3 fL Normal 80-100 [facility] Comment on above: Performed By: #### C K, BMP #### [address] Magnesium [Mass/volume] in S selene or PlasmaOrdered By: Yoksata Flores on 03-21-2024 Magnesium [Mass/Vol] 1.9 mg/dL Normal 1.9-2.7 [facility] Comment on above: Result Comment: PERF ORMED BY: [place] [address] PATHOLOGIST LOGISTICS VICE PRESIDENT SARAH IRAHETA M.D. Performed By: #### C K, BMP #### [address] Monocyte distribution width [Entitic volume] in Blood by AutomatedOrdered By: Yokasta Flores on 03-21-2024 Monocyte distribution width Auto (Bld) [Entitic vol] 14.37 % 0.00-20.00 [facility] Mucus [Presence] in Urine by AutomatedOrdered By: Yokasta Flores on 03-21-2024 Mucus Auto Ql (U) Rare [LPF] [facility] Neutrophils [#/volume] in Bl ood by Automated countOrdered By: Yokasta Flores on 03-21-2024 Neutrophils (Bld) [#/Vol] 13.4 10*3/uL High 1.8-7.7 [facility] Comment on above: Performed By: #### C K, BMP #### [facility] [address] Nitrite Test strip Ql (U)Ord ered By: Yokasta Flores on 03-21-2024 Nitrite Ql (U) Positive High Negative [facility] No Panel InformationOrdered By: Yokasta Flores on 03-21-2024 Estimated GFR (CKD-EPI) > 60.0 mL/Min [facility] Creatinine Clearance (Chem 42.12 [facility] Nucleated erythrocytes [Pres ence] in Blood by Automated countOrdered By: Yokasta Flores on 03-21-2024 Nucleated RBC Auto Ql (Bld) 0.1 /100{WBC} 0-0.5 [facility] Platelet mean volume [Entiti c volume] in Blood by Automated countOrdered By: Yokasta Flores on 03-21-2024 Platelet mean volume (Bld) [Entitic vol] 7.4 fL Normal 6.3-10.7 [facility] Comment on above: Performed By: #### C K, BMP #### [facility] [address] [place] [address] [place] Platelets [#/volume] in Bloo d by Automated countOrdered By: Yokasta Flores on 03-21-2024 Platelets (Bld) [#/Vol] 211 10*3/uL Normal 150-450 [facility] Comment on above: Performed By: #### C K, BMP #### [facility] [address] [place] [id number] [place] Potassium [Moles/volume] in Serum or PlasmaOrdered By: Yokasta Flores on 03-21-2024 Potassium [Moles/Vol] 3.6 mmol/L Normal 3.5-5.1 [facility] Comment on above: Performed By: #### C K, BMP #### [address] Protein Test strip (U) [Mass /Vol]Ordered By: Yokasta Flores on 03-21-2024 Protein (U) [Mass/Vol] Negative Negative [facility] Protein [Mass/volume] in Ser um or PlasmaOrdered By: Yokasta Flores on 03-21-2024 Protein [Mass/Vol] 6.9 g/dL Normal 6.4-8.9 [facility] Comment on above: Performed By: #### C K, BMP #### [address] Prothrombin time (PT)Ordered By: Yokasta Flores on 03-21-2024 PT Coag (PPP) [Time] 11.7 s Normal 9.0-12.9 [facility] Comment on above: A hematocrit value g reater than 55% may lead to inaccurate results in coagulation testing. Patients having hematocrit values >55% require a special collection tube for coagulation studies. Please contact the laboratory at [phone] for redraw instructions. Result Comment: A matocrit value greater than 55% may lead to inaccurate results in coagulation testing. Patients having hematocrit values >55% require a special collection tube for coagulation studies. Please contact the laboratory at [phone] for redraw instructions. Performed By: #### C K, BMP #### [address] Serum globulin measurement b y calculation (mass/volume)Ordered By: Yokasta Flores on 03-21-2024 Globulin (S) [Mass/Vol] 3.1 g/dL Normal [facility] Comment on above: Performed By: #### C K, BMP #### [address] Serum or plasma albumin/glob ulin mass ratioOrdered By: Yokasta Flores on 03-21-2024 Albumin/Globulin [Mass ratio] 1.2 {ratio} Normal [facility] Comment on above: Performed By: #### C K, BMP #### [facility] [address] [place] [address] Serum or plasma anion gap de terminationOrdered By: Yokasta Flores on 03-21-2024 Anion gap [Moles/Vol] 13.0 mmol/L Normal 6.0-15.0 [facility] Comment on above: Performed By: #### Ramon Brown, BMP #### [facility] [address] [place] [address] Serum or plasma creatine kin ase MB (CKMB)/total creatine kinase (CK) ratio by calculaOrdered By: Bryan Coppola on 03-21-2024 CK.MB Calc [Catalytic fraction] 1.1 % 0.00-2.50 [facility] Sodium [Moles/volume] in Ser um or PlasmaOrdered By: Yokasta Flores on 03-21-2024 Sodium [Moles/Vol] 134 mmol/L Low 136-145 [facility] Comment on above: Performed By: #### Ramon K, BMP #### [facility] [address] [place] [address] Specific gravity Test strip (U) [Rel density]Ordered By: Bryan Coppola on 03-21-2024 Specific gravity (U) [Rel density] 1.006 1.001-1.03 0 [facility] Specific gravity Test strip (U) [Rel density]Ordered By: Yokasta Flores on 03-21-2024 Specific gravity (U) [Rel density] 1.012 1.001-1.03 0 [facility] Troponin I High Sensitivityo n 03-21-2024 Troponin I High Sensitivity 353.9 pg/mL Off scale high 0.0-15.0 [facility] Comment on above: Result Comment: Crit ical Result : Called to and read back by: THAO COX at: 03/22/2024 00:25:25 by:[id number] PERFORMED BY: [place] [address] PATHOLOGIST LOGISTICS VICE PRESIDENT SARAH IRAHETA M.D. Performed By: #### H S TROP #### [address] Troponin I High Sensitivity 311.1 pg/mL Off scale high 0.0-15.0 [facility] Comment on above: Result Comment: Crit ical Result : Called to and read back by: SHARRON MONTES at: 03/21/2024 20:38:49 by:[id number] PERFORMED BY: [place] [phone] PATHOLOGIST LOGISTICS VICE PRESIDENT SARAH IRAHETA M.D. Performed By: #### H S TROP #### [address] Troponin I High Sensitivity 212.7 pg/mL Off scale high 0.0-15.0 [facility] Comment on above: Result Comment: Crit ical Result : Called to and read back by: SORIN MCNEILL at: 03/21/2024 19:11:54 by:[id number] PERFORMED BY: [place] [phone] PATHOLOGIST LOGISTICS VICE PRESIDENT SARAH IRAHETA M.D. Performed By: #### C K, BMP #### [address] Troponin I.cardiac [Mass/vol ume] in Serum or Plasma by Detection limit <= 0.01 ng/Ordered By: Bryan Coppola on 03-21-2024 Troponin I.cardiac DL <= 0.01 ng/mL [Mass/Vol] 311.1 pg/mL High 0.0-15.0 [facility] Comment on above: Critical Result : Ca lled to and read back by: SHARRON MONTES at: 03/21/2024 20:38:49 by:[id number] Urea nitrogen [Mass/volume] in Serum or PlasmaOrdered By: Yokasta Flores on 03-21-2024 Urea nitrogen [Mass/Vol] 21 mg/dL Normal 7-25 [facility] Comment on above: Performed By: #### C K, BMP #### [facility] [address] [place] [id number] [facility] Urine Cultureon 03-21-2024 Bacteria identified Cx Nom (U) No Growth 2 Days PERFORMED BY: [place] [address] PATHOLOGIST LOGISTICS VICE PRESIDENT SARAH Vasquez [facility] Comment on above: Performed By: #### A DDJS, CUU #### [address] Bacteria identified Cx Nom (U) ORGANISM: Escherichia coli (O:ESCCOL) [place] Count >100,000 Aerobic KEVIN Charge (NMIC56) SUSCEPTIBILITY [...] RESISTANT TO ALL B-LACTAM DRUGS. PERFORMED BY: [place] [address] PATHOLOGIST LOGISTICS VICE PRESIDENT SARAH IRAHETA M.D. Normal [facility] Comment on above: Performed By: #### A RADHA CUU #### [facility] [address] [place] [address] Urine appearanceOrdered By: Yokasta Flores on 03-21-2024 Appearance (U) Clear Normal Clear [facility] Comment on above: Order Comment: Name Collection Type:: Straight Catheter Performed By: #### A RADHA, CUU #### [facility] [address] [place] [address] Order Comment: Name Collection Type:: Clean-Voided Midstream Urobilinogen Test strip (U) [Mass/Vol]Ordered By: Yokasta Flores on 03-21-2024 Urobilinogen (U) [Mass/Vol] Normal mg/dL Normal [facility] XR pelvis 1-2Von 03-21-2024 XR pelvis 1-2V [facility] [address] [place] [address] XRay Report Signed Patient: Stella Green MR#: [id number] 81 : 1945 Acct:[id number] Age/Sex: 79 / F ADM Date: 03/21/24 Loc: ER Room: Type: [facility] ER Attending Dr: Copies to: Yokasta Flores DO Ordering Provider: Yokasta Flores DO Date of Service: 03/21/24 XR/XR pelvis 1-2V: Fall ([id number]) XR/XR femur LT 2V*: Fall ([id number]) XR/XR ribs LT min 3V w CXR1V*: [...] findings. Impression dictated by: Germain Lipscomb Jr., D.O.03/21/2024 7:12 PM Dictation Location: [facility]--15 Transcribed By: [facility] 03/21/241911 Dictated By: Germain Lipscomb Jr, DO 03/21/241908 Signed By: 03/21/241911 Normal [facility] pH of Urine by Test stripOrd ered By: Yokasta Flores on 03-21-2024 pH (U) 5.5 [pH] Normal 5.0-9.0 [facility] Comment on above: Order Comment: Name Collection Type:: Straight Catheter Performed By: #### A AMANDA GARCIAU #### [address] Order Comment: Name Collection Type:: Clean-Voided Midstream Vital Signs Date Time Vital Sign Value Performing Clinician Facility 04-29-2024 10:59-0500 Body height 154.9 cm Deniz Ochoa MD Work Phone: [facility] 04-29-2024 10:59-0500 Body mass index (BMI) [Ratio] 24.37 kg/m2 Deniz Ochoa MD Work Phone: [facility] 04-29-2024 10:59-0500 Body weight 58.51 kg Deniz Ochoa MD Work Phone: [facility] 04-29-2024 10:59-0500 Diastolic blood pressure 74 mm[Hg] Deniz Ochoa MD Work Phone: [facility] 04-29-2024 10:59-0500 Heart rate 88 /min Deniz Ochoa MD Work Phone: [facility] 04-29-2024 10:59-0500 SaO2% (BldA) [Mass fraction] 97 % Deniz Ochoa MD Work Phone: [facility] 04-29-2024 10:59-0500 Systolic blood pressure 128 mm[Hg] Deniz Ochoa MD Work Phone: [facility] 04-15-2024 10:44-0400 Body height 154.9 cm Deniz Ochoa MD Work Phone: [facility] 04-15-2024 10:44-0400 Body mass index (BMI) [Ratio] 24.56 kg/m2 Deniz Ochoa MD Work Phone: [facility] 04-15-2024 10:44-0400 Body temperature 98.8 [degF] Deniz Ochoa MD Work Phone: [facility] 04-15-2024 10:44-0400 Body weight 58.97 kg Deniz Ochoa MD Work Phone: [facility] 04-15-2024 10:44-0400 Diastolic blood pressure 66 mm[Hg] Deniz Ochoa MD Work Phone: [facility] 04-15-2024 10:44-0400 Heart rate 88 /min Deniz Ochoa MD Work Phone: [facility] 04-15-2024 10:44-0400 SaO2% (BldA) [Mass fraction] 97 % Deniz Ochoa MD Work Phone: [facility] 04-15-2024 10:44-0400 Systolic blood pressure 124 mm[Hg] Deniz Ochoa MD Work Phone: [facility] 03-25-2024 12:00-0400 Diastolic blood pressure 62 mm[Hg] II Deniz Ochoa Work Phone: [facility] 03-25-2024 12:00-0400 Heart rate 82 /min II Deniz Ochoa Work Phone: [facility] 03-25-2024 12:00-0400 Respiratory rate 20 /min II Deniz Ochoa Work Phone: [facility] 03-25-2024 12:00-0400 SaO2% (BldA) [Mass fraction] 94 % II Deniz Ochoa Work Phone: [facility] 03-25-2024 12:00-0400 Systolic blood pressure 150 mm[Hg] II Deniz Ochoa Work Phone: [facility] 03-25-2024 08:00-0400 Body temperature 97.8 [degF] II Deniz Ochoa Work Phone: [facility] 03-25-2024 06:00-0400 Body weight 58.6 kg II Deniz Ochoa Work Phone: [facility] 03-22-2024 16:12-0400 Body height 157.48 cm II Deniz Ochoa Work Phone: [facility] 03-21-2024 20:07-0400 Heart rate 86 /min II Deniz Ochoa Work Phone: [facility] 03-21-2024 20:06-0400 Diastolic blood pressure 75 mm[Hg] II Deniz Ochoa Work Phone: [facility] 03-21-2024 20:06-0400 Respiratory rate 18 /min II Deniz Ochoa Work Phone: [facility] 03-21-2024 20:06-0400 SaO2% (BldA) [Mass fraction] 98 % II Deniz Ochoa Work Phone: [facility] 03-21-2024 20:06-0400 Systolic blood pressure 154 mm[Hg] II Deniz Ochoa Work Phone: [facility] 03-21-2024 17:20-0400 Body height 157.48 cm II Deniz Ochoa Work Phone: [facility] 03-21-2024 17:20-0400 Body temperature 98.4 [degF] II Deniz Ochoa Work Phone: [facility] 03-21-2024 17:20-0400 Body weight 64.6 kg II Deniz Ochoa Work Phone: [facility] Encounters Encounter Date Encounter Type Care Provider Facility Start: 07-19-2024 End: 07-19-2024 ambulatory MICHAEL CAICEDO Facility:[facility] Start: 07-19-2024 End: 07-19-2024 Lab Drop off MICHAEL CAICEDO [facility] Start: 07-19-2024 End: 07-19-2024 Clinisync Result Encounter Michael Caicedo MD Work Phone: [facility] Unsolicited Start: 07-19-2024 End: 07-19-2024 Clinisync Result Encounter Michael Caicedo MD Work Phone: [facility] Unsolicited Start: 05-03-2024 End: 05-03-2024 Bamboo flowsheet Robert Pyle DO Work Phone: [facility] Start: 05-03-2024 End: 05-03-2024 Bamboo flowsheet Robert Pyle DO Work Phone: [facility] Start: 05-03-2024 End: 05-03-2024 Postop follow up visit related to original px Robert Pyle DO Work Phone: [facility] Comment on above: Pseudophakia (Primar y Dx) Start: 05-03-2024 End: 05-03-2024 ambulatory ROBERT PYLE Not Available Start: 04-29-2024 End: 04-29-2024 Bamboo [...] Traumatic rhabdomyolysis, subsequent encounter; Generalized anxiety disorder ([facility]/HCC) Start: 04-15-2024 End: 04-15-2024 ambulatory DENIZ OCHOA Not Available Start: 03-24-2024 Non-patient / Non-visit II Fransisco hatfieldmukesh Ochoa Work Phone: [facility] Work Phone: Start: 03-23-2024 Non-patient / Non-visit II Fransisco hatfieldmukesh Don Work Phone: [facility] Work Phone: Start: 03-22-2024 Non-patient / Non-visit II Fransisco Ochoa Work Phone: [facility] Work Phone: Start: 03-22-2024 Non-patient / Non-visit II Fransisco Ochoa Work Phone: [facility] Work Phone: Start: 03-21-2024 End: 03-25-2024 Evaluation and management of inpatient II Deniz Don Work Phone: [facility] Work Phone: Start: 02-27-2024 End: 02-27-2024 Bamboo flowsheet Robert Pyle DO Work Phone: [facility] Start: 02-27-2024 End: 02-27-2024 Bamboo flowsheet Robert D Zahler DO Work Phone: [facility] Start: 02-27-2024 End: 02-27-2024 Postop follow up visit related to original px Robert D Zahler DO Work Phone: [facility] Comment on above: Pseudophakia (Primar y Dx) Start: 02-27-2024 End: 02-27-2024 ambulatory ROBERT Hernandez MAILEHLER Not Available Start: 02-20-2024 End: 02-20-2024 Bamboo flowsheet Robert D Zahler DO Work Phone: [facility] Start: 02-20-2024 End: 02-20-2024 Bamboo flowsheet Robert D Zahler DO Work Phone: [facility] Start: 02-20-2024 End: 02-20-2024 Postop follow up visit related to original px Robert D Zahler DO Work Phone: [facility] Comment on above: Pseudophakia (Primar y Dx) Start: 02-20-2024 End: 02-20-2024 ambulatory ROBERT GRHLER Not Available Start: 02-03-2024 End: 02-03-2024 Bamboo flowsheet Robert D Zahler DO Work Phone: [facility] Start: 02-03-2024 End: 02-03-2024 Bamboo flowsheet Robert D Zahler DO Work Phone: [facility] Start: 02-03-2024 End: 02-03-2024 Postop follow up visit related to original px Robert D Zahler DO Work Phone: [facility] Comment on above: Age-related nuclear cataract of right eye (Primary Dx); Pseudophakia Start: 02-03-2024 End: 02-03-2024 ambulatory ROBERT GRFREDDYJUSTIN Not Available Start: 01-30-2024 End: 01-30-2024 ambulatory ROBERT PYLE Not Available Start: 01-14-2024 End: 01-14-2024 ambulatory ROBERT PYLE Not Available Start: 01-08-2024 End: 01-08-2024 ambulatory TATI COLORADOK Not Available Start: 12-25-2023 End: 12-25-2023 ambulatory ELIESER REDD Not Available Start: 10-28-2023 End: 10-28-2023 ambulatory TATI COLORADOK Not Available Start: 10-21-2023 End: 10-21-2023 ambulatory TATI GUCHEYANNEK Not Available Start: 10-13-2023 End: 10-13-2023 ambulatory ARIANNA Isidro REDD Not Available Start: 10-02-2023 Patient encounter procedure Robert Tatiana DO Work Phone: [facility] Start: 10-02-2023 End: 10-02-2023 ambulatory SATINDER Romo HIGINIO Not Available Start: 09-30-2023 End: 09-30-2023 ambulatory TATIANGELIQUE COLORADOK Not Available Start: 09-09-2023 End: 09-09-2023 ambulatory TATIANGELIQUE COLORADOK Not Available Start: 09-04-2023 End: 09-04-2023 ambulatory ARIANNA Isidro REDD Not Available Start: 08-29-2023 End: 08-29-2023 ambulatory ARIANNA Isidro REDD Not Available Start: 08-21-2023 End: 08-21-2023 ambulatory ALICE STOKES Not Available Start: 08-19-2023 End: 08-19-2023 ambulatory ALICE STOKES Not Available Start: 08-14-2023 End: 08-14-2023 ambulatory DENIZ Andrade OCHOA Not Available Start: 08-12-2023 End: 08-12-2023 [...] rs.) Start: 07-16-2023 End: 07-16-2023 ambulatory Celina Isidro Terry PT Work Phone: [facility] Comment on above: Vertigo (Primary Dx) ; Vestibular ataxia Start: 07-11-2023 End: 07-11-2023 ambulatory CELINA CRAVEN Not Available Start: 06-25-2023 End: 06-25-2023 ambulatory DENIZ OCHOA Not Available Start: 07-24-2020 End: 07-25-2020 Patient encounter procedure NONE LISTED REQUEST Facility: Procedures Date Procedure Procedure Detail Performing Clinician Start: 07-19-2024 [facility] CBC W/ AUTO DIFF R mitra Caicedo MD Work Phone: Start: 03-21-2024 Plain chest X-ray II Cristian bess Ochoa Work Phone: Start: 03-21-2024 CT of head without contrast II Deniz Don Work Phone: Start: 03-21-2024 Plain radiography of [...] [facility] [address] [place] [address] Robert Pyle DO [address] [place] [address] [facility] Start: 06-30-2024 End: 06-30-2024 Patient encounter procedure 06/30/2024 11:30 AM EST Office Visit [facility] [address] [place] [address] Deniz Ochoa MD [address] [place] [address] [facility] Start: 04-29-2024 End: 04-29-2024 Patient encounter procedure 04/29/2024 11:00 AM EST Office Visit [facility] [address] [place] [address] Deniz Ochoa MD [address] [place] [address] [facility] Start: 04-15-2024 End: 04-15-2024 Patient encounter procedure 04/15/2024 11:00 AM EDT Office Visit [facility] [address] [facility] [address] [place] [address] Deniz Ochoa MD [address] [facility] [address] [place] [address] Arrived [facility] Comment on above: Arrived Start: 03-25-2024 [facility] Start: 03-24-2024 Referral to psychiatrist [facility] Start: 03-24-2024 [facility] Start: 03-23-2024 [facility] Start: 03-22-2024 Administration of prophylactic treatment [facility] Start: 03-22-2024 Referral to rehabilitation physician [facility] Start: 03-22-2024 [facility] Start: 03-21-2024 Consultation [facility] Start: 03-21-2024 Physical therapy procedure [facility] Start: 03-21-2024 Referral to occupati onal therapist [facility] Start: 03-21-2024 Hospital admission [facility] Start: 03-21-2024 [facility] Start: 03-21-2024 Urine culture [facility] Start: 03-21-2024 Bacteria identified in Urine by Culture Urine Culture [facility] Start: 02-27-2024 End: 02-27-2024 Patient encounter procedure 02/27/2024 11:15 AM EDT Office Visit [facility] [address] [place] [phone] Robert Pyle, DO [address] [place] [address] Arrived [facility] Comment on above: Arrived Start: 02-20-2024 End: 02-20-2024 Patient encounter procedure [facility] Comment on above: Arrived Start: 02-19-2024 End: 02-19-2024 Patient encounter procedure 02/19/2024 7:50 AM EDT Procedure Visit [facility] Robert Pyle, DO [address] [place] [address] [facility] Start: 02-15-2024 Influenza vaccination Influenza Vacc ine (#1) [facility] Start: 02-09-2024 End: 02-09-2024 ambulatory 02/09/2024 3:30 PM EDT Treatment [facility] [address] [place] [address] Tati Allen PTA [facility] Start: 02-03-2024 End: 02-03-2024 Patient encounter procedure 02/03/2024 11:15 AM EDT Office Visit [facility] [address] [place] [phone] Robert Pyle, DO [address] [place] [address] Arrived [facility] Comment on above: Arrived Start: 07-25-2023 End: 07-25-2023 ambulatory 07/25/2023 1:30 PM EST Treatment [facility] [address] [place] [phone] Celina Craven, PT [address] [place] [address] [facility] Start: 07-23-2023 End: 07-23-2023 Patient encounter procedure 07/23/2023 10:00 AM EST Office Visit [facility] [address] [facility] [address] [place] [phone] Deniz Ochoa MD [address] [facility] [address] [place], [place] [id number] [facility] Start: 2020 Pneumococcal Vaccine : 65+ Years (2 - PCV) Pneumococcal Vaccine: 65+ Years (2 - PCV) [facility] Start: 2020 Pneumococcal Vaccine : 65+ Years (2 of 2 - PCV) Pneumococcal Vaccine: 65+ Years (2 of 2 - PCV) [facility] Start: 1945 Medicare Annual Well ness (AWV) Medicare Annual Wellness (AWV) [facility] Healthcare Immunizations Immunization Date Immunization Notes Care Provider [facility] 04-18-2023 Influenza, Seasonal, Quadrivalent, Adjuvanted Celina Craven PT Work Phone: [facility] 04-18-2023 influenza virus vacc ine, unspecified formulation Robert Pyle DO Work Phone: [facility] 03-26-2022 Influenza, High-dose Seasonal, Quadrivalent, Preservative Free Celina Craven PT Work Phone: [facility] 04-28-2021 Seasonal, trivalent, recombinant, injectable influenza vaccine, preservative free Celina Craven PT Work Phone: [facility] 08-25-2020 SARS-CoV-2 (COVID-19 ) mRNA BNT-162b2 vax MICHAEL BEASLEYA [facility] Comment on above: Reason for Medicatio n: Prophylaxis 04-18-2020 influenza, injectabl e, quadrivalent, preservative free Celina Craven PT Work Phone: [facility] 04-11-2019 Influenza, High-dose Seasonal, Quadrivalent, Preservative Free Celina Craven PT Work Phone: [facility] 2019 pneumococcal polysaccharide vaccine, 23 valent Celina Craven PT Work Phone: [facility] 04-15-2018 Influenza, High-dose Seasonal, Quadrivalent, Preservative Free Celina Craven PT Work Phone: [facility] 04-26-2017 influenza, injectabl e, quadrivalent, preservative free Celina Craven PT Work Phone: [facility] 05-18-2010 seasonal influenza, intradermal, preservative free Celina Craven PT Work Phone: [facility] Healthcare Payers Date Payer Category Payer Medicare [id number] 2017 Medicare HU[employer]NA MEDICARE ADVANTAGE HU[employer]NA MEDICARE [id number] 2017-Present [address] [place] [phone] [id number] 2017 Medicare (Managed Care) HUMANA M EDICARE ADVANTAGE [id number] 2017 Private Health Insurance [id number] Self-pay 1944 Unknown [id number] 2..840.1.303386.3.579 .2.1259 1944 Unknown [id number] .840.1.405739.3.579 .2.9 1944 Unknown [id number] 2.16.840.1.394850.3.579 .2.1258 1944 Unknown [id number] 2.16.840.1.519890.3.579 .2.1258 1944 Unknown [id number] 2.16.840.1.330130.3.579 .2.1258 1944 Unknown [id number] 2.16.840.1.165105.3.579 .2.1258 1944 Unknown [id number] 2.16.840.1.645702.3.579 .2.1258 1944 Unknown [id number] 2..840.1.727119.3.579 .2.1258 1944 Unknown [id number] 2.16.840.1.557094.3.579 .2.1258 1944 Unknown [id number] 2..840.1.647949.3.579 .2.1258 1944 Unknown [id number] 2.16.840.1.127440.3.579 .2.1258 1944 Unknown [id number] 2.16.840.1.354016.3.579 .2.1258 1944 Unknown [id number] 2.16.840.1.477574.3.579 .2.1258 1944 Unknown [id number] 2.16.840.1.272878.3.579 .2.1258 1944 Unknown [id number] 2.16.840.1.148866.3.579 .2.1258 1944 Unknown [id number] 2.16.840.1.035372.3.579 .2.1258 1944 Unknown [id number] 2.16.840.1.158103.3.579 .2.1258 1944 Unknown [id number] 2.16.840.1.078044.3.579 .2.1258 1944 Unknown [id number] 2.16.840.1.599826.3.579 .2.1258 1944 Unknown [id number] 2.16.840.1.449850.3.579 .2.1258 1944 Unknown [id number] 2.16.840.1.145936.3.579 .2.1258 1944 Unknown [id number] 2.16.840.1.371222.3.579 .2.1258 1944 Unknown [id number] 2.16.840.1.613223.3.579 .2.1258 1944 Unknown [id number] 2.16.840.1.989136.3.579 .2.1258 1944 Unknown [id number] 2.16.840.1.114316.3.579 .2.1258 1944 Unknown [id number] 2.16.840.1.376848.3.579 .2.727 Unknown [id number] 2.16.840.1.968783.3.579 .2.593 Unknown [id number] 2.16.840.1.302299.3.579 .2.531 Social History Date Type Detail Facility Start: 06-16-1961 End: 01-14-2024 Tobacco smoking status [facility] Smokes tobacco daily [facility] Start: 06-16-1961 [...] 03-24-2024 Tobacco smoking status NHIS Smoker (finding) [facility] Start: 1945 Sex Assigned At Female F [facility] Tobacco smoking status No Smokin g Status Entered [facility] Medical Equipment Procedure Code Equipment Code Equipment Origin al Text Equipment Identifier Dates Arthroplasty, hip, bipolar Orthopaedic cement, non-medicated [id number] FDA Start: 11-25-2019 Arthroplasty, hip, bipolar Femoral head bipolar component ()[id number] FDA Start: 11-25-2019 Arthroplasty, hip, bipolar Femoral head bipolar component ()[id number] FDA Start: 11-25-2019 Arthroplasty, hip, bipolar Uncoated hip femur prosthesis, one-piece ()[id number] FDA Start: 11-25-2019 Arthroplasty, hip, bipolar Femoral stem centralizer ()[id number] FDA Start: 11-25-2019 Arthroplasty, hip, bipolar Metallic femoral head prosthesis ()[id number] FDA Start: 11-25-2019 Arthroplasty, hip, bipolar Orthopaedic cement, non-medicated ()[id number] FDA Start: 11-25-2019 Arthroplasty, hip, bipolar Polymer orthopaedic cement restrictor, non-bioabsorbable, sterile ()[id number] FDA Start: 11-25-2019 Goals Date Patient Goal Desired Activity /State Functional Status Date Assessment Result Facility 03-25-2024 Functional status Patient is Pro gressing Toward Baseline [facility] Work Phone: Mental Status Date Assessment Result Facility 03-25-2024 Cognitive function Cognitive Sta tus Patient is Progressing Toward Baseline [facility] Work Phone: Clinical Notes 07-16-2023 to 05-03-2024 Robert Pyle DO - 05/03/2024 1:00 PM Ramya Ochoa [...] this eye today. documented in this encounter [facility] 04-29-2024 History of Presen t illness Narrative Images from the original note were not included. HPI Follow-up Additional comments: Anxiety/depression-med adjustments Med Refill Additional comments: Albuterol inhaler--[facility] Last edited by Clair Berger LPN on 04/29/2024 11:06 AM. Subjective Patient ID: Stella Green is a 79 y.o. female who presents [...] - She is seeing an ENT in [place] for this. Follow up in about 2 months (around 06/29/2024) for Routine F/U. documented in this encounter [facility] 04-15-2024 History of Presen t illness Narrative Images from the original note were not included. HPI Follow-up Additional comments: [facility] stay admitted 03/21/24 dx: UTI,fall,rhabdomyolysis discharged to [place] 03/25/24 discharged home 04/08/24 Medication Question Additional comments: Pt would like to stop the lexapro she was started on at [facility] Last edited by Clair Berger LPN on 04/15/2024 10:51 AM. Subjective Patient ID: Stella Green is a 79 y.o. female who presents for Follow-up ([facility] stay admitted 03/21/24 dx: UTI,fall,rhabdomyolysis discharged to [place] 03/25/24 discharged home 04/08/24) and Medication Question (Pt would like to stop the lexapro she was started on at [facility]). Flowsheet Row Patient Outreach from 04/09/2024 in [facility] with Lilibeth Lux LPN Hospital Information ED, Hospital or Senior Care Facility Discharge? Senior Care Facility Patient has been contacted within two business days of discharge Yes Have two attempts been made to contact the patient within two business days of being discharged? Yes Discharge Date 04/08/24 Discharged To: Home Setting Senior Care Facilities [facility] Engagement Admission Date 03/25/24 Medications Is the patient [...] Management What is the home health agency? [facility] HOME HEALTH NURSE/PT/OT Patient Teaching Does the [...] changes are noted above. Generalized anxiety disorder (CMS/HCC) - clonazePAM (KlonoPIN) 0.5 MG tablet; Take 1 tablet (0.5 mg) by mouth in the morning and 1 tablet (0.5 mg) before bedtime. - Stop Lexapro due to side effects, try different SSRI next appt. - Stop Alprazolam. Follow up in about 2 weeks (around 04/29/2024) for F/U med changes. documented in this encounter [facility] 03-25-2024 Consult note Note Date/Time March 24, 2024 4:21pm [facility] [address] [place] [address] Psychiatry Consult Note Signed Patient: Stella Green MR#: [id number] : 1945 Acct:[id number] Age/Sex: 79 / F Adm Date: 4 Loc: 3T Room: [address] [place] [address] Type : ADM IN Attending Dr: Alonso Agudelo MD Copies to: MD Alonso Lafleur MD Daniel Berry II, MD~ HPI Consult Date: 03/24/24 Requesting Physician: Alonso Agudelo MD Primary Care Provider: Deniz Ochoa II, MD Consult Narrative HPI: Mrs. Green is an 79-year-old female. She present to [...] whichcan be done as an outpatient. Discussed buttermaker continuous churn risks of benzodiazepine whichinclude potential for misuse, [...] responding to internalstimuli. Insight: Fair Judgment: Fair [facility] Medical History (Updated 03/24/24 @ 15:37 by [...] 12:30 Results - Psychiatry Labs 03/24/24 06:04 03/25/24 06:08 Psychiatry Labs: 03/21/24 03/21/24 03/21/24 17:48 [...] Clear Urine pH 5.5 5.5 Ur Specific [place] 1.012 1.006 Urine Protein Negative Negative Urine [...] Color Urine Appearance Urine pH Ur Specific [place] Urine Protein Urine Glucose (UA) Urine Ketones [...] Color Urine Appearance Urine pH Ur Specific [place] Urine Protein Urine Glucose (UA) Urine Ketones [...] can be done as an outpatient Discussed buttermaker continuous churn risks of benzodiazepine which include potential for [...] and psychotherapist within 5 days of discharge. adult protective caseworker should schedule this prior to discharge. Typical [...] movements noted on exam. AIMS is Zero. adult protective caseworker to ensure safe discharge plan. I have reviewed evaluations by other providers (ER notes, nurses and staff) Prognosis: Factors to be considered are the chronicity and severity of the symptoms and signs, associated comorbidity, and differential diagnosis. Motivation to get in treatment, response to treatment, adherence to treatment recommendations, and verbal consent was provided. Documented By: Taqueria Duran MD [id number] Signed By: <Electronically signed by Taqueria Duran MD> 03/25/[address] 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 so should the consult had gone to [...] mg 03/21/24 19:12 Bisacodyl 10 Mg Supp.Rect PA 03/21/25 19:11 DAILY PRN Constipation Bisacodyl 10 [...] pain Ambulatory dysfunction -therapy evals - accepted Clarissa Vivianevue and precert received, plan DC 03/25 after seen by [...] signed by Alonso Agudelo MD> 03/24/24 1814 [facility] Work Phone: 1(258) 297-440110-08-2024 Consult note Author Deshawn Choudhary [facility] March 23, 2024 2:07pm Note Date/Time March 23, 2024 10 :38am [facility] [address] [place] [address] Physiatry (Rehab) Consult Note Signed Patient: Stella Green MR#: [id number] : 1945 Acct:[id number] Age/Sex: 79 / F Adm Date: 4 Loc: 3T Room: [address] [place] [address] Type: ADM IN Attending Dr: Alonso Agudelo MD Copies to: MD Deshawn Navas MD Daniel Berry II, MD Kaitlyn Rizzo, DO, RES~ HPI Consult Date: 03/23/24 Requesting Physician: Alonso Agudelo MD Primary Care Provider: Deniz Ochoa II, MD Consult Narrative Reason for consult: rehab consideration HPI: Ms. Green is a 79 year old female with [...] negative unless noted below or in HPI [facility] Medical History (Updated 03/22/24 @ 15:02 by [...] % (Auto) 66.5 Lymph % (Auto) 24.6 Archer % (Auto) 5.9 Eos % (Auto) 1.6 Baso % (Auto) 1.4 Nucleat RBC Rel Count 0.1 Neut # (Auto) 6.4 Lymph # (Auto) 2.4 Archer # (Auto) 0.6 Eos # (Auto) 0.1 [...] chart, including current orders, allied health and store sales consultant notes, labs/imaging and performed dietrich elements of exam and I formulated the plan of care and facilitated the medical decision making. I completed a substantive portion of this encounter, the medical decision makingportion of this note in its entirety, including Allied health note review, nursing note review, store sales consultant note review, discussion with nursing and case management, and more than 50% of my time was spent on counseling and coordination of care, time spent 60 minutes Documented By: Deshawn Choudhary MD [id number] Signed By: <Electronically signed by Deshawn Choudhary MD> 03/23/24 1407 <Electronically signed by DO LEILA Mayfield> 03/23/24 1038 [facility] Work Phone: 1(175) 984-688710-08-2024 Progress note Author Alonso Agudelo [facility] March 23, 2024 1:50pm Note Date/Time March 23, 2024 9: 53am [facility] [address] [place] [address] Hospitalist Progress Note Signed Patient: Stella Green MR#: [id number] : 1945 Acct:[id number] Age/Sex: 79 / F Adm Date: 4 Loc: Room: [address] [place] [address] Type: ADM IN Attending Dr: Alonso Agudelo [...] mg 03/21/24 19:12 Bisacodyl 10 Mg Supp.Rect PA 03/21/25 19:11 DAILY PRN Constipation Bisacodyl 10 [...] Q24H LULÚ Infusion Levothyroxine Sodium 50 mcg 10/07/24 06:30 03/23/24 05:51 Levothyroxine 50 Mcg Tablet [...] Medicine Documented By: Teresa Antony APRN 02/06 0918 Signed By: <Electronically signed by MARIA ESTHER Antony> 03/23/24 1324 <Electronically signed by Alonso Agudelo MD> 03/23/24 1350 [facility] Work Phone: 1(539) 818-630610-07-2024 Consult note Author Mala Nettles [facility] March 22, 2024 4:26pm Note Date/Time March 22, 2024 4: 21pm [facility] [address] [place] [address] Cardiology Consult Note Signed Patient: Stella Green MR#: [id number] : 1945 Acct:[id number] Age/Sex: 79 / F Adm Date: 4 Loc: 3T Room: [address] [place] [address] Type: ADM IN Attending Dr: Alonso Agudelo MD Copies to: MD Deniz Navas II, MD Linda Njoroge, MD~ Cardiology HPI History of Present Illness Consult Date: 03/22/24 Reason for Consult: Elevated troponin HPI: Ms. Green is a 79 year old female with [...] negative unless noted below or in HPI [facility] Medical History (Updated 03/22/24 @ 15:02 by [...] # (Auto) 0.6 L 1.7 (1.00-4.8) x10E3/uL Archer # (Auto) 0.4 0.8 (0.0-0.8) x10E3/uL Eos [...] 161 Signed By: <Electronically signed by Mala Ntetles MD> 03/22/246 [facility] Work Phone: 1(946) 933-256710-07-2024 Progress note Author Alonso Agudelo [facility] March 22, 2024 3:44pm Note Date/Time March 22, 2024 1: 47pm [facility] [address] [place] [address] Hospitalist Progress Note Signed Patient: Stella Green MR#: [id number] : 1945 Acct:[id number] Age/Sex: 79 / F Adm Date: 4 Loc: Room: [address] [place] [address] Type: ADM IN Attending Dr: Alonso Agudelo [...] mg 03/21/24 19:12 Bisacodyl 10 Mg Supp.Rect PA 03/21/25 19:11 DAILY PRN Constipation Bisacodyl 10 [...] signed by Alonso Agudelo MD> 03/22/24 1544 [facility] Work Phone: 1(255) 531-374610-07-2024 Consult note Author Mani Garcia [facility] March 22, 2024 9:47am Note Date/Time March 22, 2024 9: 47am [facility] [address] [place] [address] Orthopedic Consult Note Signed Patient: Stella Green MR#: [id number] : 1945 Acct:[id number] Age/Sex: 79 / F Adm Date: 4 Loc: 3T Room: [address] [place] [address] Type: ADM IN Attending Dr: Alonso Agudelo MD Copies to: MD Deniz Navas II, MD Justin A Kelley, DO~ History of Present Illness HPI Consult date: 03/22/2024 Requesting provider: Bryan Coppola DO Consult reason: joint pain History of present illness: Close 79-year-old female s/p left hip hemiarthroplasty for femoral neck fracturewho presents to [facility] after a ground-level fall. Patient tells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
[2024-07-22 13:46] LABS: Alanine Aminotransferase 23 U/L (14-59); Albumin Globulin Ratio 0.8; Albumin Level 3.3 g/dL (3.4-5.0); Alkaline Phosphatase 85 U/L (46-116); Anion Gap 16.8; Aspartate Amino Transferase 22 U/L (15-37); BUN Creatinine Ratio 18.3; Bilirubin Total 0.5 mg/dL (0.2-1.0); Calcium 9.5 mg/dL (8.5-10.1); Carbon Dioxide 26.8 mmol/L (21.0-32.0); Chloride 109 mmol/L (98-107); Estimated GFR (African America 55 (>=60 mL/min/1.73m^2); Estimated GFR (Non-African Ame 45 (>=60 mL/min/1.73m^2); Glucose 122 mg/dL (74-106); Potassium 3.6 mmol/L (3.5-5.1); Sodium 149 mmol/L (136-145); Total Protein 7.3 g/dL (6.4-8.2)
[2024-07-22] MEDS: 0.9 % SODIUM CHLORIDE 1,000 ML 1000 ML IV (14:10)
[2024-07-22 15:30] LABS: Bilirubin Urine NEGATIVE (NEGATIVE); Blood Urine TRACE-I (NEGATIVE); Clarity Urine CLEAR (CLEAR); Color Urine YELLOW (YELLOW); Glucose Urine UA NEGATIVE (NEGATIVE); Ketones Urine TRACE mg/dL (NEGATIVE); Leukocyte Esterase Urine TRACE (NEGATIVE); Nitrite Urine NEGATIVE (NEGATIVE); Protein Urine 30 mg/dL (NEG/TRACE); Specific Gravity Urine >=1.030 (1.005-1.025); Urobilinogen Urine 0.2 EU/dL (0.2-1.0); pH Urine 5.5 (5.0-9.0)
[2024-07-22 15:31] LABS: Urine Microscopic Indicated YES
--- NOTE | 2024-07-22 15:36 | SWNOTE1 ---
SW received call from [facility] , pt is from there, and they were checking to see if pt was admitted. ALBERTO advised [facility] that pt is being worked up in ED at this time.
--- NOTE | 2024-07-22 15:41 | SWNOTE1 ---
Laura at [facility] let SW know that pt transitioned there from [place] and has been declining slowly. 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
[2024-07-22 15:45] LABS: Bacteria Urine MODERATE #/HPF (NONE SEEN); Cast Seen? NONE SEEN #/LPF (NONE SEEN); Crystals Seen? None Seen #/HPF (None Seen); Mucus Urine NONE SEEN (NONE SEEN); RBC Urine 0-2 #/HPF (0-2); Squamous Epithelial Cell Urine FEW #/LPF (NONE/RARE); Urine Culture Indicated YES; WBC Urine 20-50 #/HPF (NONE SEEN)
== END 2024-07-22 18:46 | disposition home or self-care (01) ==
PROVIDERS: Nurse Practitioner Family; Emergency Provider Emergency Medicine; PCP Internal Medicine
DX: N39.0 Urinary tract infection, site not specified (principal); R53.1 Weakness; E89.0 Postprocedural hypothyroidism; Z90.49 Acquired absence of other specified parts of digestive tract; F17.200 Nicotine dependence, unspecified, uncomplicated
CPT/HCPCS: 36415; 70450; 71045; 80053; 81001; 85025; 87086; 87186; 93005; 96360; 99285

== ENCOUNTER 2024-08-23 10:58 | Outpatient (OUT) | payer MEDICARE, SELFPAY ==
--- NOTE | 2024-08-23 | XR_ITS ---
The [address] [address] Patient Name: TRACY GREEN MRN: [id number] date: 1945 Sex: F Assigned Patient Location: Current Patient Location: Accession/Order Number: [id number] Exam Date: 08/23/2024 14:09 Report Date: 08/23/2024 14:13 At the request of: LEANDRO GARCIA MD Procedure: XR shoulder RT min 2V RIGHT SHOULDER - 2 views CLINICAL HISTORY: Follow-up proximal humerus fracture. Right shoulder pain. COMPARISON: 05/19/2024 and 06/21/2024 AP and Y views were obtained. There is osteopenia. There is redemonstration of a humeral neck fracture with prominent displacement and varus positioning. This is similar to the prior. There is some callus formation. There is no new fracture or dislocation. There are no significant soft tissue abnormalities. XR/XR shoulder RT min 2V IMPRESSION: STABLE DISPLACED HUMERAL NECK FRACTURE. Impression dictated by: Avril Kraus M.D.08/23/2024 2:13 PM Dictation Location: [place] [address] Electronically authenticated by: [id number] Y Date: 08/23/2024 14:13
--- OUTSIDE RECORDS SUMMARY | 2024-08-23 11:17 | XMS_ITS | CCD ---
Author Organization [facility] Care Team Providers Care Forming Department End Finder Name Role Phone REQUEST, NONE LISTED Admitting Unavailable ISAIAH GU Consulting Unavailable REQUEST, NONE LISTED Attending Unavailable Deniz Ochoa MD Unavailable [phone] Deniz Ochoa MD Primary Care Provider TIMMY Ochoa Primary Care Provider DO Yokasta Flores Emergency Provider [phone] DO Bryan Coppola Admit Provider DO Bryan [...] OCHOA Attending Unavailable ALICE STOKES Attending Unavailable DON DENIZ B Referring Unavailable ALICE STOKES Attending Unavailable DENIZ OCHOA B Referring Unavailable ARIANNA RAINEY Attending Unavailable DENIZ OCHOA Referring Unavailable ARIANNA RAINEY Attending Unavailable DENIZ OCHOA B Referring Unavailable GUZITATI Brown Attending Unavailable DENIZ OCHOA B Referring Unavailable GUCHEYANNEK, TATI Attending Unavailable DENIZ OCHOA B Referring Unavailable SATINDER SYLVESTER Attending Unavailable ARIANNA RAINEY Attending Unavailable DENIZ OCHOA B Referring Unavailable GUZIK, TATI Attending Unavailable DENIZ OCHOA B Referring Unavailable GUZIK, TATI Attending Unavailable DENIZ OCHOA B Referring Unavailable REDD, ARIANNA Isidro Attending Unavailable DENIZ OCHOA Referring Unavailable MARY, TATI Attending Unavailable DENIZ OCHOA B Referring Unavailable ROBERT SIMPSON Attending Unavailable EDILMA SHEPPARD Referring Unavailable ROBERT SIMPSON Attending Unavailable ROBERT SIMPSON Attending Unavailable ROBERT SIMPSON Attending Unavailable ROBERT SIMPSON Attending Unavailable DENIZ OCHOA Attending Unavailable DENIZ OCHOA Attending Unavailable ROBERT SIMPSON Attending Unavailable DENIZ OCHOA Primary Care Physician MICHAEL CAICEDO Attending Unavailable MICHAEL CAICEDO Admitting Unavailable Michael Caicedo MD Primary Care Provider MICHAEL CAICEDO Attending Unavailable MICHAEL CAICEDO Admitting Unavailable Cliff West Consulting Unavailable Bryan Coppola Admitting UnavailDeniz Castelan Primary Care Unavailable Alonso Agudelo Attending Unavailable Janett Owen Consulting Unavailable Kelsey Thao Consulting Unavailable Mani Garcia Consulting Unavailable Darci Marley II Consulting UnavailSohan Salguero Consulting Unavailable Maria Del Rosario Thornton Consulting Unavailable Germain Witt Consulting Unavailable Flor Dee Consulting Unavailable Naresh Mcguire Jr Consulting UnavailDeshawn Juarez Consulting Unavaila Taqueria Pressley Consulting Unavailab Deniz Jarquin MD Primary Care Provider [phone] Allergies Allergy Classification Reported Allergen(s) Allergy Type Date of Onset Reaction(s) Facility (1 source) venlafaxine Drug Allergy 4 [facility]ository (19 sources) atorvastatin Drug Allergy 4 Unknown [facility] (19 sources) cefdinir Drug Allergy 4 Rash [facility] (19 sources) Clarithromycin Allergy to substance 4 Unknown [facility] (19 sources) Sulfamethoxazole Allergy to substance 4 Unknown [facility] (19 sources) Sulfanilamide Allergy to substance 4 Unknown [facility] (19 sources) venlafaxine Drug Allergy 4 [facility] Medications Current Medications Medication Drug Class(es) Dates Sig (Normalized) Sig (Original) acetaminophen 500 mg oral capsule (1 source) Start: 03-25-2024 take 1000 mg by mouth every eight hours Acetaminophen Active 1000 MG PO Every 8 hours 84 14 March 25, 2024 12:00am [id number] 200 actuat albuterol 0.09 mg/actuat metered dose [...] g 5 01/14/2024 04/29/2024 Discontinued (Reorder) Start: 01-12-2024 take 2 puff(s) by mo uth every [...] 500 mg before bedtime. 04/07/2024 04/15/2024 Discontinued docusate sodium 100 mg oral capsule (14 sources) Start: 03-25-2024 take 100 mg by mouth twice daily Docusate Sodium Active 100 MG PO Twice daily 0 March 25, 2024 12:00am Start: 11-28-2019 End: 03-21-2024 take 1 capsule by mouth twice daily Docusate Sodium (Dok) 100 mg Capsule Discontinued 100 MG PO Twice daily November 28, 2019 12:00am [...] Active levothyroxine sodium 0.05 mg oral tablet (20 sources) l-Thyroxine Start: 06-23-2024 take 1 tablet [...] 06/27/2023 Active lidocaine 0.04 mg/mg medicated patch (12 sources) Antiarrhythmic, Amide Local Anesthetic Start: 03-25-2024 [...] Active meclizine hydrochloride 12.5 mg oral tablet (14 sources) Antiemetic Start: 05-17-2024 take 1 tablet [...] 24 hr nicotine 0.292 mg/hr transdermal system (14 sources) Cholinergic Nicotinic Agonist Start: 04-19-2024 nicotine [...] by mouth every four to six hours Hydrocodone-Aceta minophen Discontinued 1 - 2 TAB PO EVERY [...] 28, 2019 12:00am March 21, 2024 7:23pm clonazePAM 0.5 mg oral tablet (9 sources) Benzodiazepine Start: 04-15-2024 End: 10-12-2024 take 1 tablet by mouth in the morning clonazePAM (KlonoPIN) 0.5 MG tablet Indications: Generalized anxiety disorder (CMS/HCC) Take 1 tablet (0.5 mg) by mouth in the morning and 1 tablet (0.5 mg) before bedtime. 60 tablet 3 04/15/2024 07/21/2024 Discontinued 0.4 ml enoxaparin sodium 100 mg/ml prefilled [...] 03-21-2024 03-21-2024 Chronic Disorders of lipid metabolism (19 sources) Hyperlipidemia; Translations: [Hyperlipidemia, unspecified] Onset: 06-24-2023 06-24-2023 Chronic Menopausal disorders (19 sources) Primary ovarian failure; Translations: [Other primary ovarian failure] Onset: 06-24-2023 06-24-2023 Chronic Mood disorders (19 sources) Depressive disorder; Translations: [Depressive disorder] Onset: 11-19-2022 11-19-2022 Chronic Nutritional deficiencies (19 sources) Vitamin D deficiency; Translations: [Vitamin D deficiency, unspecified] Onset: 01-07-2023 01-07-2023 Chronic Osteoarthritis (20 sources) Osteoarthritis; Translations: [Unspecified osteoarthritis, unspecified site] [...] hip] 11-25-2019 Episodic Other upper respiratory disease (19 sources) Allergic rhinitis; Translations: [Other allergic rhinitis] Onset: 06-24-2023 06-24-2023 Chronic Other upper respiratory infections (19 sources) Sinusitis; Translations: [Chronic sinusitis, unspecified] Onset: [...] Date Documented Date Episodic/Chronic Biliary tract disease (19 sources) Gallstone; Translations: [Calculus of gallbladder without cholecystitis without obstruction] Onset: 06-24-2023 06-24-2023 Episodic Conditions associated with dizziness or vertigo (20 sources) Vertigo; Translations: [Dizziness and giddiness] Onset: 06-24-2023 07-20-2023 Episodic Diabetes mellitus without complication (19 sources) Impaired fasting glycemia; Translations: [Impaired fasting glucose] Onset: 01-07-2023 01-07-2023 Episodic E Codes: Fall (5 sources) Fall; Translations: [Unspecified fall, initial encounter] Onset: 03-21-2024 03-21-2024 Episodic Fracture of neck of femur (hip) (4 sources) Closed fracture of femur, subcapital; Translations: [Unspecified intracapsular fracture of left femur, initial encounter for closed fracture] Onset: 03-21-2024 11-24-2019 Episodic Gastritis and duodenitis (19 sources) Gastritis; Translations: [Other gastritis with bleeding] Onset: 06-24-2023 06-24-2023 Episodic Lung disease due to external agents (10 sources) Reactive airways dysfunction syndrome; Translations: [Other acute and subacute respiratory conditions due to chemicals, gases, fumes and vapors] Onset: 04-29-2024 04-29-2024 Episodic Mood disorders (17 sources) Mood disorders Onset: 10-02-2023 10-02-2023 Nonmalignant breast conditions (19 sources) Solitary cyst of breast; Translations: [Solitary cyst of unspecified breast] Onset: 06-24-2023 06-24-2023 Episodic Other connective tissue disease (3 sources) Rhabdomyolysis; Translations: [Rhabdomyolysis] Onset: 03-21-2024 03-21-2024 Episodic Other connective tissue disease (17 sources) Falls; Translations: [Repeated falls] Onset: 08-22-2023 08-22-2023 Episodic Other lower respiratory disease (19 sources) Disorder of lung; Translations: [Other disorders [...] Spondylosis; intervertebral disc disorders; other back problems (17 sources) Neck pain; Translations: [Cervicalgia] Onset: 08-22-2023 08-22-2023 Episodic Superficial injury; contusion (9 sources) Contusion of left front wall of thorax, initial encounter; Translations: [Contusion of rib on left side] Onset: 03-21-2024 03-21-2024 Episodic Urinary tract infections (7 sources) Acute urinary tract infection; Translations: [Urinary tract infection, site not specified] Onset: 03-21-2024 03-21-2024 Episodic Results Test Name Value Interpretation Reference Range [facility] 07-19-2024 Anion gap [Moles/Vol] 14 mmol/L Normal 6-16 [facility] Comment on above: Performed By: #### 2 [id number] #### [facility] [address] [place] [address] Calcium [Mass/Vol] 9.7 mg/dL Normal 8.9-11.1 [facility] Comment on above: Performed By: #### 2 [id number] #### [facility] [address] [place] [address] Chloride [Moles/Vol] 107 mmol/L Normal 101-111 [facility] Comment on above: Performed By: #### 2 [id number] #### [facility] [address] [place] [address] CO2 [Moles/Vol] 25 mmol/L Normal 21-31 [facility] Comment on above: Performed By: #### 2 [id number] #### [facility] [address] [place] [address] Creatinine [Mass/Vol] 0.8 mg/dL Normal 0.5-1.3 [facility] Comment on above: Performed By: #### 2 [id number] #### [facility] [address] [place] [address] Glucose [Mass/Vol] 126 mg/dL Normal 55-199 [facility] Comment on above: Performed By: #### 2 [id number] #### [facility] [address] [place] [address] Potassium [Moles/Vol] 3.8 mmol/L Normal 3.5-5.3 [facility] Comment on above: Performed By: #### 2 [id number] #### [facility] [address] [place] [address] Sodium [Moles/Vol] 142 mmol/L Normal 135-145 [facility] Comment on above: Performed By: #### 2 [id number] #### [facility] [address] [place] [address] Urea nitrogen [Mass/Vol] 20 mg/dL Normal 5-21 [facility] Comment on above: Performed By: #### 2 [id number] #### [facility] [address] [place] [address] Urea nitrogen/Creatinine [Mass ratio] 25 No Units High 10-20 [facility] Comment on above: Performed By: #### 2 [id number] #### [facility] [address] [place] [address] CBC w/ Auto Diffon 5 Basophils/100 WBC (Bld) 1.0 % Normal 0.0-2.0 [facility] Comment on above: Performed By: #### 2 [id number] #### [facility] [address] [place] [address] Basophils/Leukocytes Auto (Bld) [Pure # fraction] 0.1 E9/L Normal 0.0-0.2 [facility] Comment on above: Performed By: #### 2 [id number] #### [facility] [address] [place] [address] Eosinophils (Bld) [#/Vol] 0.0 E9/L Normal 0.0-0.5 [facility] Comment on above: Performed By: #### 2 [id number] #### [facility] [address] [place] [address] Eosinophils/100 WBC (Bld) 0.4 % Normal 0.0-8.0 [facility] Comment on above: Performed By: #### 2 [id number] #### [facility] [address] [place] [address] Erythrocyte distribution width (RBC) [Ratio] 13.7 % Normal 10.9-14.2 [facility] Comment on above: Performed By: #### 2 [id number] #### [facility] [address] [place] [address] Hematocrit (Bld) [Volume fraction] 38.3 % Normal 34.0-46.0 [facility] Comment on above: Performed By: #### 2 [id number] #### [facility] [address] [place] [address] Hemoglobin (Bld) [Mass/Vol] 13.3 g/dL Normal 12.0-16.0 [facility] Comment on above: Performed By: #### 2 [id number] #### [facility] [address] [place] [address] Lymphocytes (Bld) [#/Vol] 2.1 E9/L Normal 1.0-4.0 [facility] Comment on above: Performed By: #### 2 553406 #### [facility] [address] [place] [address] Lymphocytes/100 WBC (Bld) 19.3 % Normal 14.0-50.0 [facility] Comment on above: Performed By: #### 2 [id number] #### [facility] [address] [place] [address] MCH (RBC) [Entitic mass] 31.9 pg Normal 27.0-34.0 [facility] Comment on above: Performed By: #### 2 [id number] #### [facility] [address] [place] [address] MCHC (RBC) [Mass/Vol] 34.8 g/dL Normal 31.4-36.0 [facility] Comment on above: Performed By: #### 2 [id number] #### [facility] [address] [place] [address] MCV (RBC) [Entitic vol] 91.4 fL Normal 80.0-100.0 [facility] Comment on above: Performed By: #### 2 [id number] #### [facility] [address] [place] [address] Monocytes (Bld) [#/Vol] 0.5 E9/L Normal 0.2-1.0 [facility] Comment on above: Performed By: #### 2 [id number] #### [facility] [address] [place] [address] Neutrophils (Bld) [#/Vol] 8.0 E9/L High 2.0-7.5 [facility] Comment on above: Performed By: #### 2 784233 #### [facility] [address] [place] [address] Neutrophils/100 WBC (Bld) 74.7 % Normal 36.0-75.0 [facility] Comment on above: Performed By: #### 2 300099 #### [facility] [address] [place] [address] Platelet 340.0 E9/L Normal 150.0-500. 0 [facility] Comment on above: Performed By: #### 2 [id number] #### [facility] [address] [place] [address] Platelet mean volume (Bld) [Entitic vol] 8.1 fL Normal 6.4-10.8 [facility] Comment on above: Performed By: #### 2 [id number] #### [facility] [address] [place] [address] RBC (Bld) [#/Vol] 4.2 E12/L Low 4.3-5.9 [facility] Comment on above: Performed By: #### 2 [id number] #### [facility] [address] [place] [address] WBC corrected for nucl RBC Auto (Bld) [#/Vol] 10.7 E9/L Normal 4.0-11.0 [facility] Comment on above: Performed By: #### 2 [id number] #### [facility] [address] [place] [address] CHEMISTRYOrdered By: SYSTEM SYSTEM on 07-19-2024 Anion [...] mg/mg High 10 - 20 Remisol Chem [facility] CBC W/ AUTO DIFFon 02 Basophils/100 WBC (Bld) 1 % 0.0 - 2.0 % [facility] EOSINOPHILS/100 LEUKOCYTES:NFR:PT:BLD:Q N:AUTOMATED COUNT 0.4 % 0.0 - 8.0 % [facility] EOSINOPHILS:NCNC:PT:BLD :QN: 0 [facility] BASOPHILS/LEUKOCYTES:NF R.DF:PT:BLD:QN:AUTOMATE D COUNT 0.1 [facility] ERYTHROCYTE MEAN CORPUSCULAR HEMOGLOBIN CONCENTRATION:MCNC:PT:R BC:QN 34.8 [facility] ERYTHROCYTE MEAN CORPUSCULAR HEMOGLOBIN:ENTMASS:PT:R BC:QN 31.9 pg 27.0 - 34.0 pg [facility] ERYTHROCYTE MEAN CORPUSCULAR VOLUME:ENTVOL:PT:RBC:QN :AUTOMATED COUNT 91.4 fL 80.0 - 100.0 fL [facility] ERYTHROCYTES:NCNC:PT:BL D:QN:AUTOMATED COUNT 4.2 Low [facility] HEMOGLOBIN:MCNC:PT:BLD: QN: 13.3 [facility] LEUKOCYTES 10.7 [facility] MONOCYTES:NCNC:PT:BLD:Q N:AUTOMATED COUNT 0.5 [facility] NEUTROPHILS:NCNC:PT:BLD :QN:AUTOMATED COUNT 8 High [facility] Interpretation and review of laboratory results Abnormal [facility] LYMPHOCYTES:NCNC:PT:BLD :QN: 2.1 [facility] Platelets (Bld) [#/Vol] 340 10*3/uL [facility] Original Ordering Provider: MD MICHAEL CAICEDO CLINISYJARAD [facility] HEMATOLOGYOrdered By: SYSTEM SYSTEM on 07-19-2024 Basophils/100 [...] 07-19-2024 eGFR 74 mL/min/1.73 m2 Normal >=59 [facility] Comment on above: Performed By: #### 1 [id number] #### [facility] [address] [place] [address] Basic Metabolic Panelon 03-16 Creatinine Clr Calc Pharmacy 44.36 Normal [facility] Comment on above: Result Comment: PERF ORMED BY: [address] [address] PATHOLOGIST ENVIRONMENTAL AUDITOR SARAH IRAHETA M.D. Performed By: #### C K, BMP #### [facility] [address] [place] [address] [place] GFR/1.73 sq M.predicted MDRD (S/P/Bld) [Vol rate/Area] mL/min/{1.73_m2} Normal [facility] Comment on above: Performed By: #### C K, BMP #### [facility] [address] [place] [address] [place] Calcium [Mass/volume] in Ser um or PlasmaOrdered By: Teresa Antony on 03-25-2024 Calcium [Mass/Vol] 8.8 mg/dL Normal 8.6-10.3 [facility] Comment on above: Performed By: #### C K, BMP #### [place] [address] [place] Carbon dioxide, total [Moles /volume] in Serum or PlasmaOrdered By: Teresa Antony on 03-25-2024 CO2 [Moles/Vol] 26.2 mmol/L Normal 21.0-31.0 [facility] Comment on above: Performed By: #### C K, BMP #### [place] [address] [place] Chloride [Moles/volume] in S selene or PlasmaOrdered By: Teresa Antony on 03-25-2024 Chloride [Moles/Vol] 104 mmol/L Normal 98-107 [facility] Comment on above: Performed By: #### C K, BMP #### [place] [address] [place] Creatine kinase [Enzymatic a ctivity/volume] in Serum or PlasmaOrdered By: Teresa Antony on 03-25-2024 CK [Catalytic activity/Vol] 1400 U/L High 30-223 [facility] Comment on above: Result Comment: PERF ORMED BY: [place] [address] PATHOLOGIST ENVIRONMENTAL AUDITOR SARAH IRAHETA M.D. Performed By: #### C K, BMP #### [place] [address] [place] Creatinine [Mass/volume] in Serum or PlasmaOrdered By: Teresa Antony on 03-25-2024 Creatinine [Mass/Vol] 0.71 mg/dL Normal 0.60-1.20 [facility] Comment on above: Performed By: #### Ramon Brown, BMP #### [facility] [address] Glucose [Mass/volume] in Ser um or PlasmaOrdered By: Teresa Antony on 03-25-2024 Glucose [Mass/Vol] 104 mg/dL High 70-100 [facility] Comment on above: ADA recommended refe rence rangeRandom Glucose Reference Range is dependent on time and content of last meal. Glucose of more than 200 mg/dL in a nonstressed, ambulatory subject supports the diagnosis of Diabetes Mellitus. Result Comment: [place] om Glucose Reference Range is dependent on time and content of last meal. Glucose of more than 200 mg/dL in a nonstressed, ambulatory subject supports the diagnosis of Diabetes Mellitus. ADA recommended reference range Performed By: #### C K, BMP #### [address] No Panel InformationOrdered By: Teresa Antony on 03-25-2024 Estimated GFR (CKD-EPI) > 60.0 mL/Min [facility] Creatinine Clearance (Chem 44.36 [facility] Potassium [Moles/volume] in Serum or PlasmaOrdered By: Teresa Antony on 03-25-2024 Potassium [Moles/Vol] 3.4 mmol/L Low 3.5-5.1 [facility] Comment on above: Performed By: #### C Stephanie, BMP #### [address] Serum or plasma anion gap de terminationOrdered By: Teresa Antony on 03-25-2024 Anion gap [Moles/Vol] 11.2 mmol/L Normal 6.0-15.0 [facility] Comment on above: Performed By: #### Ramon Brown, BMP #### [address] Sodium [Moles/volume] in Ser um or PlasmaOrdered By: Teresa Antony on 03-25-2024 Sodium [Moles/Vol] 138 mmol/L Normal 136-145 [facility] Comment on above: Performed By: #### C K, BMP #### [address] Urea nitrogen [Mass/volume] in Serum or PlasmaOrdered By: Teresa Antony on 03-25-2024 Urea nitrogen [Mass/Vol] 13 mg/dL Normal 7-25 [facility] Comment on above: Performed By: #### C K, BMP #### [address] Automated basophil %Ordered By: Bryan Coppola on 03-24-2024 Basophils/100 WBC (Bld) 0.8 % Normal . [facility] Comment on above: Performed By: #### B MP, CK, CBC #### [address] Automated basophil countOrde red By: Bryan Coppola on 03-24-2024 Basophils (Bld) [#/Vol] 0.1 10*3/uL Normal 0.0-0.2 [facility] Comment on above: Result Comment: PERF ORMED BY: [place] [address] PATHOLOGIST ENVIRONMENTAL AUDITOR SARAH IRAHETA M.D. Performed By: #### B MP, CK, CBC #### [address] Automated blood monocyte cou ntOrdered By: Bryan Coppola on 03-24-2024 Monocytes (Bld) [#/Vol] 0.5 10*3/uL Normal 0.0-0.8 [facility] Comment on above: Performed By: #### B MP, CK, CBC #### [address] Automated eosinophil %Ordere d By: Bryan Coppola on 03-24-2024 Eosinophils/100 WBC (Bld) 2.4 % Normal . [facility] Comment on above: Performed By: #### B MP, CK, CBC #### [address] Automated eosinophil countOr dered By: Bryan Coppola on 03-24-2024 Eosinophils (Bld) [#/Vol] 0.2 10*3/uL Normal 0.0-0.45 [facility] Comment on above: Performed By: #### B MP, CK, CBC #### [address] Automated monocyte %Ordered By: Bryan Coppola on 03-24-2024 Monocytes/100 WBC (Bld) 7.5 % Normal . [facility] Comment on above: Performed By: #### B MP, CK, CBC #### [address] Automated neutrophil %Ordere d By: Bryan Coppola on 03-24-2024 Neutrophils/100 WBC (Bld) 64.6 % Normal . [facility] Comment on above: Performed By: #### B MP, CK, CBC #### [address] Basic Metabolic Panelon 10-0 Anion gap [Moles/Vol] 9.1 mmol/L Normal 6.0-15.0 [facility] Comment on above: Performed By: #### B MP, CK, CBC #### [address] Calcium [Mass/Vol] 8.4 mg/dL Low 8.6-10.3 [facility] Comment on above: Performed By: #### B MP, CK, CBC #### [address] Chloride [Moles/Vol] 109 mmol/L High 98-107 [facility] Comment on above: Performed By: #### B MP, CK, CBC #### [address] CO2 [Moles/Vol] 26.9 mmol/L Normal 21.0-31.0 [facility] Comment on above: Performed By: #### B MP, CK, CBC #### [address] Creatinine [Mass/Vol] 0.68 mg/dL Normal 0.60-1.20 [facility] Comment on above: Performed By: #### B MP, CK, CBC #### [place] [address] [place] Creatinine Clr Calc Pharmacy 44.36 Normal [facility] Comment on above: Result Comment: PERF ORMED BY: [place] [address] PATHOLOGIST ENVIRONMENTAL AUDITOR SARAH IRAHETA M.D. Performed By: #### B MP, CK, CBC #### [place] [address] [place] GFR/1.73 sq M.predicted MDRD (S/P/Bld) [Vol rate/Area] mL/min/{1.73_m2} Normal [facility] Comment on above: Performed By: #### B MP, CK, CBC #### [address] Glucose [Mass/Vol] 88 mg/dL Normal 70-100 [facility] Comment on above: Result Comment: [facility] Glucose Reference Range is dependent on time and content of last meal. Glucose of more than 200 mg/dL in a nonstressed, ambulatory subject supports the diagnosis of Diabetes Mellitus. ADA recommended reference range Performed By: #### B MP, CK, CBC #### [address] Potassium [Moles/Vol] 3.0 mmol/L Low 3.5-5.1 [facility] Comment on above: Performed By: #### B MP, CK, CBC #### [place] [address] [place] Sodium [Moles/Vol] 142 mmol/L Normal 136-145 [facility] Comment on above: Performed By: #### B MP, CK, CBC #### [address] Urea nitrogen [Mass/Vol] 13 mg/dL Normal 7-25 [facility] Comment on above: Performed By: #### B MP, CK, CBC #### [address] Complete Blood Count Auto Di ffon 03-24-2024 Mean Corpuscular HGB Conc 35.0 g/dL Normal 32.0-35.0 [facility] Comment on above: Performed By: #### B MP, CK, CBC #### [address] NRBC% 0.1 /100{WBC} Normal 0-0.5 [facility] Comment on above: Performed By: #### B MP, CK, CBC #### [address] Creatine Kinaseon 03-24-2024 CK [Catalytic activity/Vol] 2390 U/L High 30-223 [facility] Comment on above: Result Comment: PERF ORMED BY: [place] [address] PATHOLOGIST ENVIRONMENTAL AUDITOR SARAH IRAHETA M.D. Performed By: #### B MP, CK, CBC #### [address] Erythrocyte distribution wid th [Ratio] by Automated countOrdered By: Bryan Coppola on 03-24-2024 Erythrocyte distribution width (RBC) [Ratio] 13.5 % Normal 11.9-15.3 [facility] [facility] Comment on above: Performed By: #### B MP, CK, CBC #### [address] Erythrocytes [#/volume] in B lood by Automated countOrdered By: Bryan Coppola on 03-24-2024 RBC (Bld) [#/Vol] 3.89 10*6/uL Normal 3.60-5.00 [facility] Comment on above: Performed By: #### B MP, CK, CBC #### [facility] [address] Hematocrit [Volume Fraction] of Blood by Automated countOrdered By: Bryan Coppola on 03-24-2024 Hematocrit (Bld) [Volume fraction] 35.7 % Normal 34.0-46.4 [facility] Comment on above: Performed By: #### B MP, CK, CBC #### [facility] [address] [place] [address] [place] Hemoglobin [Mass/volume] in BloodOrdered By: Bryan Coppola on 03-24-2024 Hemoglobin (Bld) [Mass/Vol] 12.5 g/dL Normal 11.8-15.4 [facility] Comment on above: Performed By: #### B MP, CK, CBC #### [address] Leukocytes [#/volume] correc stephanie for nucleated erythrocytes in Blood by Automated counOrdered By: Bryan Coppola on 03-24-2024 WBC corrected for nucl RBC Auto (Bld) [#/Vol] 6.7 10*3/uL 3.8-11.6 [facility] Leukocytes [#/volume] in Blo od by Automated countOrdered By: Bryan Coppola on 03-24-2024 WBC (Bld) [#/Vol] 6.7 10*3/uL Normal 3.8-11.6 [facility] Comment on above: Performed By: #### B MP, CK, CBC #### [facility] [address] [place] [address] [place] Lymphocytes [#/volume] in Bl ood by Automated countOrdered By: Bryan Coppola on 03-24-2024 Lymphocytes (Bld) [#/Vol] 1.7 10*3/uL Normal 1.00-4.8 [facility] Comment on above: Performed By: #### B MP, CK, CBC #### [facility] [address] [place] [address] [place] Lymphocytes/100 leukocytes i n Blood by Automated countOrdered By: Bryan Coppola on 03-24-2024 Lymphocytes/100 WBC (Bld) 24.7 % Normal . [facility] Comment on above: Performed By: #### B MP, CK, CBC #### [facility] [address] [place] [address] MCH [Entitic mass] by Automa stephanie countOrdered By: Bryan Coppola on 03-24-2024 MCH (RBC) [Entitic mass] 32.1 pg Normal 24.7-34.3 [facility] Comment on above: Performed By: #### B MP, CK, CBC #### [address] MCHC Auto (RBC) [Mass/Vol]Or dered By: Bryan Coppola on 03-24-2024 MCHC (RBC) [Mass/Vol] 35.0 g/dL 32.0-35.0 [facility] MCV [Entitic volume] by Auto mated countOrdered By: Bryan Coppola on 03-24-2024 MCV (RBC) [Entitic vol] 91.7 fL Normal 80-100 [facility] Comment on above: Performed By: #### B MP, CK, CBC #### [facility] [address] [place] [address] Neutrophils [#/volume] in Bl ood by Automated countOrdered By: Bryan Coppola on 03-24-2024 Neutrophils (Bld) [#/Vol] 4.3 10*3/uL Normal 1.8-7.7 [facility] Comment on above: Performed By: #### B MP, CK, CBC #### [facility] [address] [place] [address] Nucleated erythrocytes [Pres ence] in Blood by Automated countOrdered By: Bryan Coppola on 03-24-2024 Nucleated RBC Auto Ql (Bld) 0.1 /100{WBC} 0-0.5 [facility] Platelet mean volume [Entiti c volume] in Blood by Automated countOrdered By: Bryan Coppola on 03-24-2024 Platelet mean volume (Bld) [Entitic vol] 7.8 fL Normal 6.3-10.7 [facility] Comment on above: Performed By: #### B MP, CK, CBC #### [address] Platelets [#/volume] in Bloo d by Automated countOrdered By: Bryan Coppola on 03-24-2024 Platelets (Bld) [#/Vol] 183 10*3/uL Normal 150-450 [facility] Comment on above: Performed By: #### B MP, CK, CBC #### [address] Basic Metabolic Panelon Anion gap [Moles/Vol] Not performed Normal 6.0-15.0 [facility] Comment on above: Performed By: #### B MP, CK, CBC #### [address] Calcium [Mass/Vol] 8.6 mg/dL Normal 8.6-10.3 [facility] Comment on above: Performed By: #### B MP, CK, CBC #### [address] Chloride [Moles/Vol] 107 mmol/L Normal 98-107 [facility] Comment on above: Performed By: #### B MP, CK, CBC #### [address] CO2 [Moles/Vol] 25.0 mmol/L Normal 21.0-31.0 [facility] Comment on above: Performed By: #### B MP, CK, CBC #### [address] Creatinine [Mass/Vol] 0.81 mg/dL Normal 0.60-1.20 [facility] Comment on above: Performed By: #### B MP, CK, CBC #### [address] Creatinine Clr Calc Pharmacy 43.81 Normal [facility] Comment on above: Result Comment: PERF ORMED BY: [place] [address] PATHOLOGIST ENVIRONMENTAL AUDITOR SARAH IRAHETA M.D. Performed By: #### B MP, CK, CBC #### [place] [address] [place] GFR/1.73 sq M.predicted MDRD (S/P/Bld) [Vol rate/Area] mL/min/{1.73_m2} Normal [facility] Comment on above: Performed By: #### B MP, CK, CBC #### [address] Glucose [Mass/Vol] 78 mg/dL Normal 70-100 [facility] Comment on above: Result Comment: [place] Glucose Reference Range is dependent on time and content of last meal. Glucose of more than 200 mg/dL in a nonstressed, ambulatory subject supports the diagnosis of Diabetes Mellitus. ADA recommended reference range Performed By: #### B MP, CK, CBC #### [address] Potassium Normal 3.5-5.1 [facility] Comment on above: Result Comment: Spec imen hemolyzed, redraw requested Performed By: #### B MP, CK, CBC #### [address] Sodium [Moles/Vol] 138 mmol/L Normal 136-145 [facility] Comment on above: Performed By: #### B MP, CK, CBC #### [place] [address] [place] Urea nitrogen [Mass/Vol] 12 mg/dL Normal 7-25 [facility] Comment on above: Performed By: #### B MP, CK, CBC #### [address] Complete Blood Count Auto Di ffon 03-23-2024 Basophils (Bld) [#/Vol] 0.1 10*3/uL Normal 0.0-0.2 [facility] Comment on above: Result Comment: PERF ORMED BY: [place] [address] PATHOLOGIST ENVIRONMENTAL AUDITOR SARAH IRAHETA M.D. Performed By: #### B MP, CK, CBC #### [address] Basophils/100 WBC (Bld) 1.4 % Normal . [facility] Comment on above: Performed By: #### B MP, CK, CBC #### [address] Eosinophils (Bld) [#/Vol] 0.1 10*3/uL Normal 0.0-0.45 [facility] Comment on above: Performed By: #### B MP, CK, CBC #### [address] Eosinophils/100 WBC (Bld) 1.6 % Normal . [facility] Comment on above: Performed By: #### B MP, CK, CBC #### [address] Erythrocyte distribution width (RBC) [Ratio] 13.5 % Normal 11.9-15.3 [facility] Comment on above: Performed By: #### B MP, CK, CBC #### [address] Hematocrit (Bld) [Volume fraction] 38.9 % Normal 34.0-46.4 [facility] Comment on above: Performed By: #### B MP, CK, CBC #### [address] Hemoglobin (Bld) [Mass/Vol] 13.5 g/dL Normal 11.8-15.4 [facility] Comment on above: Performed By: #### B MP, CK, CBC #### [address] Lymphocytes (Bld) [#/Vol] 2.4 10*3/uL Normal 1.00-4.8 [facility] Comment on above: Performed By: #### B MP, CK, CBC #### [address] Lymphocytes/100 WBC (Bld) 24.6 % Normal . [facility] Comment on above: Performed By: #### B MP, CK, CBC #### [address] MCH (RBC) [Entitic mass] 32.0 pg Normal 24.7-34.3 [facility] Comment on above: Performed By: #### B MP, CK, CBC #### [address] MCV (RBC) [Entitic vol] 92.4 fL Normal 80-100 [facility] Comment on above: Performed By: #### B MP, CK, CBC #### [address] Mean Corpuscular HGB Conc 34.7 g/dL Normal 32.0-35.0 [facility] Comment on above: Performed By: #### B MP, CK, CBC #### [address] Monocytes (Bld) [#/Vol] 0.6 10*3/uL Normal 0.0-0.8 [facility] Comment on above: Performed By: #### B MP, CK, CBC #### [address] Monocytes/100 WBC (Bld) 5.9 % Normal . [facility] Comment on above: Performed By: #### B MP, CK, CBC #### [address] Neutrophils (Bld) [#/Vol] 6.4 10*3/uL Normal 1.8-7.7 [facility] Comment on above: Performed By: #### B MP, CK, CBC #### [address] Neutrophils/100 WBC (Bld) 66.5 % Normal . [facility] Comment on above: Performed By: #### B MP, CK, CBC #### [address] NRBC% 0.1 /100{WBC} Normal 0-0.5 [facility] Comment on above: Performed By: #### B MP, CK, CBC #### [address] Platelet mean volume (Bld) [Entitic vol] 8.3 fL Normal 6.3-10.7 [facility] Comment on above: Performed By: #### B MP, CK, CBC #### [address] Platelets (Bld) [#/Vol] 193 10*3/uL Normal 150-450 [facility] Comment on above: Performed By: #### B MP, CK, CBC #### [address] RBC (Bld) [#/Vol] 4.21 10*6/uL Normal 3.60-5.00 [facility] Comment on above: Performed By: #### B MP, CK, CBC #### [address] WBC (Bld) [#/Vol] 9.6 10*3/uL Normal 3.8-11.6 [facility] Comment on above: Performed By: #### B MP, CK, CBC #### [address] Creatine Kinaseon 03-23-2024 CK [Catalytic activity/Vol] 930 U/L High 30-223 [facility] Comment on above: Result Comment: PERF ORMED BY: [place] [address] PATHOLOGIST ENVIRONMENTAL AUDITOR SARAH IRAHETA M.D. Performed By: #### B MP, CK, CBC #### [address] Redraw Potassiumon Potassium [Moles/Vol] 3.8 mmol/L Normal 3.5-5.1 [facility] Comment on above: Order Comment: HEMOL YZED SPECIMEN NOTIFIED GAURAV Result Comment: Hemo lysis is present at a level that could interfere with the result. Contact lab if redraw is required PERFORMED BY: [place] [address] PATHOLOGIST ENVIRONMENTAL AUDITOR SARAH IRAHETA M.D. Performed By: #### B MP, CK, CBC #### [address] Basic Metabolic Panelon 10-0 Anion gap [Moles/Vol] 9.5 mmol/L Normal 6.0-15.0 [facility] Comment on above: Performed By: #### C BC, BMP, MG, [id number], CK, HS TROP #### [address] Calcium [Mass/Vol] 8.4 mg/dL Low 8.6-10.3 [facility] Comment on above: Performed By: #### C BC, BMP, MG, [id number], CK, HS TROP #### [address] Chloride [Moles/Vol] 109 mmol/L High 98-107 [facility] Comment on above: Performed By: #### C BC, BMP, MG, [id number], CK, HS TROP #### [address] CO2 [Moles/Vol] 25.2 mmol/L Normal 21.0-31.0 [facility] Comment on above: Performed By: #### C BC, BMP, MG, [id number], CK, HS TROP #### [address] Creatinine [Mass/Vol] 0.78 mg/dL Normal 0.60-1.20 [facility] Comment on above: Performed By: #### C BC, BMP, MG, [id number], CK, HS TROP #### [place] [address] [place] Creatinine Clr Calc Pharmacy 44.36 Normal [facility] Comment on above: Performed By: #### C BC, BMP, MG, [id number], CK, HS TROP #### [address] GFR/1.73 sq M.predicted MDRD (S/P/Bld) [Vol rate/Area] mL/min/{1.73_m2} Normal [facility] Comment on above: Performed By: #### C BC, BMP, MG, [id number], CK, HS TROP #### [address] Glucose [Mass/Vol] 95 mg/dL Normal 70-100 [facility] Comment on above: Result Comment: [facility] Glucose Reference Range is dependent on time and content of last meal. Glucose of more than 200 mg/dL in a nonstressed, ambulatory subject supports the diagnosis of Diabetes Mellitus. ADA recommended reference range Performed By: #### C BC, BMP, MG, [id number], CK, HS TROP #### [address] Potassium [Moles/Vol] 3.7 mmol/L Normal 3.5-5.1 [facility] Comment on above: Performed By: #### C BC, BMP, MG, [id number], CK, HS TROP #### [address] Sodium [Moles/Vol] 140 mmol/L Significant change down 136-145 [facility] Comment on above: Performed By: #### C BC, BMP, MG, [id number], CK, HS TROP #### [address] Urea nitrogen [Mass/Vol] 13 mg/dL Normal 7-25 [facility] Comment on above: Performed By: #### C BC, BMP, MG, [id number], CK, HS TROP #### [address] Complete Blood Count Auto Di ffon 03-22-2024 Basophils (Bld) [#/Vol] 0.1 10*3/uL Normal 0.0-0.2 [facility] Comment on above: Result Comment: PERF ORMED BY: [place] [address] PATHOLOGIST ENVIRONMENTAL AUDITOR SARAH IRAHETA M.D. Performed By: #### C BC, BMP, MG, [id number], CK, HS TROP #### [address] Basophils/100 WBC (Bld) 0.9 % Normal . [facility] Comment on above: Performed By: #### C BC, BMP, MG, [id number], CK, HS TROP #### [address] Eosinophils (Bld) [#/Vol] 0.1 10*3/uL Normal 0.0-0.45 [facility] Comment on above: Performed By: #### C BC, BMP, MG, [id number], CK, HS TROP #### [address] Eosinophils/100 WBC (Bld) 0.5 % Normal . [facility] Comment on above: Performed By: #### C BC, BMP, MG, [id number], CK, HS TROP #### [address] Erythrocyte distribution width (RBC) [Ratio] 13.3 % Normal 11.9-15.3 [facility] Comment on above: Performed By: #### C BC, BMP, MG, [id number], CK, HS TROP #### [address] Hematocrit (Bld) [Volume fraction] 38.1 % Normal 34.0-46.4 [facility] Comment on above: Performed By: #### C BC, BMP, MG, [id number], CK, HS TROP #### [address] Hemoglobin (Bld) [Mass/Vol] 13.2 g/dL Normal 11.8-15.4 [facility] Comment on above: Performed By: #### C BC, BMP, MG, [id number], CK, HS TROP #### [address] Lymphocytes (Bld) [#/Vol] 1.7 10*3/uL Normal 1.00-4.8 [facility] Comment on above: Performed By: #### C BC, BMP, MG, [id number], CK, HS TROP #### [address] Lymphocytes/100 WBC (Bld) 16.8 % Normal . [facility] Comment on above: Performed By: #### C BC, BMP, MG, [id number], CK, HS TROP #### [address] MCH (RBC) [Entitic mass] 31.8 pg Normal 24.7-34.3 [facility] Comment on above: Performed By: #### C BC, BMP, MG, [id number], CK, HS TROP #### [address] MCV (RBC) [Entitic vol] 91.8 fL Normal 80-100 [facility] Comment on above: Performed By: #### C BC, BMP, MG, [id number], CK, HS TROP #### [address] Mean Corpuscular HGB Conc 34.7 g/dL Normal 32.0-35.0 [facility] Comment on above: Performed By: #### C BC, BMP, MG, [id number], CK, HS TROP #### [address] Monocytes (Bld) [#/Vol] 0.8 10*3/uL Normal 0.0-0.8 [facility] Comment on above: Performed By: #### C BC, BMP, MG, [id number], CK, HS TROP #### [address] Monocytes/100 WBC (Bld) 7.8 % Normal . [facility] Comment on above: Performed By: #### C BC, BMP, MG, [id number], CK, HS TROP #### [address] Neutrophils (Bld) [#/Vol] 7.5 10*3/uL Normal 1.8-7.7 [facility] Comment on above: Performed By: #### C BC, BMP, MG, [id number], CK, HS TROP #### [address] Neutrophils/100 WBC (Bld) 74.0 % Normal . [facility] Comment on above: Performed By: #### C BC, BMP, MG, [id number], CK, HS TROP #### [address] NRBC% 0.0 /100{WBC} Normal 0-0.5 [facility] Comment on above: Performed By: #### C BC, BMP, MG, [id number], CK, HS TROP #### [address] Platelet mean volume (Bld) [Entitic vol] 7.9 fL Normal 6.3-10.7 [facility] Comment on above: Performed By: #### C BC, BMP, MG, [id number], CK, HS TROP #### [address] Platelets (Bld) [#/Vol] 201 10*3/uL Normal 150-450 [facility] Comment on above: Performed By: #### C BC, BMP, MG, [id number], CK, HS TROP #### [place] [address] [place] RBC (Bld) [#/Vol] 4.15 10*6/uL Normal 3.60-5.00 [facility] Comment on above: Performed By: #### C BC, BMP, MG, [id number], CK, HS TROP #### [place] [address] [place] WBC (Bld) [#/Vol] 10.2 10*3/uL Normal 3.8-11.6 [facility] Comment on above: Performed By: #### C BC, BMP, MG, [id number], CK, HS TROP #### [facility] [address] Creatine Kinaseon 03-22-2024 CK [Catalytic activity/Vol] 7110 U/L High 30-223 [facility] Comment on above: Performed By: #### B MP, CK, CBC #### [facility] [address] ECH echo transthoracicon ECH echo transthoracic [facility] [place] [address] [place] [address] Echocardiogram Signed Patient: Stella Kong MR#: [id number] 81 : 1945 Acct:[id number] Age/Sex: 79 / F ADM Date: 03/21/24 Loc: Room: [address] [place] [address] Type: ADM IN Attending Dr: Alonso Agudelo [...] Mala Nettles MD 03/22/24 1001 Normal [facility] Magnesium [Mass/volume] in S selene or PlasmaOrdered By: Bryan Coppola on 03-22-2024 Magnesium [Mass/Vol] 2.0 mg/dL Normal 1.9-2.7 [facility] Comment on above: Performed By: #### C BC, BMP, MG, [id number], CK, HS TROP #### [facility] [address] [place] [address] [place] Troponin I High Sensitivityo n 03-22-2024 Troponin I High Sensitivity 255.3 pg/mL Off scale high 0.0-15.0 [facility] Comment on above: Result Comment: Crit ical Result : Called to and read back by: KASH GRAHAM at: 03/22/2024 07:53:28 by:KOJO PERFORMED BY: [place] [address] PATHOLOGIST ENVIRONMENTAL AUDITOR SARAH IRAHETA M.D. Performed By: #### B MP, CK, CBC #### [facility] [address] [place] [address] Troponin I.cardiac [Mass/vol ume] in Serum or Plasma by Detection limit <= 0.01 ng/Ordered By: Bryan Coppola on 03-22-2024 Troponin I.cardiac DL <= 0.01 ng/mL [Mass/Vol] 255.3 pg/mL High 0.0-15.0 [facility] Comment on above: Critical Result : Ca lled to and read back by: KASH GRAHAM at: 03/22/2024 07:53:28 by:KOJO Vitamin D 25 Hydroxy Totalon 03-22-2024 Vitamin D 25 Hydroxy Total 33.0 ng/mL Normal 30-100 [facility] Comment on above: Result Comment: SEBAS MIN D STATUS 25(OH)VITAMIN D RANGE (ng/mL) Deficient <20 Insufficient 20 to <30 Sufficient 30 to 100 Reference: Marjorie Elana ZARATE, Hilario BUSCH, et al. Evaluation,treatment, and prevention of vitamin D deficiency; an Endocrine Society clinical practice guideline. JCEM. 2010; 96(7):1911-30. PERFORMED BY: [place] [address] PATHOLOGIST ENVIRONMENTAL AUDITOR SARAH IRAHETA M.D. Performed By: #### C BC, BMP, MG, [id number], CK, HS TROP #### [address] Vitamin D+Metabolites [Mass/ volume] in Serum or PlasmaOrdered By: Bryan Coppola on 03-22-2024 Vitamin D+Metabolites [Mass/Vol] 33.0 ng/mL 30-100 [facility] Comment on above: VITAMIN D STATUS [...] ALT [Catalytic activity/Vol] 15 U/L Normal 7-52 [facility] Comment on above: Performed By: #### B MP, CK, CBC #### [place] [address] [place] Albumin [Mass/volume] in Ser um or Plasma by Bromocresol green (BCG) dye binding methoOrdered By: Yokasta Flores on 03-21-2024 Albumin BCG dye [Mass/Vol] 3.8 g/dL 3.5-5.7 [facility] Alkaline phosphatase [Enzyma tic activity/volume] in Serum or PlasmaOrdered By: Yokasta Flores on 03-21-2024 ALP [Catalytic activity/Vol] 55 U/L Normal 34-104 [facility] Comment on above: Performed By: #### B MP, CK, CBC #### [address] Aspartate aminotransferase [ Enzymatic activity/volume] in Serum or PlasmaOrdered By: Yokasta Flores on 03-21-2024 AST [Catalytic activity/Vol] 30 U/L Normal 13-39 [facility] Comment on above: Performed By: #### B MP, CK, CBC #### [address] Automated basophil %Ordered By: Yokasta Flores on 03-21-2024 Basophils/100 WBC (Bld) 1.2 % Normal . [facility] Comment on above: Performed By: #### B MP, CK, CBC #### [address] Automated basophil countOrde red By: Yokasta Flores on 03-21-2024 Basophils (Bld) [#/Vol] 0.2 10*3/uL Normal 0.0-0.2 [facility] Comment on above: Result Comment: PERF ORMED BY: [place] [address] PATHOLOGIST ENVIRONMENTAL AUDITOR SARAH IRAHETA M.D. Performed By: #### B MP, CK, CBC #### [address] Automated blood monocyte cou ntOrdered By: Yokasta Flores on 03-21-2024 Monocytes (Bld) [#/Vol] 0.4 10*3/uL Normal 0.0-0.8 [facility] Comment on above: Performed By: #### B MP, CK, CBC #### [address] Automated eosinophil %Ordere d By: Yokasta Flores on 03-21-2024 Eosinophils/100 WBC (Bld) 0.1 % Normal . [facility] Comment on above: Performed By: #### B MP, CK, CBC #### [address] Automated eosinophil countOr dered By: Yokasta Flores on 03-21-2024 Eosinophils (Bld) [#/Vol] 0.0 10*3/uL Normal 0.0-0.45 [facility] Comment on above: Performed By: #### B MP, CK, CBC #### [facility] [address] Automated monocyte %Ordered By: Yokasta Flores on 03-21-2024 Monocytes/100 WBC (Bld) 2.9 % Normal . [facility] Comment on above: Performed By: #### B MP, CK, CBC #### [facility] [address] Automated neutrophil %Ordere d By: Yokasta Flores on 03-21-2024 Neutrophils/100 WBC (Bld) 91.7 % Normal . [facility] Comment on above: Performed By: #### B MP, CK, CBC #### [facility] [address] Bacteria [Presence] in Urine by AutomatedOrdered By: Bryan Coppola on 03-21-2024 Bacteria Auto Ql (U) 1+ [HPF] High None Seen [facility] Bacteria [Presence] in Urine by AutomatedOrdered By: Yokasta Flores on 03-21-2024 Bacteria Auto Ql (U) 2+ [HPF] High None Seen [facility] Bilirubin Test strip Ql (U)O rdered By: Yokasta Flores on 03-21-2024 Bilirubin Ql (U) Negative Negative [facility] Bilirubin.total [Mass/volume ] in Serum or PlasmaOrdered By: Yokasta Flores on 03-21-2024 Bilirubin [Mass/Vol] 0.4 mg/dL Normal 0.3-1.0 [facility] Comment on above: Performed By: #### B MP, CK, CBC #### [facility] [address] head/brain wo kenzie 03-21 CT head/brain wo [facility] [place] [address] CT Scan Report Signed Patient: Stella Kong MR#: [id number] 81 : 1945 Acct:[id number] Age/Sex: 79 / F ADM Date: 03/21/24 Loc: ER Room: Type: [facility] ER Attending Dr: Copies to: Yokasta Flores [...] ABNORMALITY. Impression dictated by: Germain Lipscomb Jr., D.ONoé03/21/2024 6:18 PM Dictation Location: [place] [address] Transcribed By: [facility] 03/21/241817 Dictated By: Germain Lipscomb Jr, DO 03/21/241814 Signed By: 03/21/241817 Normal [facility] Calcium [Mass/volume] in Ser um or PlasmaOrdered By: Yokasta Flores on 03-21-2024 Calcium [Mass/Vol] 8.5 mg/dL Low 8.6-10.3 [facility] Comment on above: Performed By: #### B MP, CK, CBC #### [facility] [address] [place] [address] Carbon dioxide, total [Moles /volume] in Serum or PlasmaOrdered By: Yokasta Flores on 03-21-2024 CO2 [Moles/Vol] 22.6 mmol/L Normal 21.0-31.0 [facility] Comment on above: Performed By: #### B MP, CK, CBC #### [facility] [address] [place] [address] [place] Chloride [Moles/volume] in S selene or PlasmaOrdered By: Yokasta Flores on 03-21-2024 Chloride [Moles/Vol] 102 mmol/L Normal 98-107 [facility] Comment on above: Performed By: #### B MP, CK, CBC #### [address] Color of Urine by AutoOrdere d By: Bryan Coppola on 03-21-2024 Color (U) Colorless Normal Yellow [facility] Comment on above: Order Comment: Name Collection Type:: Straight Catheter Performed By: #### B MP, CK, CBC #### [address] Color of Urine by AutoOrdere d By: Yokasta Flores on 03-21-2024 Color (U) Light-yellow Normal Yellow [facility] Comment on above: Order Comment: Name Collection Type:: Clean-Voided Midstream Performed By: #### B MP, CK, CBC #### [address] Complete Blood Count Auto Di ffon 03-21-2024 Mean Corpuscular HGB Conc 34.7 g/dL Normal 32.0-35.0 [facility] Comment on above: Performed By: #### B MP, CK, CBC #### [address] Monocytes/100 WBC (Bld) 14.37 % Normal 0.00-20.00 [facility] Comment on above: Performed By: #### B MP, CK, CBC #### [address] NRBC% 0.1 /100{WBC} Normal 0-0.5 [facility] Comment on above: Performed By: #### B MP, CK, CBC #### [address] Comprehensive Metabolic Pane tila 03-21-2024 Albumin [Mass/Vol] 3.8 g/dL Normal 3.5-5.7 [facility] Comment on above: Performed By: #### B MP, CK, CBC #### [place] [address] [place] Creatinine Clr Calc Pharmacy 42.12 Normal [facility] Comment on above: Result Comment: PERF ORMED BY: [place] [address] PATHOLOGIST ENVIRONMENTAL AUDITOR SARAH IRAHETA M.D. Performed By: #### B MP, CK, CBC #### [place] [address] [place] GFR/1.73 sq M.predicted MDRD (S/P/Bld) [Vol rate/Area] mL/min/{1.73_m2} Normal [facility] Comment on above: Performed By: #### B MP, CK, CBC #### [address] Creatine Kinaseon 03-21-2024 CK [Catalytic activity/Vol] 6966 U/L High 30-223 [facility] Comment on above: Performed By: #### B MP, CK, CBC #### [address] Creatine kinase [Enzymatic a ctivity/volume] in Serum or PlasmaOrdered By: Yokasta Flores on 03-21-2024 CK [Catalytic activity/Vol] 1460 U/L High 30-223 [facility] Comment on above: Result Comment: PERF ORMED BY: [place] [address] PATHOLOGIST ENVIRONMENTAL AUDITOR SARAH IRAHETA M.D. Performed By: #### B MP, CK, CBC #### [address] Creatine kinase.MB [Mass/vol ume] in Serum or PlasmaOrdered By: Bryan Coppola on 03-21-2024 CK.MB [Mass/Vol] 80.7 ng/mL High 0.6-6.3 [facility] Comment on above: Performed By: #### B MP, CK, CBC #### [address] Creatinine Kinase MBon 03-21 CKMB Relative Index 1.1 % Normal 0.00-2.50 [facility] Comment on above: Performed By: #### B MP, CK, CBC #### [place] [address] [place] Creatinine [Mass/volume] in Serum or PlasmaOrdered By: Yokasta Flores on 03-21-2024 Creatinine [Mass/Vol] 0.94 mg/dL Normal 0.60-1.20 [facility] Comment on above: Performed By: #### B MP, CK, CBC #### [place] [address] [place] Dipstick and Microscopicon 1 0 Bacteria,Urine 1+ High None Seen [facility] Comment on above: Order Comment: Name Collection Type:: Straight Catheter Performed By: #### B MP, CK, CBC #### [address] Glucose Ql (U) 70 mg/dL High Normal [facility] Comment on above: Order Comment: Name Collection Type:: Straight Catheter Performed By: #### B MP, CK, CBC #### [place] [address] [place] Specificy [place],Urine 1.006 Normal 1.00 1-1.03 0 [facility] Comment on above: Order Comment: Name Collection Type:: Straight Catheter Performed By: #### B MP, CK, CBC #### [place] [address] [place] WBC CLUMP, Urine Moderate High None Seen [facility] Comment on above: Order Comment: Name Collection Type:: Straight Catheter Performed By: #### B MP, CK, CBC #### [place] [address] [place] WBC,Urine 20-49 High 0-4 [facility] Comment on above: Order Comment: Name Collection Type:: Straight Catheter Performed By: #### B MP, CK, CBC #### [place] [address] [place] Bacteria,Urine 2+ High None Seen [facility] Comment on above: Order Comment: Name Collection Type:: Clean-Voided Midstream Performed By: #### B MP, CK, CBC #### [address] Bilirubin,Urine Negative Normal Negative [facility] Comment on above: Order Comment: Name Collection Type:: Straight Catheter Performed By: #### B MP, CK, CBC #### [address] Order Comment: Name Collection Type:: Clean-Voided Midstream Glucose Ql (U) 300 mg/dL High Normal [facility] Comment on above: Order Comment: Name Collection Type:: Clean-Voided Midstream Performed By: #### B MP, CK, CBC #### [address] Hyaline Casts,Urine None Normal 0-8 [facility] Comment on above: Order Comment: Name Collection Type:: Straight Catheter Result Comment: PERF ORMED BY: [place] [address] PATHOLOGIST ENVIRONMENTAL AUDITOR SARAH IRAHETA M.D. Performed By: #### B MP, CK, CBC #### [address] Order Comment: Name Collection Type:: Clean-Voided Midstream Mucus,Urine Rare Normal [facility] Comment on above: Order Comment: Name Collection Type:: Clean-Voided Midstream Result Comment: PERF ORMED BY: [place] [address] PATHOLOGIST ENVIRONMENTAL AUDITOR SARAH IRAHETA M.D. Performed By: #### B MP, CK, CBC #### [address] Nitrite,Urine Positive High Negative [facility] Comment on above: Order Comment: Name Collection Type:: Straight Catheter Performed By: #### B MP, CK, CBC #### [address] Order Comment: Name Collection Type:: Clean-Voided Midstream Occult Blood,Urine 3+ High Negative [facility] Comment on above: Order Comment: Name Collection Type:: Straight Catheter Result Comment: PERF ORMED BY: [place] [address] PATHOLOGIST ENVIRONMENTAL AUDITOR SARAH IRAHETA M.D. Performed By: #### B MP, CK, CBC #### [address] Order Comment: Name Collection Type:: Clean-Voided Midstream Protein,Urine Negative Normal Negative [facility] Comment on above: Order Comment: Name Collection Type:: Straight Catheter Performed By: #### B MP, CK, CBC #### [address] Order Comment: Name Collection Type:: Clean-Voided Midstream RBC,Urine 3-4 Normal 0-4 [facility] Comment on above: Order Comment: Name Collection Type:: Straight Catheter Performed By: #### B MP, CK, CBC #### [address] Order Comment: Name Collection Type:: Clean-Voided Midstream Specificy [place],Urine 1.012 Normal 1.00 1-1.03 0 [facility] Comment on above: Order Comment: Name Collection Type:: Clean-Voided Midstream Performed By: #### B MP, CK, CBC #### [address] Squamous Epithelial Cell,Urine 1-2 Normal 0-2 [facility] Comment on above: Order Comment: Name Collection Type:: Straight Catheter Performed By: #### B MP, CK, CBC #### [address] Order Comment: Name Collection Type:: Clean-Voided Midstream Urobilinogen,Urine Normal Normal Normal [facility] Comment on above: Order Comment: Name Collection Type:: Straight Catheter Performed By: #### B MP, CK, CBC #### [address] Order Comment: Name Collection Type:: Clean-Voided Midstream WBC,Urine 10-19 High 0-4 [facility] Comment on above: Order Comment: Name Collection Type:: Clean-Voided Midstream Performed By: #### B MP, CK, CBC #### [facility] [address] ECG 12 lead ECGon 03-21-2024 ECG 12 lead ECG [facility] [place] [address] [place] [address] Electrocardiograph Report Signed Patient: Stella Kong MR#: [id number] 81 : 1945 Acct:[id number] Age/Sex: 79 / F ADM Date: 03/21/24 Loc: ER Room: Type: [facility] ER Attending Dr: Ordering Provider: Yokasta Flores [...] longer present Confirmed by YOKASTA FLORES DO ([id number]) on 03/21/2024 8:02:58 PM Referred By: Electronically Signed By: YOKASTA FLORES DO Transcribed By: MUS Signed By Yokasta Flores DO 03/21 Normal [facility] Epithelial cells.squamous [# /area] in Urine sediment by Automated countOrdered By: Yokasta Flores on 03-21-2024 Epithelial cells.squamous Auto (Urine sed) [#/Area] 1-2 [HPF] 0-2 [facility] Erythrocyte distribution wid th [Ratio] by Automated countOrdered By: Yokasta Flores on 03-21-2024 Erythrocyte distribution width (RBC) [Ratio] 13.6 % Normal 11.9-15.3 [facility] Comment on above: Performed By: #### B MP, CK, CBC #### [facility] [address] [place], [place] [id number] [facility] Erythrocytes [#/area] in Uri ne sediment by Automated countOrdered By: Yokasta Flores on 03-21-2024 RBC Auto (Urine sed) [#/Area] 3-4 [HPF] 0-4 [facility] Erythrocytes [#/volume] in B lood by Automated countOrdered By: Yokasta Flores on 03-21-2024 RBC (Bld) [#/Vol] 4.10 10*6/uL Normal 3.60-5.00 [facility] Comment on above: Performed By: #### B MP, CK, CBC #### [facility] [address] [place] [address] [place] Glucose [Mass/volume] in Ser um or PlasmaOrdered By: Yokasta Flores on 03-21-2024 Glucose [Mass/Vol] 105 mg/dL High 70-100 [facility] Comment on above: ADA recommended refe rence rangeRandom Glucose Reference Range is dependent on time and content of last meal. Glucose of more than 200 mg/dL in a nonstressed, ambulatory subject supports the diagnosis of Diabetes Mellitus. Result Comment: [place] om Glucose Reference Range is dependent on time and content of last meal. Glucose of more than 200 mg/dL in a nonstressed, ambulatory subject supports the diagnosis of Diabetes Mellitus. ADA recommended reference range Performed By: #### B MP, CK, CBC #### [facility] [address] [place] [id number] [place] Glucose [Mass/volume] in Uri ne by Test stripOrdered By: Bryan Coppola on 03-21-2024 Glucose Test strip (U) [Mass/Vol] 70 mg/dL [facility] Normal [facility] Glucose [Mass/volume] in Uri ne by Test stripOrdered By: Yokasta Flores on 03-21-2024 Glucose Test strip (U) [Mass/Vol] 300 mg/dL [facility] Hematocrit [Volume Fraction] of Blood by Automated countOrdered By: Yokasta Flores on 03-21-2024 Hematocrit (Bld) [Volume fraction] 37.4 % Normal 34.0-46.4 [facility] Comment on above: Performed By: #### B MP, CK, CBC #### [facility] [address] [place] [id number] [facility] Hemoglobin Test strip Ql (U) Ordered By: Yokasta Flores on 03-21-2024 Hemoglobin Ql (U) 3+ High Negative [facility] Hemoglobin [Mass/volume] in BloodOrdered By: Yokasta Flores on 03-21-2024 Hemoglobin (Bld) [Mass/Vol] 13.0 g/dL Normal 11.8-15.4 [facility] Comment on above: Performed By: #### B MP, CK, CBC #### [facility] [address] [place] [address] [place] Hyaline casts [#/area] in Ur ine sediment by Automated countOrdered By: Yokasta Flores on 03-21-2024 Hyaline casts Auto (Urine sed) [#/Area] None [LPF] 0-8 [facility] INR in Platelet poor plasma by Coagulation assayOrdered By: Yokasta [place] on 03-21-2024 INR Coag (PPP) [Relative time] 1.0 {INR} Normal [facility] Comment on above: INR Therapeutic Rang [...] heart valves: 3 - 4.5 PERFORMED BY: [place] [address] PATHOLOGIST ENVIRONMENTAL AUDITOR SARAH IRAHETA M.D. Performed By: #### B MP, CK, CBC #### [facility] [address] [place] [id number] [place] Ketones [Presence] in Urine by Test stripOrdered By: Bryan Coppola on 03-21-2024 Ketones Ql (U) Trace High Negative [facility] Comment on above: Order Comment: Name Collection Type:: Straight Catheter Performed By: #### B MP, CK, CBC #### [facility] [address] [place] [address] [place] Ketones [Presence] in Urine by Test stripOrdered By: Yokasta Flores on 03-21-2024 Ketones Ql (U) Negative Normal Negative [facility] Comment on above: Order Comment: Name Collection Type:: Clean-Voided Midstream Performed By: #### B MP, CK, CBC #### [facility] [address] Laboratory - Microbiology an d Antimicrobial susceptibilityOrdered By: Bryan Coppola on 03-21-2024 Bacteria identified Cx Nom (U) No Growth 2 Days [facility] Laboratory - Microbiology an d Antimicrobial susceptibilityOrdered By: Yokasta Flores on 03-21-2024 Bacteria identified Cx Nom (U) Escherichia coli Abnormal [facility] Leukocyte clumps [Presence] in Urine by AutomatedOrdered By: Bryan Coppola on 03-21-2024 Leukocyte clumps Auto Ql (U) Moderate [LPF] High None Seen [facility] Leukocyte esterase [Presence ] in Urine by Test stripOrdered By: Bryan Coppola on 03-21-2024 Leukocyte esterase Test strip Ql (U) 4+ High Negative [facility] Comment on above: Order Comment: Name Collection Type:: Straight Catheter Performed By: #### B MP, CK, CBC #### [facility] [address] [place] [address] [place] Leukocyte esterase [Presence ] in Urine by Test stripOrdered By: Yokasta Flores on 03-21-2024 Leukocyte esterase Test strip Ql (U) 2+ High Negative [facility] Comment on above: Order Comment: Name Collection Type:: Clean-Voided Midstream Performed By: #### B MP, CK, CBC #### [place] [address] [place] Leukocytes [#/area] in Urine sediment by Automated countOrdered By: Bryan Coppola on 03-21-2024 WBC Auto (Urine sed) [#/Area] 20-49 [HPF] High 0-4 [facility] Leukocytes [#/area] in Urine sediment by Automated countOrdered By: Yokasta Flores on 03-21-2024 WBC Auto (Urine sed) [#/Area] 10-19 [HPF] High 0-4 [facility] Leukocytes [#/volume] correc stephanie for nucleated erythrocytes in Blood by Automated counOrdered By: Yokasta Flores on 03-21-2024 WBC corrected for nucl RBC Auto (Bld) [#/Vol] 14.6 10*3/uL High 3.8-11.6 [facility] Leukocytes [#/volume] in Blo od by Automated countOrdered By: Yokasta Flores on 03-21-2024 WBC (Bld) [#/Vol] 14.6 10*3/uL High 3.8-11.6 [facility] Comment on above: Performed By: #### B MP, CK, CBC #### [facility] [address] [place] [address] [place] Lymphocytes [#/volume] in Bl ood by Automated countOrdered By: Yokasta Flores on 03-21-2024 Lymphocytes (Bld) [#/Vol] 0.6 10*3/uL Low 1.00-4.8 [facility] Comment on above: Performed By: #### B MP, CK, CBC #### [place] [address] [place] Lymphocytes/100 leukocytes i n Blood by Automated countOrdered By: Yokasta Flores on 03-21-2024 Lymphocytes/100 WBC (Bld) 4.1 % Normal . [facility] Comment on above: Performed By: #### B MP, CK, CBC #### [place] [address] [place] MCH [Entitic mass] by Automa stephanie countOrdered By: Yokasta Flores on 03-21-2024 MCH (RBC) [Entitic mass] 31.7 pg Normal 24.7-34.3 [facility] Comment on above: Performed By: #### B MP, CK, CBC #### [address] MCHC Auto (RBC) [Mass/Vol]Or dered By: Yokasta Flores on 03-21-2024 MCHC (RBC) [Mass/Vol] 34.7 g/dL 32.0-35.0 [facility] MCV [Entitic volume] by Auto mated countOrdered By: Yokasta Flores on 03-21-2024 MCV (RBC) [Entitic vol] 91.3 fL Normal 80-100 [facility] Comment on above: Performed By: #### B MP, CK, CBC #### [facility] [address] Magnesium [Mass/volume] in S selene or PlasmaOrdered By: Yokasta Flores on 03-21-2024 Magnesium [Mass/Vol] 1.9 mg/dL Normal 1.9-2.7 [facility] Comment on above: Result Comment: PERF ORMED BY: [place] [address] PATHOLOGIST ENVIRONMENTAL AUDITOR SARAH IRAHETA M.D. Performed By: #### B MP, CK, CBC #### [address] Monocyte distribution width [Entitic volume] in Blood by AutomatedOrdered By: Yokasta Flores on 03-21-2024 Monocyte distribution width Auto (Bld) [Entitic vol] 14.37 % 0.00-20.00 [facility] Mucus [Presence] in Urine by AutomatedOrdered By: Yokasta Flores on 03-21-2024 Mucus Auto Ql (U) Rare [LPF] [facility] Neutrophils [#/volume] in Bl ood by Automated countOrdered By: Yokasta Flores on 03-21-2024 Neutrophils (Bld) [#/Vol] 13.4 10*3/uL High 1.8-7.7 [facility] Comment on above: Performed By: #### B MP, CK, CBC #### [facility] [address] [place] [address] Nitrite Test strip Ql (U)Ord ered By: Yokasta Flores on 03-21-2024 Nitrite Ql (U) Positive High Negative [facility] No Panel InformationOrdered By: Yokasta Flores on 03-21-2024 Estimated GFR (CKD-EPI) > 60.0 mL/Min [facility] Creatinine Clearance (Chem 42.12 [facility] Nucleated erythrocytes [Pres ence] in Blood by Automated countOrdered By: Yokasta Flores on 03-21-2024 Nucleated RBC Auto Ql (Bld) 0.1 /100{WBC} 0-0.5 [facility] Platelet mean volume [Entiti c volume] in Blood by Automated countOrdered By: Yokasta Flores on 03-21-2024 Platelet mean volume (Bld) [Entitic vol] 7.4 fL Normal 6.3-10.7 [facility] Comment on above: Performed By: #### B MP, CK, CBC #### [facility] [address] Platelets [#/volume] in Bloo d by Automated countOrdered By: Yokasta Flores on 03-21-2024 Platelets (Bld) [#/Vol] 211 10*3/uL Normal 150-450 [facility] Comment on above: Performed By: #### B MP, CK, CBC #### [facility] [address] [place] [address] Potassium [Moles/volume] in Serum or PlasmaOrdered By: Yokasta Flores on 03-21-2024 Potassium [Moles/Vol] 3.6 mmol/L Normal 3.5-5.1 [facility] Comment on above: Performed By: #### B MP, CK, CBC #### [facility] [address] [place] [address] Protein Test strip (U) [Mass /Vol]Ordered By: Yokasta Flores on 03-21-2024 Protein (U) [Mass/Vol] Negative Negative [facility] Protein [Mass/volume] in Ser um or PlasmaOrdered By: Yokasta Flores on 03-21-2024 Protein [Mass/Vol] 6.9 g/dL Normal 6.4-8.9 [facility] Comment on above: Performed By: #### B MP, CK, CBC #### [facility] [address] [place] [address] Prothrombin time (PT)Ordered By: Yokasta Flores on 03-21-2024 PT Coag (PPP) [Time] 11.7 s Normal 9.0-12.9 [facility] Comment on above: A hematocrit value g reater than 55% may lead to inaccurate results in coagulation testing. Patients having hematocrit values >55% require a special collection tube for coagulation studies. Please contact the laboratory at [phone] for redraw instructions. Result Comment: A he matocrit value greater than 55% may lead to inaccurate results in coagulation testing. Patients having hematocrit values >55% require a special collection tube for coagulation studies. Please contact the laboratory at [phone] for redraw instructions. Performed By: #### B MP, CK, CBC #### [address] Serum globulin measurement b y calculation (mass/volume)Ordered By: Yokasta Flores on 03-21-2024 Globulin (S) [Mass/Vol] 3.1 g/dL Normal [facility] Comment on above: Performed By: #### B MP, CK, CBC #### [facility] [address] [place] [address] Serum or plasma albumin/glob ulin mass ratioOrdered By: Yokasta Florse on 03-21-2024 Albumin/Globulin [Mass ratio] 1.2 {ratio} [facility] Comment on above: Performed By: #### B MP, CK, CBC #### [facility] [address] [place] [address] Serum or plasma anion gap de terminationOrdered By: Yokasta Flores on 03-21-2024 Anion gap [Moles/Vol] 13.0 mmol/L Normal 6.0-15.0 [facility] Comment on above: Performed By: #### B MP, CK, CBC #### [address] Serum or plasma creatine kin ase MB (CKMB)/total creatine kinase (CK) ratio by calculaOrdered By: Bryan Coppola on 03-21-2024 CK.MB Calc [Catalytic fraction] 1.1 % 0.00-2.50 [facility] Sodium [Moles/volume] in Ser um or PlasmaOrdered By: Yokasta Flores on 03-21-2024 Sodium [Moles/Vol] 134 mmol/L Low 136-145 [facility] Comment on above: Performed By: #### B MP, CK, CBC #### [address] Specific gravity Test strip (U) [Rel density]Ordered By: Bryan Coppola on 03-21-2024 Specific gravity (U) [Rel density] 1.006 1.001-1.03 0 [facility] Specific gravity Test strip (U) [Rel density]Ordered By: Yokasta Flores on 03-21-2024 Specific gravity (U) [Rel density] 1.012 1.001-1.03 0 [facility] Troponin I High Sensitivityo n 03-21-2024 Troponin I High Sensitivity 353.9 pg/mL Off scale high 0.0-15.0 [facility] Comment on above: Result Comment: Crit ical Result : Called to and read back by: THAO COX at: 03/22/2024 00:25:25 by:[id number] PERFORMED BY: [place] [address] PATHOLOGIST ENVIRONMENTAL AUDITOR SARAH IRAHETA M.D. Performed By: #### B MP, CK, CBC #### [address] Troponin I High Sensitivity 311.1 pg/mL Off scale high 0.0-15.0 [facility] Comment on above: Result Comment: Crit ical Result : Called to and read back by: SHARRON MONTES at: 03/21/2024 20:38:49 by:[id number] PERFORMED BY: [place] [address] PATHOLOGIST ENVIRONMENTAL AUDITOR SARAH IRAHETA M.D. Performed By: #### H S TROP #### [address] Troponin I High Sensitivity 212.7 pg/mL Off scale high 0.0-15.0 [facility] Comment on above: Result Comment: Crit ical Result : Called to and read back by: SORIN MCNEILL at: 03/21/2024 19:11:54 by:[id number] PERFORMED BY: [place] [address] PATHOLOGIST ENVIRONMENTAL AUDITOR SARAH IRAHETA M.D. Performed By: #### B MP, CK, CBC #### [address] Troponin I.cardiac [Mass/vol ume] in Serum or Plasma by Detection limit <= 0.01 ng/Ordered By: Bryan Coppola on 03-21-2024 Troponin I.cardiac DL <= 0.01 ng/mL [Mass/Vol] 311.1 pg/mL High 0.0-15.0 [facility] Comment on above: Critical Result : Ca lled to and read back by: SHARRON MONTES at: 03/21/2024 20:38:49 by:[id number] Urea nitrogen [Mass/volume] in Serum or PlasmaOrdered By: Yokasta Flores on 03-21-2024 Urea nitrogen [Mass/Vol] 21 mg/dL Normal 7-25 [facility] Comment on above: Performed By: #### B MP, CK, CBC #### [address] Urine Cultureon 03-21-2024 Bacteria identified Cx Nom (U) No Growth 2 Days PERFORMED BY: [place] [address] PATHOLOGIST ENVIRONMENTAL AUDITOR SARAH IRAHETA M.D. Normal [facility] Comment on above: Performed By: #### B MP, CK, CBC #### [address] Bacteria identified Cx Nom (U) ORGANISM: Escherichia coli (O:ESCCOL) [place] Count >100,000 Aerobic KEVIN Charge (NMIC56) SUSCEPTIBILITY [...] RESISTANT TO ALL B-LACTAM DRUGS. PERFORMED BY: [place] [address] PATHOLOGIST ENVIRONMENTAL AUDITOR SARAH IRAHETA M.D. Normal [facility] Comment on above: Performed By: #### B TANYA FINK, CBC #### [address] Urine appearanceOrdered By: Yokasta Flores on 03-21-2024 Appearance (U) Clear Normal Clear [facility] Comment on above: Order Comment: Name Collection Type:: Straight Catheter Performed By: #### B TANYA FINK, CBC #### [address] Order Comment: Name Collection Type:: Clean-Voided Midstream Urobilinogen Test strip (U) [Mass/Vol]Ordered By: Yokasta Flores on 03-21-2024 Urobilinogen (U) [Mass/Vol] Normal mg/dL Normal [facility] XR pelvis 1-2Von 03-21-2024 XR pelvis 1-2V [facility] Main [address] [address] XRay Report Signed Patient: Stella Kong MR#: [id number] 82 : 1945 Acct:[id number] Age/Sex: 79 / F ADM Date: 03/21/24 Loc: ER Room: Type: [facility] ER Attending Dr: Copies to: Yokasta Flores DO Ordering Provider: Yokasta Flores DO Date of Service: 03/21/24 XR/XR pelvis 1-2V: Fall ([id number]) XR/XR femur LT 2V*: Fall ([id number]) XR/XR ribs LT min 3V w CXR1V*: [...] Lipscomb Jr., D.O.03/21/2024 7:12 PM Dictation Location: [place] [address] Transcribed By: [facility] 03/21/241911 Dictated By: Germain Lipscomb Jr, DO 03/21/241908 Signed By: 03/21/241911 Christina [facility] pH of Urine by Test stripOrd ered By: Yokasta Flores on 03-21-2024 pH (U) 5.5 [pH] Normal 5.0-9.0 [facility] Comment on above: Order Comment: Name Collection Type:: Straight Catheter Performed By: Kishore### B MP, CK, CBC #### [address] Order Comment: Name Collection Type:: Clean-Voided Midstream Vital Signs Date Time Vital Sign Value Performing Clinician Facility 04-29-2024 10:59-0500 Body height 154.9 cm Deniz Ochoa MD Work Phone: [facility] 04-29-2024 10:59-0500 Body mass index (BMI) [Ratio] 24.37 kg/m2 Deniz Ochoa MD Work Phone: [facility] 04-29-2024 10:59-0500 Body weight 58.51 kg Deniz Ochoa MD Work Phone: [facility] 04-29-2024 10:59-0500 Diastolic blood pressure 74 mm[Hg] Deniz Ochoa MD Work Phone: [facility] 04-29-2024 10:59-0500 Heart rate 88 /min Deniz Ochoa MD Work Phone: [facility] 04-29-2024 10:59-0500 SaO2% (BldA) [Mass fraction] 97 % Deniz Ochoa MD Work Phone: [facility] 04-29-2024 10:59-0500 Systolic blood pressure 128 mm[Hg] Deniz Ochoa MD Work Phone: [facility] 04-15-2024 10:44-0400 Body height 154.9 cm Deniz Ochoa MD Work Phone: [facility] 04-15-2024 10:44-0400 Body mass index (BMI) [Ratio] 24.56 kg/m2 Deniz Ochoa MD Work Phone: [facility] 04-15-2024 10:44-0400 Body temperature 98.8 [degF] Deniz Ochoa MD Work Phone: [facility] 04-15-2024 10:44-0400 Body weight 58.97 kg Deniz Ochoa MD Work Phone: [facility] 04-15-2024 10:44-0400 Diastolic blood pressure 66 mm[Hg] Deniz Ochoa MD Work Phone: [facility] 04-15-2024 10:44-0400 Heart rate 88 /min Deniz Ochoa MD Work Phone: [facility] 04-15-2024 10:44-0400 SaO2% (BldA) [Mass fraction] 97 % Deniz Ochoa MD Work Phone: [facility] 04-15-2024 10:44-0400 Systolic blood pressure 124 mm[Hg] Deniz Ochoa MD Work Phone: [facility] 03-25-2024 12:00-0400 Diastolic blood pressure 62 mm[Hg] II Deniz Ochoa Work Phone: [facility] 03-25-2024 12:00-0400 Heart rate 82 /min II Deniz Ochoa Work Phone: [facility] 03-25-2024 12:00-0400 Respiratory rate 20 /min II Deniz Ochoa Work Phone: [facility] 03-25-2024 12:00-0400 SaO2% (BldA) [Mass fraction] 94 % II Deniz Ochoa Work Phone: [facility] 03-25-2024 12:00-0400 Systolic blood pressure 150 mm[Hg] II Deniz Ochoa Work Phone: [facility] 03-25-2024 08:00-0400 Body temperature 97.8 [degF] II Deniz Ochoa Work Phone: [facility] 03-25-2024 06:00-0400 Body weight 58.6 kg II Deniz Ochoa Work Phone: [facility] 03-22-2024 16:12-0400 Body height 157.48 cm II Deniz Ochoa Work Phone: [facility] 03-21-2024 20:07-0400 Heart rate 86 /min II Deniz Ochoa Work Phone: [facility] 03-21-2024 20:06-0400 Diastolic blood pressure 75 mm[Hg] II Deniz Ochoa Work Phone: [facility] 03-21-2024 20:06-0400 Respiratory rate 18 /min II Deniz Ochoa Work Phone: [facility] 03-21-2024 20:06-0400 SaO2% (BldA) [Mass fraction] 98 % II Deniz Ochoa Work Phone: [facility] 03-21-2024 20:06-0400 Systolic blood pressure 154 mm[Hg] II Deniz Ochoa Work Phone: [facility] 03-21-2024 17:20-0400 Body height 157.48 cm II Deniz Ochoa Work Phone: [facility] 03-21-2024 17:20-0400 Body temperature 98.4 [degF] II Deniz Ochoa Work Phone: [facility] 03-21-2024 17:20-0400 Body weight 64.6 kg II Deniz Ochoa Work Phone: [facility] Encounters Encounter Date Encounter Type Care Provider Facility Start: 07-22-2024 End: 07-25-2024 Clinisync Result Encounter Generic External Data Provider [facility] Unsolicited Start: 07-22-2024 End: 07-25-2024 Clinisync Result Encounter Generic External Data Provider [facility] Unsolicited Start: 07-21-2024 End: 08-05-2024 Refill Gretchen Torrez NP Work Phone: [facility] Start: 07-19-2024 End: 07-19-2024 ambulatory MICHAEL CAICEDO Facility:[facility] Start: 07-19-2024 End: 07-19-2024 Lab Drop off MICHAEL CAICEDO [facility] Start: 07-19-2024 End: 07-19-2024 Clinisync Result Encounter Michael Caicedo MD Work Phone: [facility] Unsolicited Start: 07-19-2024 End: 07-19-2024 Clinisync Result Encounter Michael Caicedo MD Work Phone: [facility] Unsolicited Start: 05-03-2024 End: 05-03-2024 Bamboo flowsheet Robertharesh Simpson DO Work Phone: [facility] Start: 05-03-2024 End: 05-03-2024 Bamboo flowsheet Robert Mary Simpson DO Work Phone: [facility] [...] Traumatic rhabdomyolysis, subsequent encounter; Generalized anxiety disorder ([facility]/HCC) Start: 04-15-2024 End: 04-15-2024 ambulatory DENIZ OCHOA Not Available Start: 03-24-2024 Non-patient / Non-visit II Fransisco hatfieldmukesh Ochoa Work Phone: [facility] Work Phone: Start: 03-23-2024 Non-patient / Non-visit II Fransisco Ochoa Work Phone: [facility] Work Phone: Start: 03-22-2024 Non-patient / Non-visit II Fransisco Ochoa Work Phone: [facility] Work Phone: Start: 03-22-2024 Non-patient / Non-visit II Fransisco Ochoa Work Phone: [facility] [place] [facility] Work Phone: Start: 03-21-2024 End: 03-25-2024 Evaluation and management of inpatient II Deniz Ochoa Work Phone: [facility] [place] [facility] Work Phone: Start: 02-27-2024 End: 02-27-2024 Bamboo flowsheet Robert Simpson DO Work Phone: [facility] Start: 02-27-2024 End: 02-27-2024 Bamboo flowsheet Robert Simpson DO Work Phone: [facility] Start: 02-27-2024 End: 02-27-2024 Postop follow up visit related to original px Robert D Zahler DO Work Phone: [facility] Comment on above: Pseudophakia (Primar y Dx) Start: 02-27-2024 End: 02-27-2024 ambulatory ROBERT D MAILEHLER Not Available Start: 02-20-2024 End: 02-20-2024 [...] Dx) Start: 02-20-2024 End: 02-20-2024 ambulatory ROBERT D LEVONER Not Available Start: 02-03-2024 End: 02-03-2024 Bamboo [...] Pseudophakia Start: 02-03-2024 End: 02-03-2024 ambulatory ROBERT D ZAHLER Not Available Start: 01-30-2024 End: 01-30-2024 ambulatory ROBERT D ZAHLER Not Available Start: 01-14-2024 End: 01-14-2024 ambulatory ROBERT Mary GRHLER Not Available Start: 01-08-2024 End: 01-08-2024 ambulatory TATI HERNANDEZ Not Available Start: 12-25-2023 End: 12-25-2023 ambulatory ARIANNA RAINEY Not Available Start: 10-28-2023 End: 10-28-2023 ambulatory ATTI HERNANDEZ Not Available Start: 10-21-2023 End: 10-21-2023 ambulatory TATI HERNANDEZ Not Available Start: 10-13-2023 End: 10-13-2023 ambulatory ARIANNA RAINEY Not Available Start: 10-02-2023 Patient encounter procedure Robert Simpson DO Work Phone: [facility] Start: 10-02-2023 End: 10-02-2023 ambulatory SATINDER SYLVESTER Not Available Start: 09-30-2023 End: 09-30-2023 ambulatory TATI AYDENELOINA Not Available Start: 09-09-2023 End: 09-09-2023 ambulatory TATI HERNANDEZ Not Available Start: 09-04-2023 End: 09-04-2023 [...] Date Procedure Procedure Detail Performing Clinician Start: 07-22-2024 Bacteria identified in Urine by Culture Generic External Data Provider Start: 07-19-2024 [facility] CBC W/ AUTO DIFF R mitra Caicedo MD Work Phone: Start: 03-21-2024 Plain chest X-ray II Da bess Don Work Phone: Start: 03-21-2024 CT of head [...] [facility] [address] [place] [address] Robert Simpson DO [address] [place], [place] [id number] [facility] Start: 06-30-2024 End: 06-30-2024 Patient encounter procedure 06/30/2024 11:30 AM EST Office Visit [facility] [address] [place] [id number] Deniz Ochoa MD [address] [place], [place] [id number] [facility] Start: 04-29-2024 End: 04-29-2024 Patient encounter procedure 04/29/2024 11:00 AM EST Office Visit [facility] [address] [facility] [address] [place] [address] Deniz Ochoa MD [address] [facility] [address] [place] [address] [facility] Start: 04-15-2024 End: 04-15-2024 Patient encounter procedure 04/15/2024 11:00 AM EDT Office Visit [facility] [address] [facility] [address] [place] [address] Deniz Ochoa MD [address] [facility] [address] [place] [address] Arrived [facility] Comment on above: Arrived Start: 03-25-2024 [facility] Start: 03-24-2024 Referral to psychiatrist [facility] Start: 03-24-2024 [facility] Start: 03-23-2024 [facility] Start: 03-22-2024 Administration of prophylactic treatment [facility] Start: 03-22-2024 Referral to rehabilitation physician [facility] Start: 03-22-2024 [facility] Start: 03-21-2024 Consultation [facility] Start: 03-21-2024 Physical therapy procedure [facility] Start: 03-21-2024 Referral to occupati onal therapist [facility] Start: 03-21-2024 Hospital admission [facility] Start: 03-21-2024 [facility] Start: 03-21-2024 Urine culture [facility] Start: 03-21-2024 Bacteria identified in Urine by Culture Urine Culture [facility] Start: 02-27-2024 End: 02-27-2024 Patient encounter procedure 02/27/2024 11:15 AM EDT Office Visit [facility] [address] [place] [phone] Robert Simpson DO [address] [place] [address] Arrived [facility] Comment on above: Arrived Start: 02-20-2024 End: 02-20-2024 Patient encounter procedure [facility] Comment on above: Arrived Start: 02-19-2024 End: 02-19-2024 Patient encounter procedure 02/19/2024 7:50 AM EDT Procedure Visit [facility] Robert Simpson, DO [address] [place] [address] [facility] Start: 02-15-2024 Influenza vaccination Influenza Vacc ine (#1) [facility] Start: 02-09-2024 End: 02-09-2024 ambulatory 02/09/2024 3:30 PM EDT Treatment [facility] [address] [place] [address] Tati Hernandez PTA [facility] Start: 02-03-2024 End: 02-03-2024 Patient encounter procedure 02/03/2024 11:15 AM EDT Office Visit [facility] [address] [place] [phone] Robert Simpson, DO [address] [place] [address] Arrived [facility] Comment on above: Arrived Start: 07-25-2023 End: 07-25-2023 ambulatory 07/25/2023 1:30 PM EST Treatment [facility] [address] [place] [address] Celina Craven, PT [address] [place] [address] [facility] Start: 07-23-2023 End: 07-23-2023 Patient encounter procedure 07/23/2023 10:00 AM EST Office Visit [facility] [address] [place] [address] Deniz Ochoa MD 112 [facility] [address] [place] [address] [facility] Start: 2020 Pneumococcal Vaccine : 65+ Years (2 - PCV) Pneumococcal Vaccine: 65+ Years (2 - PCV) [facility] Start: 2020 Pneumococcal Vaccine : 65+ Years (2 of 2 - PCV) Pneumococcal Vaccine: 65+ Years (2 of 2 - PCV) [facility] Start: 1945 Medicare Annual Well ness (AWV) Medicare Annual Wellness (AWV) [facility] Bacteria identified in Urine by Culture URINE CULTURE, ROUTINE Lab Routine 07/22/2024 3:25 PM EST [facility] Immunizations Immunization Date Immunization Notes Care Provider [facility] 04-18-2023 Influenza, Seasonal, Quadrivalent, Adjuvanted Celina Craven PT Work Phone: [facility] 04-18-2023 influenza virus vacc ine, unspecified formulation Robert Simpson DO Work Phone: [facility] 03-26-2022 Influenza, High-dose Seasonal, Quadrivalent, Preservative Free Celina Craven PT Work Phone: [facility] 04-28-2021 Seasonal, trivalent, recombinant, injectable influenza vaccine, preservative free Celina Craven PT Work Phone: [facility] 08-25-2020 SARS-CoV-2 (COVID-19 ) mRNA BNT-162b2 vax MICHAEL SASCHA [facility] Comment on above: Reason for Medicatio n: Prophylaxis 04-18-2020 influenza, injectabl e, quadrivalent, preservative free Celina Craven PT Work Phone: [facility] 04-11-2019 Influenza, High-dose Seasonal, Quadrivalent, Preservative Free Celina Craven PT Work Phone: [facility] 2019 pneumococcal polysaccharide vaccine, 23 valent Celina Terry PT Work Phone: [facility] 04-15-2018 Influenza, High-dose Seasonal, Quadrivalent, Preservative Free Celinaantonio Craven PT Work Phone: [facility] 04-26-2017 influenza, injectabl e, quadrivalent, preservative free Celinaantonio Craven PT Work Phone: [facility] 05-18-2010 seasonal influenza, intradermal, preservative free Celinaantonio Craven PT Work Phone: [facility] Payers Date Payer Category Payer Medicare [id number] 2017 Medicare HU[employer]NA MEDICARE ADVANTAGE HU[employer]NA MEDICARE [id number] 2017-Present [id number] [place] [address] [id number] 2017 Medicare (Managed Care) HU[employer]NA EDICARE ADVANTAGE [id number] 2017 Private Health Insurance [id number] Self-pay 1945 Unknown [id number] 2.16.840.1.968966.3.579 .2.1258 1944 Unknown [id number] 2.16.840.1.582483.3.579 .2.1258 1944 Unknown [id number] 2.16.840.1.716001.3.579 .2.1258 1944 Unknown [id number] 2.16.840.1.520615.3.579 .2.1258 1944 Unknown [id number] 2.16.840.1.717636.3.579 .2.1258 1944 Unknown [id number] 2.16.840.1.234861.3.579 .2.1258 1944 Unknown [id number] 2..840.1.156109.3.579 .2.1258 1944 Unknown [id number] 2.16.840.1.187780.3.579 .2.1258 1944 Unknown [id number] 2..840.1.109108.3.579 .2.1258 1944 Unknown [id number] 2..840.1.392130.3.579 .2.1258 1944 Unknown [id number] .840.1.220514.3.579 .2.1258 1944 Unknown [id number] 2..840.1.505464.3.579 .2.1258 1944 Unknown [id number] 2..840.1.667139.3.579 .2.1258 1944 Unknown [id number] 2..840.1.400413.3.579 .2.1258 1944 Unknown [id number] 2.840.1.421917.3.579 .2.1258 1944 Unknown [id number] 2..840.1.171808.3.579 .2.1258 1944 Unknown [id number] 2.16.840.1.207805.3.579 .2.1258 1944 Unknown [id number] 2..840.1.329626.3.579 .2.1258 1944 Unknown [id number] 2..840.1.204924.3.579 .2.1258 1944 Unknown [id number] 2.16.840.1.675964.3.579 .2.9 1944 Unknown [id number] 2.16.840.1.730792.3.579 .2.1258 1944 Unknown [id number] 2.16.840.1.646283.3.579 .2.1258 1944 Unknown [id number] 2.16.840.1.832507.3.579 .2.1258 1944 Unknown [id number] 2.16.840.1.604223.3.579 .2.1258 1944 Unknown [id number] 2.16.840.1.431159.3.579 .2.1258 1944 Unknown [id number] 2.16.840.1.006802.3.579 .2.727 Unknown [id number] 2.16840.1.653857.3.579 .2.593 Unknown [id number] 2.16.840.1.737775.3.579 .2.531 Social History Date Type Detail Facility Start: 06-16-1961 End: 01-14-2024 Tobacco smoking status [facility] Smokes tobacco daily [facility] Start: 06-16-1962 History of tobacco use Cigarette Smo ker [facility] Start: 06-24-2023 End: 01-14-2024 Tobacco use and exposure Smokeless tobacco non-user [facility] Start: 06-25-2023 End: 05-03-2024 Alcohol intake Lifetime non-drinker (finding) [facility] Start: 06-25-2023 End: 10-02-2023 History of Social function [facility] Start: 06-25-2023 End: 10-02-2023 Tobacco use panel [facility] Start: 1945 Sex Assigned At Not on file [facility] Start: 03-21-2024 End: 03-24-2024 Tobacco smoking status COIS Smoker (finding) [facility] Start: 1945 Sex Assigned At Female F [facility] Tobacco smoking status No Smokin g Status Entered [facility] Medical Equipment Procedure Code Equipment Code Equipment Origin al Text Equipment Identifier Dates Arthroplasty, hip, bipolar Orthopaedic cement, non-medicated ()[id number] FDA Start: 11-25-2019 Arthroplasty, hip, bipolar Femoral head bipolar component ()[id number] FDA Start: 11-25-2019 Arthroplasty, hip, bipolar Femoral head bipolar component ()[id number] FDA Start: 11-25-2019 Arthroplasty, hip, bipolar Uncoated hip femur prosthesis, one-piece ()[id number] [id number] FDA Start: 11-25-2019 Arthroplasty, hip, bipolar Femoral stem centralizer ()[id number] FDA Start: 11-25-2019 Arthroplasty, hip, bipolar Metallic femoral head prosthesis ()[id number] [id number] FDA Start: 11-25-2019 Arthroplasty, hip, bipolar Orthopaedic cement, non-medicated ()[id number] [id number] FDA Start: 11-25-2019 Arthroplasty, hip, bipolar Polymer orthopaedic cement restrictor, non-bioabsorbable, sterile ()[id number] FDA Start: 11-25-2019 Goals Date Patient Goal Desired Activity /State Functional Status Date Assessment Result Facility 03-25-2024 Functional status Patient is Pro gressing Toward Baseline [facility] Work Phone: Mental Status Date Assessment Result Facility 03-25-2024 Cognitive function Cognitive Sta tus Patient is Progressing Toward Baseline [facility] Work Phone: Clinical Notes 07-16-2023 to 08-05-2024 Telephone Encounter - Gretchen Torrez NP - 08/05/2024 1:06 PM ESTTelephone Encounter - Gretchen Torrez NP - 08/05/2024 1:06 PM Umair Simpson DO - 05/03/2024 1:00 PM EST Note Date & Type Note Facility 08-05-2024 Telephone encount er Note Chart opened in error. Gretchen Torrez NP 08/05/24 @ 1309 pm [facility] Work Phone: 08-05-2024 Miscellaneous Notes Formattin g of this note might be different from the original. Chart opened in error. Gretchen Torrez NP 08/05/24 @ 1309 pm documented in this encounter [facility] 05-03-2024 History of Presen t illness Narrative Images from the original note were not included. Assessment/Plan Diagnoses and all orders for this visit: Pseudophakia - s/p CE OD (1mth): Patient should be close to off all post-op meds. Pt. received final refraction for this eye today. documented in this encounter [facility] 04-29-2024 History of Presen t illness Narrative Images from the original note were not included. HPI Follow-up Additional comments: Anxiety/depression-med adjustments Med Refill Additional comments: Albuterol inhaler--karla khalil Last edited by Clair Berger LPN on 04/29/2024 11:06 AM. Subjective Patient ID: Stella Kong is a 79 y.o. female who presents for Follow-up (Anxiety/depression-med adjustments) and Med Refill (Albuterol inhaler--[facility]). Pt made med changes as directed since [...] - She is seeing an ENT in [place] for this. Follow up in about 2 months (around 06/29/2024) for Routine F/U. documented in this encounter [facility] 04-15-2024 History of Presen t illness Narrative Images from the original note were not included. HPI Follow-up Additional comments: [facility] stay admitted 03/21/24 dx: UTI,fall,rhabdomyolysis discharged to [facility] 03/25/24 discharged home 04/08/24 Medication Question Additional [...] stay admitted 03/21/24 dx: UTI,fall,rhabdomyolysis discharged to [facility] 03/25/24 discharged home 04/08/24) and Medication Question (Pt would like to stop the lexapro she was started on at [facility]). Flowsheet Row Patient Outreach from 04/09/2024 in [facility] with Lilibeth Lux LPN Hospital Information ED, Hospital or Senior Living Facility Discharge? Senior Living Facility Patient has been contacted within two business days of discharge Yes Have two attempts been made to contact the patient within two business days of being discharged? Yes Discharge Date 04/08/24 Discharged To: Home Setting Senior Living Facilities [facility] Admission Date 03/25/24 Medications Is the patient [...] F/U med changes. documented in this encounter [facility] 03-25-2024 Consult note Note Date/Time March 24, 2024 4:21pm [facility] [address] [place] [address] Psychiatry Consult Note Signed Patient: Stella Kong MR#: [id number] : 1945 Acct:[id number] Age/Sex: 79 / F Adm Date: 4 Loc: Room: [address] [place] [address] Type : ADM IN Attending Dr: Alonso [...] whichcan be done as an outpatient. Discussed senior living risks of benzodiazepine whichinclude potential for misuse, [...] responding to internalstimuli. Insight: Fair Judgment: Fair [facility] Medical History (Updated 03/24/24 @ 15:37 by [...] Clear Urine pH 5.5 5.5 Ur Specific [place] 1.012 1.006 Urine Protein Negative Negative Urine [...] Color Urine Appearance Urine pH Ur Specific [place] Urine Protein Urine Glucose (UA) Urine Ketones [...] Color Urine Appearance Urine pH Ur Specific [place] Urine Protein Urine Glucose (UA) Urine Ketones [...] can be done as an outpatient Discussed senior living risks of benzodiazepine which include potential for [...] and psychotherapist within 5 days of discharge. grommet worker should schedule this prior to discharge. [...] movements noted on exam. AIMS is Zero. grommet worker to ensure safe discharge plan. I have reviewed evaluations by other providers (ER notes, nurses and staff) Prognosis: Factors to be considered are the chronicity and severity of the symptoms and signs, associated comorbidity, and differential diagnosis. Motivation to get in treatment, response to treatment, adherence to treatment recommendations, and verbal consent was provided. Documented By: Taqueria Duran MD 4 [id number] Signed By: <Electronically signed by Taqueria Duran MD> 03/25/24 0934 [facility] Work Phone: 1(481) 823-949110-09-2024 Progress note Author Alonso Agudelo [facility] March 24, 2024 6:14pm Note Date/Time March 24, 2024 3: 26pm [facility] [address] [place] [address] Hospitalist Progress Note Signed Patient: Stella Kong MR#: [id number] : 1945 Acct:[id number] Age/Sex: 79 / F Adm Date: 4 Loc: Room: [address] [place] [address] Type: ADM IN Attending Dr: Alonso Agudelo [...] what if she is experience complication butcannot facilitator so should the consult had gone to [...] mg 03/21/24 19:12 Bisacodyl 10 Mg Supp.Rect [place] 03/21/25 19:11 DAILY PRN Constipation Bisacodyl 10 [...] pain Ambulatory dysfunction -therapy evals - accepted [facility] and precert received, plan DC 03/25 after [...] <Electronically signed by Alonso Agudelo MD> 03/24/24 3825 [facility] Work Phone: 1(807) 886-992310-08-2024 Consult note Author Deshawn Choudhary [facility] March 23, 2024 2:07pm Note Date/Time March 23, 2024 10 :38am [facility] [address] [place] [address] Physiatry (Rehab) Consult Note Signed Patient: Stella Kong MR#: [id number] : 1945 Acct:[id number] Age/Sex: 79 / F Adm Date: 4 Loc: Room: [address] [place] [address] Type: ADM IN Attending Dr: Alonso Agudelo [...] negative unless noted below or in HPI [facility] Medical History (Updated 03/22/24 @ 15:02 by [...] % (Auto) 66.5 Lymph % (Auto) 24.6 [place] % (Auto) 5.9 Eos % (Auto) 1.6 Baso % (Auto) 1.4 Nucleat RBC Rel Count 0.1 Neut # (Auto) 6.4 Lymph # (Auto) 2.4 [place] # (Auto) 0.6 Eos # (Auto) 0.1 [...] chart, including current orders, allied health and workday financials consultant notes, labs/imaging and performed dietrich elements of exam and I formulated the plan of care and facilitated the medical decision making. I completed a substantive portion of this encounter, the medical decision makingportion of this note in its entirety, including Allied health note review, nursing note review, workday financials consultant note review, discussion with nursing and case management, and more than 50% of my time was spent on counseling and coordination of care, time spent 60 minutes Documented By: Deshawn Choudhary MD [id number] Signed By: <Electronically signed by Deshawn Choudhary MD> 03/23/24 1407 <Electronically signed by DO LEILA Mayfield> 03/23/24 1038 [facility] Work Phone: 1(888) 921-299010-08-2024 Progress note Author Alonso Agudelo [facility] March 23, 2024 1:50pm Note Date/Time March 23, 2024 9: 53am [facility] [address] [place] [address] Hospitalist Progress Note Signed Patient: Stella Kong MR#: [id number] : 1945 Acct:[id number] Age/Sex: 79 / F Adm Date: 4 Loc: Room: [address] [place] [address] Type: ADM IN Attending Dr: Alonso Agudelo [...] mg 03/21/24 19:12 Bisacodyl 10 Mg Supp.Rect [place] 03/21/25 19:11 DAILY PRN Constipation Bisacodyl 10 mg 03/21/24 19:12 Bisacodyl 5 Mg Tablet.Dr PO 03/21/25 19:11 DAILY PRN Constipation Calcium Carbonate 1 tab 03/22/24 08:00 03/23/24 09:13 Calcium Carbonate/Vitamin D3 500 Mg/200 Unit Tablet PO 03/22/25 07:59 1 tab BID.WITH.MEALS LULÚ Administration Docusate Sodium 100 mg 03/21/24 21:00 10/08/24 09:13 Docusate 100 Mg Capsule PO 03/21/25 [...] Medicine Documented By: Teresa Antony APRN 02/06 2857 Signed By: <Electronically signed by MARIA ESTHER Antony> 03/23/24 1324 <Electronically signed by Alonso Agudelo MD> 03/23/24 6509 [facility] Work Phone: 1(224) 219-852710-07-2024 Consult note Author Mala Nettles [facility] March 22, 2024 4:26pm Note Date/Time March 22, 2024 4: 21pm [facility] [address] [place] [address] Cardiology Consult Note Signed Patient: Stella Kong MR#: [id number] : 1945 Acct:[id number] Age/Sex: 79 / F Adm Date: 4 Loc: 3T Room: [address] [place] [address] Type: ADM IN Attending Dr: Alonso Agudelo MD Copies to: MD Deniz Navas II, MD Mala Nettles MD~ Cardiology HPI History of Present Illness [...] negative unless noted below or in HPI [facility] Medical History (Updated 03/22/24 @ 15:02 by [...] # (Auto) 0.6 L 1.7 (1.00-4.8) x10E3/uL [place] # (Auto) 0.4 0.8 (0.0-0.8) x10E3/uL Eos [...] as needed. Documented By: Mala Nettles MD 03/22/241615 Signed By: <Electronically signed by Mala Nettles MD> 03/22/246 [facility] Work Phone: 1(942) 753-655810-07-2024 Progress note Author Alonso Agudelo [facility] March 22, 2024 3:44pm Note Date/Time March 22, 2024 1: 47pm [facility] [address] [place] [address] Hospitalist Progress Note Signed Patient: Stella Kong MR#: [id number] : 1945 Acct:[id number] Age/Sex: 79 / F Adm Date: 4 Loc: 3T Room: [address] [place] [address] Type: ADM IN Attending Dr: Alonso Agudelo [...] mg 03/21/24 19:12 Bisacodyl 10 Mg Supp.Rect [place] 03/21/25 19:11 DAILY PRN Constipation Bisacodyl 10 [...] signed by Alonso Agudelo MD> 03/22/24 1544 [facility] Work Phone: 1(820) 191-235310-07-2024 Consult note Author Mani Garcia [facility] March 22, 2024 9:47am Note Date/Time March 22, 2024 9: 47am [facility] [address] [place] [address] Orthopedic Consult Note Signed Patient: Stella Kong MR#: [id number] : 1945 Acct:[id number] Age/Sex: 79 / F Adm Date: 4 Loc: Room: [address] [place] [address] Type: ADM IN Attending Dr: Alonso Agudelo MD Copies to: MD Deniz Navas II, MD Justin A Kelley, DO~ History of Present Illness HPI Consult date: 03/22/2024 Requesting provider: Bryan Coppola DO Consult reason: joint pain History of present illness: Close 79-year-old female s/p left hip hemiarthroplasty for femoral neck fracturewho presents to [facility] after a ground-level fall. Patient tells me that she was standing by her bed whenever her vertigo picked and caused her to fall beside her bed. She landed on her left side. She was unable to get up and was brought to [facility] by EMS where she was having significant discomfort of left side and unable to bear weight. X-rays performed in the emergency department were found to be negative. [facility] Medical History (Updated 03/22/24 @ 09:46 by [...] % (Auto) 74.0, Lymph % (Auto) 16.8, [place] % (Auto) 7.8, Eos % (Auto) 0.5, Baso % (Auto) 0.9, Nucleat RBC Rel Count 0.0, Neut # (Auto) 7.5, Lymph # (Auto) 1.7, [place] # (Auto) 0.8, Eos # (Auto) 0.1, Baso # (Auto) 0.1, PHA Creatinine Clear 44.36, Sodium 140 D, Potassium 3.7, Chloride 109 H, Carbon Dioxide 25.2, Anion Gap 9.5, BUN 13, Creatinine 0.78, Est GFR (CKD-EPI) > 60.0, Glucose 95, Calcium 8.4 L, Magnesium 2.0, Total Creatine Kinase 7110 H, Troponin I High Tbzz352.3 H*, 25-OH Vitamin D Total 33.0 03/21/24 23:04: Total Creatine Kinase 6966 H, CK-MB (CK-2) 80.7 H, CK-MB (CK-2) Rel Index 1.1, Troponin I High Sens 353.9 H* 03/21/24 23:00: Urine Color Colorless, Urine Appearance Clear, Urine pH 5.5, Ur Specific [place] 1.006, Urine Protein Negative, Urine Glucose (UA) [...] % (Auto) 91.7, Lymph % (Auto) 4.1, [place] % (Auto) 2.9, Eos % (Auto) 0.1, Baso % (Auto) 1.2, Nucleat RBC Rel Count 0.1, Neut # (Auto) 13.4 H, Lymph #(Auto) 0.6 L, [place] # (Auto) 0.4, Eos # (Auto) 0.0, [...] Appearance Clear, Urine pH 5.5, Ur Specific [place] 1.012, Urine Protein Negative, Urine Glucose (UA) [...] By: <Electronically signed by Mani Garcia DO> 03/22/2491 [facility] Work Phone: 1(305) 951-798810-06-2024 History and physical note Author Bryan Coppola [facility] March 21, 2024 9:10pm Note Date/Time March 21, 2024 9: 10pm [facility] [address] [place] [address] Hospitalist H&P Signed Patient: Stella Kong MR#: [id number] : 1945 Acct:[id number] Age/Sex: 79 / F Adm Date: 4 Loc: Room: [address] [place] [address] Type: ADM IN Attending Dr: Bryan Coppola DO Copies to: MD Bryan Brooke II, ~ HPI DATE OF EXAMINATION: 03/21/24 CHIEF COMPLAINT: [...] day. So I would put her nae [id number] history. She does not drink any alcohol. Family history includes coronary artery disease and 3 brothers. Review of Systems Review of Systems Review of systems: 10 systems are reviewed and are negative except as mentioned elsewhere in the documentation. [facility] Medical History (Updated 03/21/24 @ 21:08 by [...] % (Auto) 4.1 % (.) 03/21/24 17:58 [place] % (Auto) 2.9 % (.) 03/21/24 17:58 Eos % (Auto) 0.1 % (.) 03/21/24 17:58 Baso % (Auto) 1.2 % (.) 03/21/24 17:58 Nucleat RBC Rel Count 0.1 /100 WBC (0-0.5) 03/21/24 17:58 Neut # (Auto) 13.4 x10E3/uL (1.8-7.7) H 03/21/24 17:58 Lymph # (Auto) 0.6 x10E3/uL (1.00-4.8) L 03/21/24 17:58 [place] # (Auto) 0.4 x10E3/uL (0.0-0.8) 03/21/24 17:58 [...] pH 5.5 (5.0-9.0) 03/21/24 17:48 Ur Specific [place] 1.012 (1.001-1.030) 03/21/24 17:48 Urine Protein Negative [...] by Bryan Coppola DO> 03/21/24 2110 [facility] Work Phone: 1(141) 410-372809-13-2024 History of Present illness Narrative* Robert Simpson DO - 02/27/2024 11:15 AM EDT Images from the original note were not included. Assessment/Plan Diagnoses and all orders for this visit: Pseudophakia - s/p CE OD (POD #7): Patient provided with post-op form. Instructed to continue drops. Discontinueeye shield. Instructed to call immediately with increased pain, redness, decreased vision, questions or concerns. documented in this encounterSouthPointe [id number] History of Present illness Narrative* Robert Simpson DO - 02/20/2024 11:00 AM EDT Images from the original note were not included. Assessment/Plan Diagnoses and all orders for this visit: Pseudophakia - s/p CE OD (POD #1): Patient provided with post-op form. Instructed to continue drops as well as shield. Instructed to call immediately with increased pain, redness, decreased vision, questions or concerns. documented in this encounterSouthPointe [id number] History of Present illness Narrative* Robert Simpson DO - 02/03/2024 11:15 AM EDT Images [...] different lens options were explained including the uer-kt-rmtzki fees for any upgrades. Intraocular lens (IOL) [...] vision, questions or concerns. documented in this encounterSouthPointe [id number] History of Present illness Narrative* Celina Craven, [...] increase in dizziness/vertigo without changes in eyes. Blessing Hallpike: worse on left than right with [...] Items useful for predicting BPPV were positive. Workday Financials Consultant Goals: Decrease feeling of vertigo/dizziness 50% in [...] below. Physician Signature: Date: documented in this encounterNOSC HealthcareEvaluation + Plan note No data available for this section [facility] Evaluation note* Diagnosis Vertigo- Primary Dizziness and giddiness Vestibular ataxia Other cerebellar ataxia documented in this encounter [facility]* Diagnosis Onset Date Resolution Status Acute UTI acute Elevated troponin acute Fall acute Leukocytosis acute Rhabdomyolysis acute [facility] Work Phone: Evaluation note* Diagnosis Onset Date Resolution Status Acute UTI acute Anxiety acute Benzodiazepine dependence ac [place] Cigarette smoker acute Closed subcapital fracture of left femur acute Contusion of left forearm ac [place] Contusion of left hip acute Contusion of rib on left side acute COPD (chronic obstructive pulmonary disease) acute Elevated troponin acute Fall acute Hypothyroidism associated with surgical procedure acute Left hip pain acute Leukocytosis acute Metabolic encephalopathy acu te Rhabdomyolysis acute [facility] Work Phone: Evaluation note* Diagnosis Urinary [...] instructions No data available for this section [facility] Progress note No data available for this section [facility] Summary Purpose Family History Relationship Condition Age at Onset Recorded Date/T jaylin Not Specified Heart disease Unknown Advance Directives Advance Directive Response Recorded Date/ Time Advance [...] DATE CREATED AUTHOR AUTHOR'S ORGANIZ ATION 05/05/2024 [facility] EPIC DATE CREATED AUTHOR AUTHOR'S ORGANIZ ATION 07/20/2024 [facility] DATE CREATED AUTHOR AUTHOR'S ORGANIZ ATION 07/21/2024 [facility] DATE CREATED AUTHOR AUTHOR'S ORGANIZ ATION 07/28/2024 [facility] DATE CREATED AUTHOR AUTHOR'S ORGANIZ ATION 07/30/2024 [facility] Reason for Visit (unrecogniz ed section and content) Specialty Diagnoses / Procedures Referred By Contac t Referred To Contact Physical Therapy Diagnoses Vertigo Vestibular ataxia Procedures [place] OFFICE/OUTPATIENT NEW HIGH MDM 60 MINUTES Deniz Ochoa MD [address] [facility] [address] [place] [address] Celina Craven, PT [address] [place] [address] Referral ID Status Reason Start Date Expiration Date Visits Requested Visits Authorized [id number] Authorized Specialty Services Required 07/04/2023 08/04/2023 10 [...] stay admitted 1 dx: UTI,fall,rhabdomyolysis discharged to [facility] 03/25/24 discharged home 04/08/24 Medication Question Pt [...] End: March 25, 2024 Kelsey Thao , [employer] Other Provider Active Start: March 21, 2024 [...] 2024 End: March 25, 2024 Naresh Mcguire Jr DO Other Provider [...] Provider Active St art: March 22, 2024 [place] L Belcik Jr, DO Other Provider Active S tart: [...] tart: March 23, 2024 Sohan Kelly , Other Provider Active Start: March 23, 2024 [...] 23, 2024 Deshawn Choudhary MD Attending Pr ovider, Other Provider Active Start: March 23, 2024 [...] Provider Active Star t: March 24, 2024 MAYUR RodneyC Other Provider Active Start: March 24, 2024 Mani Garcia DO Other Provider Active Start : March 24, 2024 Darci Marley II, MD Other Provider Active S tart: March 24, 2024 Sohan Kelly Other Provider Active Start: March 24, 2024 [...] Other Provider Active Start: March 24, 2024 Forming Department End Finder Relationship Specialty Start Date End Date Deniz Ochoa MD [address] [place] [address] PCP - [employer] 06/16/20 Deniz Ochoa MD [address] [place] [address] PCP - General Internal Medicine 10/22/22 Forming Department End Finder Relationship Specialty Start Date End Date Deniz Ochoa MD [address] [place] [address] PCP - [employer] 06/16/20 Deniz Ochoa MD [address] [place] [address] PCP - General Internal Medicine 10/22/22 Team Status: Active Member Role Status Dates Deniz Ochoa II MD Primary Care Provider Active Start: March 21, 2024 Yokasta Flores DO Emergency Provider Active Sta rt: March 21, 2024 Bryan Coppola DO Admit Provider , Attending Provider Active Start: March 21, 2024 Forming Department End Finder Relationship Specialty Start Date End Date Deniz Ochoa MD [address] [place] [address] PCP - [employer] 06/16/17 Deniz Ochoa MD [address] [place] [address] PCP - General Internal Medicine 10/22/22 Forming Department End Finder Relationship Specialty Start Date End Date Deniz Ochoa MD [address] [place] [address] PCP - Humana 06/16/17 Deniz Ochoa MD [address] [place] [address] PCP - General Internal Medicine 10/22/22 Forming Department End Finder Relationship Specialty Start Date End Date Deniz Ochoa MD [address] [place] [address] PCP - Humana 06/16/17 Deniz Ochoa MD [address] [place] [address] PCP - General Internal Medicine 10/22/22 Forming Department End Finder Relationship Specialty Start Date End Date Deniz Ochoa MD [address] [place] [address] PCP - Hum[employer] 06/16/17 Deniz Ochoa MD [address] [place] [address] PCP - General Internal Medicine 10/22/22 Forming Department End Finder Relationship Specialty Start Date End Date Deniz Ochoa MD [address] [place] [address] PCP - Hum[employer] 06/16/17 Deniz Ochoa MD [address] [place] [address] PCP - General Internal Medicine 10/22/22 Forming Department End Finder Relationship Specialty Start Date End Date Deniz Ochoa MD [address] [place] [address] PCP - Hum[employer] 06/16/17 Deniz Ochoa MD [address] [place] [address] PCP - General Internal Medicine 10/22/22 Forming Department End Finder Relationship Specialty Start Date End Date Deniz Ochoa MD [address] [place] [address] PCP - Humana 06/16/17 Deniz Ochoa MD [address] [place] [address] PCP - General Internal Medicine 10/22/22 Forming Department End Finder Relationship Specialty Start Date End Date Deniz Ochoa MD [address] [place] [address] PCP - Humana 06/16/17 Deniz Ochoa MD [address] [place] [address] PCP - General Internal Medicine 10/22/22 Forming Department End Finder Relationship Specialty Start Date End Date Deniz Ochoa MD [address] [place] [address] PCP - Hum[employer] 06/16/17 Michael Caicedo MD [address] [place] [address] PCP - General Family Medicine 07/22/24 Forming Department End Finder Relationship Specialty Start Date End Date Deniz Ochoa MD [address] [facility] [address] [place] [address] PCP - Hum[employer] 06/16/17 Deniz Ochoa MD [address] [facility] [address] [place] [address] PCP - General Internal Medicine 10/22/22 07/21/24 Michael Caicedo MD [address] [facility] [address] [place] [address] PCP - General Family Medicine 07/22/24 Goals (unrecognized section and content) Goals may [...] BE BASED ON THE PRIMARY CLINICAL RECORDS. [employer] [facility]. provides no warranty or guarantee of the accuracy or completeness of information in this document.
== END 2024-08-23 10:59 | disposition home or self-care (01) ==
LOC: EC 10:58
PROVIDERS: PCP Internal Medicine; Visit Provider Orthopaedic Surgery
DX: S42.294D Other nondisplaced fracture of upper end of right humerus, subsequent encounter for fracture with routine healing (principal)
CPT/HCPCS: 73030